=== PATIENT | female | born 1950 | race Caucasian/White ===

== ENCOUNTER 2019-07-25 07:56 | Inpatient (IN) | payer OTHER ==
[~2019-07-25] VITALS: Ht 154.9 cm; Wt 63.5 kg
[~2019-07-25 07:56] MED LIST: NIFE60TE15 PO; TYL3 PO
[2019-07-25 07:57] VITALS: BP 224/158
--- NOTE | 2019-07-25 07:57 | NUR ---
PT MAK ALS AND PLACED IN BED 8.
[2019-07-25] MEDS ORDERED: NACL 0.9% 500 ML IV SCH (07:59)
[2019-07-25] MEDS ORDERED: IPRATROPIUM 0.02% 0.5 MG/2.5 ML NEBU INH ONE ×2 (08:00→08:04)
[2019-07-25] MEDS ORDERED: methylPREDNISolone SS 125 MG/2 ML VIAL IVP ONE (08:00)
[2019-07-25] MEDS ORDERED: MAG SULF 2000 MG/WATER PREMIX 50 ML IV ONE (08:00)
[2019-07-25] MEDS ORDERED: ALBUTEROL 0.083% 2.5 MG/3 ML NEBU INH ONE ×3 (08:00→08:20)
--- NOTE | 2019-07-25 08:01 | NUR ---
RT at bedside for breathing treatment.
--- NOTE | 2019-07-25 08:03 | NUR ---
pt biba for sob pt was given breathing tx albuterol 5mg and atrovent 0.5mg with no relief, abg was drawn on lr without incident and results given to dr. daniels and then pt was placed on dior v60 bipap with settings 12/6 rr 16 fio2 40% alarms on and audible and ambu bag at side of bipap pt given another breathing tx of 10mg of albuterol pt is very agitated b\s are wheezing bilaterally. pt wearing large face mask.
--- NOTE | 2019-07-25 08:05 | NUR ---
73/F BIBA WITH C/O DIFFICULTY BREATHING X 30 MIN. PT STATES THAT SHE IS IN PAIN BUT UNABLE TO IDENTIFY LOCATION. PT PRESENTS WITH A CLEAR SPEECH BUT STATES THAT SHE IS HAVING DIFFICULTY BREATHING. WHEEZES HEARD BILATERALLY, PT IS ON 15L NON REBREATHER. RESPIRATORY TO SEE PT. PT KEEPS TRYING TO TAKE MASK OFF, STAFF REDIRECTED PT. PT DENIES N/V/D; UNABLE TO ACCESS GAIT AT THIS TIME. BP ELEVATES, ER MD AWARE. PATIENT POSITIONED FOR COMFORT; HOB ELEVATED; BEDRAILS UP X2 FOR PT SAFETY; BED DOWN IN LOWEST POSITION. ER MD MADE AWARE OF PT STATUS. HX: UNABLE TO OBTAIN AT THIS TIME RX: UNABLE TO OBTAIN AT THIS TIME
[2019-07-25 08:24] VITALS: BP 224/158
--- NOTE | 2019-07-25 08:24 | NUR ---
LAB AT BEDSIDE.
[2019-07-25 08:41] LABS: ANION GAP 17.3 (8-16); CREATININE 2.1 mg/dL (0.6-1.3); POTASSIUM 4.3 mmol/L (3.5-5.1)
[2019-07-25 08:45] LABS: PROTHROMBIN TIME 9.4 secs (10.8-13.4)
[2019-07-25] MEDS ORDERED: LORazepam 2 MG/ML VIAL IVP ONE (08:45)
--- NOTE | 2019-07-25 08:45 | NUR ---
Pt yelling at nursing staff and industrial ecology technician. Pt yelling to have her bipap removed. I advised patient that she needs to keep it on to help her breathe and pt yelling "I don't need it! If you don't take it off I'll take it off myself!" Pt was advised to not remove her mask and patient became irrate and ripped the mask of her face and threw it on the ground. Pt is very agitated and uncooperative at this time. Dr. Timmons made aware.
--- NOTE | 2019-07-25 08:47 | NUR ---
pt pulled mask off and would not allow to finish breathing tx notified
[2019-07-25 08:48] LABS: ALBUMIN 3.3 g/dL (3.4-5.0); TOTAL BILIRUBIN 0.2 mg/dL (0.0-1.0)
[2019-07-25] MEDS ORDERED: ENALAPRILAT 2.5 MG/2 ML VIAL IVP ONE (08:55)
[2019-07-25 08:56] LABS: APPEARANCE,URINE CLOUDY (CLEAR); BILIRUBIN,URINE NEGATIVE (NEGATIVE); BLOOD, URINE 1+ (NEGATIVE); COLOR,URINE YELLOW (YELLOW); LEUKOCYTE ESTERASE ,URINE 1+ (NEGATIVE); NITRITE, URINE NEGATIVE (NEGATIVE); UGLUCOSE NEGATIVE (NEGATIVE)
[2019-07-25] MEDS ORDERED: ACETAMINOPHEN 325 MG TAB PO ONE (09:15)
[2019-07-25] MEDS ORDERED: NITROGLYCERIN 2% 1 GM PKT TP ONE (09:15)
[2019-07-25] MEDS ORDERED: ASPIRIN 81 MG TAB.CHEW PO ONE (09:15)
[2019-07-25] MEDS ORDERED: NITROGLYCERIN 0.4 MG TAB SL ONE (09:15)
--- NOTE | 2019-07-25 09:16 | NUR ---
PT IS ON 3L NC.
[2019-07-25 09:24] LABS: HEMOGLOBIN 11.8 g/dL (12.0-16.0); MEAN CORPUSCULAR HEMOGLOBIN 27 pg (27-31); MEAN CORPUSCULAR HGB CONC 31 g/dL (33-37); PLATELET COUNT (AUTO) 201 K/uL (140-450); RED BLOOD CELL COUNT(AUTO) 4.41 MIL/uL (4.20-5.40); RED CELL DISTRIBUTION WIDTH 20.2 % (11.6-13.7); WHITE BLOOD COUNT (AUTO) 16.6 K/uL (4.8-10.8)
[2019-07-25 09:26] LABS: EOSINOPHILS % (MANUAL) 2 % (0-4); LYMPHOCYTES % (MANUAL) 11 % (20-46); MONOCYTES % (MANUAL) 2 % (5-12)
[2019-07-25] MEDS ORDERED: LEVOFLOXACIN 500 MG/D5W PREMIX 100 ML IV ONE (09:30)
[2019-07-25 09:52] LABS: WBC,URINE 16-25 (MOD) /HPF (0-5)
[2019-07-25] MEDS ORDERED: ONDANSETRON 4 MG/2 ML VIAL IVP PRN (09:55)
[2019-07-25] MEDS ORDERED: HYDROcodone/APAP 5/325 MG 1 TAB TAB PO PRN (09:55)
[2019-07-25] MEDS ORDERED: ACETAMINOPHEN 325 MG TAB PO PRN (09:55)
[2019-07-25] MEDS ORDERED: MORPHINE SULFATE 4 MG/ML SYR IVP PRN (09:55)
[2019-07-25] MEDS ORDERED: ALBUTEROL 0.083% 2.5 MG/3 ML NEBU IH PRN (09:55)
--- NOTE | 2019-07-25 09:57 | NUR ---
PT IS ON 2L NC, O2 98%
--- NOTE | 2019-07-25 09:59 | NUR ---
EKG AT BEDSIDE.
--- NOTE | 2019-07-25 10:21 | NUR ---
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 PT REPORTS RX OF NIFIDINE, LYRICA.
[2019-07-25] MEDS ORDERED: LYR25 PO (10:23)
--- NOTE | 2019-07-25 10:50 | NUR ---
RECEIVED PATIENT FROM EXECUTIVE DIRECTOR SHELTERED WORKSHOP. PATIENT IS ON 2L NC. CAME FROM HOME. FULL CODE, ALLERGIES TO PENICILLIN. PATIENT IS AAOX4, CURRENTLY RECEIVING LEVAQUIN. ON TELE, NSR. WILL CONTINUE WITH PLAN OF CARE.
--- NOTE | 2019-07-25 10:50 | NUR ---
Patient will be admitted to care of DR SIGALA. Admited to TELE. Will go to room 123B. Belongings list completed. Report to BELL SIBLEY.
[2019-07-25] MEDS ORDERED: ENALAPRILAT 2.5 MG/2 ML VIAL IVP PRN (12:10)
[2019-07-25] MEDS ORDERED: predniSONE 20 MG TAB PO SCH (12:19)
[2019-07-25] MEDS: LORazepam 2 MG/ML VIAL IVP PRN ×3 (12:23→20:21)
--- NOTE | 2019-07-25 12:30 | NUR ---
ADMINISTERED ATIVAN IVP FOR ANXIETY
[2019-07-25] MEDS ORDERED: IPRATROPIUM 0.02% 0.5 MG/2.5 ML NEBU IH SCH (13:00)
[2019-07-25] MEDS ORDERED: ALBUTEROL 0.083% 2.5 MG/3 ML NEBU IH SCH (13:00)
--- NOTE | 2019-07-25 14:39 | NUR ---
ADMINISTERED ATIVAN FOR ANXIETY. PER DR, IV INFUSION IS AT TKO RATE.
[2019-07-25] MEDS ORDERED: hydrALAZINE 20 MG/ML VIAL IVP PRN (14:45)
--- NOTE | 2019-07-25 15:03 | NUR ---
DISCHARGE PLANNING 68 YRS OLD FEMALE ADMITTED FROM HOME WITH A DX OF PNEUMONIA. PT HAS A HX OF HTN AND SMOKER. ADMINISTERED IV LEVAQUIN, O2 2L/NC , BREATHING TREATMENT AND PREDNISONE . DC PLANING NEPHRO CONSULT , ECHO ORDERED AND MOST LIKELY TO GO BACK HOME UPON DISCHARGE AND FOLLOW UP AN OUT PT PULMONARY EVALUATION FOR ASTHMA . FAXED THE ORDER TO [facility] CM TO FOLLOW UP .
--- NOTE | 2019-07-25 15:45 | NUR ---
PATIENT IS SLEEPING IN BED. VISIBLE CHEST RISE AND FALL. HOB IS ELEVATED. NO COMPLAINTS AT THIS TIME.
[2019-07-25 16:00] VITALS: BP 146/78
--- NOTE | 2019-07-25 17:00 | NUR ---
PATIENTS TEMPERATURE AT 99.5. REAPPLIED NEW ICE BAGS TO VARIOUS PARTS OF BODY. FAMILY IS AT BEDSIDE AND BOLUS NS IS STILL INFUSING.
[2019-07-25] MEDS ORDERED: FUROSEMIDE 20 MG/2 ML VIAL IVP SCH (17:36)
[2019-07-25] MEDS ORDERED: PREGABALIN 25 MG CAP PO SCH ×2 (17:36→17:45)
[2019-07-25] MEDS ORDERED: PREGABALIN 50 MG CAP PO SCH (17:46)
--- NOTE | 2019-07-25 18:55 | NUR ---
RECEIVED PATIENT ON 3L NASAL CANNULA, PULSE OX SAT 96%. SCHEDULED BREATHING TREATMENT ADMINISTERED. TOLERATED TX WELL WITHOUT ADVERSE SIDE EFFECT. NO ACUTE RESPIRATORY DISTRESS NOTED. WILL CONTINUE TO MONITOR.
[2019-07-25] MEDS ORDERED: ALBUTEROL SULFATE/IPRATROPIU 3 ML SOL IH SCH (19:00)
--- NOTE | 2019-07-25 19:10 | NUR ---
REPORT RECEIVED FROM AM NURSE AT BEDSIDE. PT IN STABLE CONDITION. AAOX4. INTRODUCED SELF TO PT. BOARD UPDATED. NO COMPLAINTS OF PAIN. NO SOB ON 2L O2 VIA NC. AFEBRILE. IV SITE L BICIP RUNNING NS@TKO PATENT AND INTACT. SKIN WARM, DRY, AND INTACT WITH NO OPEN WOUNDS. BED LOCKED IN LOW POSITION. CALL DOHERTY WITHIN REACH. SAFETY PRECAUTION IN PLACE. ALL NEEDS MET AT THIS TIME.
[2019-07-25 20:00] VITALS: BP 135/76
--- NOTE | 2019-07-25 20:21 | NUR ---
ADALAT GIVEN PO. ATIVAN GIVEN FOR AGITATION. PT TOLERATED WELL.
--- NOTE | 2019-07-25 20:46 | NUR ---
MORPHINE GIVEN FOR 7/10 FOOT PAIN. PT TOLERATED WELL.
[2019-07-25] MEDS ORDERED: NIFEdipine 60 MG TABER PO SCH (21:00)
--- NOTE | 2019-07-25 22:40 | NUR ---
PATIENT SIGNED AMA PAPERWORK. [facility] [employer] CALLED.
--- NOTE | 2019-07-25 23:25 | NUR ---
PATIENT LEFT AMA.
[2019-07-26] MEDS ORDERED: ENOXAPARIN 30 MG/0.3 ML SYR SUBQ SCH (09:00)
[2019-07-26] MEDS ORDERED: ASPIRIN 81 MG TAB.CHEW PO SCH (09:00)
[2019-07-26] MEDS ORDERED: PREGABALIN 25 MG CAP PO SCH (09:00)
[2019-07-26] MEDS ORDERED: predniSONE 20 MG TAB PO SCH (09:00)
[2019-07-26] MEDS ORDERED: ENOXAPARIN 40 MG/0.4 ML SYR SUBQ SCH (09:00)
[2019-07-27] MEDS ORDERED: LEVOFLOXACIN 500 MG/D5W PREMIX 100 ML IV SCH (09:00)
== END 2019-07-25 23:00 | disposition left against medical advice (07) | DRG 871 ==
LOC: MED 07:56 → MTU 09:59
PROVIDERS: ADMIT Family Medicine; ATTEND Family Medicine
DX: A41.9 Sepsis, unspecified organism (principal); J96.90 Respiratory failure, unspecified, unspecified whether with hypoxia or hypercapnia; J18.9 Pneumonia, unspecified organism; J96.01 Acute respiratory failure with hypoxia; I16.1 Hypertensive emergency; N39.0 Urinary tract infection, site not specified; E87.2 Acidosis; N17.9 Acute kidney failure, unspecified; E87.0 Hyperosmolality and hypernatremia; I13.0 Hypertensive heart and chronic kidney disease with heart failure and stage 1 through stage 4 chronic kidney disease, or unspecified chronic kidney disease; Z88.0 Allergy status to penicillin; R65.20 Severe sepsis without septic shock; G62.9 Polyneuropathy, unspecified; F17.210 Nicotine dependence, cigarettes, uncomplicated; Z60.2 Problems related to living alone; N18.9 Chronic kidney disease, unspecified; E78.5 Hyperlipidemia, unspecified; I50.9 Heart failure, unspecified
CPT/HCPCS: 36415; 36600; 71045; 80053; 81001; 82803; 83605; 83880; 84484; 85025; 85610; 85730; 87040; 87081; 87086; 87186; 93005; 94640; 96361; 96374; 96375; 99291; J1940; J1956; J2060; J2270; J2930; J3475; J3490; J7030; J7512; J7613; J7620; J7644; Q0092

== ENCOUNTER 2019-07-31 13:48 | Emergency (ER) | payer OTHER ==
[~2019-07-31] VITALS: Ht 162.6 cm; Wt 60.8 kg
[~2019-07-31 13:48] MED LIST changes: +LYR25 PO; -TYL3 PO
--- NOTE | 2019-07-31 13:55 | NUR ---
PT BIBA C/O BIALAT FOOT PAIN X 5 DAYS. PT SATTES SHE HAS NEUROPATHY AND HAS A BURNING TINGLING SENSATION ON BILAT LEGS. PT SATTES SHE RAN OUT OF [place] 5 DAYS AGO. VSS. BS 99. PMH: HTN, AND NEUROPATHY. ALLEGIES: PENCILLIN.
[2019-07-31 14:22] VITALS: BP 189/117
[2019-07-31] MEDS ORDERED: KETOROLAC 30 MG/ML VIAL IM ONE (14:30)
[2019-07-31] MEDS ORDERED: HYDROcodone/APAP 5/325 MG 1 TAB TAB PO ONE (14:30)
[2019-07-31 15:26] VITALS: BP 166/112
--- NOTE | 2019-07-31 15:27 | NUR ---
Patient discharged with v/s stable. Written and verbal after care instructions given and explained. Patient alert, oriented and verbalized understanding of instructions. Wheel Chair Assisted with steady gait. All questions addressed prior to discharge. ID band removed. Patient advised to follow up with PMD. Rx of NORCO AND LYRICA given. Patient educated on indication of medication including possible reaction and side effects. Opportunity to ask questions provided and answered.
== END 2019-07-31 15:19 | disposition home or self-care (01) ==
LOC: MED 13:48
DX: G57.93 Unspecified mononeuropathy of bilateral lower limbs (principal); I10 Essential (primary) hypertension; Z76.0 Encounter for issue of repeat prescription; Z88.0 Allergy status to penicillin; Z90.49 Acquired absence of other specified parts of digestive tract; Z98.890 Other specified postprocedural states; Z79.899 Other long term (current) drug therapy
CPT/HCPCS: 82948; 96372; 99283; J1885

== ENCOUNTER 2019-08-31 13:42 | Emergency (ER) | payer OTHER ==
[~2019-08-31] VITALS: Ht 165.1 cm; Wt 60.3 kg
[2019-08-31 13:49] VITALS: BP 107/62
--- NOTE | 2019-08-31 14:10 | NUR ---
BIBA WITH REPORTS OF SOB WORSE TODAY. STATES SHE WAS DX WITH PNA AND HAS NOT BEEN TAKING HER ABX. PATIENT STATES COUGH & CHEST PAIN OF 6/10 AT THIS TIME. PATIENT POSITIONED FOR COMFORT; HOB ELEVATED; BEDRAILS UP X2; BED DOWN. ER MD MADE AWARE OF PT STATUS.
[2019-08-31] MEDS ORDERED: ALBUTEROL SULFATE/IPRATROPIU 3 ML SOL IH ONE (14:35)
[2019-08-31] MEDS ORDERED: DILTIAZEM 25 MG/5 ML VIAL IVP ONE (14:35)
--- NOTE | 2019-08-31 14:44 | NUR ---
[facility] THERAPY AND RESPIRATORY DRUG GIVEN ORDERED ENCOURAGED PATIENT FOR INTERMITTENT DEEP BREATHING AND COUGH
[2019-08-31] MEDS: NACL 0.9% 500 ML IV SCH ×2 (14:50→15:05)
[2019-08-31] MEDS ORDERED: PREGABALIN 50 MG CAP PO ONE (15:15)
--- NOTE | 2019-08-31 15:18 | NUR ---
CALLED PHARMACY FOR RAMSES.
[2019-08-31 15:24] LABS: ANION GAP 14.5 (8-16); CARBON DIOXIDE 28.9 mmol/L (21-32); CREATININE 2.2 mg/dL (0.6-1.3); POTASSIUM 3.4 mmol/L (3.5-5.1)
[2019-08-31 15:30] LABS: APPEARANCE,URINE CLEAR (CLEAR); BILIRUBIN,URINE NEGATIVE (NEGATIVE); BLOOD, URINE NEGATIVE (NEGATIVE); COLOR,URINE YELLOW (YELLOW); LEUKOCYTE ESTERASE ,URINE NEGATIVE (NEGATIVE); NITRITE, URINE NEGATIVE (NEGATIVE); UGLUCOSE NEGATIVE (NEGATIVE)
[2019-08-31 15:31] LABS: ALBUMIN 2.8 g/dL (3.4-5.0); TOTAL BILIRUBIN 0.2 mg/dL (0.0-1.0)
[2019-08-31 15:51] LABS: PROTHROMBIN TIME 10.1 secs (10.8-13.4)
[2019-08-31] MEDS ORDERED: AZITHROMYCIN 1,000 MG in DEXTROSE 5% 500 ML IV ONE (16:35)
[2019-08-31 16:37] LABS: BASOPHILS % (AUTO) 0.5 % (0.0-2.0); EOSINOPHILS # (AUTO) 0.3 K/uL (0-0.4); EOSINOPHILS % (AUTO) 4.5 % (0.0-4.0); HEMATOCRIT 35.9 % (36-48); HEMOGLOBIN 11.4 g/dL (12.0-16.0); LYMPHOCYTES # (AUTO) 0.7 K/uL (2.5-16.5); LYMPHOCYTES % (AUTO) 10.5 % (20.5-51.1); MEAN CORPUSCULAR HEMOGLOBIN 27 pg (27-31); MEAN CORPUSCULAR HGB CONC 32 g/dL (33-37); MONOCYTES # (AUTO) 0.5 K/uL (0.8-1.0); MONOCYTES % (AUTO) 7.5 % (1.7-9.3); NEUTROPHILS # (AUTO) 5.4 K/uL (1.8-7.7); PLATELET COUNT (AUTO) 82 K/uL (140-450); RED BLOOD CELL COUNT(AUTO) 4.22 MIL/uL (4.20-5.40); RED CELL DISTRIBUTION WIDTH 16.5 % (11.6-13.7)
[2019-08-31] MEDS ORDERED: AZITHROMYCIN 500 MG INJ VIAL IV ONE (16:59)
[2019-08-31 17:46] VITALS: BP 120/63
--- NOTE | 2019-08-31 17:46 | NUR ---
Patient discharged with v/s stable. Written and verbal after care instructions given and explained. Patient alert, oriented and verbalized understanding of instructions. Wheel Chair Assisted with to car. All questions addressed prior to discharge. ID band removed. Patient advised to follow up with PMD. Rx of LYRICA given. Patient educated on indication of medication including possible reaction and side effects. Opportunity to ask questions provided and answered.
== END 2019-08-31 17:46 | disposition home or self-care (01) ==
LOC: MED 13:42
DX: J18.9 Pneumonia, unspecified organism (principal); G62.9 Polyneuropathy, unspecified; J44.9 Chronic obstructive pulmonary disease, unspecified; I10 Essential (primary) hypertension; F17.200 Nicotine dependence, unspecified, uncomplicated; Z88.0 Allergy status to penicillin; Z79.899 Other long term (current) drug therapy
CPT/HCPCS: 36415; 36600; 71045; 80053; 81003; 82803; 83605; 83880; 84484; 85025; 85610; 85730; 87040; 87086; 93005; 94640; 96365; 96375; 99284; J0456; J3490; J7030; J7060; J7620; Q0092

== ENCOUNTER 2019-09-03 10:08 | Inpatient (IN) | payer OTHER ==
[~2019-09-03] VITALS: Ht 165.1 cm; Wt 52.2 kg
--- NOTE | 2019-09-03 10:08 | NUR ---
Patient BIBA BLS, transferred to bed 2. RN evaluating patient at bedside.
[2019-09-03 10:10] VITALS: BP 199/130
[2019-09-03] MEDS ORDERED: ALBUTEROL SULFATE/IPRATROPIU 3 ML SOL IH ONE (11:05)
[2019-09-03] MEDS ORDERED: FAMOTIDINE 20 MG/2 ML VIAL IVP ONE (11:05)
[2019-09-03] MEDS ORDERED: CLINDAMYCIN 900 MG in DEXTROSE 5% 100 ML IV ONE (11:05)
[2019-09-03] MEDS ORDERED: methylPREDNISolone SS 125 MG/2 ML VIAL IVP ONE (11:05)
[2019-09-03] MEDS ORDERED: GENTAMICIN 80 MG in DEXTROSE 5% 100 ML IV ONE (11:05)
[2019-09-03] MEDS ORDERED: diphenhydrAMINE 50 MG/ML VIAL IVP ONE (11:05)
[2019-09-03] MEDS ORDERED: THIAMINE 200 MG/2 ML VIAL IM ONE (11:05)
[2019-09-03] MEDS ORDERED: HYDROcodone/APAP 5/325 MG 1 TAB TAB PO ONE (11:35)
[2019-09-03] MEDS: NACL 0.9% 1,000 ML IV SCH ×2 (11:51→13:14)
[2019-09-03 12:23] LABS: PROTHROMBIN TIME 9.7 secs (10.8-13.4)
[2019-09-03 12:24] LABS: BASOPHILS % (AUTO) 0.8 % (0.0-2.0); EOSINOPHILS # (AUTO) 0.2 K/uL (0-0.4); EOSINOPHILS % (AUTO) 3.7 % (0.0-4.0); HEMATOCRIT 38.9 % (36-48); HEMOGLOBIN 12.2 g/dL (12.0-16.0); LYMPHOCYTES # (AUTO) 0.7 K/uL (2.5-16.5); MEAN CORPUSCULAR HEMOGLOBIN 27 pg (27-31); MEAN CORPUSCULAR HGB CONC 32 g/dL (33-37); MEAN CORPUSCULAR VOLUME 84.7 fL (80-94); MONOCYTES # (AUTO) 0.4 K/uL (0.8-1.0); MONOCYTES % (AUTO) 6.7 % (1.7-9.3); NEUTROPHILS # (AUTO) 4.4 K/uL (1.8-7.7); PLATELET COUNT (AUTO) 78 K/uL (140-450); RED BLOOD CELL COUNT(AUTO) 4.59 MIL/uL (4.20-5.40); RED CELL DISTRIBUTION WIDTH 16.5 % (11.6-13.7); WHITE BLOOD COUNT (AUTO) 5.8 K/uL (4.8-10.8)
[2019-09-03 12:37] LABS: ANION GAP 14.1 (8-16); CARBON DIOXIDE 28.6 mmol/L (21-32); NEUTROPHILS % (AUTO) 76.8 % (42.2-75.2); POTASSIUM 3.7 mmol/L (3.5-5.1)
[2019-09-03 12:39] LABS: ALBUMIN 3.2 g/dL (3.4-5.0); TOTAL BILIRUBIN 0.4 mg/dL (0.0-1.0)
--- NOTE | 2019-09-03 13:16 | NUR ---
TO CONTINUE PLAN OF CARE. ASSESMENT PER FLOWSHEETR. PENDING ADMIT.
--- NOTE | 2019-09-03 13:29 | NUR ---
PT RESTING IN BED
--- NOTE | 2019-09-03 13:57 | NUR ---
PHARMACY CALLED FOR MED DELIVERY. MED NOT AVAIL IN THE [facility]
[2019-09-03] MEDS ORDERED: ALBUTEROL SULFATE/IPRATROPIU 3 ML SOL IH PRN (14:10)
[2019-09-03] MEDS ORDERED: cloNIDine 0.1 MG TAB PO ONE (14:10)
--- NOTE | 2019-09-03 14:13 | NUR ---
Dr. Nance is evaluating the patient at bedside.
[2019-09-03 14:25] LABS: APPEARANCE,URINE CLEAR (CLEAR); BILIRUBIN,URINE NEGATIVE (NEGATIVE); BLOOD, URINE TRACE-I (NEGATIVE); COLOR,URINE YELLOW (YELLOW); LEUKOCYTE ESTERASE ,URINE NEGATIVE (NEGATIVE); NITRITE, URINE NEGATIVE (NEGATIVE); UGLUCOSE NEGATIVE (NEGATIVE)
[2019-09-03 14:37] LABS: RBC,URINE 0 /HPF (0-5); WBC,URINE 0-5 /HPF (0-5)
[2019-09-03 14:38] LABS: HYALINE CASTS, URINE 0-10 /LPF (None Seen)
[2019-09-03] MEDS ORDERED: BUDESONIDE 0.5 MG/2 ML NEBU INH SCH (15:10)
[2019-09-03 15:30] VITALS: BP 156/83
--- NOTE | 2019-09-03 15:30 | NUR ---
RECEIVED PT FROM ER NURSE, VIA LINNEA, PT IS AWAKE AND ALERT, AMBULATED TO THE BED WITH ASSIST, IV LINE ON THE LEFT FA G. 290 WITH CLINDAMYCIN INFUSING, AOX4 ON 2 L MO2 VIA SC, PT DENIES PAIN ADN NO SOB NOTED, NO SIGN OF DISTRESS NOTED WELL, WILL MONITOR PT.
[2019-09-03] MEDS: LEVOFLOXACIN 250 MG/D5 PREMIX 50 ML IV SCH (16:07)
[2019-09-03] MEDS: FUROSEMIDE 40 MG/4 ML VIAL IVP SCH ×2 (16:08→21:02)
--- NOTE | 2019-09-03 17:30 | NUR ---
PAGED DR. ORTIZ FOR THE PT'S ANXIETY MEDS ORDER, AWAITING CALL BACK.
--- NOTE | 2019-09-03 17:43 | NUR ---
PT WAS GIVEN SOLUMEDROL VIA IV PUSH NOW, WILL MONITOR PT.
[2019-09-03] MEDS: methylPREDNISolone SS 125 MG/2 ML VIAL IVP SCH ×2 (17:44→23:10)
--- NOTE | 2019-09-03 18:30 | NUR ---
PT IS CALM NOW AND WAS TAUGHT TO DO RELAXATION TECHNIQUE TO LESSEN ANXIETY WHILE WAITING FOR THE MD TO CALL BACK FOR AN ANXIETY MEDICATION ORDER.
--- NOTE | 2019-09-03 18:54 | NUR ---
PAGED DR. ORTIZ AGAIN AND DR. FONTAINE IS THE ONE GUEST RELATIONS OFFICER, TO GET AN ORDER FOR AN ANXIETY MEDICATION, AWAITING MD CALL BACK
--- NOTE | 2019-09-03 19:40 | NUR ---
ENDORSED PT TO TARGET DEVELOPER NURSE FOR CONTINUITY OF CARE.
--- NOTE | 2019-09-03 19:45 | NUR ---
RECEIVED BEDSIDE REPORT FROM AM SHIFT RN FOR PT'S CONTINUITY OF CARE. PT IS LYING DOWN ASLEEP WITH NO SIGNS OF DISTRESS. PT IS ON SPREADER OPERATOR AUTOMATIC, ON 2L NC, HAS LEFT FA 20G SALINE LOCK. SAFETY MEASURES IN PLACE, AND CALL LIGHT IS WITHIN REACH. WILL MONITOR PT THROUGHOUT SHIFT.
[2019-09-03 20:00] VITALS: BP 155/82
--- NOTE | 2019-09-03 20:15 | NUR ---
RECEIVED CALL FROM DR. FONTAINE, NEW ORDERS: XANAX 0.5 MG Q12H PRN, US KIDNEY IN A.M., AND NEPHRO CONSULT WITH HIM IN A.M. WILL CARRY OUT ORDERS.
[2019-09-03] MEDS: ALBUTEROL SULFATE/IPRATROPIU 3 ML SOL IH SCH (20:25)
--- NOTE | 2019-09-03 20:25 | NUR ---
RECEIVED PATIENT ON ROOM AIR. PATIENT AGITATED AND REFUSED BREATHING TREATMENT AT THIS TIME. NO ACUTE RESPIRATORY DISTRESS NOTED. WILL CONTINUE TO MONITOR.
[2019-09-03] MEDS ORDERED: ALPRAZolam 0.5 MG TAB PO PRN (20:40)
[2019-09-03] MEDS ORDERED: ALPRAZolam 0.25 MG TAB ONE (20:56)
[2019-09-03] MEDS: NIFEdipine 60 MG TABER PO SCH (21:01)
[2019-09-03] MEDS: FAMOTIDINE 20 MG/2 ML VIAL IVP SCH (21:02)
--- NOTE | 2019-09-03 21:02 | NUR ---
ADMINISTERED SCHEDULED MEDICATION ORDERED. PT REQUESTED AND PROVIDED SOME APPLE JUICE. PT TOLERATED THEM WELL. PT C/O ANXIETY, WILL PAGE WARDROBE SPECIALTY WORKER MD FOR ORDERS FOR ANTI ANXIETY MEDICATION. PT INFORMED, SLIGHTLY AGITATED, PT TEACHING GIVEN REGARDING RELAXATION TECHNIQUES. PT VERBALIZED UNDERSTANDING. Addendum: 09/04/19 at 0656 by Tran Manjarrez RN CORRECTED INFO: PT GIVEN ANTI ANXIETY MEDICATION AT 1. MD CALL BACK AT 2014
--- NOTE | 2019-09-03 21:10 | NUR ---
PT C/O PAIN, PAGED DR. FONTAINE AGAIN AND CALLED WITH NEW ORDER: ACETAMINOPHEN 650 MG PRN Q6H, WILL CARRY OUT ORDER.
[2019-09-03] MEDS ORDERED: ACETAMINOPHEN 325 MG TAB PO PRN (21:25)
--- NOTE | 2019-09-03 22:00 | NUR ---
CAME INSIDE PT'S ROOM TO ADMINISTER PRN PO PAIN MEDICATION. PT ASLEEP WITH NO SIGNS OF DISTRESS. WILL CONTINUE TO MONITOR PT.
[2019-09-03] MEDS ORDERED: ALPRAZolam 0.25 MG TAB PO PRN (22:50)
--- NOTE | 2019-09-03 23:23 | NUR ---
ADMINISTERED SCHEDULED IVP MEDICATION ORDERED. PT C/O PAIN ON LEFT LEG, ADMINISTERED PRN PO PAIN MEDICATION ORDERED. PT TOLERATED THEM WELL. WILL CONTINUE TO MONITOR PT.
[2019-09-04] MEDS: ALBUTEROL SULFATE/IPRATROPIU 3 ML SOL IH SCH ×3 (01:17→13:39)
--- NOTE | 2019-09-04 01:23 | NUR ---
SCHEDULED BREATHING TREATMENT ADMINISTERED. 1 MIN INTO TREATMENT PATIENT TOOK OFF MASK AND SAID SHE IS "BREATHING FINE". PATIENT REFUSING TO COMPLETE BREATHING TREATMENT. TREATMENT TERMINATED AT THIS TIME. NO ACUTE RESPIRATORY DISTRESS NOTED. WILL CONTINUE TO MONITOR.
--- NOTE | 2019-09-04 02:40 | NUR ---
MADE ROUNDS. PT LYING DOWN ASLEEP WITH NO SIGNS OF DISTRESS. WILL CONTINUE TO MONITOR PT.
[2019-09-04 04:00] VITALS: BP 140/95
--- NOTE | 2019-09-04 04:00 | NUR ---
VS CHECKED AND CHARTED. PT LYING DOWN C/O COLD TEMP, MADE PT COMFORTABLE, DENIES ANY PAIN AT THIS TIME. WILL CONTINUE TO MONITOR PT.
[2019-09-04] MEDS: methylPREDNISolone SS 125 MG/2 ML VIAL IVP SCH ×3 (05:45→18:41)
--- NOTE | 2019-09-04 05:45 | NUR ---
PT REFUSED SCHEDULED IVP MEDICATION. STATED, "PLEASE LEAVE ME ALONE RIGHT NOW, I DON'T WANT ANY MEDICATIONS". PT TEACHING GIVEN REGARDING IMPORTANCE OF MEDICATION. PT STILL REFUSED. WILL CONTINUE TO MONITOR PT.
--- NOTE | 2019-09-04 06:45 | NUR ---
PT LYING DOWN ASLEEP WITH NO SIGNS OF DISTRESS. PT CONTINUES TO BE OFF OXYGEN, SATURATION IS AT 94%. WILL ENDORSE TO AM SHIFT RN FOR PT'S CONTINUITY OF CARE.
--- NOTE | 2019-09-04 07:15 | NUR ---
WAS GIVEN BEDSIDE REPORT FROM INVESTIGATOR WELFARE NURSE. PATIENT WAS RESTING IN BED. PATIENT IS AAOX4. BREATHING IS EVEN AND UNLABORED ON NASAL CANNULA 2L O2. NO SIGNS OF DISTRESS NOTED. IV ON LEFT FOREARM 20G SALINE LOCKED, CLEAN AND INTACT. SKIN IS WARM TO TOUCH,INTACT, AND APPROPRIATE COLOR FOR ETHNICITY. PATIENT IS CONTINENT AND ABLE TO AMBULATE WITH ASSIST. SAFETY MEASURES ASSESSED, BED IS IN LOW POSITION, CALL LIGHT IS WITHIN REACH. PT EDUCATED TO USE CALL LIGHT FOR ASSISTANCE AND VERBALIZED UNDERSTANDING.
[2019-09-04 07:23] LABS: BASOPHILS % (AUTO) 0.1 % (0.0-2.0); HEMOGLOBIN 10.9 g/dL (12.0-16.0); LYMPHOCYTES # (AUTO) 0.3 K/uL (2.5-16.5); MEAN CORPUSCULAR HEMOGLOBIN 27 pg (27-31); MEAN CORPUSCULAR HGB CONC 32 g/dL (33-37); MEAN CORPUSCULAR VOLUME 83.7 fL (80-94); MONOCYTES # (AUTO) 0.1 K/uL (0.8-1.0); MONOCYTES % (AUTO) 1.3 % (1.7-9.3); NEUTROPHILS # (AUTO) 6.3 K/uL (1.8-7.7); NEUTROPHILS % (AUTO) 93.6 % (42.2-75.2); PLATELET COUNT (AUTO) 82 K/uL (140-450); RED BLOOD CELL COUNT(AUTO) 4.07 MIL/uL (4.20-5.40); RED CELL DISTRIBUTION WIDTH 15.9 % (11.6-13.7); WHITE BLOOD COUNT (AUTO) 6.7 K/uL (4.8-10.8)
--- NOTE | 2019-09-04 07:34 | NUR ---
CALLED RADIOLOGY DEPT TO FOLLOW UP WITH JOHN FAY AND SPOKE WITH SANTO. INFORMED THAT PT HAS BEEN ON NPO SINCE MIDNIGHT AND ABX US IS NOT YET TAKEN. PER SANTO, US HARRIS IS IN ICU AND WILL BE IN MST FOR PT NEXT.
[2019-09-04 07:37] LABS: ANION GAP 15.5 (8-16); CARBON DIOXIDE 25.1 mmol/L (21-32); CREATININE 2.4 mg/dL (0.6-1.3); POTASSIUM 3.6 mmol/L (3.5-5.1)
[2019-09-04 07:48] LABS: MAGNESIUM 2.2 mg/dL (1.8-2.4); PHOSPHORUS 4.5 mg/dL (2.5-4.9)
--- NOTE | 2019-09-04 07:57 | NUR ---
PT ASKS WHEN SHE IS ABLE TO EAT AND "I REALLY WANT A CUP OF COFFEE, I HAVE BEEN EATING NOTHING SINCE LAST NIGHT." EXPLAINED TO PT THAT SHE HAS TO BE NPO FOR THE ABX US AND ATMOSPHERIC SCIENTIST IS ON HER WAY. CALLED RUSTY FRANKLIN AND SPOKE TO WILL, PER WILL THE TECH IS ON HER WAY AT THIS TIME.
[2019-09-04 08:00] VITALS: BP 132/74
--- NOTE | 2019-09-04 08:05 | NUR ---
US FABRIC SEPARATOR OPERATOR IS BY BEDSIDE. NO SIGNS OF DISTRESS NOTED. TELE MONITOR ATTACHED. SAFETY MEASURES IN PLACE.
--- NOTE | 2019-09-04 08:32 | NUR ---
PATIENT HAS BEEN SCREENED AND CATEGORIZED MODERATE NUTRITION RISK. PATIENT WILL BE SEEN WITHIN 3-5 DAYS OF ADMISSION. 09/06/19 09/08/[address]
[2019-09-04] MEDS ORDERED: PREGABALIN 25 MG CAP PO SCH (09:00)
[2019-09-04] MEDS: NIFEdipine 60 MG TABER PO SCH (09:37)
[2019-09-04] MEDS: FAMOTIDINE 20 MG/2 ML VIAL IVP SCH (09:41)
[2019-09-04] MEDS: FUROSEMIDE 40 MG/4 ML VIAL IVP SCH (09:49)
--- NOTE | 2019-09-04 09:49 | NUR ---
BP MEDICATION ADMINISTERED ORDERED. PT BP WAS CHECKED PRIOR TO ADMINISTRATION AND IT WAS 134/76. MEDICATIONS ADMINISTERED ORDERED PER MD. MEDICATION EDUCATION WAS PROVIDED AND PT VERBALIZED UNDERSTANDING. PT IS AWAKE RESTING IN BED. PT DENIES PAIN AT THIS TIME, NO SIGNS OF DISTRESS NOTED. PT BREATHING IS EVEN AND UNLABORED ON 2L O2 NC. TELE MONITOR IS ATTACHED. SAFETY MEASURES ASSESSED AND BED IS IN LOW POSITION AND CALL LIGHT WITHIN REACH. REINFORCED THE USE OF CALL LIGHT FOR ASSISTANCE AND PT AGREED.
--- NOTE | 2019-09-04 11:16 | NUR ---
PT AWAKE AND WATCHING TV ON BED AT THIS TIME. RESPIRATION EVEN AND UNLABORED. NO SIGNS OF DISTRESS NOTED. TELE MONITOR ATTACHED. SAFETY MEASURES IN PLACE. BED IN LOW POSITION AND CALL LIGHT WITHIN REACH.
--- NOTE | 2019-09-04 11:38 | NUR ---
Print Controller Note: Basic Screen: Yes High Risk DC Screen [place]: JAGRUTI HENRY Home Tel: N/A - ON PATIENT'S CELL PHONE Relationship: SISTER Cell: ADDRESS: [address] [place] [id number] Pre-Admission Living Arrangements: Lives with Other Prior ADL Needs Assistance Current Home Health Name/Tel: N/A Current DME/02 Name/Tel: [facility] Current Hospice Name/Tel: N/A Current Dialysis Name/Tel: N/A Healthcare Decision Maker: Patient Advance Directive No - REFUSED Information Taught: Community Resources Person Taught: Patient Teaching Tools: Community Resources Verbal Factors Affecting Learning: None Participation Level: Active Evaluation: Verbalizes Understanding Needs Additional Education: No Discipline: Case Mgt/Social Svcs Tentative Discharge Plan/Destination: No Needs Identified Will require assistance post discharge: No Referred to Residential Solar Consultant: No Tentative Discharge Plan Summary: Patient is a 68-year-old female admitted for COPD exacerbation and pneumonia. Patient has PMHX of COPD and hypertension. Patient was admitted from home. SW met with patient at bedside to verify demographics. Patient stated she would like to add sister Jagruti Henry to emergency contact, but she has her phone number on her cell phone. Patient stated she would provide nurse her phone number when she is able to. Patient reports that she needs assistance with bathing and shopping for groceries, which she gets from her roommate. Patient reports no substance abuse history and no mental health history. Patient stated that she is looking into assisted living facilities to move into after her discharge. SW provided assisted living resources to patient. No further needs identified. Signature: FRANCISCA Koenig Date: Sep 04, 2019 Time: 11:36
[2019-09-04 12:00] VITALS: BP 110/65
--- NOTE | 2019-09-04 12:27 | NUR ---
DR FONTAINE IS ASSESSING AND TALKING TO PT AT BEDSIDE. NO SIGNS OF DISTRESS NOTED. TELE MONITOR ATTACHED. SAFETY MEASURES IN PLACE.
--- NOTE | 2019-09-04 12:41 | NUR ---
PT MEDICATION ADMINISTERED ORDERED PER MD. MEDICATION EDUCATION WAS GIVEN AND PT VERBALIZED UNDERSTANDING. PT IS RESTING IN BED. BREATHING IS EVEN AND UNLABORED, ON 2L O2 NC. PT DENIES PAIN AT THIS TIME, THERE ARE NO SIGNS OF DISTRESS. SAFETY MEASURES CHECKED AND BED IS IN LOW POSITION AND CALL LIGHT WITHIN REACH. PT EDUCATED TO USE THE CALL LIGHT FOR ASSISTANCE AND PT AGREED. TELE MONITOR IS CONNECTED
--- NOTE | 2019-09-04 13:36 | NUR ---
PT AWAKE AND RESTING ON BED AT THIS TIME. RESPIRATION EVEN AND UNLABORED ON 2LPM VIA NC. DENIED PAIN, SOB, NAUSEA AND VOMITING. EXPLAINED TO PT THAT SPUTUM SAMPLE NEEDED, PT SAID "OK, I DON'T HAVE ANY NOW." NO SIGNS OF DISTRESS NOTED. TELE MONITOR ATTACHED. BED IN LOW POSITION AND CALL LIGHT WITHIN REACH. FALL RISK PROTOCOL IN PLACE AND BED ALARM ACTIVATED. INSTRUCTED PT TO USE THE CALL LIGHT FOR ANY ASSISTANCE AND PT WAS AWARE.
--- NOTE | 2019-09-04 14:33 | NUR ---
KIMBERLY DAO IS DOING ECHOCARDIOGRAM BY BEDSIDE. NO SIGNS OF DISTRESS NOTED. TELE MONITOR ATTACHED. SAFETY MEASURES IN PLACE. BED IN LOW POSITION AND CALL LIGHT WITHIN REACH.
--- NOTE | 2019-09-04 15:18 | NUR ---
DR ORTIZ IS ASSESSING AND TALKING TO PT AT BEDSIDE. NO SIGNS OF DISTRESS NOTED. TELE MONITOR ATTACHED.SAFETY MEASURES IN PLACE.
[2019-09-04] MEDS ORDERED: DEXT50SO52 IV (15:23)
[2019-09-04] MEDS ORDERED: FAMO-90 PO (15:23)
[2019-09-04] MEDS ORDERED: FURO20TA8 PO (15:23)
[2019-09-04] MEDS ORDERED: ALBU3SOL83 IH (15:23)
[2019-09-04] MEDS ORDERED: ALPR0.2518 PO (15:23)
[2019-09-04] MEDS ORDERED: PRED10TA5 PO (15:23)
--- NOTE | 2019-09-04 15:35 | NUR ---
PCP Appointment: SW attempted to make appointment for patient's hospitalization follow up with Dr. Nicolas Kilne. YAMIL spoke with Eleonora from Dr. Nicolas Kline [phone]. Eleonora stated that she is unable to make an appointment for patient because patient has not appeared to her last 4 appointments. SW will follow up as needed.
[2019-09-04 16:00] VITALS: BP 113/59
--- NOTE | 2019-09-04 16:15 | NUR ---
PT IS ANXIOUS AND GOT OUT OF BED. ATTENDED TO BED ALARM, PT WAS YELLING "GIVE ME A WHEELCHAIR AND A BLANKET. I WANNA GET OUT OF HERE. I DON'T WANT TO TALK TO THAT DR." EXPLAINED TO PT, PER REQUESTED, DR ORTIZ HAS PUT IN AN REQUESTED FOR PT EVALUATION AND BREATHING TREATMENT TO SEE IF PT IS QUALIFY FOR SNF. PT IS YELLING WITH PROFANITY. TRIED TO EXPLAIN TO PT AND PT SAID "OK, I WILL SEE.". ABLE TO CONVINCED PT TO GO BACK ON BED AND ACTIVATED BED ALARM. SAFETY MEASURES IN PLACE. BED IN LOW POSITION AND CALL LIGHT WITHIN REACH. INSTRUCTED PT TO USE THE CALL LIGHT FOR ANY ASSISTANCE AND PT WAS AWARE.
--- NOTE | 2019-09-04 16:38 | NUR ---
DC PLANNING CALLED [facility] SPOKE WITH JAGRUTI SHELDON AT [phone] EXT [phone] . PT CAN GO HOME AND WILL ARRANGE HOME HEALTH FOR PT TOMORROW AND WILL DELIVERY THE WHEELCHAIR TOMORROW. PT CAN ONLY HAVE ONE DME SHE ALREADY HAVE [facility] ISSUED IN APRIL 18, 2019
[2019-09-04] MEDS: LEVOFLOXACIN 250 MG/D5 PREMIX 50 ML IV SCH (16:39)
--- NOTE | 2019-09-04 16:39 | NUR ---
PT COMPLAINED THAT SHE FEEL ANXIOUS AND RESTLESS, MEDICATED WITH PRN XANAX PER MD ORDER, MED ED PROVIDED TO PT AND PT TOLERATED WELL. ADMINISTERED SCHEDULED LEVOFLOXACIN PER MD ORDER, MED ED PROVIDED AND PT SAID OK. PT IS RESTING ON BED AT THIS TIME. VITAL SIGNS TAKEN. NO SIGNS OF DISTRESS NOTED. TELE MONITOR ATTACHED. SAFETY MEASURES IN PLACE.
--- NOTE | 2019-09-04 17:26 | NUR ---
PT WAS AWARE THAT SHE IS DC HOME TODAY. PER PATIENT, "MY FRIEND WILL BE ABLE TO PICK ME UP AFTER DINNER." EXPLAINED TO PT THAT DC PAPER WORKS WILL BE PREPARED. PT IS RESTING ON BED AT THIS TIME. NO SIGNS OF DISTRESS NOTED. TELE MONITOR ATTACHED. SAFETY MEASURES IN PLACE.
--- NOTE | 2019-09-04 18:34 | NUR ---
ATTEMPTED TO GO OVER DISCHARGE INSTRUCTION WITH PT WITH PRINTED OUT DISCHARGE INSTRUCTION. PT WAS MAD AND SAID "I DON'T WANT TO SIGN ANYTHING ANYMORE." ASKED PT NICELY WHEN IS HER FRIEND IS GOING TO ARRIVE AND CONCERT PROMOTER WILL CHANGE HER, PT WAS YELLING, "WHY DO YOU KEEP ASKING ME ABOUT THAT? SO RUDE! I SAID I WILL CALL AND I DON'T KNOW." APOLOGIZED TO PT AND EXPLAINED THAT THE REASON TO ASK IS FOR PREPARATION OF HER DISCHARGE. WILL ENDORSE DC TO APPLICATION SPECIALIST NURSE. PT IS AWAKE ON BED AT THIS TIME. TELE MONITOR ATTACHED. SAFETY MEASURES IN PLACE.
--- NOTE | 2019-09-04 18:41 | NUR ---
PT WAS GIVEN MEDICATION PER MD ORDER. MED EDUCATION GIVEN TO PT AND SHE VERBALIZED UNDERSTANDING. BREATHING IS EVEN AND UNLABORED. NO COMPLAINTS OF PAIN, NO SIGNS OF DISTRESS AT THIS TIME. TELE MONITOR IS CONNECTED. SAFETY MEASURES ASSESSED, BED IS IN LOW POSITION AND CALL LIGHT WITHIN REACH.
--- NOTE | 2019-09-04 19:30 | NUR ---
ENDORSED PT AT BEDSIDE TO REPAIR SERVICE CLERK NURSE FOR DC, PT IS AWAKE AND AWAITING FOR HER ARRIVE FOR DC. NO SIGNS OF DISTRESS NOTED. PT REFUSED TO PUT ON TELE MONITOR. PT IS IN STABLE CONDITION.
--- NOTE | 2019-09-04 19:30 | NUR ---
PLAN OF CARE ENDORSED AT BEDSIDE FORM ANNITA SIBLEY DAYSHIFT FOR CONTINUITY OF CARE, PT IN STABLE CONDITION.
--- NOTE | 2019-09-04 20:10 | NUR ---
PT HAD CALLED HER HYDROELECTRIC PLANT TECHNICIAN, GATHERED HER BELONGINGS AND ASKED THE SALVAGE MACHINE OPERATOR TO ESCORT HER TO [facility] VIA W/C. PT DECLINED VITALS SIGNS AND WOULD NOT SIGN ALL OF THE DISCHARGE PAPERWORK. PT LEFT AOX4 WITH ALL BELONGINGS IN HAND.
[2019-09-05] MEDS ORDERED: FUROSEMIDE 20 MG TAB PO SCH (09:00)
== END 2019-09-04 20:00 | disposition home or self-care (01) | DRG 291 ==
LOC: MED 10:08 → MTU 14:53
PROVIDERS: ADMIT Internal Medicine Pulmonary Disease; ATTEND Internal Medicine Pulmonary Disease
DX: I13.0 Hypertensive heart and chronic kidney disease with heart failure and stage 1 through stage 4 chronic kidney disease, or unspecified chronic kidney disease (principal); I50.33 Acute on chronic diastolic (congestive) heart failure; J96.01 Acute respiratory failure with hypoxia; J18.0 Bronchopneumonia, unspecified organism; J44.0 Chronic obstructive pulmonary disease with (acute) lower respiratory infection; J44.1 Chronic obstructive pulmonary disease with (acute) exacerbation; D69.6 Thrombocytopenia, unspecified; F17.210 Nicotine dependence, cigarettes, uncomplicated; K74.60 Unspecified cirrhosis of liver; G62.9 Polyneuropathy, unspecified; M19.90 Unspecified osteoarthritis, unspecified site; Z88.0 Allergy status to penicillin; N18.3 Chronic kidney disease, stage 3 (moderate); G89.29 Other chronic pain
CPT/HCPCS: 36415; 36600; 71045; 76700; 76770; 80048; 80053; 81001; 82550; 82553; 82803; 82948; 83605; 83735; 83874; 83880; 84100; 84484; 85025; 85610; 85730; 87040; 87081; 87086; 93005; 94640; 96361; 96365; 96368; 96372; 96375; 97530; 99285; J1200; J1580; J1644; J1940; J1956; J2930; J3411; J3490; J7030; J7060; J7620; Q0092

== ENCOUNTER 2019-09-13 05:24 | Inpatient (IN) | payer OTHER ==
[~2019-09-13] VITALS: Ht 165.1 cm; Wt 72.1 kg
[2019-09-13 05:24] VITALS: BP 222/139
[~2019-09-13 05:24] MED LIST changes: +ALBU3SOL83 IH; +ALPR0.2518 PO; +DEXT50SO52 IV; +FAMO-90 PO; +FURO20TA8 PO; +PRED10TA5 PO
--- NOTE | 2019-09-13 05:25 | NUR ---
PATIENT ASSESSMENT COMPLETED AT THIS TIME. PATIENT SITTING UP IN BED HOOKED UP TO MONITOR AND BIPAP MACHINE. PATIENT GIVEN BLANKET. SIDE RAILS UP ON BOTH SIDES. BED IN LOW LOCKED POSITION. WILL MONITOR CLOSELY. LABS DRAWN AND SENT TO LAB.
[2019-09-13] MEDS ORDERED: FUROSEMIDE 40 MG/4 ML VIAL IVP ONE (05:35)
[2019-09-13 06:24] LABS: ANION GAP 21.9 (8-16); CARBON DIOXIDE 19.3 mmol/L (21-32); CHLORIDE 110 mmol/L (98-107); CREATININE 2.5 mg/dL (0.6-1.3); GLUCOSE 220 mg/dL (74-106); POTASSIUM 4.2 mmol/L (3.5-5.1); SODIUM SERUM 147 mmol/L (136-145)
[2019-09-13 06:29] LABS: UREA NITROGEN, BLOOD 61 mg/dL (7-18)
[2019-09-13 06:30] LABS: ALBUMIN 3.3 g/dL (3.4-5.0); ASPARTATE AMINOTRANSFERASE 25 U/L (15-37); TOTAL BILIRUBIN 0.2 mg/dL (0.0-1.0)
[2019-09-13] MEDS ORDERED: hydrALAZINE 20 MG/ML VIAL IVP ONE (06:30)
[2019-09-13] MEDS ORDERED: MORPHINE SULFATE 2 MG/ML SYR IVP ONE (06:30)
[2019-09-13 06:35] LABS: BASOPHILS # (AUTO) 0.1 K/uL (0.00-0.22); BASOPHILS % (AUTO) 1.4 % (0.0-2.0); EOSINOPHILS # (AUTO) 0.3 K/uL (0-0.4); EOSINOPHILS % (AUTO) 3.8 % (0.0-4.0); HEMATOCRIT 37.2 % (36-48); HEMOGLOBIN 11.5 g/dL (12.0-16.0); LYMPHOCYTES % (AUTO) 34.6 % (20.5-51.1); MEAN CORPUSCULAR HEMOGLOBIN 27 pg (27-31); MEAN CORPUSCULAR HGB CONC 31 g/dL (33-37); MEAN CORPUSCULAR VOLUME 86.1 fL (80-94); MONOCYTES # (AUTO) 0.6 K/uL (0.8-1.0); MONOCYTES % (AUTO) 7.3 % (1.7-9.3); NEUTROPHILS # (AUTO) 4.6 K/uL (1.8-7.7); NEUTROPHILS % (AUTO) 52.9 % (42.2-75.2); PLATELET COUNT (AUTO) 174 K/uL (140-450); RED BLOOD CELL COUNT(AUTO) 4.32 MIL/uL (4.20-5.40); WHITE BLOOD COUNT (AUTO) 8.7 K/uL (4.8-10.8)
[2019-09-13] MEDS ORDERED: NACL 0.9% 1,000 ML IV ONE ×2 (06:45→06:50)
[2019-09-13] MEDS ORDERED: LEVOFLOXACIN 750 MG/D5W PREMIX 150 ML IV ONE (06:45)
--- NOTE | 2019-09-13 07:00 | NUR ---
ATTEMPTED TO GET URINE SAMPLE WITH STRAIGHT CATH, VERY LITTLE URINE OBTAINED WHEN PATIENT STATED SHE WANTED US TO STOP.
--- NOTE | 2019-09-13 07:04 | NUR ---
critical received from lab troponin 0.089, reported to dr khanna
--- NOTE | 2019-09-13 07:05 | NUR ---
STRAIGHT CATH ATTEMPTED BY MARYJO CARRION W/O URINE OUTPUT. NOTIFIED
--- NOTE | 2019-09-13 07:15 | NUR ---
REPORT GIVEN TO AMANDA.
--- NOTE | 2019-09-13 07:25 | NUR ---
REPORT RECIEVED FROM MARYJO CARRION, PT REMOVED FROM CPAP BY SURGICAL NURSE TOOK PT OFF THE BIPAP, PT C/O SOB SURGICAL NURSE CALLED BACK
[2019-09-13] MEDS ORDERED: NIFEdipine 30 MG TABER PO ONE (07:30)
--- NOTE | 2019-09-13 07:35 | NUR ---
PT REFUSED TO BE PLACED ON BIPAP Addendum: 09/13/19 at 0735 by MEDARO PT PLACED BACK ON O2 @ 2LPM SPO2 99%, RR 24 MD NOTIFIED
[2019-09-13] MEDS ORDERED: PREGABALIN 50 MG CAP PO SCH (07:45)
[2019-09-13] MEDS ORDERED: fentaNYL 0.05 MG/ML VIAL IVP ONE (08:20)
[2019-09-13] MEDS ORDERED: HYDROcodone/APAP 5/325 MG 1 TAB TAB PO PRN ×2 (08:55→14:30)
[2019-09-13] MEDS ORDERED: ACETAMINOPHEN 325 MG TAB PO PRN (09:30)
[2019-09-13] MEDS ORDERED: ALBUTEROL 0.083% 2.5 MG/3 ML NEBU INH PRN (09:30)
--- NOTE | 2019-09-13 09:40 | NUR ---
RECEIVED PATIENT FROM ER VIA GURNEY, REPORT GIVEN BY RN, AMANDA. PATIENT BREATHING WITHOUT DISTRESS NOTED, ON 2LPM NC, BIPAP BROUGHT TO THE BEDSIDE. PATIENTS VITALS- 155/94 B/P 105HR, 100% SAT 2LPM NC, 20 RR, 98.5 TEMP, WILL CONTINUE TO MONITOR B/P
--- NOTE | 2019-09-13 09:45 | NUR ---
Patient will be admitted to care of Dr Murillo. Admited to tele room 107b. Belongings list completed. Report to MARYJO Wang.
[2019-09-13] MEDS ORDERED: ONDANSETRON 4 MG/2 ML VIAL IVP PRN (10:30)
[2019-09-13] MEDS ORDERED: LORazepam 2 MG/ML VIAL IVP PRN (10:30)
[2019-09-13] MEDS: LEVOFLOXACIN 250 MG/D5 PREMIX 50 ML IV SCH (11:40)
[2019-09-13] MEDS ORDERED: methylPREDNISolone SS 40 MG in WATER STERILE 1 ML IV SCH (12:00)
--- NOTE | 2019-09-13 12:01 | NUR ---
VITAL SIGNS REASSESSED, BLOOD PRESSURE REDUCED TO 149/82. PATIENT SLEEPING IN BED, NO RES DISTRESS NOTED. WILL CONTINUE TO MONITOR.
[2019-09-13] MEDS: ENOXAPARIN 40 MG/0.4 ML SYR SUBQ SCH (12:02)
[2019-09-13] MEDS: methylPREDNISolone SS 40 MG/ML VIAL IVP SCH ×2 (12:03→18:32)
[2019-09-13] MEDS: ALBUTEROL 0.083% 2.5 MG/3 ML NEBU INH SCH ×2 (13:30→18:49)
[2019-09-13 16:00] VITALS: BP 120/65
--- NOTE | 2019-09-13 16:21 | NUR ---
PATIENT C/O B/L FEET PAIN, 6/10 ADULT SCALE, VITAL SIGNS STABLE WILL MEDICATED PER PROTOCOL
--- NOTE | 2019-09-13 17:45 | NUR ---
PATIENT NEEDING TO BE CHANGE EVERY 20 MINS, REDNESS NOTED NEAR PERINEAL AREA. WILL CALL THE ADMITTING JOVON SCOTT TO ADVISEMENT .
--- NOTE | 2019-09-13 18:00 | NUR ---
OBTAINED AN TELEPHONE ORDER TO INSERT A FORTE CATH FROM ABELINO BARNEY ([facility]) D/T SEVERE TOTAL INCONTINENCE WHICH IS CREATING REDNESS NEAR THE PERINEAL AREA. FORTE CATH WAS INSERTED USING STERILE TECHNIQUE, PATIENT HAD LARGE AMOUNT OF URINE RETURN WITHOUT DISTRESS. WILL CONTINUE TO MONITOR. Addendum: 09/13/19 at 1843 by Kathleen Ramsey RN 16 FR WAS USED.
--- NOTE | 2019-09-13 19:06 | NUR ---
ENDORSED PLAN OF CARE TO STATION MASTER NURSE, PATIENT IS IN STABLE CONDITION.
--- NOTE | 2019-09-13 19:07 | NUR ---
RECEIVED REPORT FROM AM SHIFT NURSE. PATIENT ALERT AND ORIENTED X4. NO APPARENT DISTRESS NOTED. INTRODUCED SELF AND UPDATED BOARD. IV ON LEFT HAND 24G SALINE LOCKED. REVIEWED PLAN OF CARE. VERBALIZED UNDERSTANDING. WILL CONTINUE TO MONITOR.
[2019-09-13 20:00] VITALS: BP 122/74
[2019-09-13] MEDS: FAMOTIDINE 20 MG TAB PO SCH (20:42)
[2019-09-13] MEDS: NIFEdipine 60 MG TABER PO SCH (20:42)
--- NOTE | 2019-09-13 21:05 | NUR ---
PATIENT ASLEEP IN BED. VISIBLE CHEST RISE AND FALL NOTED. NO APPARENT DISTRESS NOTED. WILL CONTINUE TO MONITOR.
--- NOTE | 2019-09-13 22:20 | NUR ---
PT REFUSED BiPAP AT NIGHT. RN WAS NOTIFIED. NO RESPIRATORY DISTRESS NOTED AT THIS TIME. SPO2 OF 96% 0N 2L NC. WILL CONTINUE TO MONITOR PT.
--- NOTE | 2019-09-13 23:00 | NUR ---
ROUNDS DONE. PATIENT ASLEEP IN BED. NO APPARENT DISTRESS NOTED. WILL CONTINUE TO MONITOR.
[2019-09-14] VITALS: BP 138/82
[2019-09-14] MEDS: ALBUTEROL 0.083% 2.5 MG/3 ML NEBU INH SCH ×3 (00:30→13:54)
[2019-09-14] MEDS: methylPREDNISolone SS 40 MG/ML VIAL IVP SCH ×3 (00:41→11:47)
--- NOTE | 2019-09-14 00:55 | NUR ---
CHECKS DONE. PATIENT ASLEEP IN BED. NO APPARENT DISTRESS NOTED. VISIBLE CHEST RISE AND FALL NOTED. WILL CONTINUE TO MONITOR.
[2019-09-14 02:27] LABS: APPEARANCE,URINE CLEAR (CLEAR); BILIRUBIN,URINE NEGATIVE (NEGATIVE); BLOOD, URINE NEGATIVE (NEGATIVE); COLOR,URINE YELLOW (YELLOW); LEUKOCYTE ESTERASE ,URINE NEGATIVE (NEGATIVE); NITRITE, URINE NEGATIVE (NEGATIVE); UGLUCOSE NEGATIVE (NEGATIVE)
--- NOTE | 2019-09-14 02:50 | NUR ---
PATIENT ASLEEP IN BED. BED ON LOW POSITION. BED ALARM ON. NO APPARENT DISTRESS NOTED. WILL CONTINUE TO MONITOR.
[2019-09-14 03:43] LABS: RBC,URINE NONE SEEN /HPF (0-5); WBC,URINE 0-5 /HPF (0-5)
[2019-09-14 04:00] VITALS: BP 105/64
--- NOTE | 2019-09-14 04:45 | NUR ---
ROUNDS DONE. PATIENT ASLEEP IN BED. NO APPARENT DISTRESS NOTED. VISIBLE CHEST RISE AND FALL NOTED. BED ON LOW POSITION. BED ALARM ON. WILL CONTINUE TO MONITOR.
--- NOTE | 2019-09-14 06:33 | NUR ---
CHECKS DONE. PATIENT ASLEEP IN BED. NO APPARENT DISTRESS NOTED. VISIBLE CHEST RISE AND FALL NOTED. BED ON LOW POSITION. BED ALARM ON. CALL LIGHT WITHIN REACH. WILL CONTINUE TO MONITOR. Addendum: 09/14/19 at 0641 by Leonor Gabriel RN WILL ENDORSE TO NEXT SHIFT FOR CONTINUITY OF CARE.
--- NOTE | 2019-09-14 07:10 | NUR ---
RECEIVED BEDSIDE REPORT FROM LABORER ROAD NURSE, PATIENT RESTING IN BED, DRINKING COFFEE, WILL CONTINUE TO MONITOR.
[2019-09-14 07:39] LABS: BASOPHILS % (AUTO) 0.1 % (0.0-2.0); HEMATOCRIT 31.3 % (36-48); LYMPHOCYTES # (AUTO) 0.1 K/uL (2.5-16.5); MEAN CORPUSCULAR HEMOGLOBIN 27 pg (27-31); MEAN CORPUSCULAR HGB CONC 32 g/dL (33-37); MEAN CORPUSCULAR VOLUME 84.2 fL (80-94); MONOCYTES # (AUTO) 0.1 K/uL (0.8-1.0); MONOCYTES % (AUTO) 0.8 % (1.7-9.3); NEUTROPHILS # (AUTO) 6.7 K/uL (1.8-7.7); NEUTROPHILS % (AUTO) 97.1 % (42.2-75.2); PLATELET COUNT (AUTO) 139 K/uL (140-450); RED BLOOD CELL COUNT(AUTO) 3.71 MIL/uL (4.20-5.40); RED CELL DISTRIBUTION WIDTH 16.7 % (11.6-13.7); WHITE BLOOD COUNT (AUTO) 6.9 K/uL (4.8-10.8)
--- NOTE | 2019-09-14 07:55 | NUR ---
ERCIVED PT ON 2LPM NC NO RESP DISTRESSS AT THIS TIME PT AWARE OF BIPAP MACHINE UNWILLING TO USE SAYS SHE IS BREATHING FINE AT THIS TIME PT ON 2LPM NC IN NO RESP DISTRESS AT THIS TIME WILL CONTINUE TO MONITOR
[2019-09-14 08:00] VITALS: BP 127/70
[2019-09-14 08:17] LABS: ANION GAP 20.2 (8-16); ASPARTATE AMINOTRANSFERASE 12 U/L (15-37); CARBON DIOXIDE 18.7 mmol/L (21-32); CHLORIDE 109 mmol/L (98-107); CREATININE 2.8 mg/dL (0.6-1.3); GLUCOSE 180 mg/dL (74-106); POTASSIUM 3.9 mmol/L (3.5-5.1); SODIUM SERUM 144 mmol/L (136-145); TOTAL BILIRUBIN 0.2 mg/dL (0.0-1.0)
[2019-09-14] MEDS: NIFEdipine 60 MG TABER PO SCH (08:22)
[2019-09-14] MEDS: FAMOTIDINE 20 MG TAB PO SCH (08:22)
[2019-09-14] MEDS: LEVOFLOXACIN 250 MG/D5 PREMIX 50 ML IV SCH (08:22)
--- NOTE | 2019-09-14 08:29 | NUR ---
PATIENT HAS BEEN SCREENED AND CATEGORIZED MODERATE NUTRITION RISK. PATIENT WILL BE SEEN WITHIN 3-5 DAYS OF ADMISSION. 09/15/19 09/17/[address]
[2019-09-14] MEDS: ENOXAPARIN 40 MG/0.4 ML SYR SUBQ SCH (08:30)
[2019-09-14 08:49] LABS: UREA NITROGEN, BLOOD 65 mg/dL (7-18)
--- NOTE | 2019-09-14 08:49 | NUR ---
CRITICAL LABS RECEIVED FROM LAB, DR JOVON TONY WAS ADVISED, DOING ROUNDS AND WILL BE SEEING PATIENT SOON.
[2019-09-14] MEDS ORDERED: FUROSEMIDE 20 MG TAB PO SCH (09:00)
[2019-09-14] MEDS ORDERED: PREGABALIN 25 MG CAP PO SCH (09:00)
--- NOTE | 2019-09-14 10:15 | NUR ---
AT THE BEDSIDE WITH DR SIGALA, PATIENT WILL BE DISCHARGED TODAY, PATIENT ADVISED TO STOP SMOKING, PATIENT VERBALIZED UNDERSTANDING. WILL FOLLOW UP WITH DR SIGALA FOR DISCHARGE ORDERS.
[2019-09-14] MEDS ORDERED: PRED10TA5 PO (10:50)
[2019-09-14] MEDS ORDERED: LEVO750T2 PO (10:50)
[2019-09-14 12:00] VITALS: BP 130/66
--- NOTE | 2019-09-14 12:00 | NUR ---
SCHEDULED MEDICATION GIVEN TO PATIENT WITHOUT RESP DISTRESS, PATIENT IN STABLE CONDITION, VITALS STABLE. WILL CONTINUE TO MONITOR.
--- NOTE | 2019-09-14 14:07 | NUR ---
DISCHARGED INSTRUCTIONS GIVEN TO PATIENT, PATIENT VERBALIZED UNDERSTANDING, SHE STATES SHE WILL STOP SMOKING. FORTE CATH WAS REMOVED WITHOUT DISTRESS. NO SWELLING OR PAIN STATED BY PATIENT. PATIENT WAS GIVEN A SWEATER AND A PAIR OF PANTS FROM SECURITY, WILL CONTINUE THE DISCHARGE PROCESS.
--- NOTE | 2019-09-14 14:10 | NUR ---
Boat Loader Helper Note: Basic Screen: Yes Name: THIERRY Carrasquillo Relationship: FRIEND Pre-Admission Living Arrangements: Lives with Other Prior ADL Independent Current Home Health Name/Tel: N/A Current DME/02 Name/Tel: [facility] Current Hospice Name/Tel: N/A Current Dialysis Name/Tel: N/A Healthcare Decision Maker: Patient Advance Directive No - REFUSED Physician Orders for Life Sustaining Treatment Form No Patient/Family Have Educational Needs No Information Taught: Advance Directive Person Taught: Patient Teaching Tools: Verbal Factors Affecting Learning: None Participation Level: Refused Evaluation: Verbalizes Understanding Needs Additional Education: No Discipline: Case Mgt/Social Svcs Tentative Discharge Plan/Destination: No Needs Identified Will require assistance post discharge: No Referred to Managed Services Consultant: No Tentative Discharge Plan Summary: Patient is a 69-year-old female admitted for COPD exacerbation. Patient has PMHX of CHF and asthma. Patient was admitted from home. SW met with patient at bedside to verify demographics. Patient stated that she lives with 3 roommates, but expressed interest in assisted livings. SW provided assisted living resources to patient. Patient reported no history of mental health and no history of substance abuse. Patient requested to add friend Thierry Anne [phone] to face sheet. Patient stated she does not know sister's phone number anymore. Patient provided sister Nahomy Buck's address: [address] [place] [id number]. Patient's tentative discharge plan is to return home and to look into assisted living. No further needs identified. Signature: FRANCISCA Koenig Date: Sep 14, 2019 Time: 14:08
--- NOTE | 2019-09-14 14:41 | NUR ---
Late entry. Confirmed with RN that 0.9 NS IV completed at 0945. Levoquin IVPB completed at 0830
--- NOTE | 2019-09-14 15:00 | NUR ---
PATIENT DRESSED AND READY FOR DISCHARGE, ALL QUESTIONS WERE ANSWERED AT THIS TIME, ID BAND WAS REMOVED FROM PATIENT, IV WAS REMOVED WITH LUMEN INTACT, NO SWELLING OR REDNESS NOTED. PATIENT IS IN STABLE CONDITION AND WAS ASSISTED INTO A WHEELCHAIR. PATIENT WAS THEN ESCORTED TO THE LOBBY WITH BELONGINGS IN HAND WHERE FRIEND, SERGIO WAS THERE WAITING FOR PATIENT. PATIENT WAS DISCHARGED AT THIS TIME. WHEELCHAIR RETURNED BACK TO [facility], MEDICATIONS WERE REMOVED FROM PATIENT'S ROOM AND ROOM CLEANED. Addendum: 09/14/19 at 1745 by Kathleen Ramsey RN PATIENTS RX REFILLS WERE GIVEN TO PATIENT AT THE TIME OF DISCHARGE.
== END 2019-09-14 15:00 | disposition home or self-care (01) | DRG 202 ==
LOC: MED 05:24 → MTU 09:02
PROVIDERS: ADMIT Internal Medicine Pulmonary Disease; ATTEND Internal Medicine Pulmonary Disease
PROC: 5A09357 Assistance with Respiratory Ventilation, Less than 24 Consecutive Hours, Continuous Positive Airway Pressure (ICD-10-PCS; principal; 2019-09-13)
DX: J45.901 Unspecified asthma with (acute) exacerbation (principal); J18.9 Pneumonia, unspecified organism; I13.0 Hypertensive heart and chronic kidney disease with heart failure and stage 1 through stage 4 chronic kidney disease, or unspecified chronic kidney disease; I10 Essential (primary) hypertension; F17.210 Nicotine dependence, cigarettes, uncomplicated; I50.9 Heart failure, unspecified; N18.9 Chronic kidney disease, unspecified; E83.51 Hypocalcemia; Z88.0 Allergy status to penicillin; Z79.899 Other long term (current) drug therapy
CPT/HCPCS: 36415; 36600; 71045; 80053; 81001; 82803; 83605; 83880; 84484; 85025; 87040; 87086; 87804; 93005; 94640; 96361; 96365; 96375; 99285; J0360; J1940; J1956; J2270; J2920; J3010; J7030; J7613; Q0092

== ENCOUNTER 2019-09-19 08:16 | Inpatient (IN) | payer OTHER ==
[~2019-09-19] VITALS: Ht 162.6 cm; Wt 68.0 kg
[~2019-09-19 08:16] MED LIST changes: -DEXT50SO52 IV; +LEVO750T2 PO
--- NOTE | 2019-09-19 08:16 | NUR ---
PATIENT BIBA TO BED 7 AT THIS TIME.
[2019-09-19 08:23] VITALS: BP 229/140
--- NOTE | 2019-09-19 08:30 | NUR ---
69/F TO ED VIA EMS FOR RESPIRATORY DISTRESS. PT RECIEVED 2 ALBUTEROL TREATMENTS PRE-HOSPITAL WITH SOME RELIEF. LUNG SOUNDS DIMINSHED BILATERALLY. PT IS IN MILD DISTRESS; TACHYPNIC, LABORED BREATHING. EMS BREATHING TREATMENT CONTINUED IN ED. DR HOGAN AT BEDSIDE FOR MSE.
--- NOTE | 2019-09-19 08:35 | NUR ---
PRE HOSPITAL BREATHING TX COMPELTED. PT REPORTS SOME RELIEF. PLACED ON 2L NC. 97% AT THIS TIME.
[2019-09-19] MEDS ORDERED: FUROSEMIDE 40 MG/4 ML VIAL IVP ONE (09:40)
[2019-09-19] MEDS ORDERED: ENALAPRILAT 2.5 MG/2 ML VIAL IVP ONE (09:40)
--- NOTE | 2019-09-19 09:50 | NUR ---
MEDICATED ORDERED. WILL CONTINUE TO ASSESS.
[2019-09-19 09:56] LABS: BASOPHILS % (AUTO) 0.5 % (0.0-2.0); EOSINOPHILS # (AUTO) 0.2 K/uL (0-0.4); EOSINOPHILS % (AUTO) 2.4 % (0.0-4.0); HEMATOCRIT 32.3 % (36-48); HEMOGLOBIN 10.2 g/dL (12.0-16.0); LYMPHOCYTES # (AUTO) 0.7 K/uL (2.5-16.5); LYMPHOCYTES % (AUTO) 8.2 % (20.5-51.1); MEAN CORPUSCULAR HEMOGLOBIN 27 pg (27-31); MEAN CORPUSCULAR HGB CONC 32 g/dL (33-37); MEAN CORPUSCULAR VOLUME 85.5 fL (80-94); MONOCYTES # (AUTO) 0.7 K/uL (0.8-1.0); MONOCYTES % (AUTO) 7.8 % (1.7-9.3); NEUTROPHILS # (AUTO) 6.9 K/uL (1.8-7.7); NEUTROPHILS % (AUTO) 81.1 % (42.2-75.2); PLATELET COUNT (AUTO) 163 K/uL (140-450); RED BLOOD CELL COUNT(AUTO) 3.77 MIL/uL (4.20-5.40); RED CELL DISTRIBUTION WIDTH 16.8 % (11.6-13.7); WHITE BLOOD COUNT (AUTO) 8.5 K/uL (4.8-10.8)
--- NOTE | 2019-09-19 10:09 | NUR ---
DR HOGAN REDUCED O2 TO 1L, PT TOELRATING WELL. WILL CONTINUE TO ASSESS.
--- NOTE | 2019-09-19 10:15 | NUR ---
PT FOUND TO BE WEARING ADULT BRIEF. URINE AND STOOL NOTED IN BRIEF. IAN-CARE PERFORMED. PT CLEANED AND SITUATED IN BED. NO NEW COMPLAINTS.
--- NOTE | 2019-09-19 11:47 | NUR ---
WHEELCHAIR ASSISTED TO RESTROOM.
--- NOTE | 2019-09-19 12:50 | NUR ---
RESTING IN BED, AROUSABLE TO NAME. INFORMED OF PLAN OF CARE. NO NEW QUESTIONS OR CONCERNS.
--- NOTE | 2019-09-19 13:40 | NUR ---
PATIENT WAS RECEIVED ON THE UNIT, ORIENTED TO THE UNIT IN STABLE CONDITION, ADMISSION ASSESSMENT IN PROCESS. IV IN TACT ON LEFT FOREARM. SKIN IS INTACT.
--- NOTE | 2019-09-19 13:52 | NUR ---
Patient will be admitted to care of [facility]. Admited to MED SURG/TELE. Will go to room 108B. Belongings list completed. Report to HERMES SIBLEY.
[2019-09-19] MEDS ORDERED: MAGNESIUM OXIDE 400 MG TAB PO PRN (14:25)
[2019-09-19] MEDS ORDERED: cloNIDine 0.1 MG TAB PO PRN (14:25)
[2019-09-19] MEDS ORDERED: MAG SULF 2000 MG/WATER PREMIX 50 ML IV PRN (14:25)
[2019-09-19] MEDS ORDERED: LORazepam 2 MG/ML VIAL IVP PRN (14:25)
[2019-09-19] MEDS ORDERED: DOCUSATE SODIUM 250 MG GELCAP PO PRN (14:25)
[2019-09-19] MEDS ORDERED: ALUMINUM HYD/MAG/SIMETHICONE 30 ML UDC PO PRN (14:25)
[2019-09-19] MEDS ORDERED: ACETAMINOPHEN 650 MG SUPP RC PRN (14:25)
[2019-09-19] MEDS ORDERED: POTASSIUM CHLORIDE 10 MEQ TABER PO PRN (14:25)
[2019-09-19] MEDS ORDERED: ALBUTEROL 0.083% 2.5 MG/3 ML NEBU INH PRN (14:25)
[2019-09-19] MEDS ORDERED: ONDANSETRON 4 MG/2 ML VIAL IVP PRN (14:25)
[2019-09-19] MEDS ORDERED: SODIUM PHOSPHATE 118 ML ENEM RC PRN (14:25)
[2019-09-19] MEDS ORDERED: ACETAMINOPHEN 325 MG TAB PO PRN (14:25)
[2019-09-19] MEDS ORDERED: IPRATROPIUM 0.02% 0.5 MG/2.5 ML NEBU INH PRN (14:25)
[2019-09-19] MEDS ORDERED: MORPHINE SULFATE 2 MG/ML SYR IVP PRN (14:25)
[2019-09-19] MEDS ORDERED: ZOLPIDEM 5 MG TAB PO PRN (14:25)
[2019-09-19] MEDS ORDERED: ALPRAZolam 0.25 MG TAB PO PRN (14:25)
[2019-09-19] MEDS ORDERED: guaiFENesin DM 200/20 MG-10 ML 10 ML UDC PO PRN (14:25)
[2019-09-19] MEDS ORDERED: BISACODYL 10 MG SUPP RC PRN (14:25)
[2019-09-19] MEDS ORDERED: diphenhydrAMINE 50 MG/ML VIAL IVP PRN (14:25)
--- NOTE | 2019-09-19 15:50 | NUR ---
PATIENT IS RESTING IN BED, NO SIGNS OF DISTRESS NOTED AT THIS TIME, PATIENT DOES NOT REPORT PAIN AT THIS TIME, BED IN LOW POSITION, CALL LIGHT ON AND WITHIN REACH. WILL CONTINUE TO MONITOR.
[2019-09-19 16:00] VITALS: BP 162/94
[2019-09-19] MEDS: FUROSEMIDE 40 MG/4 ML VIAL IVP SCH (17:14)
[2019-09-19] MEDS: HYDROcodone/APAP 5/325 MG 1 TAB TAB PO PRN ×2 (17:16→21:10)
--- NOTE | 2019-09-19 17:50 | NUR ---
PATIENT IS SLEEPING IN BED, OBSERVED CHEST RISE AND FALL. CALL LIGHT ON AND WITHIN REACH WILL CONTINUE TO MONITOR.
--- NOTE | 2019-09-19 19:25 | NUR ---
REPORT GIVEN TO PERINATAL TECH NURSE FOR CONTINUITY OF CARE.
--- NOTE | 2019-09-19 19:26 | NUR ---
REPORT RECEIVED FROM AM NURSE AT BEDSIDE. PT IN STABLE CONDITION. AAOX4. INTRODUCED SELF TO PT. BOARD UPDATED. NO COMPLAINTS OF PAIN. NO SOB. AFEBRILE. PT IS AMBULATORY WITH ASSIST. IV SITE L FA 20G SL PATENT AND INTACT. SKIN WARM, DRY, AND INTACT WITH NO OPEN WOUNDS BUT BRUISING ON THE ARMS. BED LOCKED IN LOW POSITION. CALL DOHERTY WITHIN REACH. SAFETY PRECAUTION IN PLACE. ALL NEEDS MET AT THIS TIME.
[2019-09-19 20:00] VITALS: BP 164/85
--- NOTE | 2019-09-19 21:04 | NUR ---
RECEIVED PATIENT ON ROOM AIR, PULSE OX SAT 94%. PT DENIES SOB/REFUSES TX. NO ACUTE RESPIRATORY DISTRESS NOTED AT THIS TIME. PRN HHN NOT GIVEN. WILL CONTINUE TO MONITOR.
[2019-09-19] MEDS: NIFEdipine 60 MG TABER PO SCH (21:10)
--- NOTE | 2019-09-19 21:10 | NUR ---
NIFEDIPINE GIVEN PO. NORCO GIVEN FOR 6/10 LEG PAIN. PT TOLERATED WELL.
--- NOTE | 2019-09-19 22:20 | NUR ---
PT SLEEPING COMFORTABLY BUT AROUSABLE. NO S/S OF DISTRESS NOTED. WILL CONTINUE TO MONITOR.
--- NOTE | 2019-09-19 22:29 | NUR ---
REPORT GIVEN TO HAMMAD FOR CONTINUITY OF CARE. PT IN STABLE CONDITION.
--- NOTE | 2019-09-19 22:30 | NUR ---
Took over from Mitchel for continuity of care.
[2019-09-20] VITALS: BP 140/88
--- NOTE | 2019-09-20 00:02 | NUR ---
AWAKE UP TO BR, C/O PAIN IN THE FEET, MEDICATED ORDERED.
[2019-09-20 04:00] VITALS: BP 138/78
--- NOTE | 2019-09-20 04:00 | NUR ---
V/S TAKEN,C/P IN THE BILAT FEET, MEDICATED.
[2019-09-20] MEDS: HYDROcodone/APAP 5/325 MG 1 TAB TAB PO PRN ×4 (04:11→20:36)
--- NOTE | 2019-09-20 06:39 | NUR ---
RESTING QUIETLY, NO SIGN OF DISTRESS.
--- NOTE | 2019-09-20 07:30 | NUR ---
RECEIVED HAND OFF REPORT FROM PM RN PT AWAKE IN BED PT APPEARS STABLE AND IN NO APPARENT DISTRESS. ALL SAFETY MEASURES ARE IN PLACE WILL CONTINUE TO MONITOR. PT ON TELE MONITOR. BED ALARM ON
[2019-09-20 08:04] VITALS: BP 116/73
--- NOTE | 2019-09-20 08:10 | NUR ---
PATIENT HAS BEEN SCREENED AND CATEGORIZED MODERATE NUTRITION RISK. PATIENT WILL BE SEEN WITHIN 3-5 DAYS OF ADMISSION. 09/22/19 09/24/[address]
[2019-09-20] MEDS: NIFEdipine 60 MG TABER PO SCH ×2 (08:52→20:36)
[2019-09-20] MEDS: FUROSEMIDE 40 MG/4 ML VIAL IVP SCH ×2 (08:53→17:00)
[2019-09-20] MEDS ORDERED: predniSONE 10 MG TAB PO SCH (09:00)
[2019-09-20] MEDS ORDERED: PREGABALIN 25 MG CAP PO SCH (09:00)
[2019-09-20 09:08] LABS: ANION GAP 14.2 (8-16); CARBON DIOXIDE 23.9 mmol/L (21-32); CHLORIDE 108 mmol/L (98-107); GLUCOSE 96 mg/dL (74-106); POTASSIUM 4.1 mmol/L (3.5-5.1); SODIUM SERUM 142 mmol/L (136-145)
[2019-09-20 09:10] LABS: CREATININE 2.2 mg/dL (0.6-1.3); UREA NITROGEN, BLOOD 72 mg/dL (7-18)
--- NOTE | 2019-09-20 09:15 | NUR ---
FREQUENT ROUNDING ON PT PT AWAKE IN BED PT ON TELE MONITORING PT APPEARS STABLE AND IN NO APPARENT DISTRESS ALL SAFETY MEASURES ARE IN PLACE WILL CONTINUE TO MONITOR
--- NOTE | 2019-09-20 09:25 | NUR ---
PAGED DR. MORALES CRITICAL LAB VALUES REPORTED FROM LAB
--- NOTE | 2019-09-20 11:34 | NUR ---
FREQUENT ROUNDING ON PT PT APPEARS STABLE AND IN NO APPARENT DISTRESS. ALL SAFETY MEASURES ARE IN PLACE WILL CONTINUE TO MONITOR
--- NOTE | 2019-09-20 11:49 | NUR ---
RECEIVED A CALL FROM DR. MORALES, STATING THAT THE PATIENT NEEDS HELP IN SETTING UP FOR ASSISTED LIVING. CONTACTED J[facility]UT[facility], SHE STATED THAT THIS IS A SOCIAL ISSUES AND FAMILY IS THE ONE WHO IS RESPONSIBLE TO SET IT UP AND NOT THE EQUIPMENT SERVICE LEAD, MEDICAL TEAM AND OR INSURANCE RESPONSIBILITY. Addendum: 09/20/19 at 1159 by Lizett Arrington CM MET WITH THE PATIENT AT THE BEDSIDE TO DISCUSS DC PLAN. SHE SAID SHE RECEIVES SSI $650 ON THE FIRST AND $350 EVERY 3RD OF THE MONTH. SHE ALSO STATED SHE IS WILLING TO PAY OUT OF POCKET.
[2019-09-20 12:30] VITALS: BP 112/58
--- NOTE | 2019-09-20 13:46 | NUR ---
FREQUENT ROUNDING ON PT PT APPEARS STABLE AND IN NO APPARENT DISTRESS. ALL SAFETY MEASURES ARE IN PLACE
[2019-09-20 16:22] VITALS: BP 139/83
--- NOTE | 2019-09-20 17:41 | NUR ---
PT REFUSED 1700 LASIX PROVIDED EDUCATION OF MEDICATION AND COMPLICATIONS OF NON COMPLAINTS. PT STATED SHE CANT SHES SO TIRED OF PEEING ALL DAY.
--- NOTE | 2019-09-20 19:26 | NUR ---
ENORSED PT TO PM RN PT AWAKE ALERT X4 PT APPEARS STABLE AND IN NO APPARENT DISTRESS.
--- NOTE | 2019-09-20 19:27 | NUR ---
REPORT RECEIVED FROM AM NURSE AT BEDSIDE. PT IN STABLE CONDITION. AAOX4. INTRODUCED SELF TO PT. BOARD UPDATED. NO COMPLAINTS OF PAIN. NO SOB. AFEBRILE. PT IS AMBULATORY. IV SITE L FA 20G SL PATENT AND INTACT. SKIN WARM, DRY, AND INTACT WITH NO OPEN WOUNDS. BED LOCKED IN LOW POSITION. CALL DOHERTY WITHIN REACH. SAFETY PRECAUTION IN PLACE. ALL NEEDS MET AT THIS TIME.
[2019-09-20 20:00] VITALS: BP 160/88
--- NOTE | 2019-09-20 20:36 | NUR ---
NIFEDIPINE GIVEN PO. NORCO GIVEN FOR 8/10 LEG PAIN. PT TOLERATED WELL.
--- NOTE | 2019-09-20 21:50 | NUR ---
PT IN BED WATCHING TV. NO S/S OF DISTRESS NOTED. WILL CONTINUE TO MONITOR.
[2019-09-21] VITALS: BP 154/90
--- NOTE | 2019-09-21 00:15 | NUR ---
AMBIEN GIVEN FOR INSOMNIA. PT TOLERATED WELL.
--- NOTE | 2019-09-21 01:30 | NUR ---
PT COMPLAINS THAT SHE WANTS TO HAVE A SMOKE OUTSIDE. UNABLE TO LET HER GO DUE TO POLICY. NOW PATIENT WANTS TO LEAVE AMA. NOTIFIED AND AGREED TO LET PATIENT GO. KELTON PAPERWORK SIGNED. AWAITING ON YELLOW CAB.
--- NOTE | 2019-09-21 01:45 | NUR ---
[facility] CALLED FOR THE PATIENT PER HER REQUEST. [facility] EXPLAINED THAT IT WAS GOING TO BE A WHILE DUE TO A SHORTAGE OF DRIVERS AND MAY TAKE UP TO 2 HOURS FOR A MEMORANDUM STATEMENT CLERK TO ARRIVE. PT AWARE.
--- NOTE | 2019-09-21 02:00 | NUR ---
PATIENT ASKED FOR PAIN MEDICATION BUT ALREADY HAD SIGNED AMA PAPERWORK. UNABLE TO GIVE PATIENT MEDICATION PER CHARGE NURSE ORDERS. MADE PATIENT AWARE AND SHE SAID ITS OK BECAUSE SHE HAS SOME AT HOME AND WILL TAKE SOME WHEN SHE GETS THERE.
--- NOTE | 2019-09-21 02:25 | NUR ---
PATIENT BECOMING AGITATED AND IMPATIENT BECAUSE THE [facility] HAS NOT ARRIVED. PATIENT SAID SHE NEEDS TO BE OUTSIDE OR THEY WILL LEAVE HER. WE EXPLAINED TO THE PATIENT THAT THE [facility] WILL CALL US WHEN THEY ARRIVE TO THE FRONT LOBBY. PATIENT IGNORED OUR RESPONSE AND BECAME MORE AGITATED SAYING THAT SHE KNOWS BETTER AND NEEDS TO GO OUTSIDE. CAROL RODRÍGUEZ SAID SHE WILL WHEELCHAIR HER OUTSIDE TO WAIT FOR THE T[facility].
--- NOTE | 2019-09-21 03:15 | NUR ---
[facility] STILL HAS YET TO ARRIVE. MARCOS STILL WITH PATIENT. I CALLED [facility] AND THEY EXPLAINED THAT THERE WERE ONLY 3 DRIVERS AVAILABLE AND THEY WERE STILL WAITING TO GET A PASTEURIZING MACHINE OPERATOR TO THE HOSPITAL. IT WOULD STILL BE A WHILE UNTIL THEY REACHED THE HOSPITAL. I TOLD CHAS MERINO TO CALL OUR UNIT PHONE NUMBER UPON ARRIVAL TO THE HOSPITAL SO WE CAN BRING THE PATIENT OUTSIDE. EXPLAINED TO MARCOS AND SHE EXPLAINED TO THE PATIENT.
--- NOTE | 2019-09-21 03:30 | NUR ---
PATIENT WHEELCHAIRED BACK FROM THE FRONT LOBBY TO HER ROOM. PATIENT NOW HAS COMPLAINTS OF PAIN AND WANTS HER NORCO. EXPLAINED TO HER AGAIN THAT WE CANNOT GIVE HER MEDICATIONS AFTER SHE HAS SIGNED THE AMA PAPERWORK. PATIENT SAID THAT SHE DID NOT KNOW WHAT SHE WAS SIGNING EVEN THOUGH I EXPLAINED TO HER THAT SIGNING AMA PAPERWORK WAS THAT SHE WAS LEAVING AGAINST MEDICAL/DOCTORS ADVICE. THE DOCTORS WANT YOU TO STAY UNTIL THEY DISCHARGE YOU BUT YOU ARE LEAVING BEFORE YOU ARE DISCHARGED. PATIENT AGREED THE FIRST TIME BUT NOW SAYS THAT SHE DID NOT HAVE HER READING GLASSES AND THAT I DID NOT EXPLAIN IT TO HER. I EXPLAINED TO HER THAT I TOLD HER WHAT SHE WAS SIGNING BUT NOW IS AGITATED.
--- NOTE | 2019-09-21 04:40 | NUR ---
CALLED [facility] BACK SO THE PATIENT CAN SPEAK TO THE SERVICE HERSELF SO SHE CAN HEAR THAT THEY'RE STILL WAITING FOR DRIVERS AND WILL CALL US SOON THEY ARRIVE. PATIENT WAS EXTREMELY AGITATED BECAUSE SHE WANTED PAIN MEDICATION AND WE COULD NOT GIVE IT TO HER DUE TO HER SIGNING AMA FORMS. I TOLD THE PATIENT TO BE PATIENT UNTIL THE TAXI ARRIVES BUT SHE DEMANDED TO BE TAKEN TO THE LOBBY. I EXPLAINED TO HER THAT THERE WAS NO ONE WHO WILL WATCH HER FOR LONG IF SHE WAS TO GO TO THE LOBBY. SHE BECAME MORE AGITATED AND DEMANDED TO BE TAKEN OUTSIDE. I CALLED SECURITY SO THEY COULD WATCH HER UNTIL THE TAXI ARRIVED. TOOK HER OUTSIDE. CUT OFF HER WRIST BANDS. IV WAS REMOVED. CANNULA INTACT. PT NOW WAITING OUTSIDE WITH SECURITY UNTIL TAXI ARRIVES.
--- NOTE | 2019-09-21 04:45 | NUR ---
PATIENT OFF THE FLOOR.
== END 2019-09-21 04:45 | disposition left against medical advice (07) | DRG 291 ==
LOC: MED 08:16 → MTU 13:12
PROVIDERS: ADMIT Internal Medicine Pulmonary Disease; ATTEND Internal Medicine Pulmonary Disease
DX: I13.0 Hypertensive heart and chronic kidney disease with heart failure and stage 1 through stage 4 chronic kidney disease, or unspecified chronic kidney disease (principal); J96.00 Acute respiratory failure, unspecified whether with hypoxia or hypercapnia; I50.43 Acute on chronic combined systolic (congestive) and diastolic (congestive) heart failure; N18.4 Chronic kidney disease, stage 4 (severe); J44.9 Chronic obstructive pulmonary disease, unspecified; F17.210 Nicotine dependence, cigarettes, uncomplicated; G62.9 Polyneuropathy, unspecified; Z53.29 Procedure and treatment not carried out because of patient's decision for other reasons; Z88.0 Allergy status to penicillin; Z79.899 Other long term (current) drug therapy
CPT/HCPCS: 36415; 71045; 80048; 83735; 83880; 84484; 85025; 87804; 93005; 96374; 99285; J1940; J2270; J7512; Q0092

== ENCOUNTER 2019-09-26 08:59 | Inpatient (IN) | payer OTHER ==
[~2019-09-26] VITALS: Ht 157.5 cm; Wt 59.0 kg
--- NOTE | 2019-09-26 | NUR ---
SLEEPING COMFORTABLY IN BED. Addendum: 09/27/19 at 0237 by Gale Kim LVN CORRECTION: WRONG ENTRY, THIS CHARTING IS NOT FOR THIS PATIENT.
--- NOTE | 2019-09-26 08:59 | NUR ---
PT BIBA ALS TO ER BED 10
--- NOTE | 2019-09-26 09:00 | NUR ---
PT BIBA PLACED ON VISION BIPAP SETTINGS 10\5 RR 14 FIO2 40% ALARMS ON AND AUDIBLE AND AMBU BAG AT HOB BIPAP IS PLUGGED INTO RED OUTLET, B\S ARE DIMINISHED BILATERALLY, PT IS WEARING MED FACE MASK.
[2019-09-26 09:02] VITALS: BP 218/163
[2019-09-26 09:07] VITALS: BP 218/163
--- NOTE | 2019-09-26 09:10 | NUR ---
RECIEVED PT VIA EMS ON BIPAP. PT IN MILD DISTRESS. REPORTING SUDDEN ONSET SHORTNESS OF BREATH 30 MINS PRIOR TO ARRIVAL. LUNG SOUNDS DIMISHED TO ALL GARSIA BILATERALLY. PT PLACED ON DUONEB AND PLACED ON BIPAP PRIOR TO ARRIVAL. LABORED BREATHING NOTED. BIPAP CONTINUED IN ED. DR AWAD AT BEDSIDE FOR MSE.
--- NOTE | 2019-09-26 09:15 | NUR ---
ASSISTED PT TO BEDPAN. URINE SAMPLE COLLECTED.
[2019-09-26] MEDS ORDERED: ENALAPRILAT 2.5 MG/2 ML VIAL IVP ONE (09:30)
[2019-09-26] MEDS ORDERED: methylPREDNISolone SS 125 MG/2 ML VIAL IVP ONE (09:30)
[2019-09-26] MEDS ORDERED: ALBUTEROL 0.083% 2.5 MG/3 ML NEBU INH ONE (09:30)
[2019-09-26] MEDS ORDERED: MORPHINE SULFATE 2 MG/ML SYR IVP ONE (09:30)
[2019-09-26] MEDS ORDERED: ASPIRIN 81 MG TAB.CHEW PO ONE (09:30)
[2019-09-26] MEDS ORDERED: ONDANSETRON 4 MG/2 ML VIAL IVP ONE (09:30)
--- NOTE | 2019-09-26 09:56 | NUR ---
ABG DRAWN ON LR WITHOUT INCIDENT AND RESULTS GIVEN TO DR. AWAD
--- NOTE | 2019-09-26 10:15 | NUR ---
REPORTS PAIN AT 0/10 POST MORPHINE ADMIN.
[2019-09-26 10:26] LABS: BASOPHILS % (AUTO) 0.6 % (0.0-2.0); EOSINOPHILS # (AUTO) 0.2 K/uL (0-0.4); EOSINOPHILS % (AUTO) 2.3 % (0.0-4.0); HEMOGLOBIN 10.4 g/dL (12.0-16.0); LYMPHOCYTES # (AUTO) 0.6 K/uL (2.5-16.5); LYMPHOCYTES % (AUTO) 9.2 % (20.5-51.1); MEAN CORPUSCULAR HEMOGLOBIN 27 pg (27-31); MEAN CORPUSCULAR HGB CONC 32 g/dL (33-37); MEAN CORPUSCULAR VOLUME 84.8 fL (80-94); MONOCYTES # (AUTO) 0.4 K/uL (0.8-1.0); MONOCYTES % (AUTO) 5.8 % (1.7-9.3); NEUTROPHILS # (AUTO) 5.8 K/uL (1.8-7.7); NEUTROPHILS % (AUTO) 82.1 % (42.2-75.2); PLATELET COUNT (AUTO) 139 K/uL (140-450); RED CELL DISTRIBUTION WIDTH 16.5 % (11.6-13.7); WHITE BLOOD COUNT (AUTO) 7.1 K/uL (4.8-10.8)
[2019-09-26 10:37] LABS: APPEARANCE,URINE CLOUDY (CLEAR); BILIRUBIN,URINE NEGATIVE (NEGATIVE); BLOOD, URINE TRACE-I (NEGATIVE); COLOR,URINE YELLOW (YELLOW); LEUKOCYTE ESTERASE ,URINE 1+ (NEGATIVE); NITRITE, URINE POSITIVE (NEGATIVE); UGLUCOSE NEGATIVE (NEGATIVE)
[2019-09-26] MEDS ORDERED: FUROSEMIDE 40 MG/4 ML VIAL IVP SCH (10:45)
--- NOTE | 2019-09-26 10:56 | NUR ---
PT SLEEPING. AROUSABLE TO NAME. INFORMED OF PLAN OF CARE.
[2019-09-26 11:09] LABS: ANION GAP 15.8 (8-16); ASPARTATE AMINOTRANSFERASE 21 U/L (15-37); CARBON DIOXIDE 22.8 mmol/L (21-32); CHLORIDE 110 mmol/L (98-107); CREATININE 1.9 mg/dL (0.6-1.3); GLUCOSE 90 mg/dL (74-106); POTASSIUM 4.6 mmol/L (3.5-5.1); SODIUM SERUM 144 mmol/L (136-145); TOTAL BILIRUBIN 0.2 mg/dL (0.0-1.0); UREA NITROGEN, BLOOD 51 mg/dL (7-18)
[2019-09-26 11:19] VITALS: BP 174/87
--- NOTE | 2019-09-26 11:19 | NUR ---
BP 174/87 POST VASOTEC ADMIN.
[2019-09-26 11:23] LABS: RBC,URINE 0-5 /HPF (0-5); WBC,URINE TOO MANY TO COUNT /HPF (0-5)
[2019-09-26 11:26] LABS: PROTHROMBIN TIME 9.3 secs (10.8-13.4)
[2019-09-26] MEDS ORDERED: LEVOFLOXACIN 500 MG/D5W PREMIX 100 ML IV ONE (11:30)
--- NOTE | 2019-09-26 12:44 | NUR ---
UPDATED PT ON PLAN TO ADMIT. REMAINS ON BIPAP. RESPIRATIONS ARE UNLABORED AT THIS TIME.
--- NOTE | 2019-09-26 12:58 | NUR ---
DR ROSENTHAL AT BEDSIDE. ORDERS RECEIVED TO TAKE PT OFF BIPAP AND PLACE ON HI-FLOW O2. RESPIRATORY CALLED.
[2019-09-26] MEDS ORDERED: ALBUTEROL 0.083% 2.5 MG/3 ML NEBU INH PRN (13:00)
[2019-09-26] MEDS ORDERED: AZITHROMYCIN 500 MG in DEXTROSE 5% 250 ML IV SCH (13:00)
[2019-09-26] MEDS ORDERED: ONDANSETRON 4 MG/2 ML VIAL IVP PRN (13:00)
--- NOTE | 2019-09-26 13:01 | NUR ---
PLACED ONTO HI-FLOW O2 BY RESPIRATORY.
[2019-09-26 13:25] VITALS: BP 144/76
--- NOTE | 2019-09-26 13:25 | NUR ---
RECEIVED REPORT FROM EMERGENCY ROOM NURSE FOR CONTINUITY OF CARE. PT IN STABLE CONDITION. RESPIRATIONS EVEN AND UNLABORED. IV INTACT AND PATENT. SAFETY MEASURES IN PLACE. BED IN LOW POSITION. BED ALARM ON. CALL LIGHT AT BEDSIDE. WILL CONTINUE TO MONITOR.
--- NOTE | 2019-09-26 13:26 | NUR ---
Patient will be admitted to care of DR ROSENTHAL. Admited to TELE. Will go to room 111-B. Belongings list completed. Report to MARYJO PADILLA.
--- NOTE | 2019-09-26 13:52 | NUR ---
CALLED PHARMACY FOR AZITHROMYCIN, 1300 DOSE. PT TRANSFERRED FROM EMERGENCY ROOM TO [facility] AT 1325.
--- NOTE | 2019-09-26 15:30 | NUR ---
PT REFUSED PICC LINE WITH PICC LINE NURSE AT BEDSIDE. TANNER RINCON AWARE.
--- NOTE | 2019-09-26 15:59 | NUR ---
TERI RODRIGUEZ DR. CONTINUE HOME MEDICATION LYRICA 25MG PO BID.
[2019-09-26 16:00] VITALS: BP 139/78
[2019-09-26] MEDS ORDERED: PREGABALIN 25 MG CAP PO SCH (16:20)
[2019-09-26] MEDS: FUROSEMIDE 40 MG/4 ML VIAL IVP SCH ×2 (16:33→16:36)
--- NOTE | 2019-09-26 16:50 | NUR ---
TERI RODRIGUEZ DR. XANAX 0.25MG PO Q12H PRN.
[2019-09-26] MEDS: ALPRAZolam 0.25 MG TAB PO PRN (17:55)
--- NOTE | 2019-09-26 19:15 | NUR ---
GAVE REPORT TO DRY CANS BACK TENDER NURSE AMARI FOR CONTINUITY OF CARE. PT IN STABLE CONDITION.
--- NOTE | 2019-09-26 19:25 | NUR ---
RECD. RESTING IN BED, AWAKE, A/OX4. RESPIRATION EVEN AND UNLABORED. IV SALINE LOCK AT THE RIGHT WRIST G22, PATENT AND INTACT. BED ON THE LOWEST POSITION, SIDE RAILS UP, CALL LIGHT IN REACH. COMPLAINING OF PAIN, 02/20 WILL CALL ON BILATERAL FEET STATED SHE HAS NEUROPATHY, WILL INFORM MD. PLAN OF CARE FOR THE SHIFT DISCUSSED. VERBALIZED UNDERSTANDING.
[2019-09-26 20:00] VITALS: BP 151/88
--- NOTE | 2019-09-26 20:15 | NUR ---
SPOKE WITH DR. ROSENTHAL REGARDING PATIENT REQUEST FOR PAIN MEDICATION, ORDERED TRAMADOL 50 MG. PO.
[2019-09-26] MEDS: predniSONE 20 MG TAB PO SCH (20:57)
[2019-09-26] MEDS: PREGABALIN 25 MG CAP PO SCH (20:58)
--- NOTE | 2019-09-26 20:58 | NUR ---
MEDICATED WITH TRAMADOL ORDERED BY .
--- NOTE | 2019-09-26 21:00 | NUR ---
DUE PO MEDICATIONS GIVEN.
--- NOTE | 2019-09-26 21:25 | NUR ---
Patient's Plan of Care was discussed and reviewed with BLANKET MAKER: AMARI MCCLELLAND
--- NOTE | 2019-09-26 23:00 | NUR ---
COMPLAINED THAT TRAMADOL IS NOT WORKING WILL INFORM .
[2019-09-27] VITALS: BP 145/78
--- NOTE | 2019-09-27 | NUR ---
SLEEPING COMFORTABLY IN BED.
--- NOTE | 2019-09-27 00:30 | NUR ---
ENDORSED TO CHARGE NURSE DARA FOR CONTINUITY OF CARE.
--- NOTE | 2019-09-27 01:00 | NUR ---
RECEIVED REPORT OF PT IN STABLE CONDITION.SLEEPING W/O S/S OF ANY DISTRESS.WILL CONT.MONITORING.
[2019-09-27] MEDS: ALPRAZolam 0.25 MG TAB PO PRN (03:27)
--- NOTE | 2019-09-27 03:29 | NUR ---
ASKED FOR MED FOR ANXIETY.CALLED AND TOOK ORDER TO GIVE HER XANAX EARLIER.WHEN I WENT TO GIVE IT.SHE WAS SLEEPING.SO DIDN'T GIVE THAT TIME.SHE CALLED FEW MINUTES AND ASKED FOR THAT,.GAVE HER XANAX.
[2019-09-27 04:00] VITALS: BP 145/80
[2019-09-27 07:07] LABS: HEMATOCRIT 29.4 % (36-48); HEMOGLOBIN 9.4 g/dL (12.0-16.0); MEAN CORPUSCULAR HEMOGLOBIN 27 pg (27-31); MEAN CORPUSCULAR HGB CONC 32 g/dL (33-37); MEAN CORPUSCULAR VOLUME 84.4 fL (80-94); PLATELET COUNT (AUTO) 139 K/uL (140-450); RED BLOOD CELL COUNT(AUTO) 3.48 MIL/uL (4.20-5.40); RED CELL DISTRIBUTION WIDTH 16.1 % (11.6-13.7); WHITE BLOOD COUNT (AUTO) 10.4 K/uL (4.8-10.8)
[2019-09-27 07:21] LABS: ALBUMIN 2.6 g/dL (3.4-5.0); ANION GAP 14.9 (8-16); ASPARTATE AMINOTRANSFERASE 10 U/L (15-37); CARBON DIOXIDE 23.1 mmol/L (21-32); CHLORIDE 107 mmol/L (98-107); CREATININE 2.2 mg/dL (0.6-1.3); GLUCOSE 181 mg/dL (74-106); SODIUM SERUM 140 mmol/L (136-145); TOTAL BILIRUBIN 0.2 mg/dL (0.0-1.0)
--- NOTE | 2019-09-27 07:45 | NUR ---
SLEPT WELL AFTER XANAX GIVEN.HR IS SR/SA.NO DISTRESS NTED NOW.REORT GIVEN TO FABI SIBLEY.
--- NOTE | 2019-09-27 07:46 | NUR ---
BEDSIDE REPORT RECEIVED FROM CHIP MACHINE OPERATOR NURSE, PT RESTING QUIETLY, AOX3, RESP EVEN UNLABORED ON 3L NC, BS CLEAR BILAT, DENIES PAIN, OR SOB, R WRIST S/L, SITE WNL, ON CONTINUOUS TELE MONITOR, SKIN WARM DRY COLOR WNL, ALL SAFETY MEASURES IN PLACE, POC REVIEWED, WILL CONTINUE TO MONITOR.
[2019-09-27 08:00] VITALS: BP 137/82
--- NOTE | 2019-09-27 08:32 | NUR ---
PATIENT HAS BEEN SCREENED AND CATEGORIZED MODERATE NUTRITION RISK. PATIENT WILL BE SEEN WITHIN 3-5 DAYS OF ADMISSION. 09/29/19 10/01/[address]
[2019-09-27 08:44] LABS: UREA NITROGEN, BLOOD 64 mg/dL (7-18)
[2019-09-27] MEDS: FUROSEMIDE 40 MG/4 ML VIAL IVP SCH (08:51)
[2019-09-27] MEDS: ASPIRIN 81 MG TAB.CHEW PO SCH (08:52)
[2019-09-27] MEDS: predniSONE 20 MG TAB PO SCH ×2 (08:52→20:59)
[2019-09-27] MEDS: LEVOFLOXACIN 250 MG/D5 PREMIX 50 ML IV SCH (08:52)
[2019-09-27] MEDS: PREGABALIN 25 MG CAP PO SCH ×2 (08:52→20:59)
[2019-09-27 08:53] LABS: LYMPHOCYTES % (MANUAL) 4 % (20-46); MONOCYTES % (MANUAL) 2 % (5-12)
[2019-09-27] MEDS: ENOXAPARIN 30 MG/0.3 ML SYR SUBQ SCH (08:56)
--- NOTE | 2019-09-27 11:48 | NUR ---
PITO NOTES: RECEIVED A CALL FROM JAGRUTI OF [facility], PROVIDED HER WITH UPDATES. Addendum: 09/28/19 at 1415 by Susan Martin CM DC PLANNING PT TILLEY A DC ORDER TO GO TO [facility] FOR IV ABX AND PHYSICAL THERAPY. FAXED [facility], [facility] ACCEPTED PT CAN GO TO ROOM 24A . CALLED JAGRUTI DELEON WAITING FOR THE AUTH Addendum: 09/28/19 at 1640 by Susan Martin CM dc planning RECEIVED AUTH FROM JAGRUTI DELEON [id number] PT IS GOING TO [facility] ROOM #24A # TO GIVE REPORT [phone] ARRANGED TRANSPORT WITH [facility] [phone] CARE [facility]ATE TIME BETWEEN 6-7 PM NOTIFIED BLU CORNELL
[2019-09-27 12:00] VITALS: BP 144/98
[2019-09-27] MEDS: traMADol 50 MG TAB PO PRN ×2 (12:03→21:00)
--- NOTE | 2019-09-27 13:04 | NUR ---
Health Information Specialist Note: Basic Screen: Yes High Risk DC Screen [place]: SERGIO Carrasquillo Relationship: FRIEND Pre-Admission Living Arrangements: Lives with Other Prior ADL Independent Current Home Health Name/Tel: N/A Current DME/02 Name/Tel: [facility] Current Hospice Name/Tel: N/A Current Dialysis Name/Tel: N/A Healthcare Decision Maker: Patient Advance Directive No Physician Orders for Life Sustaining Treatment Form No Patient/Family Have Educational Needs No Information Taught: Advance Directive Community Resources Person Taught: Patient Teaching Tools: Verbal Factors Affecting Learning: None Participation Level: Refused Evaluation: Verbalizes Understanding Needs Additional Education: No Discipline: Case Mgt/Social Svcs Tentative Discharge Plan/Destination: No Needs Identified Will require assistance post discharge: No Referred to Sales And Marketing Specialist: No Tentative Discharge Plan Summary: Patient is a 69-year-old female admitted for COPD and CHF exacerbation. Patient has PMHX of chronic congestive heart failure, COPD, hypertension, GERD, anxiety, and depression. Patient was admitted from home. SW met with patient to verify demographics. Patient is well known to . SW asked patient if patient has followed up with assisted livings. Patient reported that she has not because she lost previous resources. Patient requested additional resources. SW provided resources to patient. Patient reported no history of substance abuse and no mental health history. Patient's plan after discharge is to arrange for assisted living. No further needs identified. Signature: FRANCISCA Koenig Date: Sep 27, 2019 Time: 12:53
--- NOTE | 2019-09-27 14:05 | NUR ---
PT SITTING UP IN CHAIR, APPEARS IN NO ACUTE DISTRESS, BED LINEN CHANGED BY LAUNDRY TECHNICIAN, PT DENIES PAIN NOW, RESP EVEN UNLABORED WILL CONTINUE TO MONTIOR.,
[2019-09-27 16:00] VITALS: BP 157/87
--- NOTE | 2019-09-27 16:05 | NUR ---
PT ASSISTED TO BATHROOM, DENIES ANY OTHER NEEDS, CALL DOHERTY WITHIN REACH, SIDE RAILS UP, NO C/O PAIN, RESP EVEN UNLABORED, WILL COTNIUE TO MONITOR.
--- NOTE | 2019-09-27 19:20 | NUR ---
REPORT GIVEN TO CLIENT CONSULTANT NURSE, PT IN STABLE CONDITION AT THIS TIME.
--- NOTE | 2019-09-27 19:21 | NUR ---
RECD. RESTING IN BED, AWAKE, A/OX4. RESPIRATION EVEN AND UNLABORED. IV SALINE LOCK AT THE RIGHT WRIST G24. PATENT AND INTACT. ABLE TO AMBULATE TO BY HERSELF, GAIT STEADY. OFFERED IF SHE WANTS NICOTINE PATCH, STATED SHE HAD A LOT AT HOME, BUT IT MAKES HER FEEL BAD. PLAN OF CARE FOR THE SHIFT DISCUSSED. VERBALIZED UNDERSTANDING. DENIES PAIN 0/10.
--- NOTE | 2019-09-27 19:25 | NUR ---
Patient's Plan of Care was discussed and reviewed with OPERATIONS ASST: MELLY
[2019-09-27 20:00] VITALS: BP 151/80
--- NOTE | 2019-09-27 21:00 | NUR ---
DUE PO MEDICATIONS GIVEN.
[2019-09-28] VITALS: BP 146/82
--- NOTE | 2019-09-28 | NUR ---
SLEEPING COMFORTABLY IN BED.
--- NOTE | 2019-09-28 02:00 | NUR ---
RECEIVED PT FROM AMARI, SLEEPING AT THIS TIME.
--- NOTE | 2019-09-28 03:00 | NUR ---
STILL SLEEPING COMFORTABLY IN BED, RESPIRATION EVEN AND UNLABORED. ENDORSED TO CHARGE NURSE HAMMAD FOR CONTINUITY OF CARE.
[2019-09-28 04:00] VITALS: BP 160/90
--- NOTE | 2019-09-28 04:00 | NUR ---
AWAKEN FOR V/S, NO COMPLAINTS.
--- NOTE | 2019-09-28 06:42 | NUR ---
RESTING QUIETLY, NO SIGN OF DISTRESS.
--- NOTE | 2019-09-28 07:30 | NUR ---
REPORT RECEIVED FROM [employer] NURSE, PT SLEEPING, AROUSES EASILY, SPEAKS CLEARLY, OX3, RESP EVEN UNLABORED, ON RA, SKIN WARM DRY COLOR WNL, RW24G IV S/L, SITE WNL, PLAN OF CARE REVIEWED, PT DENIES ANY PAIN OR NEEDS, ALL SAFETY MEASURES IN PLACE, WILL CONTINUE TO MONITOR.
[2019-09-28 08:00] VITALS: BP 225/123
[2019-09-28] MEDS: PREGABALIN 25 MG CAP PO SCH (08:18)
[2019-09-28] MEDS: LEVOFLOXACIN 250 MG/D5 PREMIX 50 ML IV SCH (08:19)
[2019-09-28] MEDS: ASPIRIN 81 MG TAB.CHEW PO SCH (08:19)
[2019-09-28] MEDS: predniSONE 20 MG TAB PO SCH (08:19)
[2019-09-28] MEDS: ENOXAPARIN 30 MG/0.3 ML SYR SUBQ SCH (08:20)
[2019-09-28] MEDS ORDERED: NIFEdipine 60 MG TABER PO ONE (08:46)
[2019-09-28 09:00] VITALS: BP 179/95
[2019-09-28] MEDS: NIFEdipine 60 MG TABER PO SCH ×2 (09:20→17:44)
--- NOTE | 2019-09-28 09:45 | NUR ---
PHYSICAL THERAPIST AT [facility]
[2019-09-28 10:34] LABS: WHITE BLOOD COUNT (AUTO) 11.7 K/uL (4.8-10.8)
[2019-09-28 10:35] LABS: HEMOGLOBIN 8.9 g/dL (12.0-16.0); MEAN CORPUSCULAR HEMOGLOBIN 27 pg (27-31); MEAN CORPUSCULAR HGB CONC 32 g/dL (33-37); MEAN CORPUSCULAR VOLUME 84.4 fL (80-94); MONOCYTES % (AUTO) 1.7 % (1.7-9.3); NEUTROPHILS # (AUTO) 11.2 K/uL (1.8-7.7); NEUTROPHILS % (AUTO) 95.3 % (42.2-75.2); PLATELET COUNT (AUTO) 129 K/uL (140-450); RED BLOOD CELL COUNT(AUTO) 3.32 MIL/uL (4.20-5.40); RED CELL DISTRIBUTION WIDTH 16.2 % (11.6-13.7)
[2019-09-28 10:36] LABS: LYMPHOCYTES # (AUTO) 0.3 K/uL (2.5-16.5)
[2019-09-28 10:37] LABS: MONOCYTES # (AUTO) 1.7 K/uL (0.8-1.0)
[2019-09-28 10:56] LABS: ANION GAP 15.6 (8-16); CARBON DIOXIDE 21.7 mmol/L (21-32); CHLORIDE 103 mmol/L (98-107); CREATININE 2.5 mg/dL (0.6-1.3); GLUCOSE 226 mg/dL (74-106); POTASSIUM 4.3 mmol/L (3.5-5.1); SODIUM SERUM 136 mmol/L (136-145)
[2019-09-28 10:57] LABS: UREA NITROGEN, BLOOD 79 mg/dL (7-18)
[2019-09-28 12:00] VITALS: BP 149/93
--- NOTE | 2019-09-28 12:05 | NUR ---
PT RESTING QUIETLY IN NO ACUTE DISTRESS, ASSISTED UP TO BATHROOM, RETURNED BACK TO BED, PT VOICES NO NEEDS AT THIS TIME.
[2019-09-28 16:00] VITALS: BP 162/86
[2019-09-28] MEDS: traMADol 50 MG TAB PO PRN (17:44)
--- NOTE | 2019-09-28 18:10 | NUR ---
REPORT CALLED TO RHEA MUNOZ, AWAITING [facility].
[2019-09-28] MEDS ORDERED: LEVO750T2 IV (18:13)
--- NOTE | 2019-09-28 18:54 | NUR ---
[facility] HERE, REPORT GIVEN TO ADOLPH, ALL BELONGINGS TAKEN WITH PATIENT, TRANSFER TO [facility] NOW
== END 2019-09-28 19:00 | DRG 189 ==
LOC: MED 08:59 → MTU 13:36
PROVIDERS: ADMIT Internal Medicine Pulmonary Disease; ATTEND Internal Medicine Pulmonary Disease
PROC: 5A09357 Assistance with Respiratory Ventilation, Less than 24 Consecutive Hours, Continuous Positive Airway Pressure (ICD-10-PCS; principal; 2019-09-26)
DX: J96.01 Acute respiratory failure with hypoxia (principal); I50.43 Acute on chronic combined systolic (congestive) and diastolic (congestive) heart failure; I13.0 Hypertensive heart and chronic kidney disease with heart failure and stage 1 through stage 4 chronic kidney disease, or unspecified chronic kidney disease; N17.9 Acute kidney failure, unspecified; J44.1 Chronic obstructive pulmonary disease with (acute) exacerbation; N39.0 Urinary tract infection, site not specified; F11.20 Opioid dependence, uncomplicated; F17.200 Nicotine dependence, unspecified, uncomplicated; F32.9 Major depressive disorder, single episode, unspecified; F41.9 Anxiety disorder, unspecified; G62.9 Polyneuropathy, unspecified; G89.4 Chronic pain syndrome; K21.9 Gastro-esophageal reflux disease without esophagitis; M51.36 Other intervertebral disc degeneration, lumbar region; T50.2X5A Adverse effect of carbonic-anhydrase inhibitors, benzothiadiazides and other diuretics, initial encounter; F17.210 Nicotine dependence, cigarettes, uncomplicated; D64.9 Anemia, unspecified; N18.9 Chronic kidney disease, unspecified; Y92.89 Other specified places as the place of occurrence of the external cause; Z91.14 Patient's other noncompliance with medication regimen; Z88.0 Allergy status to penicillin; Z85.3 Personal history of malignant neoplasm of breast
CPT/HCPCS: 36415; 36600; 71045; 80048; 80053; 81001; 82803; 83605; 83880; 84484; 85025; 85610; 85730; 87040; 87081; 87086; 87186; 93005; 94640; 96365; 96375; 97116; 97161-GP; 99291; C1751; J0456; J1650; J1940; J1956; J2270; J2405; J2930; J3490; J7030; J7060; J7512; J7613; Q0092

== ENCOUNTER 2019-10-04 14:19 | Emergency (ER) | payer OTHER ==
[~2019-10-04] VITALS: Ht 165.1 cm; Wt 70.8 kg
[~2019-10-04 14:19] MED LIST changes: -FURO20TA8 PO; +LEVO750T2 IV; -LEVO750T2 PO
[2019-10-04 14:28] VITALS: BP 173/101
--- NOTE | 2019-10-04 14:35 | NUR ---
PT PLACED IN BED 11
--- NOTE | 2019-10-04 14:50 | NUR ---
BIBA FROM HOME C/O SOB X 45 MIN PRIOR TO ARRIVAL. PT RECIEVED BREATHING TX X1 IN FIELD. LUNGS CLEAR BILTERALLY AFTER TREATMENT. RR 20, LABORED. BP CURRENTLY 173/101. PT ADDS 10/10 GENERALIZED BODY PAIN DUE TO NEUROPATHY. PT ALERT AND AWAKE. WEAK GAIT FROM AMBULATING FROM STRETCHER TO GURNEY. PMH- HTN, NEUORPATHY
--- NOTE | 2019-10-04 15:45 | NUR ---
RR EVEN AND UNLABORED AT THIS TIME. BP ELEVATED. 166/104
--- NOTE | 2019-10-04 17:09 | NUR ---
UPDATED DR GOU ON PT STATES. PT RESTING IN BED AT THIS TIME. DR GOU STATES SHE WILL ORDER BREATHING TX AND CHEST XRAY
[2019-10-04] MEDS ORDERED: ALBUTEROL 0.083% 2.5 MG/3 ML NEBU INH ONE ×2 (17:25→19:30)
--- NOTE | 2019-10-04 17:26 | NUR ---
PT REQUESTING RAMSES, STATES SHE TAKES 35 MG X [address] GUO NOTIFIED Addendum: 10/04/19 at 1732 by [email or web address] 06/22 PAIN
--- NOTE | 2019-10-04 17:32 | NUR ---
RT AT BEDSIDE
--- NOTE | 2019-10-04 17:43 | NUR ---
DR GUO AT BEDSIDE
--- NOTE | 2019-10-04 18:00 | NUR ---
XRAY AT BEDSIDE
--- NOTE | 2019-10-04 18:24 | NUR ---
PT C/O 06/[address] GUO AWARE. PT RE-POSITIONED FOR COMFORT
--- NOTE | 2019-10-04 18:27 | NUR ---
VS STABLE, PT ALERT AND AWAKE
[2019-10-04] MEDS ORDERED: predniSONE 20 MG TAB PO ONE (18:50)
--- NOTE | 2019-10-04 19:00 | NUR ---
CALLED PHARMACY FOR RAMSES
--- NOTE | 2019-10-04 19:01 | NUR ---
PER DR GUO VERBAL ORDER, GIVE LYRICA NOW
--- NOTE | 2019-10-04 19:03 | NUR ---
CALLED DIETARY FOR MEAL
--- NOTE | 2019-10-04 19:14 | NUR ---
REPORT GIVEN TO HUNG RN, PT PENDING DISCHARGE AFTER MEDICATIONS AND MEAL
--- NOTE | 2019-10-04 19:14 | NUR ---
REPORT RECEIVED FROM MARYJO MUNIZ.
--- NOTE | 2019-10-04 20:33 | NUR ---
Patient discharged with v/s stable. Written and verbal after care instructions given and explained. Patient alert, oriented and verbalized understanding of instructions. Ambulatory with steady gait. All questions addressed prior to discharge. ID band removed. Patient advised to follow up with PMD. Rx of ALBUTEROL, LYRICA, AND PREDNISONE WAS given. Patient educated on indication of medication including possible reaction and side effects. Opportunity to ask questions provided and answered.
[2019-10-04 20:53] VITALS: BP 131/107
[2019-10-04] MEDS ORDERED: PREGABALIN 25 MG CAP PO SCH (21:00)
== END 2019-10-04 20:33 | disposition home or self-care (01) ==
LOC: MED 14:19
DX: J06.9 Acute upper respiratory infection, unspecified (principal); M79.10 Myalgia, unspecified site; J44.9 Chronic obstructive pulmonary disease, unspecified; I11.0 Hypertensive heart disease with heart failure; Z79.899 Other long term (current) drug therapy; Z88.0 Allergy status to penicillin
CPT/HCPCS: 71045; 94640; 99284; J7512; J7613; Q0092

== ENCOUNTER 2019-10-10 10:58 | Inpatient (IN) | payer OTHER ==
[~2019-10-10] VITALS: Ht 162.6 cm; Wt 63.5 kg
--- NOTE | 2019-10-10 10:58 | NUR ---
Patient BIBA ALS accompanied by Brandt DIAZ, transferred to bed 10. RN evaluating patient at bedside.
--- NOTE | 2019-10-10 10:59 | NUR ---
Respiratory therapist at bedside.
--- NOTE | 2019-10-10 11:00 | NUR ---
pt biba on cpap 5 then placed on bipap settings 12\6 rr14 fio2 50% alarms on and audible and ambu bag at side of bipap and bipap is plugged into red outlet, b\s are diminished bilaterally, pt wearing face mask large
[2019-10-10 11:03] VITALS: BP 257/158
--- NOTE | 2019-10-10 11:05 | NUR ---
BIBA FROM HOME C/O SOB X 1 HOUR PRIOR TO ARRIVAL.PT PLACED ON BIPAP IN ROUTE. PATIENT STATES [place] FOOT PAIN OF 5/10 AT THIS TIME. PATIENT POSITIONED FOR COMFORT; HOB ELEVATED; BEDRAILS UP X2; BED DOWN. ER MD MADE AWARE OF PT STATUS.
--- NOTE | 2019-10-10 11:11 | NUR ---
Dr. Jones is evaluating the patient at bedside.
[2019-10-10] MEDS ORDERED: NACL 0.9% 500 ML IV SCH (11:16)
--- NOTE | 2019-10-10 11:19 | NUR ---
Dr. Jones is evaluating the patient at bedside.
[2019-10-10] MEDS ORDERED: methylPREDNISolone SS 125 MG/2 ML VIAL IVP ONE (11:20)
[2019-10-10] MEDS ORDERED: MAG SULF 2000 MG/WATER PREMIX 50 ML IV ONE (11:20)
[2019-10-10] MEDS ORDERED: hydrALAZINE 20 MG/ML VIAL IVP ONE (11:30)
[2019-10-10] MEDS ORDERED: KETOROLAC 30 MG/ML VIAL IVP ONE (11:30)
--- NOTE | 2019-10-10 11:51 | NUR ---
XRAY AT BEDSIDE
[2019-10-10 11:57] LABS: BASOPHILS % (AUTO) 0.3 % (0.0-2.0); EOSINOPHILS # (AUTO) 0.2 K/uL (0-0.4); EOSINOPHILS % (AUTO) 1.3 % (0.0-4.0); HEMOGLOBIN 12.1 g/dL (12.0-16.0); LYMPHOCYTES # (AUTO) 1.8 K/uL (2.5-16.5); LYMPHOCYTES % (AUTO) 12.1 % (20.5-51.1); MEAN CORPUSCULAR HEMOGLOBIN 26 pg (27-31); MEAN CORPUSCULAR HGB CONC 31 g/dL (33-37); MEAN CORPUSCULAR VOLUME 84.1 fL (80-94); MONOCYTES # (AUTO) 0.7 K/uL (0.8-1.0); MONOCYTES % (AUTO) 4.5 % (1.7-9.3); NEUTROPHILS # (AUTO) 12.5 K/uL (1.8-7.7); NEUTROPHILS % (AUTO) 81.8 % (42.2-75.2); PLATELET COUNT (AUTO) 197 K/uL (140-450); RED BLOOD CELL COUNT(AUTO) 4.63 MIL/uL (4.20-5.40); RED CELL DISTRIBUTION WIDTH 16.3 % (11.6-13.7); WHITE BLOOD COUNT (AUTO) 15.2 K/uL (4.8-10.8)
[2019-10-10 12:02] LABS: PROTHROMBIN TIME 9.8 secs (10.8-13.4)
[2019-10-10 12:05] LABS: ANION GAP 15.1 (8-16); CARBON DIOXIDE 22.7 mmol/L (21-32); CHLORIDE 110 mmol/L (98-107); CREATININE 1.9 mg/dL (0.6-1.3); GLUCOSE 172 mg/dL (74-106); POTASSIUM 3.8 mmol/L (3.5-5.1); SODIUM SERUM 144 mmol/L (136-145); UREA NITROGEN, BLOOD 37 mg/dL (7-18)
[2019-10-10 12:22] LABS: ALBUMIN 3.3 g/dL (3.4-5.0); ASPARTATE AMINOTRANSFERASE 14 U/L (15-37); TOTAL BILIRUBIN 0.3 mg/dL (0.0-1.0)
[2019-10-10] MEDS ORDERED: LEVOFLOXACIN 500 MG/D5W PREMIX 100 ML IV ONE (12:25)
[2019-10-10] MEDS ORDERED: AZITHROMYCIN 1,000 MG in DEXTROSE 5% 500 ML IV ONE (12:25)
[2019-10-10] MEDS ORDERED: AZTREONAM 1,000 MG VIAL ONE (12:34)
[2019-10-10 12:56] VITALS: BP 170/102
[2019-10-10] MEDS ORDERED: ASPIRIN 81 MG TAB.CHEW PO ONE (13:40)
[2019-10-10] MEDS ORDERED: FUROSEMIDE 40 MG TAB PO ONE (13:40)
[2019-10-10] MEDS ORDERED: NITROGLYCERIN 2% 1 GM PKT TP ONE ×2 (13:40→14:47)
[2019-10-10 13:43] LABS: APPEARANCE,URINE SL CLOUDY (CLEAR); BILIRUBIN,URINE NEGATIVE (NEGATIVE); BLOOD, URINE NEGATIVE (NEGATIVE); COLOR,URINE YELLOW (YELLOW); LEUKOCYTE ESTERASE ,URINE NEGATIVE (NEGATIVE); NITRITE, URINE NEGATIVE (NEGATIVE); UGLUCOSE NEGATIVE (NEGATIVE)
[2019-10-10 14:29] LABS: RBC,URINE NONE SEEN /HPF (0-5)
[2019-10-10] MEDS ORDERED: ASPIRIN 81 MG TAB.CHEW ONE (14:45)
[2019-10-10] MEDS ORDERED: FUROSEMIDE 20 MG TAB ONE (14:46)
--- NOTE | 2019-10-10 15:00 | NUR ---
RECEIVED PATIENT FROM ER VIA GURMARIAMA. RECEIVED REPORT FROM AMANDA AUGUSTINE NURSE. PER REPORT THEY WERE UNABLE TO INSERT IV, PICC LINE ORDERED FOR PATIENT. RT AT BEDSIDE AND APPLIED PATIENT ON BIPAP MACHINE. PATIENT IS ALERT AND ORIENTED X4. PATIENT SKIN INTACT. INTRODUCED SELF TO PATIENT AND ORIENTED TO ROOM. BED IN LOW POSITION. BED ALARM ON. CALL LIGHT WITHIN REACH. PLANS OF CARE DISCUSSED.
--- NOTE | 2019-10-10 15:05 | NUR ---
Patient will be admitted to care of DR VILLAGRAN. Admited to TELE. Will go to room 112A. Belongings list completed. Report to MARIA INES SIBLEY.
[2019-10-10 15:15] VITALS: BP 166/102
[2019-10-10] MEDS ORDERED: ALBUTEROL SULFATE/IPRATROPIU 3 ML SOL IH PRN (15:35)
--- NOTE | 2019-10-10 15:35 | NUR ---
DR. VILLAGRAN AT BEDSIDE. ORDERS RECEIVED.
[2019-10-10] MEDS: ALPRAZolam 0.25 MG TAB PO PRN (16:47)
--- NOTE | 2019-10-10 17:00 | NUR ---
PICC LINE NURSE AT BEDSIDE.
[2019-10-10] MEDS ORDERED: ACETAMINOPHEN 325 MG TAB PO PRN (17:10)
[2019-10-10] MEDS ORDERED: LEVOFLOXACIN 500 MG/D5W PREMIX 100 ML IV SCH (17:10)
[2019-10-10] MEDS ORDERED: ONDANSETRON 4 MG/2 ML VIAL IVP PRN (17:10)
[2019-10-10] MEDS ORDERED: ALBUTEROL 0.083% 2.5 MG/3 ML NEBU INH PRN (17:10)
[2019-10-10] MEDS ORDERED: HYDROcodone/APAP 5/325 MG 1 TAB TAB PO PRN (17:10)
[2019-10-10] MEDS ORDERED: MORPHINE SULFATE 4 MG/ML SYR IVP PRN (17:10)
--- NOTE | 2019-10-10 17:45 | NUR ---
PICC LINE TO RIGHT UPPER ARM IN PLACE. PLACEMENT CONFIRMED WITH XRAY. DR. VILLAGRAN NOTIFIED.
--- NOTE | 2019-10-10 19:00 | NUR ---
PATIENT RECEIVED NORCO @ 1806. PATIENT STILL REPORTS OF SEVERE PAIN TO BILATERAL LOWER EXTREMITIES. WILL MEDICATE.
--- NOTE | 2019-10-10 19:25 | NUR ---
PATIENT IN STABLE CONDITION. REPORT GIVEN TO NIGHT NURSE.
--- NOTE | 2019-10-10 19:30 | NUR ---
RECEIVED BEDSIDE REPORT FROM DAY SHIFT NURSE. PATIENT IS AWAKE, ALERT, AND COOPERATIVE. RESPIRATION EVEN UNLABORED ON 2L OXIMIZER O2. NO DISTRESS NOTED. SKIN IS WARM AND DRY. PICC LINE RIGHT UPPER ARM NOTED. FORTE CATHETER DRAINING YELLOW URINE NOTED. PLAN OF CARE WAS DISCUSSED. ALL SAFETY MEASURES IN PLACE. BED IS AT LOW POSITION. CALL LIGHT WITHIN REACH AND VERBALIZES ITS USE. WILL CONTINUE TO MONITOR.
[2019-10-10] MEDS: IPRATROPIUM 0.02% 0.5 MG/2.5 ML NEBU INH SCH (19:39)
[2019-10-10] MEDS: ALBUTEROL 0.083% 2.5 MG/3 ML NEBU INH SCH (19:39)
--- NOTE | 2019-10-10 19:48 | NUR ---
RECEIVED PT ON 5L NC WITH SP02 OF 100% AND A COARSE DIMINISHED BREATH SOUNDS ON THE UPPER LOBES. DECREASED O2 FROM 5L TO 4L WITH SP02 97%. NO RESPIRATORY DISTRESS NOTED AT THIS TIME. HHN TX GIVEN ORDERED WITH NO ADVERSE REACTION. WILL CONTINUE TO MONITOR PT.
[2019-10-10 20:00] VITALS: BP 144/55
--- NOTE | 2019-10-10 20:15 | NUR ---
INITIAL ASSESSMENT DONE. VITALS WERE TAKEN. PATIENT ASKED FOR SANDWICH. SANDWICH PROVIDED. WILL CONTINUE TO MONITOR.
[2019-10-10] MEDS: NIFEdipine 60 MG TABER PO SCH (21:26)
[2019-10-10] MEDS: methylPREDNISolone SS 40 MG/ML VIAL IVP SCH (21:26)
[2019-10-10] MEDS: PREGABALIN 25 MG CAP PO SCH (21:26)
[2019-10-10] MEDS: FAMOTIDINE 20 MG TAB PO SCH (21:27)
--- NOTE | 2019-10-10 21:30 | NUR ---
ALL SCHEDULED MEDS WERE GIVEN PER ORDER. NO ASE NOTED. WILL CONTINUE TO MONITOR.
--- NOTE | 2019-10-10 22:45 | NUR ---
PATIENT STATE SHES HUNGRY AGAIN. PROVIDED ANOTHER SANDWICH. WILL CONTINUE TO MONITOR
[2019-10-11] VITALS: BP 137/82
--- NOTE | 2019-10-11 00:10 | NUR ---
VITALS WERE TAKEN. PATIENT IN STABLE CONDITION. NO DISTRESS NOTED. WILL CONTINUE TO MONITOR.
[2019-10-11] MEDS: IPRATROPIUM 0.02% 0.5 MG/2.5 ML NEBU INH SCH ×4 (01:00→20:59)
[2019-10-11] MEDS: ALBUTEROL 0.083% 2.5 MG/3 ML NEBU INH SCH ×4 (01:00→20:59)
--- NOTE | 2019-10-11 01:06 | NUR ---
PT IN NO RESPIRATORY DISTRESS AT THIS MOMENT. PT STILL ON 4L OXIMIZER WITH SP02 OF 98%. BiPAP AT BEDSIDE PRN FOR WOB. HHN TX GIVEN AT THIS TIME WITH NO ADVERSE REACTION. WILL CONTINUE TO MONITOR PT.
--- NOTE | 2019-10-11 01:42 | NUR ---
CHECKED PATIENT. PATIENT SLEEPING RESPIRATION EVEN UNLABORED ON 4L OXIMIZER. NO DISTRESS NOTED. WILL CONTINUE TO MONITOR.
[2019-10-11 04:00] VITALS: BP 112/65
--- NOTE | 2019-10-11 04:00 | NUR ---
VITALS WERE TAKEN. PATIENT IS FEELING ANXIOUS. PRN ATIVAN GIVEN PER ORDER. WILL CONTINUE TO MONITOR.
[2019-10-11] MEDS: methylPREDNISolone SS 40 MG/ML VIAL IVP SCH ×3 (04:03→20:05)
[2019-10-11] MEDS: LORazepam 2 MG/ML VIAL IVP PRN ×2 (04:03→20:15)
--- NOTE | 2019-10-11 07:12 | NUR ---
ENDORSED PATIENT TO DAY SHIFT NURSE. PATIENT IN STABLE CONDITION
[2019-10-11 07:19] LABS: BASOPHILS % (AUTO) 0.2 % (0.0-2.0); HEMATOCRIT 30.1 % (36-48); HEMOGLOBIN 9.5 g/dL (12.0-16.0); LYMPHOCYTES # (AUTO) 0.1 K/uL (2.5-16.5); LYMPHOCYTES % (AUTO) 1.2 % (20.5-51.1); MEAN CORPUSCULAR HEMOGLOBIN 27 pg (27-31); MEAN CORPUSCULAR HGB CONC 32 g/dL (33-37); MEAN CORPUSCULAR VOLUME 83.6 fL (80-94); MONOCYTES # (AUTO) 0.1 K/uL (0.8-1.0); MONOCYTES % (AUTO) 1.4 % (1.7-9.3); NEUTROPHILS # (AUTO) 10.5 K/uL (1.8-7.7); NEUTROPHILS % (AUTO) 97.2 % (42.2-75.2); PLATELET COUNT (AUTO) 152 K/uL (140-450); RED BLOOD CELL COUNT(AUTO) 3.59 MIL/uL (4.20-5.40); RED CELL DISTRIBUTION WIDTH 15.9 % (11.6-13.7); WHITE BLOOD COUNT (AUTO) 10.8 K/uL (4.8-10.8)
--- NOTE | 2019-10-11 07:30 | NUR ---
SHIFT REPORT RECEIVED FROM NEWS EDITOR NURSE. PT IS IN BED RESTING AT HIS TIME. NO DISTRESS NOTED. CALL LIGHT IN REACH.
[2019-10-11 07:39] LABS: ANION GAP 14.4 (8-16); CHLORIDE 104 mmol/L (98-107); CREATININE 2.6 mg/dL (0.6-1.3); GLUCOSE 248 mg/dL (74-106); POTASSIUM 4.4 mmol/L (3.5-5.1); SODIUM SERUM 137 mmol/L (136-145); UREA NITROGEN, BLOOD 49 mg/dL (7-18)
[2019-10-11 08:00] VITALS: BP 116/66
--- NOTE | 2019-10-11 08:04 | NUR ---
PATIENT HAS BEEN SCREENED AND CATEGORIZED MODERATE NUTRITION RISK. PATIENT WILL BE SEEN WITHIN 3-5 DAYS OF ADMISSION. 10/13/19 10/15/[address]
[2019-10-11] MEDS: FUROSEMIDE 40 MG/4 ML VIAL IVP SCH ×2 (08:53→17:47)
[2019-10-11] MEDS: NIFEdipine 60 MG TABER PO SCH ×2 (08:53→21:00)
[2019-10-11] MEDS: PREGABALIN 25 MG CAP PO SCH ×2 (08:53→20:05)
[2019-10-11] MEDS ORDERED: LEVOFLOXACIN 250 MG/D5 PREMIX 50 ML IV SCH (09:00)
[2019-10-11] MEDS ORDERED: ENOXAPARIN 40 MG/0.4 ML SYR SUBQ SCH (09:00)
--- NOTE | 2019-10-11 09:30 | NUR ---
PT IS IN BED IN STABLE CONDITION. NO DISTRESS NOTED. NO COMPLAINS OF PAIN. CALL LIGHT IN REACH.
--- NOTE | 2019-10-11 11:22 | NUR ---
PER MAGGIE ECHO WAS NOT DONE. LAST ECHO DONE ON THE August. PER FORESTRY AID TECHNICIAN. NO REPEAT ECHO DONE WITHIN SIX MONTHS. REQUESTED FORESTRY AID TECHNICIAN TO NOTIFY DR VILLAGRAN.
[2019-10-11 12:00] VITALS: BP 96/58
--- NOTE | 2019-10-11 12:30 | NUR ---
PT IS SAYING SHE IS HAVING TROUBLE SWALLOWING FOOD. PT REFUSED TO EAT LUNCH. PT ASKED FOR FLUIDS AND MILK. PT IS OTHERWISE RESTING IN BED. NO DISTRESS NOTED. CALL LIGHT IN REACH.
--- NOTE | 2019-10-11 13:45 | NUR ---
Called HOME PHONE#[phone] and left voice message to call us back on #[phone].
--- NOTE | 2019-10-11 13:46 | NUR ---
Called [facility] #[phone] and left voice message to call us back on #[phone].
--- NOTE | 2019-10-11 14:35 | NUR ---
PT SAYS SHE IS HUNGRY AND WANTS TO EAT SANDWICH. CALLED [facility] AND ASKED FOR A SANDWICH. NO COMPLAINS OF SWALLOWING NOW. CALL LIGHT IN REACH.
--- NOTE | 2019-10-11 14:55 | NUR ---
DISCHARGE PLANNING [facility] Patient: Suzan Madera : 1950 Age/Sex: 69/F Unit#: [id number] Room/Bed: 112/A User: Anabelle Carmichael CM Date: 10/11/19 14:07 Type: CM: Discharge Planning Basic Screen: No High Risk DC Screen Yes Re-Admission: Non-Compliance Name: Thierry CoburnJani Foreign Relationship: Friend Pre-Admission Living Arrangements: Lives with Other Prior ADL Independent Healthcare Decision Maker: Patient Advance Directive No Physician Orders for Life Sustaining Treatment Form No Information Taught: Community Resources Person Taught: Patient Teaching Tools: Verbal Factors Affecting Learning: Age Participation Level: Active Evaluation: Verbalizes Understanding Needs Additional Education: No Discipline: Case Mgt/Social Svcs Tentative Discharge Plan/Destination: Home Health SNF/ECF Tentative Discharge Plan Summary: 69 y/o female pt who presented to the Ed with complains of SOB. Pt with hx of COPD, hypertension, and neuropathy. Pt was recently DC on 09/28/19 from [facility] due to acute upper respiratory issues. At the time of the visit, the patient was sitting up on the bed, a&o x3, mood and affect congruent with situation. Pt reports she's single, lives in [place] with roomates. Pt stated she's independent with ambulation and ADLs. Pt has a walker and wheelchair at home. Pt reports having limited support; pt has two sisters but no relationship with them; pt doesn't have children. Pt stated she's unhappy with her current living situation and would like to find a new place; pt is currently paying $450/month. Pt is aware she might not find something at that gill. Pt's total income is $970/month. Alannah informed pt I will contact her insurance to inquire about any assistance post discharge. Pt agreeable. Called [facility] PITO Corea ext [phone], who's aware of the admission and is very familiar with this pt. Per Nahomy, pt is very noncompliant, has extensive hx of leaving AMA and has had 11 re-admissions to the hospital in the last 6 weeks. Erica Blood enrrolled the patient in their "Charter" program which includes home visits and supportive services however the pt hasn't been at home long enough to have a visit. Per Lilliam, they will have a SW follow-up with the pt. Nahomy stated she will not authorize SNF for the pt. Sw will continue following up as needed. Signature: DONA Vyas/PITO Date: Oct 11, 2019 Time: 14:54
--- NOTE | 2019-10-11 15:00 | NUR ---
PT IN STABLE CONDITION. CALL LIGHT IN REACH
[2019-10-11 16:00] VITALS: BP 108/68
--- NOTE | 2019-10-11 19:39 | NUR ---
SHIFT REPORT GIVEN TO RENTAL SALES REPRESENTATIVE NURSE. PT IN STABLE CONDITION. CALL LIGHT IN REACH
[2019-10-11 20:00] VITALS: BP 104/66
[2019-10-11] MEDS: FAMOTIDINE 20 MG TAB PO SCH (20:05)
--- NOTE | 2019-10-11 20:16 | NUR ---
PT ANXIOUS, ADMINISTERED ATIVAN ORDERED
--- NOTE | 2019-10-11 21:00 | NUR ---
ADALAT HOLD DUE TO BP 112/60; HR 78; WILL INFORM
--- NOTE | 2019-10-11 21:03 | NUR ---
RECEIVED PT ON 4L NC WITH SP02 OF 99%. TITRATED 02 TO 2L NC WITH SPO2 OF 97% AND A CLEAR DIMINISHED BREATH SOUNDS ON THE UPPER LOBES. NO RESPIRATORY DISTRESS NOTED AT THIS TIME. HHN TX GIVEN ORDERED WITH NO ADVERSE REACTION. BiPAP ON AT BEDSIDE PRN FOR WOB. WILL CONTINUE TO MONITOR PT.
[2019-10-12] VITALS: BP 106/65
[2019-10-12] MEDS: ALPRAZolam 0.25 MG TAB PO PRN (00:10)
--- NOTE | 2019-10-12 00:10 | NUR ---
PT ANXIOUS, TOSSING AND TURNING, SAID SHE HAS A LOT OF THOUGHTS RIGHT NOW AND TRIES TO GET SOME SLEEP. WILL ADMINISTER ALPRAZOLAM ORDERED
[2019-10-12] MEDS: ALBUTEROL 0.083% 2.5 MG/3 ML NEBU INH SCH ×2 (01:28→08:19)
[2019-10-12] MEDS: IPRATROPIUM 0.02% 0.5 MG/2.5 ML NEBU INH SCH ×2 (01:28→08:19)
--- NOTE | 2019-10-12 01:32 | NUR ---
PT SEEN AT THIS TIME WITH NO RESPIRATORY DISTRESS. HHN TX GIVEN ORDERED WITH NO ADVERSE REACTION. WILL CONTINUE TO MONITOR PT.
[2019-10-12 06:00] VITALS: BP 100/62
[2019-10-12] MEDS: methylPREDNISolone SS 40 MG/ML VIAL IVP SCH (06:15)
--- NOTE | 2019-10-12 07:25 | NUR ---
RECEIVED REPORT FROM NIGHT NURSE. PT IN STABLE CONDITION, AAOX4, NO DISTRESS NOTED, DENIES PAIN. RESPIRATIONS EVEN AND UNLABORED ON O2 2L VIA NC. R UA PICC LINE IN PLACE, PATENT AND ASYMPTOMATIC SALINE LOCKED. FORTE IN PLACE. SKIN INTACT. PT EXPRESSES THE DESIRE TO LEAVE DUE TO A GUT FEELING THAT SHE MUST. PT EDUCATED ON THE POSSIBILTY OF LEAVING AMA AND THE DIFFERENCES WITH REGULAR DISCHARGE. SAFETY MEASURES IN PLACE. CALL LIGHT WITHIN REACH, BED IN LOW POSITION. WILL CONTINUE TO MONITOR.
--- NOTE | 2019-10-12 09:20 | NUR ---
PT LEFT AMA AT THIS TIME. AMA RELEASE SIGNED BY PT. IV SITE REMOVED WITH MINIMAL BLOOD LOSS AND LUMEN INTACT. ID BANDS REMOVED, BELONGINGS VERIFIED AND RETURNED TO PT. PT ESCORTED OFF UNIT IN WHEELCHAIR ACCOMPANIED BY FRIEND WHO DROVE HER VIA PRIVATE VEHICLE. Addendum: 10/12/19 at 1132 by Yovani Luna RN DR VILLAGRAN NOTIFIED OF PT DESIRE TO LEAVE AMA
== END 2019-10-12 09:20 | disposition left against medical advice (07) | DRG 291 ==
LOC: MED 10:58 → MTU 14:21
PROVIDERS: ADMIT Internal Medicine Pulmonary Disease; ATTEND Internal Medicine Pulmonary Disease
PROC: 02HV33Z Insertion of Infusion Device into Superior Vena Cava, Percutaneous Approach (ICD-10-PCS; principal; 2019-10-10)
PROC: B548ZZA Ultrasonography of Superior Vena Cava, Guidance (ICD-10-PCS; 2019-10-10)
PROC: 5A09357 Assistance with Respiratory Ventilation, Less than 24 Consecutive Hours, Continuous Positive Airway Pressure (ICD-10-PCS; 2019-10-10)
DX: I11.0 Hypertensive heart disease with heart failure (principal); J18.9 Pneumonia, unspecified organism; J96.01 Acute respiratory failure with hypoxia; J44.0 Chronic obstructive pulmonary disease with (acute) lower respiratory infection; J44.1 Chronic obstructive pulmonary disease with (acute) exacerbation; I50.41 Acute combined systolic (congestive) and diastolic (congestive) heart failure; F17.200 Nicotine dependence, unspecified, uncomplicated; G62.9 Polyneuropathy, unspecified; Z53.29 Procedure and treatment not carried out because of patient's decision for other reasons; Z79.899 Other long term (current) drug therapy; Z88.0 Allergy status to penicillin
CPT/HCPCS: 36415; 71045; 80048; 80053; 81001; 83605; 83735; 83880; 84484; 85025; 85610; 85730; 87040; 87081; 87086; 87186; 87804; 93005; 94640; 94660; 96365; 96366; 96367; 96375; 99285; J0360; J1650; J1885; J1940; J1956; J2060; J2270; J2920; J2930; J3475; J3490; J7030; J7060; J7613; J7644; Q0092

== ENCOUNTER 2019-10-18 09:58 | Inpatient (IN) | payer OTHER ==
[~2019-10-18] VITALS: Ht 162.6 cm; Wt 69.4 kg
[2019-10-18 10:00] VITALS: BP 214/127
--- NOTE | 2019-10-18 10:07 | NUR ---
RT IS AT BEDSIDE.
--- NOTE | 2019-10-18 10:09 | NUR ---
BIBA C/O RESPIRATORY DISTRESS SINCE 0900 TODAY W/ DIZZINESS. INITAL O2 SAT FOR EMS WAS 89%, PT PLACED ON CPAP PRE-HOSPITAL WITH IMPROVED SATURATION. LABORED BREATHING NOTED UPON ASSESSMENT. DENIES CP. PATIENT STATES PAIN OF 5/10 AT THIS TIME; VSS; PATIENT POSITIONED FOR COMFORT; HOB ELEVATED; BEDRAILS UP X2; BED DOWN. ER MD MADE AWARE OF PT STATUS.
--- NOTE | 2019-10-18 10:10 | NUR ---
DR. AWAD AT BEDSIDE EVALUATING PATIENT.
--- NOTE | 2019-10-18 10:12 | NUR ---
PER DR. SUJIT AWAD OK TO LEAVE OFF BIPAP TO MASK AT THIS TIME
--- NOTE | 2019-10-18 10:14 | NUR ---
SATURATION DESCENDING TO 90% C/O SOB PLACED ON SUPPLEMENTAL OXYGEN AT 2 LPM VIA NC
[2019-10-18] MEDS ORDERED: ALBUTEROL 0.083% 2.5 MG/3 ML NEBU INH ONE (10:20)
[2019-10-18] MEDS ORDERED: IPRATROPIUM 0.02% 0.5 MG/2.5 ML NEBU INH ONE (10:20)
[2019-10-18] MEDS ORDERED: methylPREDNISolone SS 125 MG/2 ML VIAL IVP ONE (10:20)
--- NOTE | 2019-10-18 10:23 | NUR ---
pt refusing iv at this time unless picc line is entered. dr daniels notified.
[2019-10-18] MEDS ORDERED: predniSONE 20 MG TAB PO ONE (10:25)
--- NOTE | 2019-10-18 10:25 | NUR ---
RT AT BEDSIDE FOR ABG
--- NOTE | 2019-10-18 10:27 | NUR ---
XRAY IS AT BEDSIDE.
--- NOTE | 2019-10-18 10:30 | NUR ---
ABG COMPLETED PRESSURE APPLIED TO PUNCTURE SITE NO ADVERSE REACTIONS NOTED
--- NOTE | 2019-10-18 10:31 | NUR ---
prednisone po administered.
--- NOTE | 2019-10-18 10:33 | NUR ---
rt at bedside for breathing tx
--- NOTE | 2019-10-18 10:43 | NUR ---
ERMD AWARE OF ABG RESULTS
[2019-10-18 11:25] LABS: APPEARANCE,URINE CLEAR (CLEAR); BILIRUBIN,URINE NEGATIVE (NEGATIVE); BLOOD, URINE TRACE-L (NEGATIVE); COLOR,URINE YELLOW (YELLOW); LEUKOCYTE ESTERASE ,URINE 1+ (NEGATIVE); NITRITE, URINE NEGATIVE (NEGATIVE); UGLUCOSE NEGATIVE (NEGATIVE)
[2019-10-18 11:27] LABS: BASOPHILS # (AUTO) 0.1 K/uL (0.00-0.22); BASOPHILS % (AUTO) 1.4 % (0.0-2.0); EOSINOPHILS # (AUTO) 0.1 K/uL (0-0.4); EOSINOPHILS % (AUTO) 1.3 % (0.0-4.0); HEMATOCRIT 30.5 % (36-48); HEMOGLOBIN 9.7 g/dL (12.0-16.0); LYMPHOCYTES # (AUTO) 0.5 K/uL (2.5-16.5); LYMPHOCYTES % (AUTO) 5.3 % (20.5-51.1); MEAN CORPUSCULAR HEMOGLOBIN 27 pg (27-31); MEAN CORPUSCULAR HGB CONC 32 g/dL (33-37); MEAN CORPUSCULAR VOLUME 83.3 fL (80-94); MONOCYTES # (AUTO) 0.4 K/uL (0.8-1.0); MONOCYTES % (AUTO) 4.2 % (1.7-9.3); NEUTROPHILS # (AUTO) 8.4 K/uL (1.8-7.7); NEUTROPHILS % (AUTO) 87.8 % (42.2-75.2); PLATELET COUNT (AUTO) 136 K/uL (140-450); RED BLOOD CELL COUNT(AUTO) 3.66 MIL/uL (4.20-5.40); RED CELL DISTRIBUTION WIDTH 16.3 % (11.6-13.7); WHITE BLOOD COUNT (AUTO) 9.5 K/uL (4.8-10.8)
--- NOTE | 2019-10-18 11:32 | NUR ---
PT IS EATING SANWICH IN THE BED. VSS. PT IS ON MONITOR.
[2019-10-18 11:37] LABS: ALBUMIN 2.8 g/dL (3.4-5.0); ANION GAP 15.2 (8-16); ASPARTATE AMINOTRANSFERASE 15 U/L (15-37); CARBON DIOXIDE 21.6 mmol/L (21-32); CHLORIDE 111 mmol/L (98-107); CREATININE 2.2 mg/dL (0.6-1.3); GLUCOSE 111 mg/dL (74-106); POTASSIUM 3.8 mmol/L (3.5-5.1); SODIUM SERUM 144 mmol/L (136-145); TOTAL BILIRUBIN 0.2 mg/dL (0.0-1.0); UREA NITROGEN, BLOOD 43 mg/dL (7-18)
[2019-10-18 11:58] LABS: RBC,URINE 0-5 /HPF (0-5); WBC,URINE 16-25 (MOD) /HPF (0-5)
[2019-10-18] MEDS ORDERED: NIFEdipine 30 MG TABER PO ONE (12:05)
[2019-10-18] MEDS ORDERED: ASPIRIN 81 MG TAB.CHEW PO ONE (12:05)
[2019-10-18] MEDS ORDERED: NITROGLYCERIN 2% 1 GM PKT TP ONE (12:05)
[2019-10-18] MEDS ORDERED: FUROSEMIDE 40 MG/4 ML VIAL IVP SCH (12:05)
[2019-10-18] MEDS ORDERED: LEVOFLOXACIN 500 MG TAB PO ONE (12:05)
--- NOTE | 2019-10-18 12:25 | NUR ---
PT IS HAVING LUNCH IN THE BED. VSS. PT IS ON MONITOR.
--- NOTE | 2019-10-18 13:30 | NUR ---
PT URINATED INTO BED [place]. URINE CLEAR AND YELLOW. OUTPUT APPROXIMATELY 380ML.
[2019-10-18] MEDS ORDERED: IPRATROPIUM 0.02% 0.5 MG/2.5 ML NEBU INH PRN (13:45)
[2019-10-18] MEDS ORDERED: ALBUTEROL 0.083% 2.5 MG/3 ML NEBU INH PRN (13:45)
[2019-10-18] MEDS ORDERED: ONDANSETRON 4 MG/2 ML VIAL IVP PRN (13:45)
[2019-10-18] MEDS ORDERED: ACETAMINOPHEN 325 MG TAB PO PRN (13:45)
--- NOTE | 2019-10-18 14:14 | NUR ---
PT ASSISTED ONTO BEDPAN WITH STUDENTS ASSISTANCE.
--- NOTE | 2019-10-18 14:35 | NUR ---
RECEIVED REPORT FROM AMANDA MCKEON RN. PT IS AAOX4, AMBULATORY BUT UNABLE TO WALK LONG DISTANCE DUE TO SOB. PT SKIN INTACT. PT ON 3L O2 VIA NC. PT IV ON THE LEFT HAND 22G. IV CANNULA NOTED TO BE PARTIALLY OUT BUT PT IV FLUSHING WELL. WILL CONTINUE TO ASSESS. PT FULL CODE. PT COMPLAINS OF 4/10 HEADACHE PAIN. WILL MEDICATE. DISCUSSED POC WITH PT AND PT VERBALIZED UNDERSTANDING. ALL SAFETY MEASURES IN PLACE. BEDSIDE COMMODE NEAR PT BEDSIDE. BED IN LOW POSITION, CALL LIGHT WITHIN REACH. WILL ROUND FREQUENTLY ON PT.
--- NOTE | 2019-10-18 14:40 | NUR ---
Patient will be admitted to care of DR SOLORIO. Admited to TELE. Will go to room 111-B Belongings list completed. Report to MARYJO SALMON.
[2019-10-18] MEDS: HYDROcodone/APAP 5/325 MG 1 TAB TAB PO PRN ×2 (14:55→21:31)
[2019-10-18 15:10] LABS: CREATINE KINASE MB 3.9 ng/mL (0-3.6)
[2019-10-18] MEDS ORDERED: AZITHROMYCIN 500 MG in DEXTROSE 5% 250 ML IV SCH (16:00)
--- NOTE | 2019-10-18 16:21 | NUR ---
PT RESTING IN BED. ALL NEEDS MET. WILL CONTINUE TO ROUND ON PT.
[2019-10-18] MEDS ORDERED: PREGABALIN 25 MG CAP PO SCH (17:40)
--- NOTE | 2019-10-18 18:46 | NUR ---
PT IV HURTING. UPON ASSESSMENT IV IS STARTING TO SWELL. PER ER CHARGE, PT IS REALLY HARD STICK AND USUALLY HAS PICC LINE INSERTED WHILE INPATIENT. ALL OTHER NEEDS MET. WILL CONTINUE TO ROUND ON PT.
--- NOTE | 2019-10-18 19:30 | NUR ---
PAGED FOR HIM TO SIGN PT CONSENT IN ORDER FOR PICC LINE TO BE INSERTED. I EXPLAINED TO THAT PT HAS NO IV ACCESS AND PT HAS IV ABX THAT NEEDS INFUSION WELL OTHER SCHEDULED IV MEDS. I OFFERED TO FAX CONSENT TO WHEREVER HE IS AND HE CAN SIGN FORM AND THEN SEND BACK TO US BUT SAID HE'S HOME AND DOES NOT HAVE FAX MACHINE SO HE WILL TAKE CARE OF IT IN THE MORNING. PT HAS NO IV ACCESS AT THIS TIME. NIGHT CHARGE WILL TRY TO INSERT IV IN PT. ALL OTHER NEEDS MET.
--- NOTE | 2019-10-18 19:30 | NUR ---
RECEIVED BEDSIDE REPORT FROM DAY SHIFT NURSE. PT DENIED PAIN AT THIS TIME, BREATHING EVEN AND UNLABORED WITH 2LPM NC. SKIN INTACT, WARM AND DRY TO TOUCH. NO IV SITE NOTED. WAITING FOR PICC LINE. POC REVIEWED AND DISCUSSED WITH PT, PT VERBALIZED UNDERSTANDING. BED IN LOW POSITION, CALL LIGHT WITHIN REACH.
--- NOTE | 2019-10-18 19:39 | NUR ---
ENDORSED PT TO TALENT PARTNER FOR CONTINUITY OF CARE. PT INS TABLE CONDITION AT THIS TIME.
[2019-10-18 20:00] VITALS: BP 142/85
[2019-10-18] MEDS ORDERED: methylPREDNISolone SS 125 MG/2 ML VIAL IVP SCH (21:00)
[2019-10-18] MEDS ORDERED: methylPREDNISolone SS 125 MG in WATER STERILE 2 ML IV SCH (21:00)
--- NOTE | 2019-10-18 21:31 | NUR ---
GIVEN HEPARIN MD ORDERED. PT C/O 02/20 BOTH FEET PAIN. GIVEN NORCO MD ORDERED. PT TOLERATED WELL.
--- NOTE | 2019-10-18 22:00 | NUR ---
PT C/O ANXIETY, CALLED DR. ORTIZ, DR. ORTIZ ORDERED 1MG PRN Q6H ATIVAN PO. ALSO, CHANGED SOLU-MEDROL IVP TO IM 60MG Q6H. D/T PT DOES NOT HAVE IV ASSESS. PT WILL HAVE PICC LINE TOMORROW MORNING.
[2019-10-18] MEDS ORDERED: methylPREDNISolone SS 125 MG/2 ML VIAL IM SCH ×2 (22:10→23:00)
[2019-10-18] MEDS: LORazepam 1 MG TAB PO PRN (22:29)
--- NOTE | 2019-10-18 22:31 | NUR ---
GIVEN ATIVAN AND SOLU-MEDROL MD ORDERED. PT TOLERATED WELL. WILL CONTINUE TO MONITOR.
[2019-10-19] VITALS: BP 151/80
--- NOTE | 2019-10-19 00:12 | NUR ---
PT SLEEPING IN BED COMFORTABLY. NO ACUTE DISTRESS NOTED.
--- NOTE | 2019-10-19 02:05 | NUR ---
PT SLEEPING IN BED COMFORTABLY. NO ACUTE DISTRESS NOTED.
[2019-10-19 04:00] VITALS: BP 143/75
--- NOTE | 2019-10-19 05:25 | NUR ---
GIVEN SOLU-MEDROL MD ORDERED. PT TOLERATED WELL. WILL CONTINUE TO MONITOR.
--- NOTE | 2019-10-19 05:55 | NUR ---
CALLED AND LEFT MESSAGE FOR PICC LINE NURSE.MD NEEDS TO SIGN CONSENT.
[2019-10-19] MEDS ORDERED: methylPREDNISolone SS 125 MG/2 ML VIAL IM SCH ×2 (06:00→20:10)
[2019-10-19] MEDS: LORazepam 1 MG TAB PO PRN (06:42)
--- NOTE | 2019-10-19 06:42 | NUR ---
PT AGITATING, GIVE ATIVAN MD ORDERED. PT TOLERATED WELL.
[2019-10-19 07:15] LABS: BASOPHILS % (AUTO) 0.1 % (0.0-2.0); HEMATOCRIT 29.4 % (36-48); HEMOGLOBIN 9.4 g/dL (12.0-16.0); LYMPHOCYTES # (AUTO) 0.2 K/uL (2.5-16.5); LYMPHOCYTES % (AUTO) 2.8 % (20.5-51.1); MEAN CORPUSCULAR HEMOGLOBIN 27 pg (27-31); MEAN CORPUSCULAR HGB CONC 32 g/dL (33-37); MEAN CORPUSCULAR VOLUME 83.2 fL (80-94); MONOCYTES # (AUTO) 0.1 K/uL (0.8-1.0); MONOCYTES % (AUTO) 0.7 % (1.7-9.3); NEUTROPHILS # (AUTO) 8.6 K/uL (1.8-7.7); NEUTROPHILS % (AUTO) 96.4 % (42.2-75.2); PLATELET COUNT (AUTO) 141 K/uL (140-450); RED BLOOD CELL COUNT(AUTO) 3.54 MIL/uL (4.20-5.40); RED CELL DISTRIBUTION WIDTH 15.7 % (11.6-13.7); WHITE BLOOD COUNT (AUTO) 8.9 K/uL (4.8-10.8)
[2019-10-19 07:25] LABS: ALBUMIN 2.9 g/dL (3.4-5.0); ASPARTATE AMINOTRANSFERASE 10 U/L (15-37); CARBON DIOXIDE 22.2 mmol/L (21-32); CHLORIDE 109 mmol/L (98-107); CREATININE 2.6 mg/dL (0.6-1.3); GLUCOSE 218 mg/dL (74-106); MAGNESIUM 2.1 mg/dL (1.8-2.4); POTASSIUM 4.2 mmol/L (3.5-5.1); SODIUM SERUM 143 mmol/L (136-145); TOTAL BILIRUBIN 0.1 mg/dL (0.0-1.0); UREA NITROGEN, BLOOD 57 mg/dL (7-18)
--- NOTE | 2019-10-19 08:05 | NUR ---
SPOKE WITH PICC LINE NURSE @ [phone] TO NOTIFY THEM THAT WE HAVE PT THAT NEEDS PICC LINE INSERTION. CONSENT SIGNED BY PT AND MD. PER PICC LINE NURSE, CASE WAS GIVEN TO OTHER PICC LINE NURSE IN THE AREA AND HE WILL CALL WITH ETA. AWAITING CALLBACK.
[2019-10-19] MEDS ORDERED: ASPIRIN 81 MG TAB.CHEW PO SCH (09:00)
[2019-10-19] MEDS ORDERED: METOPROLOL 25 MG TAB PO SCH (09:00)
[2019-10-19] MEDS ORDERED: FUROSEMIDE 40 MG/4 ML VIAL IVP SCH (09:00)
[2019-10-19] MEDS ORDERED: PREGABALIN 25 MG CAP PO SCH (09:00)
[2019-10-19] MEDS ORDERED: SPIRONOLACTONE 25 MG TAB PO SCH (09:00)
--- NOTE | 2019-10-19 10:25 | NUR ---
PATIENT HAS BEEN SCREENED AND CATEGORIZED MODERATE NUTRITION RISK. PATIENT WILL BE SEEN WITHIN 3-5 DAYS OF ADMISSION. 03/20/19 03/22/[address]
--- NOTE | 2019-10-19 10:39 | NUR ---
PICC LINE INSERTED BY BIJAN PICC LINE MARYJO. X RAY TAKEN AND PROPER PLACEMENT CONFIRMED. PICC LINE CAN NOW BE USED.
--- NOTE | 2019-10-19 11:03 | NUR ---
PT UPSET BECAUSE SHE WANTS TO GO OUTSIDE IN A WHEELCHAIR. I EXPLAINED TO PT THAT WE DO NOT ALLOW PTS TO GO OUTSIDE FOR THEIR SAFETY BECAUSE WE DO NOT HAVE A SAFE PT AREA. PT REMOVED NC AND SAYS SHE WAS GOING TO GET UP AND WALK HERSELF OUTSIDE. I ASKED MEREDITH TO SPEAK TO PT. PT IN STABLE CONDITION BUT AGITATED DUE TO CIRCUMSTANCE.
--- NOTE | 2019-10-19 11:26 | NUR ---
DC PLANNIN YRS OLD FEMALE PATIENT WAS ADMITTED FROM HOME WITH A DX OF COPD EXACERBATION. PT HAS A HX OF COPD , AND QUESTIONABLE CHF. PT IS NON-COMPLIANT SIGNED AMA SEVERAL TIMES . RECEIVED A CALL FROM JAGRUTI SHELDON FROM [facility] THAT PT NEEDS TO BE TRANSFERRED TO [facility]. FAXED ALL THE PAPER WORK AND PER JAGRUTI LOOKING FOR A BED AT [facility] AND WILL CALL BACK. Addendum: 10/19/19 at 1255 by Susan Martin CM DC PLANNING PT SIGNED AMA AND LEFT , NOTIFIED JAGRUTI SHELDON AT [facility] [employer].
--- NOTE | 2019-10-19 11:40 | NUR ---
PT WENT AMA. PER PT SHE STATED THAT MD HAD DC'D HER BUT I EXPLAINED TO PT THAT SHE NEEDED TO WAIT FOR FORMAL DC IN ORDER FOR HER TO GET DISCHARGE PAPERWORK. PT UPSET AND STATED SHE RATHER GO NOW. PT SIGNED AMA FORM. PT TOOK ALL PERSONAL BELONGINGS WITH HER. PICC LINE REMOVED WITH CANNULA INTACT. NO SIGNS OF BLEEDING. PT SOB ON EXERTION. PT LEFT IN STABLE CONDITION WITH FRIEND. NOTIFIED OF PT GOING AMA.
--- NOTE | 2019-10-19 14:37 | NUR ---
MIKAYLA BERRY STATED THAT PT DECIDED TO GO AMA. PER MIKAYLA, PT'S FRIEND WAS WAITING OUTSIDE TO GIVE PT CIGARETTE. PT SMOKED 1/2 A CIGARETTE. WILL PRINT AMA FORM FOR PT TO SIGN AND WILL NOTIFY .
== END 2019-10-19 11:40 | disposition left against medical advice (07) | DRG 682 ==
LOC: MED 09:58 → MTU 13:53
PROVIDERS: ADMIT Hospitalist; ATTEND Hospitalist
PROC: 02HV33Z Insertion of Infusion Device into Superior Vena Cava, Percutaneous Approach (ICD-10-PCS; principal; 2019-10-19)
PROC: B548ZZA Ultrasonography of Superior Vena Cava, Guidance (ICD-10-PCS; 2019-10-19)
DX: N17.9 Acute kidney failure, unspecified (principal); J96.20 Acute and chronic respiratory failure, unspecified whether with hypoxia or hypercapnia; J44.1 Chronic obstructive pulmonary disease with (acute) exacerbation; N39.0 Urinary tract infection, site not specified; I11.0 Hypertensive heart disease with heart failure; F17.210 Nicotine dependence, cigarettes, uncomplicated; J06.9 Acute upper respiratory infection, unspecified; I50.9 Heart failure, unspecified; D64.9 Anemia, unspecified; F41.9 Anxiety disorder, unspecified; G62.9 Polyneuropathy, unspecified; Z90.49 Acquired absence of other specified parts of digestive tract; Z79.899 Other long term (current) drug therapy; Z88.0 Allergy status to penicillin
CPT/HCPCS: 36415; 36600; 71045; 80053; 81001; 82550; 82553; 82803; 83605; 83735; 83880; 84484; 85025; 87040; 87081; 87086; 87186; 93005; 94640; 96374; 99285; C1751; J0456; J0696; J1644; J1940; J2930; J7030; J7060; J7512; J7613; J7644; Q0092

== ENCOUNTER 2019-10-21 08:40 | Inpatient (IN) | payer OTHER ==
[~2019-10-21] VITALS: Ht 162.6 cm; Wt 68.9 kg
[~2019-10-21 08:40] MED LIST changes: -FAMO-90 PO
--- NOTE | 2019-10-21 08:40 | NUR ---
PATIENT BIBA TO BED 10 AT THIS TIME.
--- NOTE | 2019-10-21 08:40 | NUR ---
DR. CORDOVA AT BEDSIDE EVALUATING PATIENT, RT AT BEDSIDE.
[2019-10-21 08:42] VITALS: BP 224/126
[2019-10-21] MEDS ORDERED: methylPREDNISolone SS 125 MG/2 ML VIAL IVP ONE (08:45)
[2019-10-21] MEDS ORDERED: MAG SULF 2000 MG/WATER PREMIX 50 ML IV ONE (08:45)
[2019-10-21] MEDS ORDERED: NACL 0.9% 500 ML IV SCH (08:45)
--- NOTE | 2019-10-21 08:53 | NUR ---
DR. YAP EVALUATING PT AT BEDSIDE. AWARE OF BP 224/126. PT PLACED ON BIPAP BY RT.
[2019-10-21 08:55] VITALS: BP 224/126
--- NOTE | 2019-10-21 08:55 | NUR ---
RT AT BEDSIDE FOR ABG DRAW
--- NOTE | 2019-10-21 08:55 | NUR ---
EMT AT BEDSIDE FOR EKG
--- NOTE | 2019-10-21 08:55 | NUR ---
BIPAP SETTINGS IPAP 12 EPAP 6 FiO2 30%
--- NOTE | 2019-10-21 09:00 | NUR ---
69/F BIB EMS FOR SOB X 20 MIN SEWER CONNECTOR. PER EMS, PT SATURATING 84% ON RA, PLACED ON CPAP EN ROUTE. EMS ALSO STATE PT SEEN IN [facility] ER YESTERDAY AND WAS PLACED ON CPAP. PT IS SMOKER, SMOKED THIS AM AND TRIGGERED SOB. PT ARRIVES ALERT, GCS 15. HX- PNA, HTN, COPD, SMOKER
--- NOTE | 2019-10-21 09:02 | NUR ---
GANG MOWER OPERATOR AND XRAY AT BEDSIDE
--- NOTE | 2019-10-21 09:04 | NUR ---
REVIEWED ABG SAMPLE REPORT WITH DR. AIDEN YAP NO NEW ORDERS
--- NOTE | 2019-10-21 09:14 | NUR ---
SCRAP STRIPPER HAND UNABLE TO DRAW BLOOD AT THIS TIME. 2 RN'S ATTEMPTED IV PLACEMENT WITH NO SUCCESS. DR. YAP AND RESIDENT CARE ASSOCIATE NOTIFIED. DR YAP TO PLACE ORDER FOR PICC PLACEMENT. PER DR YAP, INFUSE IV MAG SULFATE OVER 20 MIN WHEN PICC LINE PLACED.
--- NOTE | 2019-10-21 09:21 | NUR ---
CALLED HOUSE [facility] FOR PICK-LINE
--- NOTE | 2019-10-21 09:22 | NUR ---
RN TO BE CALLED
--- NOTE | 2019-10-21 09:26 | NUR ---
EXPLAINED STRAIGHT CATH PROCEDURE FOR URINE COLLECTION, PT REFUSED, STATING "YOU GUYS SCREWED ME UP WITH THAT LAST TIME". PT STATES SHE WILL INFORM STAFF WHEN SHE NEEDS TO URINATE AND HAVE URINE COLLECTED WITH USE OF BEDPAN.
--- NOTE | 2019-10-21 09:28 | NUR ---
PER PICC LINE MARYJO SORIANO, ETA OF 20 MIN
--- NOTE | 2019-10-21 09:49 | NUR ---
TIME OUT WITH CHRISTIE PICC LINE RN AT BEDSIDE.
--- NOTE | 2019-10-21 10:33 | NUR ---
RAD AWARE OF ORDER FOR CXR FOR PICC LINE PLACEMENT
--- NOTE | 2019-10-21 10:40 | NUR ---
XRAY AT BEDSIDE
--- NOTE | 2019-10-21 10:55 | NUR ---
PER PICC LINE MARYJO SORIANO, LT UA PICC DOUBLE LUMEN OKAY TO USE NOW.
[2019-10-21 11:06] LABS: ANION GAP 12.5 (8-16); CARBON DIOXIDE 23.3 mmol/L (21-32); CHLORIDE 111 mmol/L (98-107); CREATININE 2.4 mg/dL (0.6-1.3); GLUCOSE 86 mg/dL (74-106); POTASSIUM 3.8 mmol/L (3.5-5.1); SODIUM SERUM 143 mmol/L (136-145); UREA NITROGEN, BLOOD 54 mg/dL (7-18)
[2019-10-21 11:09] LABS: PROTHROMBIN TIME 9.9 secs (10.8-13.4)
[2019-10-21 11:15] LABS: ALBUMIN 2.7 g/dL (3.4-5.0); ASPARTATE AMINOTRANSFERASE 33 U/L (15-37); TOTAL BILIRUBIN 0.2 mg/dL (0.0-1.0)
[2019-10-21 11:22] LABS: BASOPHILS % (AUTO) 0.3 % (0.0-2.0); EOSINOPHILS # (AUTO) 0.1 K/uL (0-0.4); HEMATOCRIT 27.6 % (36-48); HEMOGLOBIN 8.6 g/dL (12.0-16.0); LYMPHOCYTES # (AUTO) 0.7 K/uL (2.5-16.5); LYMPHOCYTES % (AUTO) 9.3 % (20.5-51.1); MEAN CORPUSCULAR HEMOGLOBIN 26 pg (27-31); MEAN CORPUSCULAR HGB CONC 31 g/dL (33-37); MEAN CORPUSCULAR VOLUME 84.4 fL (80-94); MONOCYTES # (AUTO) 0.4 K/uL (0.8-1.0); MONOCYTES % (AUTO) 5.4 % (1.7-9.3); NEUTROPHILS # (AUTO) 6.1 K/uL (1.8-7.7); PLATELET COUNT (AUTO) 125 K/uL (140-450); RED BLOOD CELL COUNT(AUTO) 3.27 MIL/uL (4.20-5.40); RED CELL DISTRIBUTION WIDTH 16.2 % (11.6-13.7); WHITE BLOOD COUNT (AUTO) 7.3 K/uL (4.8-10.8)
[2019-10-21 11:34] LABS: APPEARANCE,URINE CLEAR (CLEAR); BILIRUBIN,URINE NEGATIVE (NEGATIVE); BLOOD, URINE NEGATIVE (NEGATIVE); COLOR,URINE YELLOW (YELLOW); LEUKOCYTE ESTERASE ,URINE TRACE (NEGATIVE); NITRITE, URINE NEGATIVE (NEGATIVE); UGLUCOSE NEGATIVE (NEGATIVE)
--- NOTE | 2019-10-21 11:39 | NUR ---
PT RESTING IN BED, ON BIPAP, RT AT BEDSIDE.
[2019-10-21 11:40] VITALS: BP 178/90
[2019-10-21 11:40] LABS: RBC,URINE 0 /HPF (0-5); WBC,URINE 0-5 /HPF (0-5)
[2019-10-21 11:41] LABS: HYALINE CASTS, URINE 0-10 /LPF (None Seen)
[2019-10-21] MEDS ORDERED: LEVOFLOXACIN 500 MG/D5W PREMIX 100 ML IV ONE (11:45)
[2019-10-21] MEDS ORDERED: NITROGLYCERIN 2% 1 GM PKT TP ONE (11:45)
[2019-10-21] MEDS ORDERED: FUROSEMIDE 40 MG/4 ML VIAL IVP ONE (11:45)
[2019-10-21] MEDS ORDERED: ASPIRIN 81 MG TAB.CHEW PO ONE (11:45)
[2019-10-21 13:43] VITALS: BP 169/91
--- NOTE | 2019-10-21 13:48 | NUR ---
TRANSFERRED PATIENT TO [facility] 112-A REMOVED FROM BIPAP TO MASK PLACED ON SUPPLEMENTAL OXYGEN VIA E-TANK AT 3 LPM VIA NC TOLERATED TRANSFER WELL WITHOUT INCIDENT
--- NOTE | 2019-10-21 13:59 | NUR ---
STABLE NO EVIDENCE OF PULMONARY DISTRESS NOTED GOOD CHEST RISE WILL KEEP OFF BIPAP TO MASK REMAINS ON SUPPLEMENTAL OXYGEN AT 3 LPM VIA NC HEALTH POLICY ANALYST TO MONITOR BIPAP TO MASK AT BEDSIDE Addendum: 10/21/19 at 1533 by Mateo James RT SATURATION 98% HR 67 RR 20 GOOD CHEST RISE
--- NOTE | 2019-10-21 14:00 | NUR ---
PT ADMITTED TO [facility] FROM ER AT THIS TIME COMING FROM HOME. PT ARRIVED ON UNIT VIA GURNEY. NO SOB OR RESPIRATORY DISTRESS NOTED, PT RECEIVING O2 VIA NC AT 2LPM. SKIN INTACT. DENIES PAIN. LEFT UA PICC LINE IN PLACE, SALINE LOCKED, PATENT AND ASYMPTOMATIC. PT CLAIMS HAVING GENERALIZED WEAKNESS, BUT ABLE TO AMBULATE WITH ASSIST. PNA AND FLU VACCINES UP TO DATE. SAFETY MEASURES IN PLACE. CALL LIGHT WITHIN REACH, SAFETY MEASURES IN PLACE. WILL CONTINUE TO MONITOR.
--- NOTE | 2019-10-21 14:00 | NUR ---
Patient will be admitted to care of DR JOY. Admited to TELE. Will go to room 112A. Belongings list completed. Report to CORBY SIBLEY.
[2019-10-21] MEDS ORDERED: POTASSIUM CHLORIDE 10 MEQ TABER PO PRN (15:00)
[2019-10-21] MEDS ORDERED: ACETAMINOPHEN 650 MG SUPP RC PRN (15:00)
[2019-10-21] MEDS ORDERED: BISACODYL 10 MG SUPP RC PRN (15:00)
[2019-10-21] MEDS ORDERED: IPRATROPIUM 0.02% 0.5 MG/2.5 ML NEBU INH PRN (15:00)
[2019-10-21] MEDS ORDERED: MAGNESIUM OXIDE 400 MG TAB PO PRN (15:00)
[2019-10-21] MEDS ORDERED: DOCUSATE SODIUM 250 MG GELCAP PO PRN (15:00)
[2019-10-21] MEDS ORDERED: SODIUM PHOSPHATE 118 ML ENEM RC PRN (15:00)
[2019-10-21] MEDS ORDERED: ACETAMINOPHEN 325 MG TAB PO PRN (15:00)
[2019-10-21] MEDS ORDERED: diphenhydrAMINE 50 MG/ML VIAL IVP PRN (15:00)
[2019-10-21] MEDS ORDERED: MORPHINE SULFATE 2 MG/ML SYR IVP PRN (15:00)
[2019-10-21] MEDS ORDERED: ONDANSETRON 4 MG/2 ML VIAL IVP PRN (15:00)
[2019-10-21] MEDS ORDERED: ZOLPIDEM 5 MG TAB PO PRN (15:00)
[2019-10-21] MEDS ORDERED: MAG SULF 2000 MG/WATER PREMIX 50 ML IV PRN (15:00)
[2019-10-21] MEDS ORDERED: HYDROcodone/APAP 5/325 MG 1 TAB TAB PO PRN (15:00)
[2019-10-21] MEDS ORDERED: ALUMINUM HYD/MAG/SIMETHICONE 30 ML UDC PO PRN (15:00)
[2019-10-21] MEDS ORDERED: LORazepam 2 MG/ML VIAL IVP PRN (15:00)
[2019-10-21] MEDS ORDERED: ALPRAZolam 0.5 MG TAB PO PRN (15:00)
[2019-10-21] MEDS ORDERED: guaiFENesin DM 200/20 MG-10 ML 10 ML UDC PO PRN (15:00)
[2019-10-21] MEDS ORDERED: ALBUTEROL 0.083% 2.5 MG/3 ML NEBU INH PRN (15:00)
--- NOTE | 2019-10-21 15:52 | NUR ---
PT IN BED WATCHING TV, NO DISTRESS NOTED. DENIES PAIN AND SOB. SAFETY MEASURES IN PLACE. CALL LIGHT WITHIN REACH, WILL CONTINUE TO MONITOR.
[2019-10-21 16:00] VITALS: BP 159/89
--- NOTE | 2019-10-21 17:00 | NUR ---
PT REPORTS PAIN, AND REQUESTS [facility]CO. WILL MEDICATE.
[2019-10-21] MEDS: HYDROcodone/APAP 5/325 MG 1 TAB TAB PO PRN ×2 (17:08→23:23)
--- NOTE | 2019-10-21 18:20 | NUR ---
PT STATES THAT PAIN HAS BEEN REDUCED [facility]. SAFETY MEASURES IN PLACE. WILL CONTINUE TO MONITOR.
--- NOTE | 2019-10-21 19:05 | NUR ---
REPORT GIVEN TO NIGHT NURSE FOR CONTINUITY OF CARE.
--- NOTE | 2019-10-21 19:06 | NUR ---
RECEIVED BEDSIDE REPORT FROM DAY SHIFT NURSE CORBY RN, PT STABLE, NO DISTRESS NOTED, R UPPER ARM PICC, PATENT INTACT, SL, PT ON 2LPM O2 VIA NC, NO SOB NOTED, INITIAL ASSESSMENT DONE, ALL SAFETY PRECAUTION MET, CALL LIGHT WITHIN REACH, WILL CONTINUE TO MONITOR.
[2019-10-21 20:00] VITALS: BP 152/80
[2019-10-21] MEDS: FUROSEMIDE 20 MG/2 ML VIAL IVP SCH (20:03)
--- NOTE | 2019-10-21 20:03 | NUR ---
PT COMPLAINING OF ITCHY, STARTED SCRATCHING HER BODY, MEDICATION PER DR DALY ALVAREZ FOR ITCHY-NESS GIVEN, PT TOLERATED WELL, NO DISTRESS NOTED, PT DUE MEDICATION GIVEN, PT TOLERATED WELL, NO DISTRESS NOTED, CALL LIGHT WITHIN REACH, WILL CONTINUE TO MONITOR.
[2019-10-21] MEDS: PREGABALIN 25 MG CAP PO SCH (20:04)
--- NOTE | 2019-10-21 21:26 | NUR ---
CHECKED ON PT, PT SLEEPING, NO DISTRESS NOTED, CALL LIGHT WITHIN REACH, WILL CONTINUE TO MONITOR.
[2019-10-21] MEDS: cloNIDine 0.1 MG TAB PO PRN (23:23)
--- NOTE | 2019-10-21 23:23 | NUR ---
PT BP 182/96, ASYMPTOMATIC, NO HEADACHE, PRN MEDICATION PER DR ORDER ADMINISTERED, PT TOLERATED WELL, NO DISTRESS NOTED, PT ALSO C/O PAIN TO THE LEG, PAIN MEDICATION GIVEN, PT TOLERATED WELL, CALL LIGHT WITHIN REACH, WILL CONTINUE TO MONITOR.
[2019-10-22] VITALS: BP 182/96
--- NOTE | 2019-10-22 03:55 | NUR ---
PT RESTING, NO DISTRESS NOTED, CALL LIGHT WITHIN REACH, V/S TAKEN, WILL CONTINUE TO MONITOR.
[2019-10-22 04:00] VITALS: BP 160/99
[2019-10-22 06:28] LABS: ANION GAP 13.9 (8-16); CARBON DIOXIDE 24.1 mmol/L (21-32); CHLORIDE 108 mmol/L (98-107); CREATININE 2.8 mg/dL (0.6-1.3); GLUCOSE 232 mg/dL (74-106); SODIUM SERUM 142 mmol/L (136-145)
[2019-10-22 06:45] LABS: UREA NITROGEN, BLOOD 65 mg/dL (7-18)
--- NOTE | 2019-10-22 07:20 | NUR ---
ENDORSED TO DAY SHIFT NURSE MILTON RN, PT STABLE, NO DISTRESS NOTED, CALL LIGHT WITHIN REACH.
--- NOTE | 2019-10-22 07:29 | NUR ---
RECEIVED REPORT FROM MACHINE FANCY STITCHER NURSE. PATIENT LYING DOWN IN BED SLEEPING, AROUSABLE BY VOICE. NO DISTRESS NOTED. DENIES ANY PAIN. AAOX4, CALM, COOPERATIVE, SKIN COLOR APPROPRIATE TO ETHNICITY, WARM TO TOUCH. SKIN INTACT. LUARM PICC LINE, INTACT, PATENT, ON SALINE LOCK. RESPIRATIONS EVEN, UNLABORED, ON O2 2L/MIN VIA NC. REVIEWED PLAN OF CARE WITH PATIENT. PATIENT VERBALIZED UNDERSTANDING. SAFETY MEASURES IN PLACE, CALL LIGHT WITHIN REACH. WILL CONTINUE TO MONITOR.
[2019-10-22 08:00] VITALS: BP 154/104
[2019-10-22] MEDS: PREGABALIN 25 MG CAP PO SCH ×2 (08:25→20:52)
[2019-10-22] MEDS: FUROSEMIDE 20 MG/2 ML VIAL IVP SCH (08:27)
[2019-10-22] MEDS: NIFEdipine 60 MG TABER PO SCH (08:27)
--- NOTE | 2019-10-22 08:27 | NUR ---
PATIENT HAS BEEN SCREENED AND CATEGORIZED MODERATE NUTRITION RISK. PATIENT WILL BE SEEN WITHIN 3-5 DAYS OF ADMISSION. 10/24/19 - 10/26/19 DOMINGO LUQUE MBA,RD
--- NOTE | 2019-10-22 08:40 | NUR ---
PATIENT SITTING DOWN IN BED. SCHEDULED MEDICATIONS DUE GIVEN. WILL CONTINUE TO MONITOR.
--- NOTE | 2019-10-22 11:40 | NUR ---
PATIENT LYING DOWN IN BED SLEEPING, AROUSABLE BY VOICE. NO DISTRESS NOTED. WILL CONTINUE TO MONITOR.
[2019-10-22 12:00] VITALS: BP 167/89
[2019-10-22] MEDS: cloNIDine 0.1 MG TAB PO PRN (14:12)
--- NOTE | 2019-10-22 14:17 | NUR ---
PATIENT COMPLAINS OF ANXIETY, XANAX GIVEN AT THIS TIME. CLONIDINE PRN GIVEN ALSO FOR SBP>160. WILL CONTINUE TO MONITOR.
[2019-10-22 16:00] VITALS: BP 116/68
--- NOTE | 2019-10-22 16:30 | NUR ---
PATIENT LYING DOWN IN BED SLEEPING, AROUSABLE BY VOICE. CONDITION UNCHANGED.
--- NOTE | 2019-10-22 19:25 | NUR ---
GAVE REPORT TO RING SPINNER NURSE FOR CONTINUITY OF CARE. PATIENT IN STABLE CONDITION.
--- NOTE | 2019-10-22 19:26 | NUR ---
RECEIVED BEDSIDE REPORT FROM DAY SHIFT NURSE MILTON RN, PT STABLE, NO DISTRESS NOTED, PICC LINE TO L UPPER ARM, DOUBLE LUMEN, PATENT, INTACT, SL, PT ON 2LPM O2 VIA NC, NO SOB NOTED, NO C/O PAIN AT THIS MOMENT, INITIAL ASSESSMENT DONE, ALL SAFETY PRECAUTION MET, CALL LIGHT WITHIN REACH, WILL CONTINUE TO MONITOR.
[2019-10-22 20:00] VITALS: BP 124/51
--- NOTE | 2019-10-22 20:52 | NUR ---
DUE MEDICATION ADMINISTERED, PT TOLERATED WELL, NO DISTRESS NOTED, CALL LIGHT WITHIN REACH, WILL CONTINUE TO MONITOR.
--- NOTE | 2019-10-22 20:57 | NUR ---
CALLED DR. MUELLER REGARDING PT BEING RESTLESS, XANAX ORDERED IS Q12H, AND WAS GIVEN 6HRS AGO, PER DR. MUELLER TO CHANGE MEDICATION XANAX TO Q8H, WILL PUT IN ORDER, AND CONTINUE WITH ORDERS.
--- NOTE | 2019-10-22 20:59 | NUR ---
PT SEEN AT THIS TIME. PT IN NO RESPIRATORY DISTRESS AT THIS TIME; CLEAR BREATH SOUNDS ON UPPER LOBES; HR 64, RR 18, SP02 99% ON 2L NC. NO INDICATION FOR PRN HHN TX AT THIS TIME. WILL CONTINUE TO MONITOR PT.
[2019-10-22] MEDS: ALPRAZolam 0.5 MG TAB PO PRN (21:42)
--- NOTE | 2019-10-22 21:42 | NUR ---
XANAX GIVEN FOR ANXIETY, PT RESTLESS, TOLERATED MEDICATION WELL, NO DISTRESS NOTED, CALL LIGHT WITHIN REACH, WILL CONTINUE TO MONITOR.
--- NOTE | 2019-10-22 23:02 | NUR ---
CHECKED ON PT, PT SLEEPING, NO DISTRESS NOTED, CALL LIGHT WITHIN REACH, WILL CONTINUE TO MONITOR.
[2019-10-22] MEDS: HYDROcodone/APAP 5/325 MG 1 TAB TAB PO PRN (23:43)
[2019-10-23] VITALS: BP 140/68
--- NOTE | 2019-10-23 03:02 | NUR ---
FOUND PT SITTING IN THE COMMODE WITH SMOKE SMELL IN THE ROOM, FOUND BURNT BAKER ON CHUCKS ON THE FLOOR, PT DENIED SMOKING, CALLED SECURITY AND HOME HEALTH CAREGIVER, PT WOULD NOT LET SECURITY SEARCH BELONGING, WHEN PT EMPTIED HER BAG, SECURITY SAW A CIGARETTE AND TOOK IT FROM PT. PT ANGRY, NOT COOPERATIVE, NO DISTRESS NOTED, CALL LIGHT WITHIN REACH, WILL CONTINUE TO MONITOR.
--- NOTE | 2019-10-23 03:27 | NUR ---
PT REFUSED VITAL SIGN CHECKS, STATED TO ETCHER APPRENTICE TO GET OUT.
--- NOTE | 2019-10-23 05:56 | NUR ---
PT SLEEPING, NO DISTRESS NOTED, CALL LIGHT WITHIN REACH, WILL CONTINUE TO MONITOR
--- NOTE | 2019-10-23 07:11 | NUR ---
ENDORSED PT TO DAY SHIFT NURSE MILTON, PT STABLE, NO DISTRESS NOTED, CALL LIGHT WITHIN REACH,
--- NOTE | 2019-10-23 07:12 | NUR ---
RECEIVED REPORT FROM FLEET DIRECTOR NURSE. PATIENT LYING DOWN IN BED SLEEPING, AROUSABLE BY VOICE. NO DISTRESS NOTED. DENIES ANY PAIN. AAOX4, CALM, COOPERATIVE, SKIN COLOR APPROPRIATE TO ETHNICITY, WARM TO TOUCH. SKIN INTACT. LUARM PICC LINE, INTACT, PATENT, ON SALINE LOCK. RESPIRATIONS EVEN, UNLABORED, ON O2 2L/MIN VIA NC. REVIEWED PLAN OF CARE WITH PATIENT. PATIENT VERBALIZED UNDERSTANDING. SAFETY MEASURES IN PLACE, CALL LIGHT WITHIN REACH. WILL CONTINUE TO MONITOR.
[2019-10-23 08:00] VITALS: BP 147/73
[2019-10-23 08:05] LABS: ANION GAP 13.5 (8-16); CARBON DIOXIDE 25.2 mmol/L (21-32); CHLORIDE 110 mmol/L (98-107); CREATININE 2.7 mg/dL (0.6-1.3); GLUCOSE 96 mg/dL (74-106); POTASSIUM 3.7 mmol/L (3.5-5.1); SODIUM SERUM 145 mmol/L (136-145)
[2019-10-23 08:11] LABS: UREA NITROGEN, BLOOD 72 mg/dL (7-18)
[2019-10-23] MEDS: NIFEdipine 60 MG TABER PO SCH (08:53)
[2019-10-23] MEDS: PREGABALIN 25 MG CAP PO SCH ×2 (08:53→20:35)
[2019-10-23] MEDS: FUROSEMIDE 20 MG/2 ML VIAL IVP SCH (08:54)
--- NOTE | 2019-10-23 09:00 | NUR ---
PATIENT SITTING IN BED. NO DISTRESS NOTED. DENIES ANY PAIN. SCHEDULED MEDICATIONS DUE GIVEN. WILL CONTINUE TO MONITOR.
--- NOTE | 2019-10-23 11:30 | NUR ---
PATIENT LYING DOWN IN BED WITH LUNCH TRAY. NO DISTRESS NOTED. DENIES ANY PAIN. SCHEDULED MEDICATIONS DUE GIVEN. WILL CONTINUE TO MONITOR.
[2019-10-23 12:00] VITALS: BP 163/75
--- NOTE | 2019-10-23 12:30 | NUR ---
DR. DONIS AT BEDSIDE REVIEWING PLAN OF CARE WITH PATIENT. WILL CONTINUE TO MONITOR.
--- NOTE | 2019-10-23 14:00 | NUR ---
PATIENT LYING DOWN IN BED SLEEPING, AROUSABLE BY VOICE. NO DISTRESS NOTED. DENIES ANY PAIN. WILL CONTINUE TO MONITOR.
[2019-10-23] MEDS: cloNIDine 0.1 MG TAB PO PRN ×2 (14:04→23:41)
--- NOTE | 2019-10-23 15:44 | NUR ---
DC PLANNING 69 YRS OLD FEMALE PATIENT WAS ADMITTED FROM HOME WITH A DX OF ACUTE RESP FAILURE , PT HAS A HX OF COPD ,CHF AND CHRONIC RESP FAILURE ON HOME OXYGEN AND CKD. PT HAS RESPONDED TO TREATMENT AND DOES NOT REQUIRE BIPAP ANYMORE. ADMINISTERED LASIX CONTINUE WITH O2 THERAPY AND BRONCHODILATOR. PT EVALUATION DONE RECOMMENDED TO GO TO SNF FOR PT .CALLED [facility] SPOKE WITH JAGRUTI FAXED THE REQUEST AND PT CINDY Almaguer CM TO FOLLOW UP Addendum: 10/24/19 at 1341 by Susan Martin CM DC PLANNING PT HAS A DC ORDER TO [facility] AUTH # [id number] FROM [facility] ACCEPTED PATIENT CAN GO TO ROOM 16B # TO GIVE REPORT [phone] [facility] WITH [facility] [phone] NEW ORDER CLERK TIME 3 PM NOTIFIED JOSE DE JESUS SIBLEY. Addendum: 10/24/19 at 1419 by Susan Martin CM PT IS GOING ROOM 3A NEW ORDER CLERK TIME WILL BE BETWEEN 3:33 TO 4PM
[2019-10-23 16:00] VITALS: BP 146/73
--- NOTE | 2019-10-23 16:00 | NUR ---
PATIENT LYING DOWN IN BED SLEEPING. CONDITION UNCHANGED. WILL CONTINUE TO MONITOR.
--- NOTE | 2019-10-23 18:30 | NUR ---
PATIENT WITH DINNER TRAY. CONDITION UNCHANGED. WILL CONTINUE TO MONITOR.
[2019-10-23] MEDS: HYDROcodone/APAP 5/325 MG 1 TAB TAB PO PRN ×2 (18:33→23:51)
--- NOTE | 2019-10-23 19:27 | NUR ---
GAVE REPORT TO BLEACHING MACHINE OPERATOR NURSE FOR CONTINUITY OF CARE. PATIENT IN STABLE CONDITION.
--- NOTE | 2019-10-23 19:30 | NUR ---
RECEIVED PT FROM MILTON SIBLEY PT AAOX4 AT ROOM AIR BREATHING WELL PICC LINE ON LEFT UA PATENT, PT VERBALIZED NEEDED COOPERATIVE ON TELEMETRY SR
[2019-10-23 20:00] VITALS: BP 146/70
[2019-10-23] MEDS ORDERED: ALPRAZolam 0.25 MG TAB ONE (20:47)
--- NOTE | 2019-10-23 20:48 | NUR ---
PT SEEN AT THIS TIME. PT IN NO APPARENT RESPIRATORY DISTRESS NOTED AT THIS TIME; CLEAR BREATH SOUNDS ON UPPER LOBES AND CRACKLES ON THE LOWER BASES; HR 76, RR 18, SP02 94% ON ROOM AIR. NO INDICATION FOR HHN PRN TX AT THIS TIME. BiPAP AT BEDSIDE PRN FOR INCREASE WOB. WILL CONTINUE TO MONITOR PT.
[2019-10-23] MEDS: ALPRAZolam 0.5 MG TAB PO PRN (20:51)
--- NOTE | 2019-10-23 21:00 | NUR ---
PT IS TRANSFER TO ROOM 120A, pt on stable condition
[2019-10-23 23:40] VITALS: BP 164/82
--- NOTE | 2019-10-24 | NUR ---
PT GETTING SLEEP AFTER PAIN MEDIC GIVEN AND WILL BE MONITORING HIGH BP PT ON TELEMETRY SR
--- NOTE | 2019-10-24 02:09 | NUR ---
PT SLEEPING WELL NOT DISTRESS NOTED WE WILL CONTINUE MONITORING , DENIES ANY PAIN OR DISCOMFORT
[2019-10-24 04:00] VITALS: BP 159/88
[2019-10-24 08:00] VITALS: BP 171/86
[2019-10-24] MEDS: NIFEdipine 60 MG TABER PO SCH (08:30)
[2019-10-24] MEDS: FUROSEMIDE 20 MG/2 ML VIAL IVP SCH (09:00)
[2019-10-24] MEDS: PREGABALIN 25 MG CAP PO SCH (09:00)
[2019-10-24 10:54] LABS: ALBUMIN 2.7 g/dL (3.4-5.0); ANION GAP 14.2 (8-16); ASPARTATE AMINOTRANSFERASE 9 U/L (15-37); BASOPHILS % (AUTO) 0.3 % (0.0-2.0); CARBON DIOXIDE 24.7 mmol/L (21-32); CHLORIDE 111 mmol/L (98-107); CREATININE 2.3 mg/dL (0.6-1.3); EOSINOPHILS # (AUTO) 0.1 K/uL (0-0.4); EOSINOPHILS % (AUTO) 2.1 % (0.0-4.0); GLUCOSE 97 mg/dL (74-106); HEMATOCRIT 27.8 % (36-48); HEMOGLOBIN 8.8 g/dL (12.0-16.0); LYMPHOCYTES % (AUTO) 15.1 % (20.5-51.1); MEAN CORPUSCULAR HEMOGLOBIN 26 pg (27-31); MEAN CORPUSCULAR HGB CONC 32 g/dL (33-37); MEAN CORPUSCULAR VOLUME 83.1 fL (80-94); MONOCYTES # (AUTO) 0.4 K/uL (0.8-1.0); MONOCYTES % (AUTO) 6.3 % (1.7-9.3); NEUTROPHILS % (AUTO) 76.2 % (42.2-75.2); PLATELET COUNT (AUTO) 119 K/uL (140-450); POTASSIUM 3.9 mmol/L (3.5-5.1); RED BLOOD CELL COUNT(AUTO) 3.34 MIL/uL (4.20-5.40); SODIUM SERUM 146 mmol/L (136-145); TOTAL BILIRUBIN 0.2 mg/dL (0.0-1.0); WHITE BLOOD COUNT (AUTO) 6.6 K/uL (4.8-10.8)
--- NOTE | 2019-10-24 10:55 | NUR ---
MEDITECH WAS DOWN SINCE BEGINNING OF SHIFT, IT IS UP AND RUNNING AT THIS TIME. OPENING NOTES, 0800 VS, AND PERSONNEL MONITOR ARE DOCUMENTED ON PAPER IN PT'S CHART.
[2019-10-24 12:00] VITALS: BP 159/85
[2019-10-24 12:14] LABS: UREA NITROGEN, BLOOD 69 mg/dL (7-18)
--- NOTE | 2019-10-24 12:51 | NUR ---
PT IS SLEEPING AND WANTS TO EAT HER LUNCH LATER. NO S/S OF DISTRESS.
--- NOTE | 2019-10-24 13:56 | NUR ---
GAVE PHONE REPORT TO OLIVERIO BROWNING, AT [facility] FOR PT'S TRANSFER.
[2019-10-24] MEDS: HYDROcodone/APAP 5/325 MG 1 TAB TAB PO PRN (14:10)
--- NOTE | 2019-10-24 15:07 | NUR ---
PT GOTTEN READY TO TRANSFER TO SNF. PICC LINE REMOVED. TELE BOX REMOVED. PT SIGNED JENNI DC DOCUMENTS. VACCINES ARE UP TP DATE.
--- NOTE | 2019-10-24 15:45 | NUR ---
PT HAS DC'D TO [facility]IA [facility]. PT LEFT IN STABLE CONDITION WITH ALL HER BELONGINGS.
== END 2019-10-24 15:44 | DRG 291 ==
LOC: MED 08:40 → MTU 13:08
PROVIDERS: ADMIT Internal Medicine Pulmonary Disease; ATTEND Internal Medicine Pulmonary Disease
PROC: 02HV33Z Insertion of Infusion Device into Superior Vena Cava, Percutaneous Approach (ICD-10-PCS; principal; 2019-10-21)
PROC: B548ZZA Ultrasonography of Superior Vena Cava, Guidance (ICD-10-PCS; 2019-10-21)
PROC: 5A09357 Assistance with Respiratory Ventilation, Less than 24 Consecutive Hours, Continuous Positive Airway Pressure (ICD-10-PCS; 2019-10-21)
DX: I13.0 Hypertensive heart and chronic kidney disease with heart failure and stage 1 through stage 4 chronic kidney disease, or unspecified chronic kidney disease (principal); I50.33 Acute on chronic diastolic (congestive) heart failure; J96.20 Acute and chronic respiratory failure, unspecified whether with hypoxia or hypercapnia; J44.1 Chronic obstructive pulmonary disease with (acute) exacerbation; J44.0 Chronic obstructive pulmonary disease with (acute) lower respiratory infection; N18.3 Chronic kidney disease, stage 3 (moderate); F17.210 Nicotine dependence, cigarettes, uncomplicated; F41.9 Anxiety disorder, unspecified; D69.6 Thrombocytopenia, unspecified; Z88.0 Allergy status to penicillin; Z99.81 Dependence on supplemental oxygen
CPT/HCPCS: 36415; 36600; 71045; 80048; 80053; 81001; 82803; 83605; 83880; 84484; 85025; 85610; 85730; 87040; 87081; 87086; 93005; 94640; 96361; 96365; 96375; 97116; 97161-GP; 99291; C1751; J1200; J1940; J1956; J2930; J3475; J7030; J7613; J7644; Q0092

== ENCOUNTER 2019-12-05 02:37 | Inpatient (IN) | payer OTHER ==
[~2019-12-05] VITALS: Ht 165.1 cm; Wt 63.5 kg
[~2019-12-05 02:37] MED LIST changes: -LEVO750T2 IV
--- NOTE | 2019-12-05 02:37 | NUR ---
Dr. Mcbride examining patient.
--- NOTE | 2019-12-05 02:37 | NUR ---
PT MAK ALS. TAKEN TO BED 10
[2019-12-05 02:47] VITALS: BP 224/158
[2019-12-05] MEDS ORDERED: MAG SULF 2000 MG/WATER PREMIX 50 ML IV ONE (02:50)
[2019-12-05] MEDS ORDERED: ALBUTEROL 0.083% 2.5 MG/3 ML NEBU INH ONE (02:50)
[2019-12-05] MEDS ORDERED: methylPREDNISolone SS 125 MG in WATER STERILE 2 ML IVP ONE (02:50)
[2019-12-05] MEDS ORDERED: IPRATROPIUM 0.02% 0.5 MG/2.5 ML NEBU INH ONE (02:50)
--- NOTE | 2019-12-05 03:00 | NUR ---
PT BIBArcelia C/O SOB ALL DAY; ACUTE ONSET 30 MINUTES AGO. HX COPD AND PNEUMONIA. DENIES HOME O2 AT HOME. DENIES SMOKING; SMELLS OF CIGARETTE SMOKE. HYPERTENSIVE 140/100 EN ROUTE; SINUS TACHYCARDIA. STATES SHE STOPPED TAKING HER BLOOD PRESSURE MEDICATION YESTERDAY DUE TO RUNNING OUT. PLACED ON NON REBREATHER MASK; 97% ON 10L O2. ANXIOUS AND IRRITABLE. PLACED ON MONITOR. ATTEMPTING TO PLACE IV. PT YELLING AT STAFF TO TAKE NEEDLE OUT. WILL CONTINUE TO MONITOR.
--- NOTE | 2019-12-05 03:08 | NUR ---
Respiratory Therapist at bedside for respiratory intervention.
[2019-12-05 03:16] LABS: BASOPHILS # (AUTO) 0.2 K/uL (0.00-0.22); BASOPHILS % (AUTO) 1.4 % (0.0-2.0); EOSINOPHILS # (AUTO) 0.3 K/uL (0-0.4); EOSINOPHILS % (AUTO) 2.4 % (0.0-4.0); HEMATOCRIT 38.2 % (36-48); HEMOGLOBIN 11.8 g/dL (12.0-16.0); LYMPHOCYTES # (AUTO) 4.2 K/uL (2.5-16.5); LYMPHOCYTES % (AUTO) 30.5 % (20.5-51.1); MEAN CORPUSCULAR HEMOGLOBIN 25 pg (27-31); MEAN CORPUSCULAR HGB CONC 31 g/dL (33-37); MEAN CORPUSCULAR VOLUME 82.2 fL (80-94); MONOCYTES # (AUTO) 0.7 K/uL (0.8-1.0); MONOCYTES % (AUTO) 5.3 % (1.7-9.3); NEUTROPHILS # (AUTO) 8.3 K/uL (1.8-7.7); NEUTROPHILS % (AUTO) 60.4 % (42.2-75.2); PLATELET COUNT (AUTO) 263 K/uL (140-450); RED BLOOD CELL COUNT(AUTO) 4.65 MIL/uL (4.20-5.40); RED CELL DISTRIBUTION WIDTH 17.2 % (11.6-13.7); WHITE BLOOD COUNT (AUTO) 13.7 K/uL (4.8-10.8)
--- NOTE | 2019-12-05 03:20 | NUR ---
PT REPORTS DECREASED SOB. WILL CONTINUE TO MONITOR
[2019-12-05] MEDS ORDERED: hydrALAZINE 20 MG/ML VIAL IVP ONE (03:25)
[2019-12-05] MEDS ORDERED: ENALAPRILAT 2.5 MG/2 ML VIAL IVP ONE (03:25)
[2019-12-05 03:29] LABS: ALBUMIN 3.3 g/dL (3.4-5.0); ANION GAP 15.4 (8-16); ASPARTATE AMINOTRANSFERASE 21 U/L (15-37); CHLORIDE 108 mmol/L (98-107); CREATININE 2.2 mg/dL (0.6-1.3); GLUCOSE 162 mg/dL (74-106); POTASSIUM 4.4 mmol/L (3.5-5.1); SODIUM SERUM 143 mmol/L (136-145); TOTAL BILIRUBIN 0.2 mg/dL (0.0-1.0); UREA NITROGEN, BLOOD 45 mg/dL (7-18)
--- NOTE | 2019-12-05 03:30 | NUR ---
PT REFEUSED IV. DR NGUYEN MADE AWARE.
--- NOTE | 2019-12-05 03:34 | NUR ---
XRAY AT BEDSIDE.
[2019-12-05] MEDS ORDERED: methylPREDNISolone SS 125 MG in WATER STERILE 2 ML IM ONE (04:05)
[2019-12-05] MEDS ORDERED: hydrALAZINE 20 MG/ML VIAL IM ONE (04:05)
[2019-12-05] MEDS ORDERED: methylPREDNISolone SS 125 MG/2 ML VIAL ONE (04:14)
[2019-12-05] MEDS ORDERED: WATER STERILE 10 ML MC ONE (04:14)
[2019-12-05] MEDS ORDERED: VANCOMYCIN 1,000 MG in DEXTROSE 5% 250 ML IV ONE (04:40)
[2019-12-05] MEDS ORDERED: MEROPENEM 1,000 MG in NACL 0.9% 100 ML IV ONE (04:40)
--- NOTE | 2019-12-05 05:30 | NUR ---
IV MERREM 1 GRAM STARTED
--- NOTE | 2019-12-05 05:32 | NUR ---
IV STARTED L ARM PT COMPLIANT; WILL CONTINUE TO MONITOR
[2019-12-05] MEDS ORDERED: MEROPENEM 1,000 MG VIAL IV ONE (05:41)
[2019-12-05] MEDS ORDERED: VANCOMYCIN 1,000 MG VIAL ONE (05:42)
--- NOTE | 2019-12-05 06:30 | NUR ---
IV INFILTRATED. LAB ATTEMPTING TO DRAW BLOOD CX UNSUCCESSFUL. RN ATTEMPTING TO REPLACE IV; UNSUCCESSFUL; NOTIFIED DR NGUYEN
--- NOTE | 2019-12-05 06:45 | NUR ---
DR NGUYEN ORDERED PICC LINE; OBTAINING CONSENT FROM PT FOR PICC LINE.
--- NOTE | 2019-12-05 07:28 | NUR ---
PICC LINE RN IN ROOM
[2019-12-05] MEDS ORDERED: ALBUTEROL 0.083% 2.5 MG/3 ML NEBU INH PRN (07:45)
[2019-12-05] MEDS ORDERED: ONDANSETRON 4 MG/2 ML VIAL IVP PRN (07:45)
[2019-12-05] MEDS ORDERED: LORazepam 2 MG/ML VIAL IVP PRN (07:45)
--- NOTE | 2019-12-05 08:00 | NUR ---
XRAY AT BEDSIDE
[2019-12-05] MEDS ORDERED: NIFEdipine 60 MG TABER PO SCH (08:30)
--- NOTE | 2019-12-05 09:03 | NUR ---
REPORT GIVEN VIA PHONE ; PER CHARGE NURSE TO ADMITTING NURSE.
--- NOTE | 2019-12-05 09:05 | NUR ---
Patient will be admitted to care of JOVON. Admited to MS. Will go to room 111B. Belongings list completed. Report to PRINCESS SIBLEY. PT TAKEN BY ELECTROPHYSIOLOGY TECH RICHARD
--- NOTE | 2019-12-05 09:10 | NUR ---
RECEIVED PT VIA GURNEY. PATIENT IS AAOX4. RESPIRATIONS EVEN AND UNLABORED WITH VISIBLE CHEST RISE AND FALL. BILATERAL CRACKLES AUSCULTATED IN LOWER LUNGS. PATIENT IS DIAGNOSED WITH COPD EXACERBATION. SOB ALL DAY AND IT STARTED SINCE 3 IN THE MORNING. ON 6L, REBREATHING MASK. I9OGEEIUMYIF IS 100%. ABDOMEN FLAT AND NONTENDER. SKIN IS WARM , DRY, AND INTACT WITH PICC LINE IN RIGHT UPPER ARM. NO SIGNS OF DISTRESS NOTED OR COMPLAINTS OF PAIN. PATIENT IS AMBULATORY. UNIVERSAL FALL PRECAUTION. BED IN LOW POSITION. CALL LIGHT IS WITHIN REACH. WILL CONTINUE TO MONITOR
--- NOTE | 2019-12-05 09:12 | NUR ---
MRSA NARES SWAB COLLECTED. VITAL SIGNS TAKEN
--- NOTE | 2019-12-05 09:36 | NUR ---
WILL PAGE DR. SIGALA FOR ORDER FOR PICC LINE USE.
--- NOTE | 2019-12-05 09:59 | NUR ---
CALLED [facility] FOR A SANDWICH AND COFFEE
[2019-12-05] MEDS ORDERED: AZITHROMYCIN 500 MG in DEXTROSE 5% 250 ML IV SCH (10:00)
--- NOTE | 2019-12-05 10:04 | NUR ---
DR. SIGALA MADE A TELEPHONE ORDER TO USE PICC LINE. WILL CARRY ON ORDER.
--- NOTE | 2019-12-05 10:23 | NUR ---
HANG ZITHROMAX VIA IVPB. EXPLAINED MEDICATION. PATIENT VERBALIZED UNDERSTANDING. CURRENTLY EATING SANDWICH AT THIS TIME. NO SOB.
--- NOTE | 2019-12-05 11:01 | NUR ---
VANCO IV WAS DELIVERED TO ME BY THE ER CHARGE NURSE. WILL INFUSE IT ONCE THE ZITHROMAX IS COMPLETE.
[2019-12-05 11:16] VITALS: BP 153/98
--- NOTE | 2019-12-05 11:30 | NUR ---
HANG VANCO VIA IVPB AT A RATE OF 165 ML/HR.
[2019-12-05] MEDS: methylPREDNISolone SS 40 MG/ML VIAL IVP SCH ×2 (11:33→17:29)
--- NOTE | 2019-12-05 11:34 | NUR ---
GIVEN ADALAT PO AND SOLU-MEDROL VIA IVP. EXPLAINED MEDICATIONS. PATIENT VERBALIZED UNDERSTANDING. BED IN LOW POSITION. CALL LIGHT IS WITHIN REACH. WILL CONTINUE TO MONITOR.
[2019-12-05] MEDS ORDERED: methylPREDNISolone SS 40 MG in WATER STERILE 1 ML IM SCH (12:00)
[2019-12-05] MEDS: HYDROcodone/APAP 5/325 MG 1 TAB TAB PO PRN ×2 (12:01→18:58)
--- NOTE | 2019-12-05 12:01 | NUR ---
GIVEN NORCO FOR LEG PAIN 02/20. EXPLAINED MEDICATION. PATIENT VERBALIZED UNDERSTANDING. BED IN LOW POSITION. CALL LIGHT IS WITHIN REACH. WILL REASSESS PAIN
--- NOTE | 2019-12-05 12:23 | NUR ---
PATIENT IS EATING LUNCH AT THIS TIME. NO SIGNS OF DISTRESS NOTED. ON 6L REBREATHER. NO SOB. WILL CONTINUE TO MONITOR
[2019-12-05] MEDS ORDERED: PREGABALIN 25 MG CAP PO SCH ×2 (12:30→21:00)
[2019-12-05] MEDS: IPRATROPIUM 0.02% 0.5 MG/2.5 ML NEBU INH SCH ×2 (13:00→20:16)
[2019-12-05] MEDS: ALBUTEROL 0.083% 2.5 MG/3 ML NEBU INH SCH ×2 (13:00→20:16)
--- NOTE | 2019-12-05 13:21 | NUR ---
PATIENT HAS BEEN SCREENED AND CATEGORIZED MODERATE NUTRITION RISK. PATIENT WILL BE SEEN WITHIN 3-5 DAYS OF ADMISSION. 12/07/19 12/09/[address]
--- NOTE | 2019-12-05 13:28 | NUR ---
PT STATED THAT SHE DID NOT NEED BREATHING TX NOW THAT SHE WAS FINE HR 82 O2 SAT ON 3LNC 96% NO SIGNS OF DISTRESS OR SOB RN PRICESS NOTIFIED
--- NOTE | 2019-12-05 13:33 | NUR ---
PATIENT IS ON 3L O2 VIA NC PER RESPIRATORY THERAPIST
--- NOTE | 2019-12-05 13:52 | NUR ---
DC PLANNIN YRS OLD FEMALE PATIENT WAS ADMITTED FROM HOME WITH A DX OF COPD EXACERBATION . PT HAS A HX OF COPD, CHRONIC CHF, TOBACCO DEPENDENCE ANXIETY CKD STAGE 3 ,HTN AND CHRONIC RESP FAILURE ON HOME OXYGEN. CXRAY SHOWED BIBASAL SUB SEGMENTAL ATELECTASIS STARTED ON IVF, ZITHROMAX AND SOLU-MEDROL IV RT PROTOCOL O2 TO MAINTAIN O2 SAT 92%. DC PLAN TO GO HOME WHEN STABLE . CM TO FOLLOW
--- NOTE | 2019-12-05 14:02 | NUR ---
GIVEN ISHMAEL CRACKERS REQUESTED. NO SIGNS OF DISTRESS NOTED. BED IN LOW POSITION. CALL LIGHT IS WITHIN REACH. WILL CONTINUE TO MONITOR
--- NOTE | 2019-12-05 14:54 | NUR ---
PATIENT REFUSED TO BE CHANGE INTO HOSPITAL [facility].
--- NOTE | 2019-12-05 15:37 | NUR ---
GIVEN CHICKEN SANDWICH AND CRANBERRY JUICE REQUESTED BY PATIENT
--- NOTE | 2019-12-05 16:43 | NUR ---
GIVEN ATIVAN FOR ANXIETY VIA IVP. EXPLAINED MEDICATION. PATIENT VERBALIZED UNDERSTANDING. WILL CONTINUE TO MONITOR
--- NOTE | 2019-12-05 17:32 | NUR ---
GIVEN SOLU-MEDROL VIA IVP. EXPLAINED MEDICATION. PATIENT VERBALIZED UNDERSTANDING. WILL CONTINUE TO MONITOR.
[2019-12-05 18:00] VITALS: BP 142/84
--- NOTE | 2019-12-05 19:02 | NUR ---
PT IS AWAKE AND ALERT IN BED WITH COMPLAINTS OF PAIN. NORCO WAS ADMINISTERED FOR PAIN RELIEF PER ORDER AND TOLERATED WELL. SAFETY MEASURES IN PLACE AND WILL CONTINUE TO MONITOR.
--- NOTE | 2019-12-05 19:10 | NUR ---
ENDORSED TO COMMUNITY MUSIC THERAPIST NURSE FOR CONTINUITY OF CARE. PT IS IN STABLE CONDITION WITH NO SIGNS OF DISTRESS NOTED.
--- NOTE | 2019-12-05 19:11 | NUR ---
RECD. RESTING IN BED, AWAKE, A/OX4. RESPIRATION EVEN AND UNLABORED, WITH DYSPNEA ON EXERTION, ON AT 3 LITERS VIA N/C. LUNGS DIMINISHED SOUNDS ON BILATERAL AUSCULTATION. ON BREATHING TREATMENTS AND IV ANTIBIOTICS. ABLE TO AMBULATE INDEPENDENTLY TO . C/O PAIN IN HER LEGS, 09/22, WILL MEDICATE ORDERED. PLAN OF CARE FOR THE SHIFT DISCUSSED. VERBALIZED UNDERSTANDING.
--- NOTE | 2019-12-05 19:30 | NUR ---
SITTING ON BED, VERBALIZED THAT SHE IS DISSATISFIED IN THIS HOSPITAL BECAUSE HER ATTENDING PHYSICIAN DID NOT COME TO SEE HER TODAY SINCE HER ADMISSION. ALSO MD DID NOT ORDER HOME 02 AND INHALER FOR HER WHEN SHE WAS DISCHARGED DURING HER LAST ADMISSION. INFORMED MD. ORDER BREATHING TREATMENTS, ANTIBIOTICS AND SOLU MEDROL FOR HER. WANTS HER LYRICA TO BE GIVEN AT 2000 INSTEAD OF 2100. ASSURED THAT IT WILL BE GIVEN EARLY.
[2019-12-05 20:00] VITALS: BP 139/85
--- NOTE | 2019-12-05 20:05 | NUR ---
FOUND PATIENT UPSET, WANTS TO GO AMA, STILL VERBALIZING ILL FEELINGS THE WAY SHE IS BEING TREATED IN THE HOSPITAL. WANTS LYRICA TO BE [address] AT HOME. EXPLAINED WE MEDICATE WHAT THE DOCTOR ORDERED. WANTS TO TAKE OFF HER PICC LINE. CHARGE NURSE DARA ADVISED PATIENT NOT TO TOUCH HER PICC LINE. RT CAME AND GAVE BREATHING TREATMENT. ALLOWS RT TO GIVE BREATHING TREATMENT.
--- NOTE | 2019-12-05 20:15 | NUR ---
PAGED DR. MORALES TO INFORM PATIENT WILL GO AMA.
--- NOTE | 2019-12-05 20:25 | NUR ---
RECEIVED REPORT FROM AM SHIFT. PATIENT APPEARS TO BE IN NO APPARENT RESPIRATORY DISTRESS AT THIS TIME: RR 18, HR 87, AND SPO2 97% ON ROOM AIR. UPPER LOBES: CLEAR BILATERAL BREATH SOUNDS LOWER BASES: CLEAR BILATERAL BREATH SOUNDS HHN TX WAS GIVEN ORDERED AND PT TOLERATED TX WELL WITH NO ADVERSE REACTION. PT WAS ALSO INFORMED TO CALL RN OR CREW CHIEF WHEN EXPERIENCING SOB FOR PRN TX. WILL CONTINUE TO MONITOR PT.
--- NOTE | 2019-12-05 20:30 | NUR ---
SITTING ON BED, AFTER BREATHING TREATMENT, STILL WANTS TO GO AMA. STATED DR. SIGALA TALKED WITH ME THIS AM THAT HE WILL COME AND SEE ME BUT NEVER CAME. CHARGE NURSE EXPLAINED THAT SHE NEEDS ANTIBIOTIC AND BREATHING TREATMENT TO GET WELL. STILL WONT LISTEN, PATIENT REFUSED TO SIGN AMA PAPER.
--- NOTE | 2019-12-05 20:40 | NUR ---
CHARGE NURSE DARA TOOK OUT PICC LINE AT THE RIGHT UPPER ARM. PATIENT STARTED TO WALK OUT OF THE ROOM BUT ADVISED TO SIT AND WAIT FOR W/C AND GROVE SUPERINTENDENT.
--- NOTE | 2019-12-05 20:45 | NUR ---
RAMP ATTENDANT ELLE CAME AND EXPLAINED TO PATIENT THE NECESSITY FOR HER TO SIGN THE AMA PAPER. PATIENT STILL REFUSED TO SIGN.
--- NOTE | 2019-12-05 20:50 | NUR ---
ADVISED TO STAY IN THE ROOM WHILE WAITING FOR HER RIDE BUT PATIENT TRIED TO OPERATE THE W/C TO LET HER OUT OF THE ROOM, SAYING "SHIT". SCREEN WRITER PUSHED W/C OUT OF THE ROOM TO GO TO LOBBY WHERE PATIENT WILL WAIT FOR HER RIDE, STATED SHE WILL CALL SOMEBODY TO TAKE HER HOME TO ENERGY.
--- NOTE | 2019-12-05 20:55 | NUR ---
INFORMED DR. MORALES REGARDING PATIENT WENT ON AMA AND THE REASON BEHIND IT, STATED HE WILL INFORM DR. SIGALA ABOUT IT.
--- NOTE | 2019-12-05 21:23 | NUR ---
NACHO QUACH REPORTED PATIENT RODE A TAXI TO TAKE HER HOME.
[2019-12-06] MEDS ORDERED: ASPIRIN 81 MG TAB.CHEW PO SCH (09:00)
== END 2019-12-05 21:20 | disposition left against medical advice (07) | DRG 202 ==
LOC: MED 02:37 → MTU 07:46
PROVIDERS: ADMIT Internal Medicine Pulmonary Disease; ATTEND Internal Medicine Pulmonary Disease
PROC: 02HV33Z Insertion of Infusion Device into Superior Vena Cava, Percutaneous Approach (ICD-10-PCS; principal; 2019-12-05)
PROC: B548ZZA Ultrasonography of Superior Vena Cava, Guidance (ICD-10-PCS; 2019-12-05)
DX: J20.9 Acute bronchitis, unspecified (principal); J44.1 Chronic obstructive pulmonary disease with (acute) exacerbation; I50.32 Chronic diastolic (congestive) heart failure; I13.0 Hypertensive heart and chronic kidney disease with heart failure and stage 1 through stage 4 chronic kidney disease, or unspecified chronic kidney disease; J96.11 Chronic respiratory failure with hypoxia; J44.0 Chronic obstructive pulmonary disease with (acute) lower respiratory infection; Z53.29 Procedure and treatment not carried out because of patient's decision for other reasons; F17.210 Nicotine dependence, cigarettes, uncomplicated; F41.9 Anxiety disorder, unspecified; N18.3 Chronic kidney disease, stage 3 (moderate); G89.29 Other chronic pain; G62.9 Polyneuropathy, unspecified; Z88.0 Allergy status to penicillin; Z90.49 Acquired absence of other specified parts of digestive tract; Z71.6 Tobacco abuse counseling
CPT/HCPCS: 36415; 51702; 71045; 80053; 83605; 84484; 85025; 87040; 87081; 94640; 96374; 96375; 99285; J0360; J0456; J2060; J2185; J2920; J2930; J3370; J7030; J7060; J7613; J7644; Q0092

== ENCOUNTER 2019-12-07 04:31 | Inpatient (IN) | payer OTHER ==
[~2019-12-07] VITALS: Ht 165.1 cm; Wt 65.8 kg
--- NOTE | 2019-12-07 04:31 | NUR ---
PT MAK ALS. TAKEN TO BED 1
[2019-12-07 04:33] VITALS: BP 262/161
[2019-12-07] MEDS ORDERED: ALBUTEROL 0.083% 2.5 MG/3 ML NEBU INH ONE ×2 (04:33→04:35)
[2019-12-07] MEDS ORDERED: IPRATROPIUM 0.02% 0.5 MG/2.5 ML NEBU INH ONE ×2 (04:34→04:35)
[2019-12-07] MEDS ORDERED: ENALAPRILAT 2.5 MG/2 ML VIAL IVP ONE ×2 (04:35→05:15)
[2019-12-07] MEDS ORDERED: NITROGLYCERIN 0.4 MG TAB SL ONE (04:35)
[2019-12-07] MEDS ORDERED: methylPREDNISolone SS 125 MG/2 ML VIAL IVP ONE (04:35)
--- NOTE | 2019-12-07 04:37 | NUR ---
X-Ray at bedside.
[2019-12-07] MEDS ORDERED: FUROSEMIDE 40 MG/4 ML VIAL IVP ONE ×2 (04:44→04:45)
--- NOTE | 2019-12-07 04:44 | NUR ---
RT AT BEDSIDE.
--- NOTE | 2019-12-07 04:45 | NUR ---
BIBA WITH SEVERE SOB. PATIENT ON BIPAP. LABORED BREATHING WITH RETRACTIONS, AND ACCESSORY MUSCLE USE. CRACKLES HEARD BILATERALLY. ABD SOFT AND NON-TENDER. RT AT BEDSIDE, DR. ROSE AT BEDSIDE. PATIENT YELLING AND NON-COMPLIANT. LEFT EJ [address] ROSE. HX:COPD
--- NOTE | 2019-12-07 04:46 | NUR ---
PATIENT REPORTS LEAVING HOSPITAL YESTERDAY AMA Addendum: 12/07/19 at 0641 by SANCHEZ PATIENT REPORTS LEAVING AMA FROM HOSPITAL YESTERDAY AFTER BEING ADMITTED FOR PNA AND COPD
--- NOTE | 2019-12-07 04:52 | NUR ---
Dr. Tran examining patient.
--- NOTE | 2019-12-07 04:52 | NUR ---
Danette prakash in [facility] - 12/07/[address] at [address] Guido examining patient.
--- NOTE | 2019-12-07 05:00 | NUR ---
PATIENT COLD, REQUESTING BLANKET, PROVIDED WITH WARM BLANKET.
[2019-12-07 05:51] LABS: BASOPHILS % (AUTO) 0.3 % (0.0-2.0); EOSINOPHILS # (AUTO) 0.3 K/uL (0-0.4); EOSINOPHILS % (AUTO) 1.5 % (0.0-4.0); HEMATOCRIT 33.4 % (36-48); HEMOGLOBIN 10.1 g/dL (12.0-16.0); LYMPHOCYTES % (AUTO) 22.6 % (20.5-51.1); MEAN CORPUSCULAR HEMOGLOBIN 25 pg (27-31); MEAN CORPUSCULAR HGB CONC 30 g/dL (33-37); MEAN CORPUSCULAR VOLUME 82.6 fL (80-94); MONOCYTES % (AUTO) 5.3 % (1.7-9.3); NEUTROPHILS # (AUTO) 12.5 K/uL (1.8-7.7); NEUTROPHILS % (AUTO) 70.3 % (42.2-75.2); PLATELET COUNT (AUTO) 242 K/uL (140-450); RED BLOOD CELL COUNT(AUTO) 4.04 MIL/uL (4.20-5.40); RED CELL DISTRIBUTION WIDTH 17.4 % (11.6-13.7); WHITE BLOOD COUNT (AUTO) 17.8 K/uL (4.8-10.8)
--- NOTE | 2019-12-07 06:00 | NUR ---
FORTE CATH PLACED PER DR. ROSE REQUEST. PATIENT TOLERATED WELL. LARGE SOFT BM CLEANED UP.
[2019-12-07 06:14] LABS: PROTHROMBIN TIME 9.7 secs (10.8-13.4)
[2019-12-07 06:16] LABS: ALBUMIN 3.2 g/dL (3.4-5.0); ANION GAP 13.8 (8-16); ASPARTATE AMINOTRANSFERASE 24 U/L (15-37); CARBON DIOXIDE 26.8 mmol/L (21-32); CHLORIDE 109 mmol/L (98-107); CREATININE 2.5 mg/dL (0.6-1.3); GLUCOSE 190 mg/dL (74-106); POTASSIUM 4.6 mmol/L (3.5-5.1); SODIUM SERUM 145 mmol/L (136-145); TOTAL BILIRUBIN 0.2 mg/dL (0.0-1.0)
[2019-12-07 06:21] LABS: UREA NITROGEN, BLOOD 68 mg/dL (7-18)
--- NOTE | 2019-12-07 08:05 | NUR ---
1000 ML DRAINED FROM FORTE CATHETER
[2019-12-07 08:10] VITALS: BP 144/74
--- NOTE | 2019-12-07 08:10 | NUR ---
RECEIVED REPORT FROM EMERGENCY ROOM NURSE FOR CONTINUITY OF CARE. PT IN STABLE CONDITION. RESPIRATIONS EVEN AND UNLABORED, OXIMIZER 10L VIA NASAL CANNULA. IV INTACT AND PATENT. SAFETY MEASURES IN PLACE. BED IN LOW POSITION. BED ALARM ON. CALL LIGHT AT BEDSIDE. WILL CONTINUE TO MONITOR.
--- NOTE | 2019-12-07 08:12 | NUR ---
Patient will be admitted to care of DR SIGALA. Admited to TELE. Will go to room 112B. Belongings list completed. Report to MARYJO PADILLA.
[2019-12-07] MEDS ORDERED: ONDANSETRON 4 MG/2 ML VIAL IVP PRN (08:40)
[2019-12-07] MEDS ORDERED: LORazepam 2 MG/ML VIAL IVP PRN (08:40)
[2019-12-07] MEDS ORDERED: MORPHINE SULFATE 4 MG/ML SYR IVP PRN (08:40)
[2019-12-07] MEDS ORDERED: ACETAMINOPHEN 325 MG TAB PO PRN (08:40)
[2019-12-07] MEDS ORDERED: ALBUTEROL 0.083% 2.5 MG/3 ML NEBU INH PRN (08:40)
[2019-12-07] MEDS ORDERED: ENOXAPARIN 40 MG/0.4 ML SYR SUBQ SCH (09:00)
[2019-12-07] MEDS: AZITHROMYCIN 500 MG in DEXTROSE 5% 250 ML IV SCH (09:27)
[2019-12-07] MEDS: PREGABALIN 25 MG CAP PO SCH ×2 (09:27→20:08)
[2019-12-07] MEDS: ENOXAPARIN 30 MG/0.3 ML SYR SUBQ SCH (09:33)
--- NOTE | 2019-12-07 10:13 | NUR ---
GAVE ORDERED DUE MEDICATIONS AT THIS TIME. PATIENT TOLERATED WELL. BED IN LOW POSITION. CALL LIGHT AT BEDSIDE. BED ALARM ON. WILL CONTINUE TO MONITOR. Addendum: 12/07/19 at 1013 by Alicia Pham RN GAVE MEDICATIONS AT 0930
--- NOTE | 2019-12-07 10:49 | NUR ---
DC PLANNIN YRS OLD FEMALE PATIENT WAS ADMITTED FROM HOME WITH A DX OF CHF EXACERBATION. PT HAS A HX OF COPD AND CHF, NON-COMPLIANT , HEAVY SMOKER AND SIGNED AMA ON 12/05/19 . ------ - `-+++++++++++++++++++++++++++ + + + + + + + + + + + + Addendum: 12/07/19 at 1129 by Susan Martin CM DC PLANNING: RECEIVED A CALL FROM JAGRUTI SHELDON AT [facility] UPDATED PT'S CLINICAL, ,REFUSED BIPAP AND CURRENTLY ON OXYMIZER AT 15L . PER JAGRUTI, WILL DISCUSSED WITH THE REEL WINDER FOR DC PLAN. ADMINISTERED AZITHROMAX IV ABX CONTINUE HOME MEDS . PITO TO FOLLOW. Addendum: 12/07/19 at 1431 by Susan Martin CM DC PLANNING: RECEIVED A CALL FROM JAGRUTI SHELDON AT [facility] , UPDATED PATIENT'S CONDITION AND STATUS. PT'S WBC 17.8 BUN AND CREAT 68/2.5 BNP 1889. STARTED ON IV ABX AZITHROMYCIN ,BREATHING TREATMENT AND SMOKING SESSION COUNSELING DONE AGAIN. SUPPLY CHAIN BUYER CONSULT WITH DR LOLY TEIXEIRA. DC PLAN PER PT RESPOND TO TREATMENT. PITO TO FOLLOW Addendum: 12/08/19 at 1047 by Lizett Arrington CM CONTACTED PITO CHAND AT [phone] [id number] TO PROVIDE UPDATE ON PATIENT'S CONDITION. Addendum: 12/08/19 at 1523 by Lizett Arrington CM RECEIVED AN ORDER FOR HOME O2. CONTACTED PITO CHAND OF [facility] TO INFORM HER OF THE ORDER. SHE STATED THAT THE PATIENT DID NOT QUALIFY BEFORE HOWEVER SAID TO FAX ORDER TO [phone]. ORDER FAXED. SHE ALSO STATED THAT O2 AT HOME IS NOT SAFE FOR THE PATIENT SINCE THE PATIENT IS A SMOKER. Addendum: 12/08/19 at 1630 by Lizett Arrington CM PITO CHAND [facility] PROVIDED ME OF THE AFTER HOURS PHONE NUMBER [phone]. Addendum: 12/10/19 at 1123 by Lizett Arrington CM SPOKE TO PRIMARY RN REGARDING DC PLAN PLAN FOR HOME O2. SHE STATED, PATIENT IS DOING GOOD ON ROOM AIR AT 94%. DISCUSSED HOME O2 ORDER WITH DR. MORALES, HE STATED PATIENT WILL NOT QUALIFY. MET WITH THE PATIENT AT THE BEDSIDE TOGETHER WITH DR MORALES TO DISCUSS HOME O2. PATIENT EXPLAINED TO DR. MORALES THAT "IT IS HARD FOR ME WAKING UP IN THE MORNING NOT ABLE TO BREATH". DR. MORALES EXPLAINED TO THE PATIENT THAT HER O2 SAT IS OK THAT SHE NEED TO DO IS TO STOP SMOKING. THE PATIENT CLAIMED THAT HAD NOT BEEN SMOKING FOR A WEEK NOW AND SHE IS HAVING DIZZINESS RIGHT NOW. DR MORALES STATED THAT HE WILL PRESCRIBE HER WITH MECLIZINE AND WILL RE EVALUATE THE PATIENT TOMORROW. Addendum: 12/11/19 at 1052 by Lizett Arrington CM RECEIVED A CALL FROM PITO CHAND OF [facility], UPDATED HER OF THE PATIENT'S CONDITION. SHE STATED TO CALL HER FOR ANY UPDATES. Addendum: 12/11/19 at 1417 by Susan Martin CM DC PLANNING: PATIENT HAS A DC ORDER WITH HOME O2, O2 SAT WITH ROOM AIR 96 % , RECEIVED A CALL FROM JAGRUTI SHELDON AT [facility] STATED PT IS NOT QUALIFIED FOR HOME O2. PER JAGRUTI WILL CALL ONCE SHE HAS A AUTH# FOR NEPHROLOGY FOLLOW UP. PITO TO FOLLOW
[2019-12-07 12:00] VITALS: BP 138/76
[2019-12-07] MEDS: BUMETANIDE 1 MG/4 ML VIAL IV SCH ×2 (12:44→18:45)
--- NOTE | 2019-12-07 12:59 | NUR ---
PT EATING LUNCH AT THIS TIME IN STABLE CONDITION. BED IN LOW POSITION. BED ALARM ON. CALL LIGHT AT BEDSIDE. WILL CONTINUE TO MONITOR.
--- NOTE | 2019-12-07 13:30 | NUR ---
PATIENT HAS BEEN SCREENED AND CATEGORIZED MODERATE NUTRITION RISK. PATIENT WILL BE SEEN WITHIN 3-5 DAYS OF ADMISSION. 12/09/19 12/11/[address]
[2019-12-07] MEDS: HYDROcodone/APAP 5/325 MG 1 TAB TAB PO PRN ×3 (13:48→22:48)
--- NOTE | 2019-12-07 13:48 | NUR ---
GAVE PRN PAIN MEDICATION PER PT REQUEST AT THIS TIME. PT TOLERATED WELL. BED IN LOW POSITION. BED ALARM ON. CALL LIGHT AT BEDSIDE. WILL CONTINUE TO MONITOR.
--- NOTE | 2019-12-07 15:10 | NUR ---
RETRIEVED SANDWICH FROM [facility] PER PT REQUEST AT THIS TIME. PT IN STABLE CONDITION.
[2019-12-07 16:00] VITALS: BP 142/72
--- NOTE | 2019-12-07 17:30 | NUR ---
PT EATING DINNER IN STABLE CONDITION. BED IN LOW POSITION. BED ALARM ON. CALL LIGHT AT BEDSIDE. WILL CONTINUE TO MONITOR.
[2019-12-07] MEDS: IPRATROPIUM 0.02% 0.5 MG/2.5 ML NEBU INH SCH (19:00)
[2019-12-07] MEDS: ALBUTEROL 0.083% 2.5 MG/3 ML NEBU INH SCH (19:00)
--- NOTE | 2019-12-07 19:02 | NUR ---
RECEIVED BEDSIDE REPORT FROM AM SHIFT NURSE VALERIE. PATIENT IS LYING IN BED, AWAKE AND ALERT. NO SOB OR DISTRESS NOTED. RT LOWERED OXYMIZER TO 2LPM. IV ACCESS LEFT SIDE EJ 18 GAUGE, PATENT, INTACT AND INFUSING WELL. INITIAL ASSESSMENT DONE. SKIN IS INTACT. FORTE CATHETER IN PLACE, PATENT AND DRAINING WELL. BED IN LOW, BED LOCKED. SAFETY MEASURES IN PLACE. CALL LIGHT PLACED WITHIN PATIENT REACH. WILL CONTINUE TO MONITOR PATIENT.
--- NOTE | 2019-12-07 19:07 | NUR ---
GAVE REPORT TO CHEESE TESTER NURSE PETER FOR CONTINUITY OF CARE. PT IN STABLE CONDITION.
[2019-12-07 20:30] VITALS: BP 130/64
--- NOTE | 2019-12-07 21:40 | NUR ---
ROUNDS DONE. PATIENT AWAKE AND WATCHING TV. NO SOB OR DISTRESS NOTED. CALL LIGHT WITHIN PATIENT REACH. WILL CONTINUE TO MONITOR PATIENT.
--- NOTE | 2019-12-07 22:48 | NUR ---
PRN NORCO GIVEN AT THIS TIME PER PATIENT REQUEST FOR MODERATE PAIN. WILL CONTINUE TO MONITOR PATIENT.
[2019-12-08 00:30] VITALS: BP_SYST 112; BP_SYST 141; BP_DIAS 79; BP_DIAS 81
--- NOTE | 2019-12-08 00:30 | NUR ---
VITALS TAKEN AT THIS TIME. VISIBLE CHEST RISE AND FALL NOTED. CALL LIGHT PLACED WITHIN PATIENT REACH. WILL CONTINUE TO MONITOR PATIENT.
[2019-12-08] MEDS: BUMETANIDE 1 MG/4 ML VIAL IV SCH ×4 (00:54→18:25)
[2019-12-08] MEDS: ALBUTEROL 0.083% 2.5 MG/3 ML NEBU INH SCH ×4 (01:00→19:37)
[2019-12-08] MEDS: IPRATROPIUM 0.02% 0.5 MG/2.5 ML NEBU INH SCH ×4 (01:00→19:37)
--- NOTE | 2019-12-08 03:16 | NUR ---
ROUNDS DONE. VISIBLE CHEST RISE AND FALL NOTED. CALL LIGHT WITHIN PATIENT REACH. WILL CONTINUE TO MONITOR PATIENT.
--- NOTE | 2019-12-08 04:13 | NUR ---
VITALS TAKEN AT THIS TIME. PATIENT RESTING WITH EYES CLOSED. NO DISTRESS NOTED. WILL CONTINUE TO MONITOR PATIENT.
[2019-12-08 04:14] VITALS: BP 134/51
--- NOTE | 2019-12-08 06:50 | NUR ---
PATIENT IN STABLE CONDITION. VISIBLE CHEST RISE AND FALL NOTED. CALL LIGHT WITHIN PATIENT REACH. WILL ENDORSE TO AM SHIFT NURSE FOR CONTINUITY OF CARE.
[2019-12-08 07:01] LABS: BASOPHILS % (AUTO) 0.1 % (0.0-2.0); HEMATOCRIT 24.7 % (36-48); HEMOGLOBIN 7.9 g/dL (12.0-16.0); LYMPHOCYTES # (AUTO) 0.7 K/uL (2.5-16.5); LYMPHOCYTES % (AUTO) 9.5 % (20.5-51.1); MEAN CORPUSCULAR HEMOGLOBIN 26 pg (27-31); MEAN CORPUSCULAR HGB CONC 32 g/dL (33-37); MEAN CORPUSCULAR VOLUME 80.3 fL (80-94); MONOCYTES # (AUTO) 0.5 K/uL (0.8-1.0); MONOCYTES % (AUTO) 6.1 % (1.7-9.3); NEUTROPHILS # (AUTO) 6.3 K/uL (1.8-7.7); NEUTROPHILS % (AUTO) 84.3 % (42.2-75.2); PLATELET COUNT (AUTO) 133 K/uL (140-450); RED BLOOD CELL COUNT(AUTO) 3.08 MIL/uL (4.20-5.40); RED CELL DISTRIBUTION WIDTH 16.9 % (11.6-13.7); WHITE BLOOD COUNT (AUTO) 7.5 K/uL (4.8-10.8)
--- NOTE | 2019-12-08 07:08 | NUR ---
RECEIVED REPORT FROM NIGHT NURSE, PT IS AA0X4, PT IS STABLE, PT ON 2L OXIMIZER, PT HAS FORTE CATH, PT HAS LEFT 18G EXTERNAL JUGULAR SALINE LOCK, INTRODUCE SELF, UPDATED WHITEBOARD, CALL LIGHT WITHIN REACH. WILL CONTINUE TO MONITOR.
[2019-12-08 07:13] LABS: ALBUMIN 2.7 g/dL (3.4-5.0); ANION GAP 12.9 (8-16); ASPARTATE AMINOTRANSFERASE 11 U/L (15-37); CARBON DIOXIDE 27.4 mmol/L (21-32); CHLORIDE 107 mmol/L (98-107); CREATININE 2.8 mg/dL (0.6-1.3); GLUCOSE 129 mg/dL (74-106); POTASSIUM 4.3 mmol/L (3.5-5.1); SODIUM SERUM 143 mmol/L (136-145); TOTAL BILIRUBIN 0.1 mg/dL (0.0-1.0)
[2019-12-08 08:00] VITALS: BP 152/88
[2019-12-08] MEDS: ASPIRIN 81 MG TAB.CHEW PO SCH (08:41)
[2019-12-08] MEDS: NIFEdipine 60 MG TABER PO SCH (08:42)
[2019-12-08] MEDS: PREGABALIN 25 MG CAP PO SCH ×2 (08:42→20:22)
[2019-12-08] MEDS: AZITHROMYCIN 500 MG in DEXTROSE 5% 250 ML IV SCH (08:44)
[2019-12-08] MEDS: ENOXAPARIN 30 MG/0.3 ML SYR SUBQ SCH (08:44)
--- NOTE | 2019-12-08 09:03 | NUR ---
ADMINISTERED ORDERED MEDICATION, PT EDUCATION GIVEN, PT VERBALIZED UNDERSTANDING, PT IS UPSET SHE IS NOT GETTING THE LYRICA DOSAGE SHE GETS AT HOME, PT WANTS MD TO CHANGE THE MEDICATION, PT INFORMED THAT HER CONCERNS WILL BE CONVEY TO MD ONCE HE COMES TO CHECK ON HER, PT IS STABLE, ADMINISTERED MORPHINE FOR PAIN OF 8/10 OF HER LEG.
[2019-12-08 09:12] LABS: UREA NITROGEN, BLOOD 86 mg/dL (7-18)
--- NOTE | 2019-12-08 11:00 | NUR ---
PT SIGNED ADMISSION PAPERWORK, NOTIFIED ADMISSION THAT PT SIGNED, PT IS STABLE, CALL LIGHT WITHIN REACH.
[2019-12-08 12:00] VITALS: BP 126/73
--- NOTE | 2019-12-08 12:08 | NUR ---
Candy Separator Enrobing Note: Basic Screen: Yes High Risk DC Screen No Re-Admission: Non-Compliance Name: SERGIO Carrasquillo Relationship: FRIEND Pre-Admission Living Arrangements: Lives with Other Other: ROOMMATES Prior ADL Independent Current Home Health Name/Tel: N/A Current DME/02 Name/Tel: [facility] Current Hospice Name/Tel: N/A Current Dialysis Name/Tel: N/A Healthcare Decision Maker: Patient Advance Directive No Physician Orders for Life Sustaining Treatment Form No Information Taught: Community Resources Person Taught: Patient Teaching Tools: Verbal Factors Affecting Learning: None Participation Level: Refused Evaluation: Verbalizes Understanding Discipline: Case Mgt/Social Svcs Tentative Discharge Plan/Destination: DME No Needs Identified Will require assistance post discharge: No Referred to High Density Talc Coater Operator: No Tentative Discharge Plan Summary: Patient is a 69-year-old female admitted for CHF exacerbation. Patient has PMHX of CHF, HTN, Asthma, and COPD. Patient was admitted from home where she lives with roommates. SW met with patient at bedside to verify demographics. Patient reported that no history of mental health or substance abuse. SW assessed for risk factors, and patient stated she had quit smoking recently and has had difficulty breathing. Patient stated that she intends to speak to physician regarding qualifying for home O2 and an electric wheelchair. Patient also stated that she is independent at baseline but because of her difficulty breathing, she is beginning application for IHSS. Patient refused all resources stating she has resources from previous hospitalizations. Tentative discharge plan is for patient to return home. No further needs identified. Signature: FRANCISCA Koenig Date: Dec 08, 2019 Time: 12:05 Addendum: 12/11/19 at 1558 by Susan Martin CM DC PLANNING: PT HAS A DC ORDER TO GO HOME CALLED [facility] SPOKE WITH ULISES , TRANSPORT WILL BE WITH LOGISTIC CARE TRIM MACHINE OPERATOR TIME 5 PM. NOTIFIED ANNE-MARIE SIBLEY .
--- NOTE | 2019-12-08 13:30 | NUR ---
PT ASLEEP IN BED, NO SIGNS OF RESPIRATORY DISTRESS NOTED, PT IS STABLE CALL LIGHT WITHIN REACH.
--- NOTE | 2019-12-08 15:00 | NUR ---
PT RESTING IN BED WATCHING TV, NO SIGNS OF DISTRESS NOTED, CALL LIGHT WITHIN REACH.
[2019-12-08 16:00] VITALS: BP 104/63
--- NOTE | 2019-12-08 18:30 | NUR ---
ADMINISTERED ORDERED MEDICATION, PT EDUCATION GIVEN, PT STABLE, CALL LIGHT WITHIN REACH.
--- NOTE | 2019-12-08 19:07 | NUR ---
RECIEVED PT AAOX4 , NID O2 SAT WNL -W/ O2 AT 2LPM/NC , C/O PAIN - WILL MEDICATE. WITH FC DRAINING CLEAR U.O . POC DISCUSSED AND VERBALIZE UNDERSTANDING . SAFETY MEASURES IN PLACE - CALL LIGHT WITHIN REACH. WILL CONT. TO MONITOR.
--- NOTE | 2019-12-08 19:07 | NUR ---
GAVE REPORT TO NIGHT NURSE FOR CONTINUITY OF CARE, PT IS STABLE.
[2019-12-08 20:00] VITALS: BP 127/70
[2019-12-08] MEDS: HYDROcodone/APAP 5/325 MG 1 TAB TAB PO PRN (20:26)
--- NOTE | 2019-12-08 22:00 | NUR ---
MADE ROUNDS , RESTING ON BED COMFORTABLY , WILL CONT. TO MONITOR. Addendum: 12/08/19 at 2243 by Neena Oates RN URINE SPECIMEN SENT TO LAB.
[2019-12-08 22:07] LABS: APPEARANCE,URINE CLEAR (CLEAR); BILIRUBIN,URINE NEGATIVE (NEGATIVE); BLOOD, URINE NEGATIVE (NEGATIVE); COLOR,URINE YELLOW (YELLOW); LEUKOCYTE ESTERASE ,URINE NEGATIVE (NEGATIVE); NITRITE, URINE NEGATIVE (NEGATIVE); UGLUCOSE NEGATIVE (NEGATIVE)
[2019-12-09] VITALS: BP 111/67
--- NOTE | 2019-12-09 | NUR ---
MADE ROUNDS , O2 SAT WNL , NO COMPLAIN MADE AT THIS TIME , WILL CONT. TO MONITOR , ON WEIGHTS AND MEASURES SEALER.
[2019-12-09] MEDS: ALBUTEROL 0.083% 2.5 MG/3 ML NEBU INH SCH ×4 (01:00→19:00)
[2019-12-09] MEDS: IPRATROPIUM 0.02% 0.5 MG/2.5 ML NEBU INH SCH ×4 (01:00→19:00)
--- NOTE | 2019-12-09 01:05 | NUR ---
PT SAID DURING 1899 TX THAT SHE DID NOT WANT THE BREATHING TX AT 0100. SHE SAID SHE WANTS TO SLEEP. SHE SAID SHE WILL LET THE NURSE KNOW IF SHE FEELS SHORT OF BREATH. WILL CONT TO MONITOR
--- NOTE | 2019-12-09 02:00 | NUR ---
MADE ROUNDS , SLEEPING - CHEST RISE AND FALL EQUALLY - WILL CONT. TO MONITOR , CALL LIGHT WITHIN REACH.
[2019-12-09 04:00] VITALS: BP 130/76
--- NOTE | 2019-12-09 04:00 | NUR ---
MADE ROUNDS , NO S/S OF ACUTE DISTRESS NOTED AT THIS TIME . WILL CONT. TO MONITOR.
--- NOTE | 2019-12-09 06:00 | NUR ---
MADE ROUNDS , NO COMPLAIN MADE AT THIS TIME , CALL LIGHT WITHIN REACH.
[2019-12-09 07:22] LABS: BASOPHILS % (AUTO) 0.4 % (0.0-2.0); EOSINOPHILS # (AUTO) 0.1 K/uL (0-0.4); EOSINOPHILS % (AUTO) 1.7 % (0.0-4.0); HEMOGLOBIN 8.3 g/dL (12.0-16.0); LYMPHOCYTES # (AUTO) 1.1 K/uL (2.5-16.5); LYMPHOCYTES % (AUTO) 21.1 % (20.5-51.1); MEAN CORPUSCULAR HEMOGLOBIN 26 pg (27-31); MEAN CORPUSCULAR HGB CONC 33 g/dL (33-37); MONOCYTES # (AUTO) 0.4 K/uL (0.8-1.0); MONOCYTES % (AUTO) 7.4 % (1.7-9.3); NEUTROPHILS # (AUTO) 3.8 K/uL (1.8-7.7); NEUTROPHILS % (AUTO) 69.4 % (42.2-75.2); PLATELET COUNT (AUTO) 127 K/uL (140-450); RED BLOOD CELL COUNT(AUTO) 3.13 MIL/uL (4.20-5.40); RED CELL DISTRIBUTION WIDTH 16.7 % (11.6-13.7); WHITE BLOOD COUNT (AUTO) 5.4 K/uL (4.8-10.8)
--- NOTE | 2019-12-09 07:34 | NUR ---
RECEIVED REPORT FROM NIGHT NURSE FOR CONTINUITY OF CARE. PT IS AA0X4, PT IS STABLE. PT HAS LEFT 18G EXTERNAL JUGULAR SALINE LOCK, INTRODUCE SELF. DISCUSSED POC AND PT VERBALIZED UNDERSTANDING. UPDATED WHITEBOARD. CALL LIGHT WITHIN REACH. WILL MONITOR PT CLOSELY THROUGHOUT THE SHIFT.
[2019-12-09 07:37] LABS: ALBUMIN 2.6 g/dL (3.4-5.0); ANION GAP 11.2 (8-16); ASPARTATE AMINOTRANSFERASE 10 U/L (15-37); CHLORIDE 106 mmol/L (98-107); CREATININE 2.3 mg/dL (0.6-1.3); GLUCOSE 99 mg/dL (74-106); POTASSIUM 4.2 mmol/L (3.5-5.1); SODIUM SERUM 141 mmol/L (136-145); TOTAL BILIRUBIN 0.1 mg/dL (0.0-1.0)
[2019-12-09 07:39] LABS: MAGNESIUM 2.4 mg/dL (1.8-2.4)
[2019-12-09 07:41] LABS: UREA NITROGEN, BLOOD 81 mg/dL (7-18)
[2019-12-09 08:00] VITALS: BP 125/72
--- NOTE | 2019-12-09 08:50 | NUR ---
PT BECAME UPSET BECAUSE I WAS EXPLAINING MEDS AND PT ASKED FOR NORCO. I ASKED PT IF SHE HAD PAIN AND SHE REPLIED THAT SHE HAS NOT HAD NORCO FOR 12HRS. I TOLD PT THAT NORCO IS NOT SCHEDULED AND ITS ONLY NEEDED. I ASKED PT IS SHE NEEDED THE NORCO BUT SHE GOT UPSET WITH ME AND TOLD ME SHE WANTED A DIFFERENT NURSE. CHARGE NURSE MADE AWARE.
--- NOTE | 2019-12-09 08:56 | NUR ---
RECEIVED PT FROM AM RNLUIS ANTONIO, PT IS AWAKE AND ALERT, ORIENTED, ON O2 2L NC,FORTE CATHETER IN PLACE, SAFETY PRECAUTION INITIATED, NO SIGN OF DISTRESS NOTED AND PT C/O PAIN RATE OF 6/10, WILL MEDICATE AND MONITOR PT.
--- NOTE | 2019-12-09 09:02 | NUR ---
ENDORSED PT TO TILE CONDUIT LAYER FOR CONTINUITY OF CARE. PT IN STABLE CONDITION.
[2019-12-09] MEDS: AZITHROMYCIN 500 MG in DEXTROSE 5% 250 ML IV SCH (09:22)
[2019-12-09] MEDS: HYDROcodone/APAP 5/325 MG 1 TAB TAB PO PRN ×3 (09:22→20:35)
[2019-12-09] MEDS: NIFEdipine 60 MG TABER PO SCH (09:23)
[2019-12-09] MEDS: ASPIRIN 81 MG TAB.CHEW PO SCH (09:23)
[2019-12-09] MEDS: BUMETANIDE 1 MG/4 ML VIAL IV SCH ×2 (09:24→20:19)
[2019-12-09] MEDS: PREGABALIN 25 MG CAP PO SCH ×2 (09:24→20:20)
[2019-12-09] MEDS: ENOXAPARIN 30 MG/0.3 ML SYR SUBQ SCH (09:27)
--- NOTE | 2019-12-09 11:00 | NUR ---
PT IS HAVING ULTRASOUND OF THE KIDNEYS NOW.
--- NOTE | 2019-12-09 11:10 | NUR ---
PT WAS WEANED OFF OF O2 NOW, WILL CHECK SATURATION ON ROOM AIR AFTER AN HOUR.
[2019-12-09 11:11] LABS: CREATININE,URINE RANDOM 25 mg/dL (30-125); URINE SODIUM, RANDOM 77 mmol/l (40-220)
[2019-12-09 12:00] VITALS: BP 116/71
--- NOTE | 2019-12-09 12:30 | NUR ---
PT'S O2 SATRUATION NOW IS 96% ON ROOM AIR, NO SOB AND PT DENIES ANY PAIN. WILL MONITOR PT.
--- NOTE | 2019-12-09 13:28 | NUR ---
PT HAS REFUSED BREATHING TX STATES SHE DOES NOT NEED THEM AND SHE WANTS TO SLEEP PT HAS NO SIGNS OF DISTRESS OR SOB
[2019-12-09 16:00] VITALS: BP 135/72
--- NOTE | 2019-12-09 16:33 | NUR ---
PT C/O PAIN RATE OF 6/10 ON HER BACK AND PAIN MEDICATION WAS GIVEN, TOLERATED AND WILL RE-ASSESS AND MONITOR PT.
--- NOTE | 2019-12-09 19:30 | NUR ---
ENDORSED PT TO WEIGHER AND CRUSHER NURSEJANINE FOR CONTINUITY OF CARE.
--- NOTE | 2019-12-09 19:30 | NUR ---
RECEIVED BEDSIDE REPORT FROM AM SHIFT RN FOR PT'S CONTINUITY OF CARE. PATIENT IS AAOX4, PATIENT IS LYING DOWN WATCHING TV, ON ROOM AIR, DENIES ANY PAIN AT THIS TIME. EXPLAINED TO PT THE PIANO TUNER ROUTINE, PT VERBALIZED UNDERSTANDING. SAFETY MEASURES IN PLACE, AND CALL LIGHT IS WITHIN REACH. WILL MONITOR PT THROUGHOUT SHIFT.
--- NOTE | 2019-12-09 20:00 | NUR ---
ENDORSE PT TO IN HOME BABY SITTER RN RADHA, FOR PT'S CONTINUITY OF CARE. PT IS IN STABLE CONDITION, DENIES ANY PAIN AT THIS TIME.
--- NOTE | 2019-12-09 20:10 | NUR ---
RECEIVED FROM AM RN IN BED SITTING UP AWAKE AND ALERT. ABLE TO VERBALIZE NEEDS WELL. CALL LIGHT WITH IN REACH. TELEMETRY MONITORING. ENCOURAGED TO CALL FOR NAY HELP SHE MAY NEED. ON ROOM AIR AT THIS TIME.
[2019-12-09 20:25] VITALS: BP 137/75
--- NOTE | 2019-12-09 23:00 | NUR ---
PT. STATED SHE IS READY TO GO SLEEP. REQUESTED FOR 02 TO BE PLACED RT STATED SHE NEEDS IT WHEN SLEEPING. ABLE TO VERBALIZE NEEDS WELL. CALL LIGHT WITH IN REACH.
--- NOTE | 2019-12-09 23:35 | NUR ---
SLEEPING AT THIS TIME.
[2019-12-10] VITALS: BP 139/71
[2019-12-10] MEDS: IPRATROPIUM 0.02% 0.5 MG/2.5 ML NEBU INH SCH ×4 (01:00→19:34)
[2019-12-10] MEDS: ALBUTEROL 0.083% 2.5 MG/3 ML NEBU INH SCH ×4 (01:00→19:34)
--- NOTE | 2019-12-10 02:28 | NUR ---
SLEEPING WELL. NO COMPLAINTS.
[2019-12-10 04:00] VITALS: BP_SYST 128; BP_SYST 154; BP_DIAS 70; BP_DIAS 81
--- NOTE | 2019-12-10 05:11 | NUR ---
PT.'S 02 SAT ON ROOM AIR RE-CHECKED AT THIS TIME IS 97 %. SLEEPING WELL. CALL LIGHT WITH IN REACH. NO SOB. NO RESTLESSNESS NOTED THIS SHIFT.
--- NOTE | 2019-12-10 07:20 | NUR ---
RECEIVED BEDSIDE SHIFT REPORT FROM SALES REPRESENTATIVE SUPERVISOR NURSE FOR CONTINUATION OF CARE.
[2019-12-10 08:00] VITALS: BP 143/78
[2019-12-10] MEDS: ENOXAPARIN 30 MG/0.3 ML SYR SUBQ SCH (08:09)
[2019-12-10] MEDS: NIFEdipine 60 MG TABER PO SCH (08:12)
[2019-12-10] MEDS: BUMETANIDE 1 MG/4 ML VIAL IV SCH ×2 (08:12→20:14)
[2019-12-10] MEDS: PREGABALIN 25 MG CAP PO SCH ×2 (08:12→20:13)
[2019-12-10] MEDS: ASPIRIN 81 MG TAB.CHEW PO SCH (08:12)
[2019-12-10] MEDS: AZITHROMYCIN 500 MG in DEXTROSE 5% 250 ML IV SCH (08:13)
[2019-12-10] MEDS: HYDROcodone/APAP 5/325 MG 1 TAB TAB PO PRN ×3 (09:35→23:36)
--- NOTE | 2019-12-10 10:00 | NUR ---
MEDICATIONS TOLERATED WELL PO, IV AZITHROMYCIN RUNNING, TOLERATING WELL. PAIN MEDICATION ADMINISTERED FOR MODERATE PAIN. BREAKFAST TOLERATED WELL. PATIENT EXPRESSES DESIRE FOR DISCHARGE. MD MADE AWARE. WILL CONTINUE TO MONITOR.
[2019-12-10 12:00] VITALS: BP 138/75
--- NOTE | 2019-12-10 12:00 | NUR ---
MD VERBALIZED PATIENTS REQUEST FOR OXYGEN TANK UPON DISCHARGE, DISCHARGE IS PENDING FOR TOMORROW. PATIENT ACCEPTS THIS.
--- NOTE | 2019-12-10 14:00 | NUR ---
ROUNDS MADE FOR SAFETY, PATIENT IS RESTING IN BED, OBSERVED CHEST RISE AND FALL. CALL LIGHT ON AND WITHIN REACH, EDUCATED TO REPORT FEELINGS OF SHORTNESS OF BREATHE. WILL CONTINUE TO MONITOR.
[2019-12-10 14:48] LABS: BASOPHILS % (AUTO) 0.3 % (0.0-2.0); EOSINOPHILS # (AUTO) 0.2 K/uL (0-0.4); EOSINOPHILS % (AUTO) 2.8 % (0.0-4.0); HEMATOCRIT 29.5 % (36-48); HEMOGLOBIN 9.4 g/dL (12.0-16.0); LYMPHOCYTES # (AUTO) 0.6 K/uL (2.5-16.5); LYMPHOCYTES % (AUTO) 9.7 % (20.5-51.1); MEAN CORPUSCULAR HEMOGLOBIN 26 pg (27-31); MEAN CORPUSCULAR HGB CONC 32 g/dL (33-37); MEAN CORPUSCULAR VOLUME 79.8 fL (80-94); MONOCYTES # (AUTO) 0.4 K/uL (0.8-1.0); MONOCYTES % (AUTO) 6.4 % (1.7-9.3); NEUTROPHILS # (AUTO) 5.2 K/uL (1.8-7.7); NEUTROPHILS % (AUTO) 80.8 % (42.2-75.2); PLATELET COUNT (AUTO) 152 K/uL (140-450); RED BLOOD CELL COUNT(AUTO) 3.69 MIL/uL (4.20-5.40); RED CELL DISTRIBUTION WIDTH 16.4 % (11.6-13.7); WHITE BLOOD COUNT (AUTO) 6.4 K/uL (4.8-10.8)
[2019-12-10 15:05] LABS: ALBUMIN 2.8 g/dL (3.4-5.0); ANION GAP 9.4 (8-16); ASPARTATE AMINOTRANSFERASE 10 U/L (15-37); CARBON DIOXIDE 30.4 mmol/L (21-32); CHLORIDE 106 mmol/L (98-107); GLUCOSE 135 mg/dL (74-106); POTASSIUM 3.8 mmol/L (3.5-5.1); SODIUM SERUM 142 mmol/L (136-145); TOTAL BILIRUBIN 0.2 mg/dL (0.0-1.0)
[2019-12-10 15:12] LABS: UREA NITROGEN, BLOOD 73 mg/dL (7-18)
--- NOTE | 2019-12-10 15:22 | NUR ---
NOTIFIED OF CHEM PANEL PER MD'S ORDERS.
[2019-12-10 17:00] VITALS: BP 169/70
--- NOTE | 2019-12-10 17:57 | NUR ---
PAIN MEDICATION ADMINISTERED FOR MODERATE PAIN.
--- NOTE | 2019-12-10 19:20 | NUR ---
BEDSIDE SHIFT REPORT GIVEN TO LAUNDRY OPERATOR NURSE FOR CONTINUATION OF CARE.
--- NOTE | 2019-12-10 19:21 | NUR ---
RECEIVED BEDSIDE REPORT FROM DAY SHIFT NURSE, ALYSSIA. PT IS AA0X4, PT IS STABLE, BREATHING EVEN AND UNLABORED. IV SITE ON LEFT 18G EXTERNAL JUGULAR SALINE LOCK, PATENT, INTACT, AND ASYMPTOMATIC. INTRODUCE SELF, BOARD UPDATED, BED IN LOW POSITION. CALL LIGHT WITHIN REACH. WILL CONTINUE TO MONITOR.
--- NOTE | 2019-12-10 19:40 | NUR ---
RECEIVED REPORT FROM AM SHIFT. PATIENT WAS RESTING IN BED WITH HOB > 30 DEGREES. PATIENT IN NO APPARENT RESPIRATORY DISTRESS AT THIS TIME: RR 18, HR 70, SPO2 96% ON ROOM AIR, AND CLEAR BILATERALLY BREATH SOUNDS. HHN TX GIVEN ORDERED, AND PATIENT TOLERATED TX WELL WITH NO ADVERSE REACTION. PATIENT WAS INFORMED TO CALL RN OR ACCOUNTS PAYABLE ASSOCIATE FOR PRN TX WHEN EXPERIENCING SOB. WILL CONTINUE TO MONITOR PATIENT.
[2019-12-10 20:00] VITALS: BP 150/72
--- NOTE | 2019-12-10 20:14 | NUR ---
GIVEN BUMEX AND LYRICA MD ORDERED. PT TOLERATED WELL.
--- NOTE | 2019-12-10 22:01 | NUR ---
PT SLEEPING IN BED COMFORTABLY. NO ACUTE DISTRESS NOTED.
--- NOTE | 2019-12-10 23:38 | NUR ---
PT C/O FEET PAIN, 02/20, GIVEN NORCO MD ORDERED. PT TOLERATED WELL.
[2019-12-11] VITALS: BP 158/83
[2019-12-11] MEDS: ALBUTEROL 0.083% 2.5 MG/3 ML NEBU INH SCH ×3 (02:10→13:04)
[2019-12-11] MEDS: IPRATROPIUM 0.02% 0.5 MG/2.5 ML NEBU INH SCH ×3 (02:10→13:04)
--- NOTE | 2019-12-11 03:09 | NUR ---
ENDORSED PT TO GALI SIBLEY FOR CONTINUOUS CARE. PT IN STABLE CONDITION.
--- NOTE | 2019-12-11 03:10 | NUR ---
RECEIVED BEDSIDE REPORT FROM SETH SIBLEY. PT IS SLEEPING COMFORTABLY IN BED WITH EYES CLOSED. CHEST RISE AND FALL NOTED. SKIN INTACT PER RN. PT WITH GEN WEAKNESS ABLE TO USE BEDSIDE COMMODE WITH ASSIST. IV ON L EJ 18G SL. ALL SAFETY MEASURES ARE IN PLACE. CALL LIGHT IS WITHIN REACH.
[2019-12-11 04:00] VITALS: BP 135/65
--- NOTE | 2019-12-11 04:15 | NUR ---
VITAL SIGNS ARE WITHIN NORMAL LIMITS. PT DENIES PAIN AT THIS TIME. ALL NEEDS MET. CALL LIGHT IS WITHIN REACH. WILL CONTINUE TO MONITOR.
--- NOTE | 2019-12-11 06:42 | NUR ---
PT IS STABLE LAYING COMFORTABLY IN BED. NO S/S OF DISTRESS. WILL ENDORSE TO DAY SHIFT.
[2019-12-11 06:55] LABS: BASOPHILS % (AUTO) 0.5 % (0.0-2.0); EOSINOPHILS # (AUTO) 0.2 K/uL (0-0.4); EOSINOPHILS % (AUTO) 3.7 % (0.0-4.0); HEMATOCRIT 27.8 % (36-48); HEMOGLOBIN 9.1 g/dL (12.0-16.0); LYMPHOCYTES # (AUTO) 0.8 K/uL (2.5-16.5); LYMPHOCYTES % (AUTO) 15.7 % (20.5-51.1); MEAN CORPUSCULAR HEMOGLOBIN 26 pg (27-31); MEAN CORPUSCULAR HGB CONC 33 g/dL (33-37); MEAN CORPUSCULAR VOLUME 78.9 fL (80-94); MONOCYTES # (AUTO) 0.5 K/uL (0.8-1.0); MONOCYTES % (AUTO) 9.7 % (1.7-9.3); NEUTROPHILS # (AUTO) 3.8 K/uL (1.8-7.7); NEUTROPHILS % (AUTO) 70.4 % (42.2-75.2); PLATELET COUNT (AUTO) 152 K/uL (140-450); RED BLOOD CELL COUNT(AUTO) 3.53 MIL/uL (4.20-5.40); RED CELL DISTRIBUTION WIDTH 16.3 % (11.6-13.7); WHITE BLOOD COUNT (AUTO) 5.4 K/uL (4.8-10.8)
--- NOTE | 2019-12-11 07:20 | NUR ---
SHIFT REPORT RECEIVED FROM STUFFED CASING TIER NURSE. PT IS LYING IN BED. PT IS AWAKE AND RESPONSIVE. NO DISTRESS NOTED. NO COMPLAINS OF PAIN REPORTED. WILL CONTINUE TO MONITOR. CALL LIGHT IN REACH.
[2019-12-11 07:44] LABS: ALBUMIN 2.8 g/dL (3.4-5.0); ANION GAP 12.4 (8-16); ASPARTATE AMINOTRANSFERASE 12 U/L (15-37); CARBON DIOXIDE 28.6 mmol/L (21-32); CHLORIDE 106 mmol/L (98-107); CREATININE 2.1 mg/dL (0.6-1.3); GLUCOSE 108 mg/dL (74-106); SODIUM SERUM 143 mmol/L (136-145); TOTAL BILIRUBIN 0.2 mg/dL (0.0-1.0)
[2019-12-11 08:00] VITALS: BP 144/70
[2019-12-11 08:18] LABS: UREA NITROGEN, BLOOD 75 mg/dL (7-18)
[2019-12-11] MEDS: NIFEdipine 60 MG TABER PO SCH (08:24)
[2019-12-11] MEDS: ASPIRIN 81 MG TAB.CHEW PO SCH (08:25)
[2019-12-11] MEDS: PREGABALIN 25 MG CAP PO SCH (08:25)
[2019-12-11] MEDS: AZITHROMYCIN 500 MG in DEXTROSE 5% 250 ML IV SCH (08:26)
[2019-12-11] MEDS: ENOXAPARIN 30 MG/0.3 ML SYR SUBQ SCH (08:29)
[2019-12-11] MEDS: HYDROcodone/APAP 5/325 MG 1 TAB TAB PO PRN (08:31)
--- NOTE | 2019-12-11 09:00 | NUR ---
PT IS IN BED RESTING. PT RESPONSIVE TO VERBAL STIMULI. MEDICATION GIVEN. PT TOLERATED WELL. PT COMPLAINED OF BODY PAIN PAIN SCALE 8/10. WILL MEDICATE. WILL CONTINUE TO MONITOR. CALL LIGHT IN REACH.
[2019-12-11] MEDS: BUMETANIDE 1 MG/4 ML VIAL IV SCH (10:20)
[2019-12-11 12:00] VITALS: BP 142/70
--- NOTE | 2019-12-11 12:00 | NUR ---
PT IS RESTING IN BED AT TH IS TIME. NO DISTRESS NOTED. NO COMPLAINS OF PAIN REPORTED. SAFETY MEASURES IN PLACE. WILL CONTINUE TO MONITOR. CALL LIGHT IN REACH.
[2019-12-11] MEDS ORDERED: FURO40TA9 PO ×2 (12:18)
--- NOTE | 2019-12-11 13:21 | NUR ---
12/11/19 RD INITIAL ASSESSMENT COMPLETED PLEASE REFER TO NUTRITION ASSESSMENT UNDER CARE ACTIVITY FOR ESTIMATED NUTRITIONAL NEEDS. 1. CONTINUE CARDIAC AND NA2GM DIET WITH FLD 1.5 L/DAY TOLERATED 2. ENCOURAGE PO INTAKE 3. RD WILL PROVIDE CARDIAC NUTRITION THERAPY EDUCATION 4. RD TO FOLLOW-UP 3-5 DAYS, MODERATE RISK KIYA ALVARADO RD
--- NOTE | 2019-12-11 17:00 | NUR ---
PT WAS DISCHARGED TODAY. DISCHARGE INSTRUCTIONS GIVEN TO PATIENT. SKIN INTACT. ID BAND REMOVED. IV REMOVED. NO ACTIVE BLEEDING NOTED. PT DID NOT HAVE CLOTHES. SECURITY WAS GIVEN CLOTHES. PT WANTED O2 AT HOME. PER FACILITIES MAINTENANCE ENGINEER PT WAS NOT QUALIFIED FOR O2 AT HOME. PT DID NOT HAVE MONEY TO GO HOME. TRANSPORT WAS ARRANGED. PT WAS TAKEN IN WHEEL CHAIR TO TRANSPORT. BELONGINGS WITH PATIENT. PT SAID SHE WANTED FLU AND PNEUMONIA VACCINE. HOWEVER PT DIES NOT RECOLLECT HER LAST DOSE TO VACCINE. CALLED [facility] TO ASK DR SIGALA TO CALL BACK. PT IN THE MEAN TIME LEFT HOME WITH TRANSPORT. PT WAS STABLE AT DISCHARGE.
[2019-12-12] MEDS ORDERED: FUROSEMIDE 40 MG TAB PO SCH (09:00)
--- NOTE | 2019-12-13 11:27 | NUR ---
PCP Appointment: /YAMIL spoke with Charity from Dr. Nicolas Kline's office to schedule hospital follow up [phone]. Per Charity, Dr. Nicolas Kline is not seeing patients until January due to COVID-19. YAMIL scheduled soonest available appointment 01/24/2020 at 0930 @ [address] [facility] [address] [place] [id number].
== END 2019-12-11 17:15 | disposition home or self-care (01) | DRG 871 ==
LOC: MED 04:49 → MTU 07:43
PROVIDERS: ADMIT Internal Medicine Pulmonary Disease; ATTEND Internal Medicine Pulmonary Disease
PROC: 5A09357 Assistance with Respiratory Ventilation, Less than 24 Consecutive Hours, Continuous Positive Airway Pressure (ICD-10-PCS; principal; 2019-12-07)
DX: A41.9 Sepsis, unspecified organism (principal); I50.33 Acute on chronic diastolic (congestive) heart failure; J18.9 Pneumonia, unspecified organism; J44.1 Chronic obstructive pulmonary disease with (acute) exacerbation; I13.0 Hypertensive heart and chronic kidney disease with heart failure and stage 1 through stage 4 chronic kidney disease, or unspecified chronic kidney disease; N18.4 Chronic kidney disease, stage 4 (severe); N17.9 Acute kidney failure, unspecified; J44.0 Chronic obstructive pulmonary disease with (acute) lower respiratory infection; J20.9 Acute bronchitis, unspecified; F17.210 Nicotine dependence, cigarettes, uncomplicated; G89.29 Other chronic pain; G62.9 Polyneuropathy, unspecified; Z88.0 Allergy status to penicillin; Z79.899 Other long term (current) drug therapy; Z71.6 Tobacco abuse counseling
CPT/HCPCS: 36415; 71045; 76770; 80053; 81003; 82570; 83605; 83735; 83880; 84100; 84300; 84484; 85025; 85610; 85730; 87040; 87081; 93005; 94640; 96374; 96375; 96376; 97112; 99285; J0456; J1650; J1940; J2270; J2930; J3490; J7030; J7060; J7613; J7644; Q0092

== ENCOUNTER 2019-12-25 22:30 | Inpatient (IN) | payer OTHER, SELFPAY ==
[~2019-12-25] VITALS: Ht 160 cm; Wt 70.3 kg
[~2019-12-25 22:30] MED LIST changes: +FURO40TA9 PO
[2019-12-25 22:32] VITALS: BP 190/107
[2019-12-25] MEDS ORDERED: INTUBATION KIT MC ONE (22:40)
[2019-12-25] MEDS ORDERED: PROPOFOL 1000 MG/100 ML PREMIX 100 ML IV ONE (22:42)
[2019-12-25] MEDS: PROPOFOL 1000 MG/100 ML PREMIX 100 ML IV ONE (23:21)
[2019-12-25] MEDS ORDERED: ZINC SULF 220 MG CAP PO ONE (23:40)
[2019-12-25] MEDS ORDERED: ASCORBIC ACID 500 MG/5 ML ORASYR NG ONE (23:40)
[2019-12-25] MEDS ORDERED: AZITHROMYCIN 500 MG in DEXTROSE 5% 250 ML IV ONE (23:40)
[2019-12-25] MEDS ORDERED: HYDROXYCHLOROQUINE 200 MG TAB NG ONE (23:40)
[2019-12-25 23:42] LABS: APPEARANCE,URINE CLEAR (CLEAR); BILIRUBIN,URINE NEGATIVE (NEGATIVE); BLOOD, URINE NEGATIVE (NEGATIVE); COLOR,URINE YELLOW (YELLOW); LEUKOCYTE ESTERASE ,URINE NEGATIVE (NEGATIVE); NITRITE, URINE NEGATIVE (NEGATIVE); UGLUCOSE NEGATIVE (NEGATIVE)
[2019-12-25] MEDS ORDERED: fentaNYL 0.05 MG/ML VIAL ONE (23:42)
[2019-12-25 23:44] LABS: BASOPHILS # (AUTO) 0.1 K/uL (0.00-0.22); BASOPHILS % (AUTO) 0.8 % (0.0-2.0); EOSINOPHILS # (AUTO) 0.2 K/uL (0-0.4); EOSINOPHILS % (AUTO) 2.1 % (0.0-4.0); HEMATOCRIT 31.6 % (36-48); HEMOGLOBIN 9.9 g/dL (12.0-16.0); LYMPHOCYTES # (AUTO) 1.9 K/uL (2.5-16.5); LYMPHOCYTES % (AUTO) 22.4 % (20.5-51.1); MEAN CORPUSCULAR HEMOGLOBIN 26 pg (27-31); MEAN CORPUSCULAR HGB CONC 31 g/dL (33-37); MEAN CORPUSCULAR VOLUME 81.3 fL (80-94); MONOCYTES # (AUTO) 0.5 K/uL (0.8-1.0); MONOCYTES % (AUTO) 5.4 % (1.7-9.3); NEUTROPHILS # (AUTO) 5.9 K/uL (1.8-7.7); NEUTROPHILS % (AUTO) 69.3 % (42.2-75.2); PLATELET COUNT (AUTO) 179 K/uL (140-450); RED BLOOD CELL COUNT(AUTO) 3.89 MIL/uL (4.20-5.40); RED CELL DISTRIBUTION WIDTH 17.1 % (11.6-13.7); WHITE BLOOD COUNT (AUTO) 8.5 K/uL (4.8-10.8)
[2019-12-25] MEDS ORDERED: AZITHROMYCIN 500 MG INJ VIAL IV ONE (23:50)
[2019-12-25 23:58] LABS: ALBUMIN 3.2 g/dL (3.4-5.0); ANION GAP 18.5 (8-16); ASPARTATE AMINOTRANSFERASE 23 U/L (15-37); CARBON DIOXIDE 22.9 mmol/L (21-32); CHLORIDE 108 mmol/L (98-107); CREATININE 2.4 mg/dL (0.6-1.3); GLUCOSE 162 mg/dL (74-106); LACTATE DEHYDROGENASE 224 U/L (81-234); POTASSIUM 4.4 mmol/L (3.5-5.1); SODIUM SERUM 145 mmol/L (136-145); TOTAL BILIRUBIN 0.3 mg/dL (0.0-1.0); UREA NITROGEN, BLOOD 50 mg/dL (7-18)
[2019-12-25] MEDS ORDERED: ALBUTEROL SULFATE/IPRATROPIU 3 ML SOL IH ONE (23:59)
[2019-12-26] VITALS (37 sets, daily range): BP systolic 82–203; BP diastolic 40–104
[2019-12-26] MEDS ORDERED: ALBUTEROL SULFATE/IPRATROPIU 3 ML SOL IH ONE
[2019-12-26 00:08] LABS: RSV NEGATIVE (NEGATIVE)
[2019-12-26] MEDS ORDERED: LORazepam 2 MG/ML VIAL IVP ONE (00:10)
[2019-12-26] MEDS ORDERED: LORazepam 2 MG/ML VIAL ONE (00:11)
[2019-12-26] MEDS ORDERED: FUROSEMIDE 40 MG/4 ML VIAL IVP ONE (00:25)
[2019-12-26] MEDS ORDERED: ACETAMINOPHEN 650 MG SUPP RC PRN (01:10)
[2019-12-26] MEDS ORDERED: ONDANSETRON 4 MG/2 ML VIAL IVP PRN (01:10)
[2019-12-26] MEDS ORDERED: HYDROcodone/APAP 5/325 MG 1 TAB TAB PO PRN ×2 (01:10)
[2019-12-26] MEDS ORDERED: POTASSIUM CHLORIDE 10 MEQ TABER PO PRN (01:10)
[2019-12-26] MEDS ORDERED: MAG SULF 2000 MG/WATER PREMIX 50 ML IV PRN (01:10)
[2019-12-26] MEDS ORDERED: LORazepam 2 MG/ML VIAL IVP PRN ×2 (01:10)
[2019-12-26] MEDS ORDERED: MAGNESIUM OXIDE 400 MG TAB PO PRN (01:10)
[2019-12-26] MEDS ORDERED: cloNIDine 0.1 MG TAB PO PRN (01:10)
[2019-12-26] MEDS ORDERED: BISACODYL 10 MG SUPP RC PRN (01:10)
[2019-12-26] MEDS ORDERED: IPRATROPIUM 0.02% 0.5 MG/2.5 ML NEBU INH PRN (01:10)
[2019-12-26] MEDS ORDERED: SODIUM PHOSPHATE 118 ML ENEM RC PRN (01:10)
[2019-12-26] MEDS ORDERED: ALBUTEROL SULFATE/IPRATROPIU 3 ML SOL IH PRN (01:10)
[2019-12-26] MEDS ORDERED: ALUMINUM HYD/MAG/SIMETHICONE 30 ML UDC PO PRN (01:10)
[2019-12-26] MEDS ORDERED: ACETAMINOPHEN 325 MG TAB PO PRN (01:10)
[2019-12-26] MEDS ORDERED: MORPHINE SULFATE 2 MG/ML SYR IVP PRN (01:10)
[2019-12-26] MEDS ORDERED: ALBUTEROL 0.083% 2.5 MG/3 ML NEBU INH PRN (01:10)
[2019-12-26] MEDS ORDERED: DOCUSATE SODIUM 250 MG GELCAP PO PRN (01:10)
[2019-12-26] MEDS ORDERED: ALPRAZolam 0.5 MG TAB PO PRN (01:10)
[2019-12-26] MEDS ORDERED: DEXT 5% / NACL 0.45% 1,000 ML IV SCH (01:10)
[2019-12-26] MEDS ORDERED: ZOLPIDEM 5 MG TAB PO PRN (01:10)
[2019-12-26] MEDS ORDERED: guaiFENesin DM 200/20 MG-10 ML 10 ML UDC PO PRN (01:10)
[2019-12-26] MEDS ORDERED: diphenhydrAMINE 50 MG/ML VIAL IVP PRN (01:10)
[2019-12-26] MEDS: fentaNYL 1 MG in NACL 0.9% 80 ML IV PRN ×3 (02:48)
[2019-12-26] MEDS: PROPOFOL 1000 MG/100 ML PREMIX 100 ML IV ONE (03:15)
[2019-12-26] MEDS ORDERED: PROPOFOL 1000 MG/100 ML PREMIX 100 ML IV PRN (03:30)
[2019-12-26] MEDS ORDERED: FUROSEMIDE 40 MG/4 ML VIAL IVP SCH ×2 (09:00→17:00)
[2019-12-26] MEDS ORDERED: PREGABALIN 25 MG CAP PO SCH (09:00)
[2019-12-26] MEDS ORDERED: FAMOTIDINE 20 MG/2 ML VIAL IVP SCH (09:00)
[2019-12-26] MEDS ORDERED: AZITHROMYCIN 250 MG in DEXTROSE 5% 250 ML IV SCH (09:00)
[2019-12-26] MEDS ORDERED: CRUSHER, PILL MC ONE (09:09)
[2019-12-26 11:50] LABS: BASOPHILS % (AUTO) 0.4 % (0.0-2.0); EOSINOPHILS # (AUTO) 0.1 K/uL (0-0.4); EOSINOPHILS % (AUTO) 2.2 % (0.0-4.0); HEMATOCRIT 25.7 % (36-48); HEMOGLOBIN 8.1 g/dL (12.0-16.0); LYMPHOCYTES # (AUTO) 0.7 K/uL (2.5-16.5); LYMPHOCYTES % (AUTO) 15.6 % (20.5-51.1); MEAN CORPUSCULAR HEMOGLOBIN 25 pg (27-31); MEAN CORPUSCULAR HGB CONC 32 g/dL (33-37); MEAN CORPUSCULAR VOLUME 80.2 fL (80-94); MONOCYTES # (AUTO) 0.4 K/uL (0.8-1.0); MONOCYTES % (AUTO) 9.4 % (1.7-9.3); NEUTROPHILS % (AUTO) 72.4 % (42.2-75.2); PLATELET COUNT (AUTO) 104 K/uL (140-450); RED BLOOD CELL COUNT(AUTO) 3.21 MIL/uL (4.20-5.40); RED CELL DISTRIBUTION WIDTH 16.3 % (11.6-13.7); WHITE BLOOD COUNT (AUTO) 4.2 K/uL (4.8-10.8)
[2019-12-26 11:54] LABS: ANION GAP 14.6 (8-16); CARBON DIOXIDE 24.1 mmol/L (21-32); CHLORIDE 108 mmol/L (98-107); CREATININE 2.2 mg/dL (0.6-1.3); GLUCOSE 102 mg/dL (74-106); POTASSIUM 3.7 mmol/L (3.5-5.1); SODIUM SERUM 143 mmol/L (136-145); UREA NITROGEN, BLOOD 50 mg/dL (7-18)
[2019-12-26] MEDS ORDERED: predniSONE 20 MG TAB PO SCH (12:00)
[2019-12-26] MEDS ORDERED: ALBUTEROL HFA MDI 90 MCG/ACTUATION 8 GM INH PRN (12:00)
== END 2019-12-26 19:00 | disposition left against medical advice (07) | DRG 208 ==
LOC: EEVIPCON 22:30 → MED 22:30 → MIC 12-26 01:07
PROVIDERS: ADMIT Internal Medicine Pulmonary Disease; ATTEND Internal Medicine Pulmonary Disease
PROC: 5A1935Z Respiratory Ventilation, Less than 24 Consecutive Hours (ICD-10-PCS; principal; 2019-12-25)
PROC: 0BH17EZ Insertion of Endotracheal Airway into Trachea, Via Natural or Artificial Opening (ICD-10-PCS; 2019-12-25)
DX: J18.9 Pneumonia, unspecified organism (principal); J96.21 Acute and chronic respiratory failure with hypoxia; J44.1 Chronic obstructive pulmonary disease with (acute) exacerbation; J44.0 Chronic obstructive pulmonary disease with (acute) lower respiratory infection; Z53.29 Procedure and treatment not carried out because of patient's decision for other reasons; F17.210 Nicotine dependence, cigarettes, uncomplicated; E87.8 Other disorders of electrolyte and fluid balance, not elsewhere classified; R73.9 Hyperglycemia, unspecified; I50.9 Heart failure, unspecified; I11.0 Hypertensive heart disease with heart failure; Z20.828 Contact with and (suspected) exposure to other viral communicable diseases; Z66 Do not resuscitate; Z88.0 Allergy status to penicillin; Z79.899 Other long term (current) drug therapy; Z85.9 Personal history of malignant neoplasm, unspecified
CPT/HCPCS: 31500; 36415; 36600; 71045; 80048; 80053; 81003; 82728; 82803; 83605; 83615; 83880; 84484; 85025; 86140; 87040; 87070; 87081; 87086; 87205; 87420; 87804; 89220; 94002; 94640; 96365; 96375; 99291; J0456; J1940; J2060; J2270; J2704; J3010; J3490; J7060; J7512; Q0092

== ENCOUNTER 2020-01-29 08:07 | Inpatient (IN) | payer OTHER, SELFPAY ==
[~2020-01-29] VITALS: Ht 165.1 cm; Wt 66.7 kg
[2020-01-29] VITALS (8 sets, daily range): BP systolic 122–151; BP diastolic 77–89
--- NOTE | 2020-01-29 08:07 | NUR ---
Patient BIBA ALS accompanied by FD on CPAP, transferred to bed 9. Dr. Morris, RT and RN evaluating patient at bedside.
[2020-01-29] MEDS ORDERED: ALBUTEROL SULFATE/IPRATROPIU 3 ML SOL IH ONE (08:10)
--- NOTE | 2020-01-29 08:10 | NUR ---
69 Y/O FEMALE FROM HOME BIBA C/O SYNCOPE, FALL, SOB WITH AN UNKNOWN START TIME. PT PRESENTS TO ER ON CPAP AT THIS TIME. RR EVEN AND DEEP. ACCESSORY MUSCLE USE. RHONCHI HEARD WITH AUSCULTATION. C/O ABD PAIN. ABD APPEARS DISTENDED. SKIN WARM AND DRY TO THE TOUCH. PT PLACED ON BALL TRUING MACHINE OPERATOR, PULSE OX, AND BP CUFF. POSITIONED FOR COMFORT. HOB ELEVATED. REMAINS ON CPAP.
--- NOTE | 2020-01-29 08:11 | NUR ---
DR LIN AT BEDSIDE EXAMINING PT
--- NOTE | 2020-01-29 08:12 | NUR ---
RESPIRATORY AT BEDSIDE
--- NOTE | 2020-01-29 08:34 | NUR ---
LAB AT BEDSIDE
--- NOTE | 2020-01-29 08:40 | NUR ---
INFLUENZA AND COVID-19 SWAB COLLECTED FROM PT
[2020-01-29 08:58] LABS: HEMATOCRIT 29.2 % (36-48); HEMOGLOBIN 8.7 g/dL (12.0-16.0); MEAN CORPUSCULAR HEMOGLOBIN 23 pg (27-31); MEAN CORPUSCULAR HGB CONC 30 g/dL (33-37); MEAN CORPUSCULAR VOLUME 77.3 fL (80-94); PLATELET COUNT (AUTO) 186 K/uL (140-450); RED BLOOD CELL COUNT(AUTO) 3.77 MIL/uL (4.20-5.40); RED CELL DISTRIBUTION WIDTH 17.9 % (11.6-13.7); WHITE BLOOD COUNT (AUTO) 13.7 K/uL (4.8-10.8)
[2020-01-29 09:00] LABS: APPEARANCE,URINE CLEAR (CLEAR); BILIRUBIN,URINE NEGATIVE (NEGATIVE); BLOOD, URINE TRACE-I (NEGATIVE); COLOR,URINE YELLOW (YELLOW); LEUKOCYTE ESTERASE ,URINE NEGATIVE (NEGATIVE); NITRITE, URINE NEGATIVE (NEGATIVE); UGLUCOSE NEGATIVE (NEGATIVE)
--- NOTE | 2020-01-29 09:03 | NUR ---
UNABLE TO GIVE UD DUONEB DUE TO MEDS IN INACTIVE ORDERS DR. SO LIN AWARE
[2020-01-29 09:11] LABS: LYMPHOCYTES % (MANUAL) 2 % (20-46); MONOCYTES % (MANUAL) 4 % (5-12)
[2020-01-29 09:21] LABS: ALBUMIN 2.6 g/dL (3.4-5.0); ANION GAP 19.2 (8-16); ASPARTATE AMINOTRANSFERASE 92 U/L (15-37); CARBON DIOXIDE 21.5 mmol/L (21-32); CHLORIDE 106 mmol/L (98-107); GLUCOSE 178 mg/dL (74-106); POTASSIUM 4.7 mmol/L (3.5-5.1); SODIUM SERUM 142 mmol/L (136-145); TOTAL BILIRUBIN 0.5 mg/dL (0.0-1.0)
[2020-01-29 09:23] LABS: PROTHROMBIN TIME 10.9 secs (10.8-13.4)
[2020-01-29 09:25] LABS: CREATININE 4.6 mg/dL (0.6-1.3)
[2020-01-29] MEDS ORDERED: LEVOFLOXACIN 500 MG/D5W PREMIX 100 ML IV ONE (09:25)
[2020-01-29 09:26] LABS: UREA NITROGEN, BLOOD 62 mg/dL (7-18)
--- NOTE | 2020-01-29 09:27 | NUR ---
citical labs: bun 62 and cr 4.6
[2020-01-29 09:32] LABS: BARBITURATE, URINE NEGATIVE ng/ml (NEG <=200); BENZODIAZEPINE, URINE NEGATIVE ng/mL (NEG <=200); CANNABINOID, URINE NEGATIVE ng/mL (NEG <=50); COCAINE, URINE NEGATIVE ng/mL (NEG <=300); OPIATE, URINE POSITIVE ng/mL (NEG <=2000); PHENCYCLIDINE SCREEN,URINE NEGATIVE ng/mL (NEG <=25)
[2020-01-29 09:47] LABS: HYALINE CASTS, URINE 0-10 /LPF (None Seen); RBC,URINE 0-5 /HPF (0-5); WBC,URINE 0-5 /HPF (0-5)
--- NOTE | 2020-01-29 09:51 | NUR ---
critical lab: 0.078 TROPONIN ERMD MADE AWARE
--- NOTE | 2020-01-29 09:56 | NUR ---
lactic acid 3.1
--- NOTE | 2020-01-29 10:01 | NUR ---
CONSENT FOR PICC LINE SIGNED. PT RESTING IN BED WITH EYES CLOSED. REMAINS ON TERMITE TECHNICIAN, RR EVEN AND DEEP. WILL CONTINUE TO MONITOR
[2020-01-29] MEDS ORDERED: ONDANSETRON 4 MG/2 ML VIAL IVP PRN (10:45)
[2020-01-29] MEDS ORDERED: HYDROcodone/APAP 5/325 MG 1 TAB TAB PO PRN (10:45)
[2020-01-29] MEDS ORDERED: ALBUTEROL 0.083% 2.5 MG/3 ML NEBU INH PRN (10:45)
--- NOTE | 2020-01-29 11:24 | NUR ---
PICC LINE NURSE AT BEDSIDE FOR PICC LINE INSERTION
--- NOTE | 2020-01-29 11:25 | NUR ---
DR HERNANDEZ AT BEDSIDE FOR EVALUATION OF PT
[2020-01-29 11:49] LABS: CREATINE KINASE MB 2.5 ng/mL (0-3.6)
--- NOTE | 2020-01-29 11:55 | NUR ---
XRAY AT BEDSIDE FOR VERIFICATION OF PICC LINE PLACEMENT
--- NOTE | 2020-01-29 12:01 | NUR ---
PICC LINE PLACED AND CONFIRMED PLACEMENT BY CHEST XRAY. OK TO USE
[2020-01-29] MEDS: NACL 0.9% 1,000 ML IV SCH ×2 (12:09→23:15)
[2020-01-29] MEDS ORDERED: IPRATROPIUM 0.02% 0.5 MG/2.5 ML NEBU INH SCH (13:00)
[2020-01-29] MEDS ORDERED: FUROSEMIDE 40 MG/4 ML VIAL IVP SCH (13:00)
[2020-01-29] MEDS ORDERED: ALBUTEROL 0.083% 2.5 MG/3 ML NEBU INH SCH (13:00)
[2020-01-29] MEDS: methylPREDNISolone SS 125 MG/2 ML VIAL IVP SCH ×2 (13:05→20:51)
--- NOTE | 2020-01-29 13:24 | NUR ---
PT RESTING IN BED, VISIBLE RISE AND FALL OF THE CHEST. HOB ELEVATED. CALM AND PLESANT. VSS. WILL CONTINUE TO MONTIOR
[2020-01-29] MEDS ORDERED: AZITHROMYCIN 500 MG INJ VIAL IV ONE (13:55)
[2020-01-29] MEDS: AZITHROMYCIN 500 MG in DEXTROSE 5% 250 ML IV SCH (14:09)
--- NOTE | 2020-01-29 14:10 | NUR ---
STARTED ZITHRO AT 250 MLS/HR PIGGYBACK
[2020-01-29] MEDS ORDERED: cefTRIAXone 1,000 MG VIAL ONE (15:07)
--- NOTE | 2020-01-29 15:19 | NUR ---
ROCEPHIN IVPB RUNNING AT 100MLS/HR
--- NOTE | 2020-01-29 16:17 | NUR ---
PT AGITATED, TRYING TO REMOVE BIPAP. WILL CONTINUE TO MONITOR.
[2020-01-29] MEDS: LORazepam 2 MG/ML VIAL IVP PRN (16:22)
--- NOTE | 2020-01-29 17:29 | NUR ---
CRITICAL VALUE FROM LAB CALLED, TROPONIN 0.233
--- NOTE | 2020-01-29 17:34 | NUR ---
CALLED [facility] TO REPORT CRITICAL VALUE TO ADMITTING DOCTOR. AWAITING CALL BACK
--- NOTE | 2020-01-29 18:03 | NUR ---
RESTING WITH EYES CLOSED, VISIBLE RISE AND FALL OF THE CHEST. AROUSABLE TO NAME. VSS. WILL CONTINUE TO MONITOR
--- NOTE | 2020-01-29 19:00 | NUR ---
RECEIVED PT FROM ER @ THIS TIME. PT UNABLE TO FOLLOW SIMPLE COMMANDS OR RESPOND VERBALLY. RESPONDS TO TACTILE STIMULI. PUPILS 3MM, PERRL. ON BIPAP WITH FIO2 @ 50%. SPO2 >90%. LUNG SOUNDS DIMINISHED THROUGHOUT. SEDRICK DOUBLE LUMEN PICC NOTED INFUSING NS @ 80ML/HR. RT SUBCLAVIAN 24G IN PLACE, PATENT. BOWEL SOUNDS ACTIVE X4. ABD SOFT, NON-TENDER, AND NON-DISTENDED. FORTE IN PLACE DRAINING CLEAR, YELLOW, URINE TO GRAVITY. ABRASION TO LT MEDIAL ANKLE NOTED. PT CAME WITH TOP DENTURES WHICH ARE REMOVED AT THIS TIME AND PLACED WITH PATIENT BELONGINGS. ALL ALARMS ON AND FUNCTIONING PROPERLY. SAFETY PRECAUTIONS REMAIN IN PLACE WITH BED LOW AND LOCKED. WILL CONT TO MONITOR FOR CHANGES.
--- NOTE | 2020-01-29 19:15 | NUR ---
Patient will be admitted to care of dr fleming. Admited to icu. Will go to room 4. Belongings list completed. Report to mary bass.
[2020-01-29] MEDS ORDERED: ALBUTEROL HFA MDI 90 MCG/ACTUATION 8 GM INH PRN (19:25)
--- NOTE | 2020-01-29 22:00 | NUR ---
REPOSITIONED PT WITH PRESSURE AREAS OFFLOADED. CATH CARE PROVIDED. FLACC 0. SAFETY PRECAUTIONS REMAIN IN PLACE. BED LOW AND LOCKED. WILL CONT TO MONITOR FOR CHANGES.
--- NOTE | 2020-01-29 22:28 | NUR ---
LOWERED FIO2 TO 30% FROM 50%. PATIENTS SATS ARE 90%.
[2020-01-30] VITALS (23 sets, daily range): BP systolic 134–192; BP diastolic 81–121
--- NOTE | 2020-01-30 | NUR ---
FLACC 0. CONTINUES ON BIPAP. SPO2 >90. WILL CONT TO MONITOR.
--- NOTE | 2020-01-30 02:00 | NUR ---
REPOSITIONED PT WITH PRESSURE AREAS OFFLOADED. FLACC 0. SAFETY PRECAUTIONS REMAIN IN PLACE. BED LOW AND LOCKED WITH CALL LIGHT IN REACH. WILL CONT TO MONITOR
[2020-01-30] MEDS: NACL 0.9% 1,000 ML IV SCH (03:28)
--- NOTE | 2020-01-30 04:00 | NUR ---
PT RESTING IN BED. NO ACUTE DISTRESS OBSERVED. FLACC 0. WILL CONT TO MONITOR.
--- NOTE | 2020-01-30 05:15 | NUR ---
0500 PATIENT TOOK HER BIPAP MASK OFF. PATIENTS SATS DROPPED TO 82%. MARYJO HOOKER PLACED PATIENT BACK ON BIPAP
[2020-01-30] MEDS: methylPREDNISolone SS 125 MG/2 ML VIAL IVP SCH ×3 (05:16→21:17)
[2020-01-30 06:15] LABS: BASOPHILS % (AUTO) 0.3 % (0.0-2.0); HEMATOCRIT 25.1 % (36-48); HEMOGLOBIN 7.9 g/dL (12.0-16.0); LYMPHOCYTES # (AUTO) 0.2 K/uL (2.5-16.5); LYMPHOCYTES % (AUTO) 1.6 % (20.5-51.1); MEAN CORPUSCULAR HEMOGLOBIN 23 pg (27-31); MEAN CORPUSCULAR HGB CONC 31 g/dL (33-37); MEAN CORPUSCULAR VOLUME 74.7 fL (80-94); MONOCYTES # (AUTO) 0.3 K/uL (0.8-1.0); MONOCYTES % (AUTO) 2.7 % (1.7-9.3); NEUTROPHILS # (AUTO) 9.4 K/uL (1.8-7.7); NEUTROPHILS % (AUTO) 95.4 % (42.2-75.2); PLATELET COUNT (AUTO) 137 K/uL (140-450); RED BLOOD CELL COUNT(AUTO) 3.36 MIL/uL (4.20-5.40); RED CELL DISTRIBUTION WIDTH 17.6 % (11.6-13.7); WHITE BLOOD COUNT (AUTO) 9.8 K/uL (4.8-10.8)
[2020-01-30 06:28] LABS: ALBUMIN 2.2 g/dL (3.4-5.0); ANION GAP 17.3 (8-16); ASPARTATE AMINOTRANSFERASE 317 U/L (15-37); CARBON DIOXIDE 21.7 mmol/L (21-32); CHLORIDE 109 mmol/L (98-107); GLUCOSE 176 mg/dL (74-106); MAGNESIUM 2.3 mg/dL (1.8-2.4); SODIUM SERUM 144 mmol/L (136-145); TOTAL BILIRUBIN 0.3 mg/dL (0.0-1.0)
--- NOTE | 2020-01-30 06:31 | NUR ---
rec'd pt on saira v60 bipap settings 08/18 rr12 fio2 30% alarms on and audible and bvm at hob and bipap is plugged into red outlet, b\s are diminished bilaterally, no mdi tx needed pt is wearing med face mask pt is sleeping with no distress noted at this time
[2020-01-30 06:44] LABS: UREA NITROGEN, BLOOD 73 mg/dL (7-18)
[2020-01-30 06:45] LABS: CREATININE 4.9 mg/dL (0.6-1.3)
--- NOTE | 2020-01-30 07:15 | NUR ---
RECEIVED REPORT FROM NIGHT NURSE. UNABLE TO FOLLOW COMMANDS. RESPONSIVE TO TACTILE STIMULI. ON BIPAP WITH FIO2 OF 30%. FLACC 0, RESPIRATIONS ARE EVEN AND UNLABORED, NO APPARENT DISTRESS. WITH SEDRICK PICC LINE AND RIGHT SUBCLAVIAN 24G RUNNING ON NS 80ML/HR. INFUSING WELL. FORTE CATHETER INTACT AND PATENT. DRAINING CLEAR YELLOW URINE BY GRAVITY. WITH LEFT MEDIAL ANKLE OPEN WOUND. DRESSING IS CLEAN AND INTACT. SAFETY PRECAUTIONS IN PLACE. ISOLATION PRECAUTION OBSERVED. WILL CONTINUE TO MONITOR
--- NOTE | 2020-01-30 08:30 | NUR ---
SEEN AND EXAMINED BY DR. MUELLER
--- NOTE | 2020-01-30 08:45 | NUR ---
PT TOOK OFF BIPAP O2SAT DROPPED TO 79%. REPLACED PROMPTLY, O2SAT 92&
--- NOTE | 2020-01-30 08:52 | NUR ---
PATIENT HAS BEEN SCREENED AND CATEGORIZED MODERATE NUTRITION RISK. PATIENT WILL BE SEEN WITHIN 3-5 DAYS OF ADMISSION. 01/31/20 02/02/[address]
[2020-01-30] MEDS: ASPIRIN 81 MG TAB.CHEW PO SCH (08:57)
--- NOTE | 2020-01-30 09:15 | NUR ---
PT TOOK OFF BIPAP O2SAT DROPPED TO 83%. REPLACED BIPAP PROMPTLY, O2SAT 91&
[2020-01-30] MEDS: LORazepam 2 MG/ML VIAL IVP PRN ×2 (09:30→23:42)
--- NOTE | 2020-01-30 09:45 | NUR ---
PT IS UNABLE TO TAKE PO MEDS AND EAT BREAKFAST DUE TO DECREASED LEVEL OF CONSCIOUSNESS DR SOLORIO NOTIFIED. DR. SOLORIO IN UNIT TO ASSESS PT
--- NOTE | 2020-01-30 10:36 | NUR ---
MAINFRAME SYSTEMS ADMINISTRATOR NOTE: YAMIL ATTEMPTED TO CONTACT PATIENT'S FRIEND SERGIO VALLE [phone] TO COMPLETE ASSESSMENT. YAMIL LEFT VOICEMAIL. YAMIL WILL FOLLOW UP. Addendum: 02/02/20 at 1408 by Cr JIMENEZ YAMIL LEFT VOICE MAIL WITH SERGIO VALLE [phone]. YAMIL WILL FOLLOW UP.
--- NOTE | 2020-01-30 10:54 | NUR ---
REPOSITIONED PT. FLACC 0, NO SOB, CONNECTED TO BIPAP
[2020-01-30 10:55] LABS: CREATINE KINASE MB 1.6 ng/mL (0-3.6)
--- NOTE | 2020-01-30 12:45 | NUR ---
PT TOOK OFF BIPAP O2SAT DROPPED TO 81%. REPLACED PROMPTLY, O2SAT 92&
[2020-01-30] MEDS: AZITHROMYCIN 500 MG in DEXTROSE 5% 250 ML IV SCH (13:44)
--- NOTE | 2020-01-30 14:40 | NUR ---
PT IN BED. BIPAP IN PLACE. O2SAT 92%. FLACC 0, NO SOB, NO APPARENT DISTRESS
--- NOTE | 2020-01-30 15:45 | NUR ---
REPOSITIONED PT. OFF LOADED PRESSURE AREAS. FLACC 0, BIPAP IN PLACE, O2SAT 91%
--- NOTE | 2020-01-30 17:45 | NUR ---
PERICARE, ORAL CARE, AND CATHETER CARE DONE. NO BM. REPOSITIONED. IN STABLE CONDITION
--- NOTE | 2020-01-30 18:20 | NUR ---
SEEN AND EXAMINED BY DR. HERNANDEZ.
--- NOTE | 2020-01-30 18:52 | NUR ---
PT PULLED OUT SEDRICK PICC LINE. LUMEN INTACT. WITH MINIMAL BLEEDING NOTED APPLIED DRESSING ON SITE. LINES MOVED TO R SUBCLAVIAN 24G. INFUSING WELL
--- NOTE | 2020-01-30 18:55 | NUR ---
DR. HERNANDEZ NOTIFIED THAT PT PULLED OUT PICC LINE. GAVE ORDER FOR PICC LINE INSERTION/ LEFT VOICE MAIL TO SERGIO VALLE TO ASK FOR CONSENT FOR PICC LINE
[2020-01-30] MEDS: cloNIDine-TTS2 0.2 MG/24 HR 1 EA PATCH TD SCH (19:08)
--- NOTE | 2020-01-30 19:57 | NUR ---
RECEIVED REPORT FROM AM SHIFT. PATIENT SEEN AND ASSESSED. PATIENT TOOK OFF HER BiPAP MASK. EXPLAINED TO PATIENT IMPORTANCE OF THE BiPAP. AUSCULTATION REVEAL WHEEZING BREATH SOUNDS. PATIENT ON BiPAP SETTINGS IPAP 12, EPAP 6, BACK UP RR 12, FiO2 30% WITH SPO2 OF 91%. MACHINE PLUGGED IN RED OUTLET, HOB > 30 DEGREES, BVM AT BEDSIDE, AND ALARMS SET AND AUDIBLE. WILL CONTINUE TO MONITOR PATIENT.
--- NOTE | 2020-01-30 20:00 | NUR ---
PT ON BIPAP @ 30% FIO2. PT IS LETHARGIC AND CONFUSED. ORAL MUCOSA PINK AND MOIST. RESPIRATION IS EVEN AND UNLABORED. SKIN WARM AND DRY. LEFT LOWER LEG OPEN WOUND OBSERVED. DRESSING DRY, CLEAN AND INTACT. PT IS RESPONSIVE TO TACTILE STIMULI. PERIPHERAL ACCESS TO RIGHT SUBCLAVIAN WITH NORMAL SALINE INFUSING @ 80ML/HR AND RIGHT FOREARM PERIPHERAL LINE SALINE LOCKED. FORTE CATHETER TO GRAVITY, PATENT AND DRAINING CLEAR YELLOW URINE. FLACC 0. NO DISTRESS OBSERVED. CALL LIGHT AND HYDRATION WITHIN REACH. WILL CONTINUE MONITOR PT. Addendum: 01/31/20 at 0705 by Chato Robert RN CLONIDINE PATCH IN PLACE AT LEFT UPPER CHEST FOR HIGH BLOOD PRESSURES.
[2020-01-30] MEDS ORDERED: ALBUTEROL SULFATE/IPRATROPIU 3 ML SOL IH PRN (20:15)
--- NOTE | 2020-01-30 21:00 | NUR ---
HHN PRN TX INDICATED AT THIS TIME FOR WHEEZING. HHN TX GIVEN VIA INLINE BiPAP. PATIENT TOLERATED TX WELL WITH NO ADVERSE REACTION. CLEAR BREATH SOUNDS AFTER HHN TX. SPO2 IMPROVED FORM 90% TO 96%. WILL CONTINUE TO MONITOR PATIENT.
[2020-01-30] MEDS: LABETALOL 100 MG TAB PO SCH (21:19)
--- NOTE | 2020-01-30 21:30 | NUR ---
DR. HERNANDEZ PAGED, NOTIFIED THAT PATIENT NOW HAS 2 PERIPHERAL IV's. CONFIRMED OK TO CANCEL PICC LINE. INQUIRED ABOUT PATIENT BEING ON BIPAP AND NEEDING RESTRAINTS, CONTINUES TO PULL OF BIPAP MASK AND DESATURATES. CONFIRMED OK TO START RESTRAINTS AND PRECEDEX DRIP. RT SPOKE WITH DR. HERNANDEZ AND REPORTS IT IS CONTRAINDICATED TO BE ON RESTRAINTS AND HAVE BIPAP MASK ON, PATIENT NEEDS TO BE AWAKE AND ALERT IN CASE THEY NEED TO TAKE OFF MASK AND THROW UP. CONFIRMED TO DC ORDERS. PATIENT HAS PRN MORPHINE AND ATIVAN ORDERED. WILL MONITOR.
--- NOTE | 2020-01-30 21:40 | NUR ---
ORDERED HHN TX FOR PATIENT DUE TO WHEEZING AND DR. HERNANDEZ WAS INFORMED. DR. HERNANDEZ WAS TOLD THAT PATIENT IS ON BiPAP SO RESTRAIN ORDER WAS CANCELLED.
--- NOTE | 2020-01-30 23:00 | NUR ---
PT RESTING WELL, EYES CLOSED. TURNED AND REPOSITIONED, OFFLOADED PRESSURE AREAS AND FOR COMFORT. BIPAP MASK SECURED. PATIENT MORE CALM, NOT PULLING AT MASK. BED LOCKED AND IN LOWEST POSITION. SIDERAILS UP, CALL LIGHT WITHIN REACH.
--- NOTE | 2020-01-30 23:45 | NUR ---
PT PULLED HER PERIPHERAL IV LINE ON THE RIGHT FOREARM. ATIVAN GIVEN ORDERED. WILL CLOSELY MONITOR PT. Addendum: 01/31/20 at 0609 by Lindsay Edwards RN PT KEEPS PULLING OFF GOWN AND LEADS/LINES GET TANGLED AND PULLED OUT/OFF. REPLACED ALL EKG LEADS AND RESTARTED NEW PERIPHERAL IV TO RIGHT FOREARM 22G. CLEANED PATIENT AND REPLACED LINEN, TOOK OFF ALL BLANKETS, PATIENT COMPLAINING ITS HOT. TEMP 98.8.
[2020-01-31] VITALS (20 sets, daily range): BP systolic 151–199; BP diastolic 87–110
[2020-01-31] MEDS: ALBUTEROL SULFATE/IPRATROPIU 3 ML SOL IH SCH ×4 (01:30→19:19)
--- NOTE | 2020-01-31 01:30 | NUR ---
PT RESTING IN BED WITH EYES CLOSED. NO DISTRESS OBSERVED. WILL CONTINUE TO MONITOR.
--- NOTE | 2020-01-31 04:00 | NUR ---
NO RESPIRATORY DISTRESS OBSERVED. ON BIPAP @ 30% FIO2. WILL CONTINUE TO MONITOR.
[2020-01-31] MEDS: NACL 0.9% 1,000 ML IV SCH ×2 (05:00→12:20)
[2020-01-31] MEDS: methylPREDNISolone SS 125 MG/2 ML VIAL IVP SCH ×3 (05:46→20:10)
--- NOTE | 2020-01-31 05:47 | NUR ---
PATIENT STILL REMAINS ON SAME BiPAP SETTINGS. AIRWAY IS PATENT. PROTECTIVE GELL IS APPLIED AND SKIN IS INTACT. PATIENT IN NO DISTRESS AT THIS TIME. ABG COMPLETED SEE LABS FOR RESULTS. WILL CONTINUE TO MONITOR.
--- NOTE | 2020-01-31 06:00 | NUR ---
PT STILL LETHARGIC AND CONFUSED. UNABLE TO FOLLOW COMMANDS. KEEPS PULLING OFF GOWNS. WITHDRAWS TO TOUCH.
[2020-01-31 06:20] LABS: ALBUMIN 2.3 g/dL (3.4-5.0); ANION GAP 19.1 (8-16); ASPARTATE AMINOTRANSFERASE 138 U/L (15-37); CARBON DIOXIDE 19.5 mmol/L (21-32); CHLORIDE 111 mmol/L (98-107); GLUCOSE 194 mg/dL (74-106); POTASSIUM 3.6 mmol/L (3.5-5.1); SODIUM SERUM 146 mmol/L (136-145); TOTAL BILIRUBIN 0.3 mg/dL (0.0-1.0)
[2020-01-31 06:35] LABS: CREATININE 5.1 mg/dL (0.6-1.3); UREA NITROGEN, BLOOD 89 mg/dL (7-18)
--- NOTE | 2020-01-31 06:35 | NUR ---
REC'D PT ON MAZIN V60 BIPAP SETTINGS 12/6 RR12 FIO2 30% ALARMS ON AND AUDIBLE AND BVM AT HOB AND BIPAP IS PLUGGED INTO RED OUTLET, I\L TX GIVEN WITH DUONEB 3ML WITH NO ADVERSE REACTION POST TX B\S ARE COARSE BILATERALLY, PT WEARING MED FACEMASK, WITH PROTETIC GEL IN PLACE, PT IS SLEEPING
[2020-01-31 06:53] LABS: HEMATOCRIT 25.9 % (36-48); HEMOGLOBIN 8.3 g/dL (12.0-16.0); MEAN CORPUSCULAR HEMOGLOBIN 24 pg (27-31); MEAN CORPUSCULAR HGB CONC 32 g/dL (33-37); MEAN CORPUSCULAR VOLUME 74.3 fL (80-94); PLATELET COUNT (AUTO) 120 K/uL (140-450); RED BLOOD CELL COUNT(AUTO) 3.49 MIL/uL (4.20-5.40); RED CELL DISTRIBUTION WIDTH 17.9 % (11.6-13.7); WHITE BLOOD COUNT (AUTO) 10.5 K/uL (4.8-10.8)
--- NOTE | 2020-01-31 07:30 | NUR ---
RECEIVED PT ON BED WITH BIPAP AT FIO2 30 PERCENT SATURATING 93 PERCENT.FLACC=0.PT IS SLEEPY /DROWSY BUT ANSWERS WHEN CALLED BY NAME.RIGHT SC 24 GAUGE IV WITH NO SIGNS OF INFILTRATION.FORTE TO GRAVITY.NSR ON THE MONITOR.PER REPORT PT REMOVED BIPAP LAST NIGHT.PT IS WITH PERIODS OF CONFUSION.WILL MONITOR.
--- NOTE | 2020-01-31 08:00 | NUR ---
LEFT CHEST CLONIDINE PATCH INTACT
[2020-01-31] MEDS: LABETALOL 100 MG TAB PO SCH ×2 (09:00→21:00)
[2020-01-31] MEDS: ASPIRIN 81 MG TAB.CHEW PO SCH (09:00)
--- NOTE | 2020-01-31 09:00 | NUR ---
PT UNABLE TO SWALOW PILLS BECAUSE SHE IS TOO SLEEPY SO DIDNT GIVE ASPIRIN AND TRANDATE.DR HERNANDEZ AWARE.
[2020-01-31 09:16] LABS: LYMPHOCYTES % (MANUAL) 3 % (20-46); MONOCYTES % (MANUAL) 4 % (5-12)
--- NOTE | 2020-01-31 10:13 | NUR ---
DISCHARGE PLANNING: RECEIVED A CALL FROM P[facility]O CH[facility], UPDATED HER OF THE PATIENT'S CONDITION. SHE ALSO STATED TO UPDATE HER OF THE DC PLAN FOR THE PATIENT. Addendum: 02/02/20 at 1056 by Susan Martin CM DC PLANNING: RECEIVED A CALL FROM IFTIKHAR [facility] FOR JAGRUTI STATED TO SET UP OUTPATIENT DIALYSIS AND TO CHANGE [place] ATTENDANT TO DR IFTIKHAR [facility] , WILL NOTIFY DR SOLORIO TO CONTACT THE WASHATERIA ATTENDANT. CALLED [facility] [phone] SPOKE WITH YANIV STATED, SINCE PATIENT IS IN ICU NO NEED TO SEND ANY CLINICALS SUGGESTED TO SEND WHEN PATIENT IS OUT OF ICU OR STABLE FOR DISCHARGE. CM TO FOLLOW Addendum: 02/06/20 at 1110 by Lizett Arrington CM RECEIVED A CALL FROM [facility], TO GET UPDATE ON PATIENT'S CONDITION. PROVIDED HER ALL THE INFORMATION NEEDED. RECOMMENDED SNF PLACEMENT FOR DC PLANNING. I ALSO ASKED HER IF PATIENT WILL GO TO SNF, IF THEY ARE THE ONES DELEGATED TO PROVIDE AUTH AND SHE ANSWERED YES. SHE STATED IF IN CASE SNF IS NEEDED TO GO AHEAD AND SEND IT TO LOCATED WITHIN [facility] OR [facility]. SHE PROVIDED ME WELL OUTPATIENT DIALYSIS CENTER [facility] IN [place] AND TO CONTACT YANIV AT [phone] AND THE FAX NUMBER [phone]. RUTHANN PENALOZA MADE AWARE. Addendum: 02/06/20 at 1325 by Ruthann Enrique CM SPOKE TO YANIV AT [facility] [phone]. SHE RECEIVED PATIENTS PACKET AND WILL FOLLOW UP WITH ME. SHE IS CONTACTING ERIN [place]. Addendum: 02/06/20 at 1500 by Ruthann Enrique CM SPOKE TO STEVEN AT [facility] PATIENTS PACKET IS BEING REVIEWED. I WILL FOLLOW UP. Addendum: 02/07/20 at 1014 by Lizett Arrington CONTACTED [facility] TO PROVIDE UPDATE OF THE PATIENT'S CONDITION. SHE STATED THAT SHE SPOKE TO YANIV [facility] AND THEY ARE SETTING UP CHAIR TIME WITH ERIN ALURENTPJ. Addendum: 02/07/20 at 1034 by Ruthann Enrique CM CALLED [facility] [phone] AND SPOKE TO PREET, HE PROVIDED CHAIR TIME OF 9:00 AM MON, WED, WED. [address] [place] [address]. Addendum: 02/07/20 at 1143 by Ruthann Enrique CM SPOKE TO PREET AT [facility] TO CLARIFY COVID TEST. HE STATED THAT ONE NEGATIVE COVID TEST IS ENOUGH. Addendum: 02/08/20 at 1033 by Lizett Arrington CM FOR TUNNELLED CATH PLACEMENT TODAY WITH DR. AMBRIZ PENDING CONSENT. Addendum: 02/08/20 at 1054 by Lizett Arrington CM RECEIVED A CALL FROM [facility]. UPDATED HER OF THE PATIENT'S CONDITION. INFORMED HER THAT THE PATIENT IS REFUSING TO SIGN CONSENT FOR TUNNELLED CATH PLACEMENT. Addendum: 02/08/20 at 1421 by Lizett Arrington CM SPOKE TO DR. DONIS REGARDING DC PLAN. HE STATED "DO YOU THINK PATIENT WILL GET BETTER IF WE PLACE HER IN THE HALF-WAY? WE HAVE TO DISCUSS THIS WITH THE PATIENT FIRST IF SHE IS AGREEABLE TO IT, INSURANCE HAVE BEEN ASKING ME TOO." Addendum: 02/09/20 at 0858 by Lizett Arrington CM CONTACTED [facility] AT [phone] [id number], NO ANSWER. LEFT MESSAGE. Addendum: 02/09/20 at 1427 by Lizett Arrington 1045: SPOKE TO JAGRUTI OF [facility] REGARDING UPDATE ON THE PATIENT'S CONDITION. SHE STATED TO SEND REFERRAL TO [facility], [facility]GEL [facility] AND [facility]. STEEL ROLLER MADE AWARE. Addendum: 02/09/20 at 1430 by Ruthann Enrique FAXED PACKET TO [facility], [facility], [facility] CHANG CALLED AND STATED THAT SHE MAY HAVE A BED AVAILABLE THIS WEEKEND. I WILL FOLLOW UP WITH CHANG ONCE WE RECEIVE D/C ORDER Addendum: 02/09/20 at 1520 by Lizett Arrington INFORMED [facility] THAT REFERRAL WAS FAXED TO [facility], [facility], [facility] AND [facility]. SHE PROVIDED ME WITH THEIR AFTER HOURS NUMBER [phone] IF IN CASE PATIENT WILL BE STABLE FOR DC OVER THE WEEKEND. RUTHANN PENALOZA MADE AWARE. Addendum: 02/10/20 at 1242 by Ruthann Enrique CM SPOKE TO [facility] AND THEY WILL NOT BE ABLE TO ACCEPT PATIENT. Addendum: 02/12/20 at 1153 by Susan Martin CM DC PLANNING: PT IS SCHEDULE FOR TUNNELED CATH WITH DR AMBRIZ TODAY CALLED [facility] [place] SPOKE WITH JAGRUTI DISCUSSED THE LTAC EVAL. PER JAGRUTI DOESN'T QUALIFY THE CRITERIA FOR LTAC , PATIENT HAS TO GO TO SNF . CALLED [facility] SPOKE WITH TAMMY THEY RECEIVED THE FAX AND CHECKING IT AND WILL CALL BACK [facility] [phone] PITO TO FOLLOW Addendum: 02/13/20 at 1136 by Susan Martin CM DC PLANNING: RECEIVED A CALL FROM [employer] [phone] SPOKE WITH SILVER STATED CAN ACCEPT PATIENT AND THEY CAN DO THE DIALYSIS AT THE FACILITY. PER JAGRUTI SHELDON AT [facility] STATED SHE WILL REQUEST THE [facility] FOR DIALYSIS CENTER.. CM TO FOLLOW Addendum: 02/13/20 at 1540 by Susan Martin CM DC PLANNING: DR SANCHEZ WAS NOTIFIED BY CHARGE NURSE THAT WBC IS 28.[address] SANCHEZ OK TO DC TO [facility]. SPOKE WITH JAGRUTI SHELDON AT [facility], STATED STILL PROCESSING THE [facility] LETTER ONCE SHE RECEIVE IT WILL CALL BACK TO [facility] AND [facility] . PER JAGRUTI THE TRANSPORT [place] BE [place] [phone] WILL CALL BACK FOR AUTH #. PITO TO FOLLOW Addendum: 02/13/20 at 1611 by Susan Martin CM DC PLANNING RECEIVED A CALL FROM JAGRUTI SHELDON STATED THE [facility] LETTER SUBMITTED TO [facility] PROVIDED THE AUTH # FOR TRANSPORT [id number] . CALLED [facility] SPOKE WITH SILVER MARCUS GO TO ROOM 134 B # TO GIVE REPORT [phone]. CALLED [facility] [phone] IT WILL CALL . PITO TO FOLLOW Addendum: 02/13/20 at 1702 by Ruthann Enrique CM RECEIVED CALL FROM [facility], SHE SAID THAT SHE HAS NOT YET RECEIVED LETTER OF AGREEMENT FROM [facility] FOR BEDSIDE DIALYSIS AND PATIENT CAN NOT BE DISCHARGED UNTIL SHE RECEIVES IT. TRANSPORTATION IS ON WILL CALL Addendum: 02/14/20 at 0915 by Susan Martin CM DC PLANNING: REGIS CHAND CM AT [facility] IN PATIENT DIALYSIS CENTER RECEIVED A DAVIAN AND OK TO SEND PATIENT TODAY. ARRANGED TRANSPORT WITH [facility] OR DEPARTMENT CHIEF LIBRARIAN TIME WILL BE 11 AM. # TO GIVE REPORT [phone] NOTIFIED PINA CHARGE NURSE.
[2020-01-31] MEDS: LORazepam 2 MG/ML VIAL IVP PRN ×3 (10:40→22:01)
[2020-01-31] MEDS: LABETALOL 100 MG/20 ML VIAL IV PRN ×6 (12:19→22:03)
--- NOTE | 2020-01-31 12:20 | NUR ---
DTR QUADREE UPDATED ABOUT PTS CONDITION ESPECIALLY ELEVATED BUN AND CREATININE AND NEEDS ORDER FOR TELEHEALTH DIRECTOR.ALSO MD MADE AWARE PT SO FAR WITH 200 ML URINE OUTPUT.
--- NOTE | 2020-01-31 12:30 | NUR ---
DR HERNANDEZ UPDATED ABOUT PTS CONDITION ESPECIALLY BP.
[2020-01-31] MEDS: AZITHROMYCIN 500 MG in DEXTROSE 5% 250 ML IV SCH (13:37)
--- NOTE | 2020-01-31 16:07 | NUR ---
SPOKE WITH DR. HERNANDEZ CONCERNING TAKING PT OFF BIPAP O2 SAT HAVE BEEN 94% AND ABOVE, CAN TAKE PT OFF BIPAP AND PLACE ON OXIMIZER AT 6L TO KEEP O2 SAT 88-92% TITRATE. BIPAP PRN FOR RESPIRATORY DISTRESS. MARYJO LOVETT NOTIFIED OF CHANGES MADE
--- NOTE | 2020-01-31 19:24 | NUR ---
RECEIVED REPORT FROM AM SHIFT. PATIENT SEEN AND ASSESSED. BiPAP ON STAND BY FOR RESPIRATORY DISTRESS. AUSCULTATION REVEAL COARSE BILATERAL BREATH SOUNDS. FOUND PATIENT ON 6L OXYMIZER WITH SPO2 OF 97%. O2 TITRATED TO 4L OXYMIZER WITH SPO2 OF 93%. PATIENT IS IN NO RESPIRATORY DISTRESS AT THIS TIME. HHN TX GIVEN ORDERED AND PATIENT TOLERATED WELL WITH NO ADVERSE REACTION. HOB > 30 DEGREES, AN AMBU BAG AT BEDSIDE. WILL CONTINUE TO MONITOR PATIENT.
--- NOTE | 2020-01-31 19:30 | NUR ---
RECEIVED PT FROM GEMA RN, PT ON OXYMIZER 6L, PT HAS DAVY JORGE WITH PIGTAIL, RIGHT SHOULDER 22 G AND RIGHT WRIST 24G, PT RESTING IN BED AROUSABLE TO NAME AND SHAKING DOES NOT FOLLOW COMMANDS, ALERT ONLY TO NAME UNAWARE OF LOCATION TIME AND REASON FOR VISIT, PT WILL OCCASIONALLY PULL AT LINES, REMINDED TO STOP PULLING LINES AND ENCOURAGED TO REST. PT HAS FORTE CATHETER IN PLACE DRAINING CLEAR YELLOW URINE, BLOOD PRESSURE ELEVATED OTHER VITALS WITHIN NORMALS LIMIT SAFETY PROTOCOLS IN PLACE WILL CONTINUE TO MONITOR PT
--- NOTE | 2020-01-31 21:15 | NUR ---
HELD TRANDATE PO DUE TO PT CONFUSION AND RISK OF ASPIRATION GAVE IV 20MG/4ML PRN DOSE COVERAGE INSTEAD
--- NOTE | 2020-01-31 23:52 | NUR ---
DR. AMBRIZ REINSERTED [facility] HEMODIALYSIS PORT AND INSERTED RIJ CENTRAL LINE, HE REVIEWED CHEST XRAY AT [facility] AND SAID SITES ARE OK TO USE.
[2020-02-01] VITALS (13 sets, daily range): BP systolic 116–180; BP diastolic 62–106
[2020-02-01] MEDS: ALBUTEROL SULFATE/IPRATROPIU 3 ML SOL IH SCH ×3 (01:09→13:32)
--- NOTE | 2020-02-01 01:14 | NUR ---
HHN TX GIVEN AT THIS TIME ORDERED AND PATIENT TOLERATED TX WELL WITH NO ADVERSE REACTION. WILL CONTINUE TO MONITOR PATIENT.
[2020-02-01] MEDS: LABETALOL 100 MG/20 ML VIAL IV PRN ×3 (02:01→22:06)
[2020-02-01] MEDS: LORazepam 2 MG/ML VIAL IVP PRN ×2 (02:10→20:05)
--- NOTE | 2020-02-01 02:27 | NUR ---
PT DISPLAYS LABORED BREATHING AND O2 SATURATION DECREASING, PT MOVING AROUND IN BED BP STILL REMAINS ELEVATED TRANDATE 20MG/4ML AND ATIVAN 2MG/ML GIVEN PT RELAXED IN BED BREATHING RETURNED TO NORMAL AND O2 SATURATION INCREASED WILL CONTINUE TO MONITOR PT
--- NOTE | 2020-02-01 04:00 | NUR ---
PT RESTING IN BED AROUSABLE TO NAME AND SHAKING RETURNS TO SLEEP WILL CONTINUE TO MONITOR PT
[2020-02-01] MEDS: methylPREDNISolone SS 125 MG/2 ML VIAL IVP SCH ×3 (05:00→20:07)
--- NOTE | 2020-02-01 06:42 | NUR ---
PATIENT BiPAP IS ON STAND BY. PATIENT REMAINS ON 4L OXYMIZER. PATIENT IN NO DISTRESS AT THIS TIME. WILL CONTINUE TO MONITOR.
--- NOTE | 2020-02-01 07:39 | NUR ---
SATURATION 94% ON SUPPLEMENTAL OXYGEN AT 4 LPM VIA OXYMIZER POST HHN THERAPY TITRATED FIO2 TO 3 LPM BUILDING MAINTENANCE WORKER TO NOTIFHanna SIBLEY Addendum: 02/01/20 at 0958 by Mateo James RT JANET/FAVIAN SIBLEY NOTIFIED
--- NOTE | 2020-02-01 08:30 | NUR ---
P.T. NOTES UNABLE TO SEE PATIENT FOR P.T. EVAL DUE TO PATIENT IS VERY LETHARGIC AND SLEEPY WHEN SEEN IN HER BED (GIVEN ATIVAN LAST NIGHT PER NOTES). PLAN: WE'LL FOLLOW UP AGAIN TOMORROW IF PATIENT IS MORE AWAKE AND ABLE TO FOLLOW SIMPLE COMMANDS. CHARGE NURSE STEFFEN WAS MADE AWARE.
[2020-02-01] MEDS: LABETALOL 100 MG TAB PO SCH ×3 (09:00→20:07)
[2020-02-01] MEDS: ASPIRIN 81 MG TAB.CHEW PO SCH ×2 (09:00→12:17)
[2020-02-01] MEDS: NACL 0.9% 1,000 ML IV SCH ×2 (10:50→13:45)
--- NOTE | 2020-02-01 13:33 | NUR ---
SATURATION 97% ON SUPPLEMENTAL OXYGEN AT 3 LPM VIA OXYMIZER POST HHN THERAPY TITRATED FIO2 TO 2 LPM JANET/PROGRAM DIRECTOR/MORNING SHOW HOST NOTIFIED
--- NOTE | 2020-02-01 13:33 | NUR ---
HEMODIALYSIS IN PROGRESS
--- NOTE | 2020-02-01 14:07 | NUR ---
02/01/20 RD INITIAL ASSESSMENT COMPLETED PLEASE REFER TO NUTRITION ASSESSMENT UNDER CARE ACTIVITY FOR ESTIMATED NUTRITIONAL NEEDS. 1. RECOMMEND SWALLOW EVALUATION D/T ALTERED MENTAL STATUS 2. RECOMMEND NEPRO TID 3. IF PO INTAKE <50% CONSIDER TUBE FEEDING WITH NEPRO 1.8 @ 50 ML/HR X24 HR. START AT 10 ML, INCREASE BY 20 ML/HR Q6H -THIS WILL PROVIDE 2160 CALORIES AND 97 GM OF PROTEIN WHICH MEETS 100% OF NUTRIENT NEEDS 4. RECOMMEND FREE WATER FLUSH OF [address] TO FOLLOW-UP 2-3 DAYS, HIGH RISK KIYA ALVARADO RD
[2020-02-01] MEDS: AZITHROMYCIN 500 MG in DEXTROSE 5% 250 ML IV SCH ×2 (16:30→16:48)
[2020-02-01] MEDS ORDERED: DILTIAZEM 25 MG/5 ML VIAL IVP SCH (17:48)
--- NOTE | 2020-02-01 19:15 | NUR ---
RECEIVED PT FROM DAYSHIFT RN, LYING IN BED, RESPONSIVE TO VERBAL STIMULI. A/O X 0. UNABLE TO FOLLOW SIMPLE COMMANDS. PERRL. OXYMIZER @ 2 LPM. SPO2 >92%. RESPIRATIONS SYMMETRICAL. LUNGS DIMINISHED THROUGHOUT. TRIPLE LUMEN TO RT IJ INFUSING NS @ 80ML/HR. LT IJ DOUBLE LUMEN NOTED. 24G PERIPHERAL IV TO RT SHOULDER PATENT. +S1, S2 NOTED. SINUS TACH ON MONITOR. BOWEL SOUNDS ACTIVE X4. ABD SOFT, NON DISTENDED, NON-TENDER. FORTE CATH IN PLACE, DRAINING CLEAR, YELLOW URINE TO GRAVITY. OPEN WOUND TO LT MEDIAL LOWER LEG, COVERED WITH CLEAN, DRY, DRESSING. PEDAL PULSES PALPABLE. SAFETY PRECAUTIONS IN PLACE. BED LOW AND LOCKED. CALL LIGHT WITHIN REACH. WILL CONT TO MONITOR.
--- NOTE | 2020-02-01 21:49 | NUR ---
PHONE CALL TO DR AMBRIZ; MADE AWARE THAT PT STILL ON AFIB HR GOES UP TO 140'S; UNABLE TO INSERT PERIPHERAL IV AT THIS TIME; NURSES ALREADY TRYING SINCE EARLIER; PER DR AMBRIZ;OK NOT TO REMOVE TLC IF NO PERIPHERAL LINE.
[2020-02-01] MEDS: MORPHINE SULFATE 2 MG/ML SYR IVP PRN (23:24)
[2020-02-02] VITALS (30 sets, daily range): BP systolic 105–173; BP diastolic 61–115
--- NOTE | 2020-02-02 00:52 | NUR ---
RT IJ CENTRAL LINE REMOVED, PER MD ORDER. CATHETER INTACT. APPLIED PRESSURE FOR 15 MIN. NO ACTIVE BLEEDING NOTED.
[2020-02-02] MEDS: NACL 0.9% 1,000 ML IV SCH ×2 (02:15→14:52)
[2020-02-02] MEDS: methylPREDNISolone SS 125 MG/2 ML VIAL IVP SCH ×3 (04:09→21:07)
[2020-02-02 06:26] LABS: HEPATITIS A ANTIBODY IGM Negative (Negative); HEPATITIS B SURFACE ANTIBODY Non Reactive (.); HEPATITIS B SURFACE ANTIGEN Negative (Negative)
--- NOTE | 2020-02-02 07:10 | NUR ---
RECEIVED BEDSIDE REPORT FROM NIGHTSHIFT ICU NURSE. PT ASLEEP IN BED. RESPONSIVE TO VERBAL AND TACTILE STIMULI. RESPIRATIONS EVEN AND UNLABORED WITH NO SOB OR RESPIRATORY DISTRESS. SKIN WARM AND DRY TO TOUCH. IV SITE IN LEFT SHOULDER 22G AND RIGHT SHOULDER 24G IS CLEAN, DRY, AND INTACT. LEFT ANIA CATH IS CLEAN, DRY, AND INTACT. FORTE CATH DRAINING CLEAR YELLOW URINE. SKIN WARM AND DRY TO TOUCH. SAFETY MEASURES IN PLACE. WILL CONTINUE TO MONITOR
[2020-02-02] MEDS: ALBUTEROL SULFATE/IPRATROPIU 3 ML SOL IH SCH ×3 (07:20→19:00)
[2020-02-02] MEDS: LABETALOL 100 MG TAB PO SCH ×2 (09:00→23:32)
[2020-02-02] MEDS: ASPIRIN 81 MG TAB.CHEW PO SCH (09:00)
[2020-02-02] MEDS: LABETALOL 100 MG/20 ML VIAL IV PRN ×2 (09:20→12:52)
--- NOTE | 2020-02-02 09:26 | NUR ---
DID NOT GIVE ASPIRIN OR LABETALOL 100MG BECAUSE PT IS TOO SLEEPY TO TAKE PO MEDS. ADMINISTERED IVP LABETALOL 20MG PRESCRIBED PER MD ORDER. PT TOLERATED WELL. SAFETY MEASURES IN PLACE. WILL CONTINUE TO MONITOR
--- NOTE | 2020-02-02 10:00 | NUR ---
P.T. NOTES UNABLE TO SEE PATIENT AGAIN FOR P.T. CINDY DUE TO SHE REMAINS TO BE VERY LETHARGIC AND SLEEPY. PLAN: WE'LL FOLLOW UP AGAIN ON THE NEXT SCHEDULED VISIT. CHARGE NURSE ARA MADE AWARE.
[2020-02-02 10:15] LABS: HEPATITIS B CORE AB TOTAL POSITIVE (NEGATIVE)
--- NOTE | 2020-02-02 10:30 | NUR ---
PATIENT TAKING OFF GOWN AND ATTEMPTING TO PULL AT LEFT ANIA CATH. PT STILL CONFUSED AFTER REORIENTING. PT YELLED, "LEAVE ME ALONE!" AND BECAME COMBATIVE. DR. HERNANDEZ PAGED. AWAITING ORDERS. WILL CONTINUE TO MONITOR
--- NOTE | 2020-02-02 12:56 | NUR ---
PT HEART RATE AT 155, BP 133/91, AND SPO2 97% PER 2L OXYMIZER. ADMINISTERED PRN LABETALOL PRESCRIBED PER MD ORDER. SAFETY MEASURES IN PLACE. WILL CONTINUE TO MONITOR
--- NOTE | 2020-02-02 13:30 | NUR ---
DR. HERNANDEZ CALLED BACK WITH NEW ORDERS. SAFETY MEASURES IN PLACE. WILL CONTINUE TO MONITOR
[2020-02-02 13:51] LABS: ANION GAP 14.9 (8-16); CARBON DIOXIDE 23.8 mmol/L (21-32); CHLORIDE 110 mmol/L (98-107); CREATININE 3.8 mg/dL (0.6-1.3); GLUCOSE 228 mg/dL (74-106); POTASSIUM 3.7 mmol/L (3.5-5.1); SODIUM SERUM 145 mmol/L (136-145)
--- NOTE | 2020-02-02 14:00 | NUR ---
RECEIVED CRITICAL LAB FROM CHEMISTRY. BUN 81, CR 3.8. REPORTED TO DR. RAMEY . ORDERS RECEIVED. CALLED DIALYSIS NURSE WHARTON AND SHE WILL BE HERE IN AN HOUR. WILL CONTINUE TO MONITOR
[2020-02-02 14:02] LABS: UREA NITROGEN, BLOOD 81 mg/dL (7-18)
--- NOTE | 2020-02-02 15:15 | NUR ---
PT SLEEPING IN BED. FLACC 0. RESPONSIVE TO VERBAL AND TACTILE STIMULI. SKIN WARM AND DRY TO TOUCH. NO SIGNS OF RESPIRATORY DISTRESS. SAFETY MEASURES IN PLACE. WILL CONTINUE TO MONITOR
[2020-02-02] MEDS ORDERED: PPN PER PHARMACY MC PRN (15:45)
[2020-02-02] MEDS ORDERED: hydrALAZINE 20 MG/ML VIAL IVP PRN (15:45)
[2020-02-02] MEDS ORDERED: DILTIAZEM 25 MG/5 ML VIAL IVP PRN (15:45)
--- NOTE | 2020-02-02 16:15 | NUR ---
CALLED POINT OF CONTACT, SERGIO FOR CONSENT OF PICC LINE. CALLED 3X AND LEFT VOICE MESSAGE. WILL CONTINUE TO MONITOR
[2020-02-02] MEDS ORDERED: DILTIAZEM 25 MG/5 ML VIAL IVP SCH (16:50)
[2020-02-02] MEDS ORDERED: DEXTROSE 50% 50 ML SYR IVP PRN (16:50)
[2020-02-02] MEDS: DEXTROSE 10% 1,000 ML IV SCH (17:02)
[2020-02-02] MEDS: DILTIAZEM 125 MG in DEXTROSE 5% 100 ML IV SCH (17:28)
--- NOTE | 2020-02-02 17:28 | NUR ---
STARTED CARDIZEM DRIP PRESCRIBED PER MD ORDER WITH SECOND NURSE AGRONOMY PROFESSOR. PT TOLERATED WELL. SAFETY MEASURES IN PLACE. WILL CONTINUE TO MONITOR
[2020-02-02] MEDS: BLOOD GLUCOSE MONITORING 1 DEV DEV FS SCH ×2 (18:05→23:30)
[2020-02-02] MEDS: INSULIN LISPRO SLIDING SCALE 100 UNITS/ML VIAL SUBQ PRN ×2 (18:09→23:31)
--- NOTE | 2020-02-02 18:11 | NUR ---
PT BLOOD SUGAR IS 223. 4 UNITS OF INSULIN ADMINISTERED PRESCRIBED PER MD ORDER. PT TOLERATED WELL. SAFETY MEASURES IN PLACE. WILL CONTINUE TO MONITOR
--- NOTE | 2020-02-02 18:31 | NUR ---
INCREASED TITRATE CARDIZEM FROM 10MG TO 15MG PRESCRIBED PER MD ORDER. SECOND NURSE MANAGER DATABASE PRIOR TO TITRATING. PT TOLERATED WELL. WILL CONTINUE TO MONITOR
--- NOTE | 2020-02-02 18:50 | NUR ---
REPORT GIVEN TO DIALYSIS NURSE. DIALYSIS NURSE AT BEDSIDE. WILL CONTINUE TO MONITOR
--- NOTE | 2020-02-02 19:16 | NUR ---
no hhntx given patients heart rate is 130. no sob noted. patient on 1l oxymizer. sats 93%
--- NOTE | 2020-02-02 19:16 | NUR ---
REPORT GIVEN AT BEDSIDE TO ICU NIGHTSHIFT NURSE. PT IS STABLE
--- NOTE | 2020-02-02 19:30 | NUR ---
RECEIVED PT FROM DAYSTXFT RN, LYING IN BED, RESPONSIVE TO VERBAL STIMULI. A/O X 0. UNABLE TO FOLLOW SIMPLE COMMANDS. PERRL. OXYMIZER @ 2 LPM. SPO2 >92%. RESPIRATIONS SYMMETRICAL. LUNGS DIMINISHED THROUGHOUT. DIALYSIS IN PROGRESS- LT IJ SUSAN CATH. 24G PERIPHERAL IV TO RT SHOULDER PATENT. PERIPHERAL IV TO LT SHOULDER PATENT INFUSING CARDIZEM 15 MG/HR, D10 @ 30 ML/HR. +S1, S2 NOTED. SINUS TACH ON MONITOR. SOFT WRIST RESTRAINTS IN PLACE DUE TO PT ATTEMPTING TO REMOVES LINES. NO INJURY NOTED, CAP REFILL WITHIN 3 SEC. BOWEL SOUNDS ACTIVE X4. ABD SOFT, NON DISTENDED, NON-TENDER. FORTE CATH IN PLACE, DRAINING CLEAR, YELLOW URINE TO GRAVITY. OPEN WOUND TO LT MEDIAL LOWER LEG, COVERED WITH CLEAN, DRY, DRESSING. PEDAL PULSES PALPABLE. SAFETY PRECAUTIONS IN PLACE. BED LOW AND LOCKED. CALL LIGHT WITHIN REACH. WILL CONT TO MONITOR.
[2020-02-02] MEDS: MORPHINE SULFATE 2 MG/ML SYR IVP PRN (19:35)
--- NOTE | 2020-02-02 19:35 | NUR ---
PT THRASHING IN BED AND SCREAMING THROUGHOUT UNIT. FLACC 8. MORPHINE ADMINISTERED ORDERED WITH GOOD EFFECT. SAFETY PRECAUTIONS REMAIN IN PLACE. SIDE RAILS UP X3. NO ASE NOTED AT THIS TIME. WILL FOLLOW UP.
--- NOTE | 2020-02-02 23:54 | NUR ---
RESTING BLOOD SUGAR 206. INSULIN ADMINISTERED ORDERED WITHOUT INCIDENT. SAFETY PRECAUTIONS REMAIN IN PLACE. BED LOW AND LOCKED. CALL LIGHT WITHIN REACH. WILL CONT TO MONITOR FOR CHANGES.
[2020-02-03] VITALS (34 sets, daily range): BP systolic 101–143; BP diastolic 43–105
[2020-02-03] MEDS: LORazepam 2 MG/ML VIAL IVP PRN ×4 (01:17→22:48)
--- NOTE | 2020-02-03 01:21 | NUR ---
PT YELLING "FK Y*U" THROUGHOUT UNIT X 20 MINUTES. REPOSITIONED WITH PRESSURE AREAS OFFLOADED. ATIVAN ADMINISTERED ORDERED WITH GOOD EFFECT. WILL CONTINUE TO MONITOR.
[2020-02-03] MEDS: ALBUTEROL SULFATE/IPRATROPIU 3 ML SOL IH SCH ×4 (01:36→19:56)
[2020-02-03] MEDS ORDERED: DILTIAZEM 125 MG/25 ML VIAL IV ONE (02:30)
[2020-02-03] MEDS: DILTIAZEM 125 MG in DEXTROSE 5% 100 ML IV SCH ×2 (02:55→11:18)
--- NOTE | 2020-02-03 04:00 | NUR ---
ORAL CARE PROVIDED. FLACC 0. SAFETY PRECAUTIONS REMAIN IN PLACE. WILL CONT TO MONITOR FOR CHANGES.
[2020-02-03] MEDS: methylPREDNISolone SS 125 MG/2 ML VIAL IVP SCH ×4 (04:49→23:27)
[2020-02-03] MEDS: BLOOD GLUCOSE MONITORING 1 DEV DEV FS SCH ×4 (05:03→23:47)
[2020-02-03] MEDS: INSULIN LISPRO SLIDING SCALE 100 UNITS/ML VIAL SUBQ PRN ×2 (05:04→23:48)
[2020-02-03 08:48] LABS: ALBUMIN 2.2 g/dL (3.4-5.0); ANION GAP 13.4 (8-16); ASPARTATE AMINOTRANSFERASE 18 U/L (15-37); CARBON DIOXIDE 24.7 mmol/L (21-32); CHLORIDE 105 mmol/L (98-107); CREATININE 2.9 mg/dL (0.6-1.3); GLUCOSE 268 mg/dL (74-106); MAGNESIUM 1.8 mg/dL (1.8-2.4); PHOSPHORUS 4.4 mg/dL (2.5-4.9); POTASSIUM 3.1 mmol/L (3.5-5.1); SODIUM SERUM 140 mmol/L (136-145); TOTAL BILIRUBIN 0.3 mg/dL (0.0-1.0); UREA NITROGEN, BLOOD 54 mg/dL (7-18)
[2020-02-03] MEDS: ASPIRIN 81 MG TAB.CHEW PO SCH (08:50)
[2020-02-03] MEDS: METOPROLOL 25 MG TAB PO SCH ×2 (08:52→20:48)
[2020-02-03] MEDS ORDERED: DOCUSATE SODIUM 100 MG GELCAP PO PRN (10:45)
--- NOTE | 2020-02-03 10:55 | NUR ---
02/03/20 RD FOLLOW UP COMPLETED PLEASE REFER TO NUTRITION ASSESSMENT UNDER CARE ACTIVITY FOR ESTIMATED NUTRITIONAL NEEDS. 1. RECOMMEND SWALLOW EVALUATION D/T ALTERED MENTAL STATUS 2. CONTINUE NA2GM DIET 3. RECOMMEND NEPRO BID FOR INCREASED CALORIE INTAKE 4. CONTINUE PPN PER PHARMACY PROTOCOL FOR INCREASED CALORIE AND PROTEIN INTAKE 5. RD TO FOLLOW-UP 2-3 DAYS, HIGH RISK AZAEL HITCHCOCK, RD
[2020-02-03] MEDS: DILTIAZEM 60 MG TAB PO SCH ×3 (11:25→23:28)
[2020-02-03] MEDS: DEXTROSE 10% 1,000 ML IV SCH (14:52)
--- NOTE | 2020-02-03 19:30 | NUR ---
RECEIVED PT FROM DAYSHIFT RN, LYING IN BED, RESPONSIVE TO VERBAL STIMULI. A/O X 1. UNABLE TO FOLLOW SIMPLE COMMANDS. YELLING THROUGHOUT UNIT. PERRL. OXIMIZER @ 2 LPM. SPO2 >92%. RESPIRATIONS SYMMETRICAL. LUNGS DIMINISHED THROUGHOUT. LT IJ SUSAN CATH. 24G PERIPHERAL IV TO RT SHOULDER PATENT. 22 G PERIPHERAL IV TO LT SHOULDER PATENT INFUSING. D10 @ 30 ML/HR. +S1, S2 NOTED. CONTROLLED AFIB ON MONITOR. SOFT WRIST RESTRAINTS IN PLACE DUE TO PT ATTEMPTING TO REMOVES LINES. NO INJURY NOTED, CAP REFILL WITHIN 3 SEC. BOWEL SOUNDS ACTIVE X4. ABD SOFT, NON DISTENDED, NON-TENDER. FORTE CATH IN PLACE, DRAINING CLEAR, YELLOW URINE TO GRAVITY. OPEN WOUND TO LT MEDIAL LOWER LEG, COVERED WITH CLEAN, DRY, DRESSING. PEDAL PULSES PALPABLE. SAFETY PRECAUTIONS IN PLACE. BED LOW AND LOCKED. CALL LIGHT WITHIN REACH. WILL CONT TO MONITOR FOR CHANGES.
[2020-02-03] MEDS: MORPHINE SULFATE 2 MG/ML SYR IVP PRN (19:36)
--- NOTE | 2020-02-03 19:50 | NUR ---
ROUGHLY 1950 PT WAS GIVEN NEB AND TOLERATED WELL PT SAT IN 90S Addendum: 02/03/20 at 2130 by Dwight Chaidez Jr RT PT RECEIVED ON 3L OXY AFTER NEB PT REPLACED ON 3L OXY
[2020-02-03] MEDS ORDERED: MULTIVITAMIN IV SCH ×3 (20:00)
[2020-02-03] MEDS ORDERED: DEXTROSE IV SCH ×3 (20:00)
[2020-02-03] MEDS ORDERED: AMINO ACIDS 8.5% IV SCH ×3 (20:00)
--- NOTE | 2020-02-03 20:00 | NUR ---
PT NANCY, GRIMACING. FLACC 8 @ THIS TIME. MEDICATED ORDERED WITH PRN MORPHINE. SAFETY PRECAUTIONS REMAIN IN PLACE. BED LOW AND LOCKED. CALL LIGHT WITHIN EASY REACH. WILL CONT TO MONITOR FOR CHANGES.
--- NOTE | 2020-02-03 21:04 | NUR ---
SPOKE TO ON-CALL AT [facility], DR VILLAGRAN, AT THIS TIME TO CLARIFY ORDERS. MD CRANE'D TPN TO BE GIVEN VIA SUSAN CATH. HEPARIN OKAY TO GIVE WITH LOW PLATELET COUNT. WILL CONT TO MONITOR.
--- NOTE | 2020-02-03 22:00 | NUR ---
DR GALINDO WITH NEPHROLOGY AT BEDSIDE. UPDATED ON PATIENT CONDITION.
[2020-02-03] MEDS ORDERED: KCL 20 MEQ/WATER INJ PREMIX 100 ML IV ONE (22:15)
--- NOTE | 2020-02-03 22:49 | NUR ---
PT YELLING THROUGHOUT UNIT. DENIES PAIN UPON QUESTIONING. FLACC 0. REPOSITIONED, DISTRACTED WITH TV. NON-PHARMACOLOGICAL INTERVENTIONS INEFFECTIVE. MEDICATED WITH PRN ATIVAN ORDERED.
[2020-02-04] VITALS (12 sets, daily range): BP systolic 116–157; BP diastolic 70–97
[2020-02-04] MEDS: MORPHINE SULFATE 2 MG/ML SYR IVP PRN ×3 (00:10→19:00)
--- NOTE | 2020-02-04 00:18 | NUR ---
PT C/O BACK PAIN. REPOSITIONED. NONPHARMACOLOGIC INTERVENTIONS INEFFECTIVE. MORPHINE ADMINISTERED ORDERED WITH GOOD EFFECT. SAFETY PRECAUTIONS IN PLACE. BED LOW AND LOCKED WITH CALL LIGHT IN EASY REACH. WILL CONT TO MONITOR FOR CHANGES.
[2020-02-04] MEDS: ALBUTEROL SULFATE/IPRATROPIU 3 ML SOL IH SCH ×4 (01:50→20:01)
--- NOTE | 2020-02-04 01:50 | NUR ---
PT WAS RESTING COMFORTABLY UPON MY ARRIVAL PT AWOKE WHEN I GOT TO BEDSIDE AND SATING HIGH 90s PT REFUSED Tx PT IN NO DISTRESS AT THIS TIME
[2020-02-04] MEDS: DILTIAZEM 60 MG TAB PO SCH ×4 (06:22→23:46)
[2020-02-04] MEDS: methylPREDNISolone SS 125 MG/2 ML VIAL IVP SCH ×4 (06:22→23:46)
[2020-02-04] MEDS: BLOOD GLUCOSE MONITORING 1 DEV DEV FS SCH ×4 (06:25→23:39)
[2020-02-04] MEDS: INSULIN LISPRO SLIDING SCALE 100 UNITS/ML VIAL SUBQ PRN ×3 (06:27→17:46)
--- NOTE | 2020-02-04 07:23 | NUR ---
RECEIVED REPORT FROM NIGHT NURSE. PT UNABLE TO FOLLOW COMMANDS. RESPONSIVE TO TACTILE STIMULI. ON OXIMIZER 2LPM. FLACC 0, RESPIRATIONS ARE EVEN AND UNLABORED, NO APPARENT DISTRESS. WITH LEFT IJ DIALYSIS CATH AND RIGHT SUBCLAVIAN 24G, LEFT SUBCLAVIAN 20G, RUNNING ON NS TKO. INFUSING WELL. FORTE CATHETER INTACT AND PATENT. DRAINING CLEAR YELLOW URINE BY GRAVITY. WITH LEFT LOWE LEG OPEN WOUND. DRESSING IS CLEAN AND INTACT. SAFETY PRECAUTIONS IN PLACE. WILL CONTINUE TO MONITOR
[2020-02-04 07:43] LABS: HEMATOCRIT 23.7 % (36-48); HEMOGLOBIN 7.4 g/dL (12.0-16.0); MEAN CORPUSCULAR HEMOGLOBIN 23 pg (27-31); MEAN CORPUSCULAR HGB CONC 31 g/dL (33-37); MEAN CORPUSCULAR VOLUME 73.7 fL (80-94); PLATELET COUNT (AUTO) 79 K/uL (140-450); RED BLOOD CELL COUNT(AUTO) 3.21 MIL/uL (4.20-5.40); RED CELL DISTRIBUTION WIDTH 17.8 % (11.6-13.7); WHITE BLOOD COUNT (AUTO) 8.5 K/uL (4.8-10.8)
[2020-02-04 07:53] LABS: ANION GAP 12.9 (8-16); CARBON DIOXIDE 25.2 mmol/L (21-32); CHLORIDE 104 mmol/L (98-107); CREATININE 3.6 mg/dL (0.6-1.3); GLUCOSE 340 mg/dL (74-106); POTASSIUM 4.1 mmol/L (3.5-5.1); SODIUM SERUM 138 mmol/L (136-145)
[2020-02-04 07:54] LABS: MAGNESIUM 2.1 mg/dL (1.8-2.4); PHOSPHORUS 5.4 mg/dL (2.5-4.9)
[2020-02-04 08:00] LABS: UREA NITROGEN, BLOOD 77 mg/dL (7-18)
[2020-02-04 08:11] LABS: BASOPHILS % (MANUAL) 0 % (0-2); EOSINOPHILS % (MANUAL) 0 % (0-4); LYMPHOCYTES % (MANUAL) 2 % (20-46); MONOCYTES % (MANUAL) 1 % (5-12)
[2020-02-04] MEDS: ASPIRIN 81 MG TAB.CHEW PO SCH (09:00)
[2020-02-04] MEDS: METOPROLOL 25 MG TAB PO SCH ×2 (09:00→20:14)
--- NOTE | 2020-02-04 09:15 | NUR ---
PT ASLEEP IN BED. FLACC 0, NO SOB, NO APPARENT DISTRESS
[2020-02-04] MEDS: FAMOTIDINE 20 MG/2 ML VIAL IVP SCH (09:20)
--- NOTE | 2020-02-04 10:30 | NUR ---
DUE MORNING MEDS GIVEN TOGETHER WITH BREAKFAST. ATE 60% OF BREAKFAST. TOLERATED WELL
--- NOTE | 2020-02-04 11:45 | NUR ---
SEEN AND EXAMINED BY DR. ORTIZ
--- NOTE | 2020-02-04 12:00 | NUR ---
BLOOD SUGAR 400. COVERAGE GIVEN
--- NOTE | 2020-02-04 12:30 | NUR ---
ATE 50% OF LUNCH. TOLERATED WELL. RESPIRATIONS EVEN AND UNLABORED
--- NOTE | 2020-02-04 13:30 | NUR ---
WITH C/O ACHING BACK PAIN. NURSING INTERVENTIONS INEFFECTIVE. MEDICATED WITH MORPHINE ORDERED
--- NOTE | 2020-02-04 15:20 | NUR ---
ASLEEP IN BED, FLACC 0, RESPIRATION ARE EVEN AND UNLABORED. SAFETY PRECAUTIONS IN PLACE
--- NOTE | 2020-02-04 17:50 | NUR ---
ATE 50% OF DINNER. TOLERATED WELL
--- NOTE | 2020-02-04 19:20 | NUR ---
ENDORSED TO CHAIRMAN & CEO FOR CONTINUITY OF CARE. IN STABLE CONDITION
--- NOTE | 2020-02-04 19:45 | NUR ---
RECEIVED PT FROM DAY SHIFT ON 2L OXYMIZER, ROJELIO JORGE, ALERT AND ORIENTED TO PERSON AND PLACE, LUNG SOUNDS DIMINISHED S1 AND S2 HEART SOUNDS HEARD BOWEL SOUNDS ACTIVE AND PULSES PALPABLE UPPER AND LOWER EXTREMITIES, PT IN BED YELLING SHE HAS TO GO TO THE BANK AND THAT SHE NEEDS HER PURSE, PT ONLY CAME IN WITH DENTURES AND NO OTHER PERSONAL BELONGINGS, SAFETY PROTOCOLS IN PLACE, HR AND BP ELEVATED, AFIB ON MONITOR WILL CONTINUE TO MONITOR PT.
[2020-02-04] MEDS: MULTIVITAMIN IV SCH ×4 (19:52)
[2020-02-04] MEDS: AMINO ACIDS IV SCH ×4 (19:52)
[2020-02-04] MEDS: [UNRECOGNIZED DRUG - OTHER] IV SCH ×4 (19:52)
[2020-02-04] MEDS: DEXTROSE IV SCH ×4 (19:52)
--- NOTE | 2020-02-04 20:01 | NUR ---
PATIENT SEEN AND ASSESSED. FOUND PATIENT RESTING IN BED. PATIENT IN NO RESPIRATORY DISTRESS AT THIS TIME. SPO2 93% ON ROOM AIR. HHN TX GIVEN AT THIS TIME ORDERED AND PATIENT TOLERATED TX WELL WITH NO ADVERSE REACTION. WILL CONTINUE TO MONITOR PATIENT.
--- NOTE | 2020-02-04 20:30 | NUR ---
PT PLT COUNT [address] MORALES TO RELAY LOW PLT AND IF HE WANTED HEPARIN HELD OR GIVEN RECEIVED ORDERS TO HOLD HEPARIN THIS DOSE
[2020-02-04] MEDS ORDERED: INSULIN LISPRO 100 UNITS/ML VIAL SUBQ ONE (23:50)
[2020-02-05] VITALS (9 sets, daily range): BP systolic 123–145; BP diastolic 84–100
--- NOTE | 2020-02-05 00:10 | NUR ---
PT BLOOD SUGAR ELEVATED 468 RECEIVED ORDER FOR FROM DR. MORALES FOR ONE TIME DOSE 15 UNIT HUMALOG, WILL CONTINUE TO MONITOR PT
[2020-02-05] MEDS: ALBUTEROL SULFATE/IPRATROPIU 3 ML SOL IH SCH ×4 (01:20→19:36)
--- NOTE | 2020-02-05 01:24 | NUR ---
HHN TX GIVEN AT THIS TIME ORDERED AND PATIENT TOLERATED TX WELL WITH NO ADVERSE REACTION. WILL CONTINUE TO MONITOR PATIENT.
[2020-02-05] MEDS: LORazepam 2 MG/ML VIAL IVP PRN (03:10)
--- NOTE | 2020-02-05 03:10 | NUR ---
PT DISPLAYING SIGNS OF AGITATION AND CONFUSION CALLING OUT FOR IFTIKHAR AND ASKING TO HAVE HER SHOES REMOVED, AFTER ASSURING HER SHE IS NOT WEARING SHOES, REASSESSING PT AND TRYING TO REORIENT PT, SHE CONTINUES TO YELL FOR IFTIKHAR AND TO LET HER GET UP AND WALK, GAVE ATIVAN 2MG/ML FOR AGITATION WILL MONITOR AND REASSESS PT
--- NOTE | 2020-02-05 04:10 | NUR ---
VITALS TAKEN. NO SOB OR DISTRESS NOTED. PATIENT STILL VERBALLY ABUSIVE. CALL LIGHT WITHIN PATIENT REACH. WILL CONTINUE TO MONITOR PATIENT. Addendum: 02/06/20 at 0428 by Urmila Chaves RN WRONG DATE
[2020-02-05] MEDS: BLOOD GLUCOSE MONITORING 1 DEV DEV FS SCH ×3 (05:46→17:47)
[2020-02-05] MEDS: DILTIAZEM 60 MG TAB PO SCH (05:47)
[2020-02-05] MEDS: methylPREDNISolone SS 125 MG/2 ML VIAL IVP SCH ×3 (05:47→17:50)
[2020-02-05 05:48] LABS: HEMATOCRIT 25.8 % (36-48); MEAN CORPUSCULAR HEMOGLOBIN 23 pg (27-31); MEAN CORPUSCULAR HGB CONC 31 g/dL (33-37); MEAN CORPUSCULAR VOLUME 73.8 fL (80-94); PLATELET COUNT (AUTO) 94 K/uL (140-450); RED BLOOD CELL COUNT(AUTO) 3.49 MIL/uL (4.20-5.40); RED CELL DISTRIBUTION WIDTH 17.8 % (11.6-13.7); WHITE BLOOD COUNT (AUTO) 16.1 K/uL (4.8-10.8)
[2020-02-05] MEDS: INSULIN LISPRO SLIDING SCALE 100 UNITS/ML VIAL SUBQ PRN ×3 (05:48→17:51)
[2020-02-05] MEDS: MORPHINE SULFATE 2 MG/ML SYR IVP PRN (06:00)
--- NOTE | 2020-02-05 06:05 | NUR ---
PT GIVEN MORPHINE 2 MG/ML, FLACC 8, VITALS ELEVATED WILL MONITOR AND REASSESS PT
[2020-02-05 06:15] LABS: ANION GAP 19.1 (8-16); CARBON DIOXIDE 19.2 mmol/L (21-32); CHLORIDE 101 mmol/L (98-107); POTASSIUM 4.3 mmol/L (3.5-5.1); SODIUM SERUM 135 mmol/L (136-145)
[2020-02-05 06:18] LABS: MAGNESIUM 2.3 mg/dL (1.8-2.4); PHOSPHORUS 5.1 mg/dL (2.5-4.9)
[2020-02-05 06:29] LABS: GLUCOSE 426 mg/dL (74-106); UREA NITROGEN, BLOOD 97 mg/dL (7-18)
[2020-02-05 07:12] LABS: LYMPHOCYTES % (MANUAL) 1 % (20-46); MONOCYTES % (MANUAL) 2 % (5-12)
--- NOTE | 2020-02-05 09:31 | NUR ---
RT AT BEDSIDE FOR NEB TREATMENT
[2020-02-05] MEDS: FAMOTIDINE 20 MG/2 ML VIAL IVP SCH (09:36)
[2020-02-05] MEDS: ASPIRIN 81 MG TAB.CHEW PO SCH (09:36)
[2020-02-05] MEDS: METOPROLOL 25 MG TAB PO SCH ×2 (09:37→21:47)
--- NOTE | 2020-02-05 10:05 | NUR ---
DIALYSIS NURSE AT BEDSIDE
--- NOTE | 2020-02-05 10:30 | NUR ---
DR ORTIZ AT BEDSIDE, NOTIFIED HIM OF INCREASED HR 115-125 AFIB, INCREASED DOSE OF CARDIZEM ORDERED.
[2020-02-05] MEDS: METOPROLOL 5 MG/5 ML VIAL IV PRN (11:12)
--- NOTE | 2020-02-05 13:05 | NUR ---
PT SITTING UP EATING LUNCH WITH ASSIST 50%, PLUS APPLESAUCE, PT SWALLOWS WELL WITHOUT PROBLEM.
[2020-02-05] MEDS ORDERED: ALTEPLASE 2 MG VIAL MC ONE (13:10)
--- NOTE | 2020-02-05 13:20 | NUR ---
DUONEB TX NOT GIVEN. HR 143. NO WHEEZING OR SOB.
[2020-02-05] MEDS ORDERED: ALTEPLASE 2 MG VIAL MC SCH (14:00)
--- NOTE | 2020-02-05 14:15 | NUR ---
PT'S FRIENDS SERGIO AND CLARISSE CALLED, PT SLEEPING, TOO DROWSY TO TALK ON PHONE, WILL ASK WHEN SHE IS MORE AWAKE
--- NOTE | 2020-02-05 16:50 | NUR ---
BEDSIDE GLUCOSE 390, 10 UNITS OF INSULIN GIVEN PER SLIDING SCALE, PT GIVEN BED BATH, FORTE CARE DONE, LEFT UPPER ARM IV SITE WNL, COVERED WITH CLING, GOWN CHANGED, LINEN CHANGED
--- NOTE | 2020-02-05 18:55 | NUR ---
REPORT CALLED TO XAVI SIBLEY, PT TAKEN TO 107 B IN BED ON MONITOR WITH RN
--- NOTE | 2020-02-05 19:05 | NUR ---
RECEIVED BEDSIDE REPORT FROM AM SHIFT NURSE. PATIENT IS LYING IN BED, AWAKE AND ALERT ON SEMI-FOWLERS. NO DISTRESS NOTED ON ROOM AIR. IV ACCESS ON LEFT UPPER ARM 22 GAUGE, PATENT AND INTACT. FORTE CATHETER IN PLACE, DRAINING YELLOW URINE. PATIENT NOTED WITH LEFT LOWER EXTREMITY WOUND COVERED WITH DRESSING. PATIENT NOTED WITH LEFT ANIA CATHETER FOR DIALYSIS. BED IN LOW, BED LOCKED. SAFETY MEASURES IN PLACE. CALL LIGHT PLACED WITHIN PATIENT REACH. WILL CONTINUE TO MONITOR PATIENT.
[2020-02-05] MEDS: AMINO ACIDS IV SCH ×4 (20:00)
[2020-02-05] MEDS: [UNRECOGNIZED DRUG - OTHER] IV SCH ×4 (20:00)
[2020-02-05] MEDS: DEXTROSE IV SCH ×4 (20:00)
[2020-02-05] MEDS: MULTIVITAMIN IV SCH ×4 (20:00)
--- NOTE | 2020-02-05 20:18 | NUR ---
TPN HELD. PATIENT IS ON 2GM Na DIET.
--- NOTE | 2020-02-05 21:31 | NUR ---
HELD HEPARIN FOR PLATELET COUNT OF 94. WILL CONTINUE TO MONITOR PATIENT.
[2020-02-05] MEDS ORDERED: DILTIAZEM 60 MG TAB ONE (21:40)
[2020-02-05] MEDS ORDERED: DILTIAZEM 120 MG CAPER PO ONE (22:00)
[2020-02-05] MEDS: DILTIAZEM 90 MG CAPER PO SCH (22:05)
--- NOTE | 2020-02-06 | NUR ---
BLOOD GLUCOSE NOT DONE, PATIENT NOT ON TPN. PATIENT HAS AN ORDERED DIET.
[2020-02-06 00:10] VITALS: BP 131/68
--- NOTE | 2020-02-06 00:15 | NUR ---
VITALS TAKEN. NO SOB OR DISTRESS NOTED. CALL LIGHT WITHIN PATIENT REACH. WILL CONTINUE TO MONITOR PATIENT.
[2020-02-06] MEDS: ALBUTEROL SULFATE/IPRATROPIU 3 ML SOL IH SCH ×4 (00:55→20:09)
[2020-02-06] MEDS: methylPREDNISolone SS 125 MG/2 ML VIAL IVP SCH ×3 (02:15→20:57)
--- NOTE | 2020-02-06 03:29 | NUR ---
PATIENT COMBATIVE AND VERBALLY ABUSIVE TO STAFF.PATIENT WANTED TO BE TURNED BUT WHEN WE TRIED TO TURN THE PATIENT SHE STARTED HITTING AND YELLING. TRIED TO CALM PATIENT DOWN BUT PATIENT SAID TO LEAVE. GAS STATION CLERK AND CHARGE NURSE ALSO AT BEDSIDE.
[2020-02-06] MEDS: ACETAMINOPHEN 325 MG TAB PO PRN (04:09)
[2020-02-06 04:10] VITALS: BP 132/91
--- NOTE | 2020-02-06 04:10 | NUR ---
PRN TYLENOL GIVEN FOR MILD STOMACH ACHE PER PATIENT REQUEST.
--- NOTE | 2020-02-06 04:28 | NUR ---
VITALS TAKEN. NO SOB OR DISTRESS NOTED. PATIENT STILL VERBALLY ABUSIVE. CALL LIGHT WITHIN PATIENT REACH. WILL CONTINUE TO MONITOR PATIENT.
--- NOTE | 2020-02-06 04:49 | NUR ---
PAGED FOR MD. PATIENTS PAIN MEDS REACHED STOPPED DATE.
--- NOTE | 2020-02-06 05:20 | NUR ---
DR. ORTIZ CALLED BACK. SAID OKAY TO RENEW PAIN MEDICATION.
[2020-02-06] MEDS ORDERED: HYDROcodone/APAP 5/325 MG 1 TAB TAB PO PRN (05:35)
[2020-02-06 05:59] LABS: BASOPHILS % (AUTO) 0.2 % (0.0-2.0); HEMATOCRIT 24.4 % (36-48); HEMOGLOBIN 7.6 g/dL (12.0-16.0); LYMPHOCYTES # (AUTO) 0.1 K/uL (2.5-16.5); LYMPHOCYTES % (AUTO) 0.6 % (20.5-51.1); MEAN CORPUSCULAR HEMOGLOBIN 23 pg (27-31); MEAN CORPUSCULAR HGB CONC 31 g/dL (33-37); MONOCYTES # (AUTO) 0.2 K/uL (0.8-1.0); MONOCYTES % (AUTO) 1.2 % (1.7-9.3); NEUTROPHILS # (AUTO) 18.3 K/uL (1.8-7.7); PLATELET COUNT (AUTO) 101 K/uL (140-450); RED BLOOD CELL COUNT(AUTO) 3.34 MIL/uL (4.20-5.40); RED CELL DISTRIBUTION WIDTH 18.2 % (11.6-13.7); WHITE BLOOD COUNT (AUTO) 18.6 K/uL (4.8-10.8)
[2020-02-06] MEDS: INSULIN LISPRO SLIDING SCALE 100 UNITS/ML VIAL SUBQ PRN ×3 (06:10→21:17)
--- NOTE | 2020-02-06 06:10 | NUR ---
PATIENT HAD A BLOOD GLUCOSE OF 392 WITH 10 UNITS OF REGULAR HUMALOG INSULIN GIVEN. WILL CONTINUE TO MONITOR PATIENT.
[2020-02-06] MEDS: BLOOD GLUCOSE MONITORING 1 DEV DEV FS SCH ×6 (06:11→21:00)
[2020-02-06 06:18] LABS: CARBON DIOXIDE 21.5 mmol/L (21-32); CHLORIDE 100 mmol/L (98-107); CREATININE 3.7 mg/dL (0.6-1.3); POTASSIUM 4.5 mmol/L (3.5-5.1); SODIUM SERUM 135 mmol/L (136-145)
[2020-02-06 06:25] LABS: GLUCOSE 428 mg/dL (74-106); UREA NITROGEN, BLOOD 101 mg/dL (7-18)
--- NOTE | 2020-02-06 06:38 | NUR ---
CRITICAL LABS REPORTED TO DR. ORTIZ. PATIENT HAS BUN 101, CREA 3.7 AND GLUCOSE 428. BLOOD GLUCOSE CHECKS RESUMED AND CHANGED TO Q ACNHS INSTEAD OF Q6H.
--- NOTE | 2020-02-06 07:15 | NUR ---
PATIENT IN STABLE CONDITION. ENDORSED TO AM SHIFT NURSE FOR CONTINUITY OF CARE. Addendum: 02/06/20 at 0733 by Urmila Chaves RN PATIENT RESTING WITH EYES CLOSED. NO SOB OR DISTRESS NOTED.
--- NOTE | 2020-02-06 07:34 | NUR ---
REPORT RECEIVED FROM SUPERVISOR WELDING EQUIPMENT REPAIRER NURSE. PATIENT IN STABLE CONDITION LYING IN BED ASLEEP. RISE AND FALL OF CHEST NOTED. RESPIRATIONS EVEN AND UNLABORED. NO DISTRESS NOTED. IV SITE IS PATENT AND INTACT. WILL CONTINUE TO MONITOR.
[2020-02-06 08:00] VITALS: BP 150/96
[2020-02-06] MEDS ORDERED: cloNIDine-TTS1 0.1 MG/24 HR 1 EA PATCH TD SCH (09:00)
[2020-02-06] MEDS: DILTIAZEM 90 MG CAPER PO SCH ×3 (09:00→20:57)
[2020-02-06] MEDS: cloNIDine-TTS2 0.2 MG/24 HR 1 EA PATCH TD SCH ×3 (09:00→22:46)
[2020-02-06] MEDS: ASPIRIN 81 MG TAB.CHEW PO SCH (09:26)
[2020-02-06] MEDS: METOPROLOL 25 MG TAB PO SCH ×2 (09:26→20:57)
[2020-02-06] MEDS: FAMOTIDINE 20 MG/2 ML VIAL IVP SCH (09:27)
--- NOTE | 2020-02-06 09:30 | NUR ---
P.T. NOTES PATIENT SEMI AWAKE SHE RESPONDS WHEN SPOKEN TO BUT EYES WERE CLOSED WHEN SEEN SUPINE IN HER BED. ATTEMPTED TO GET HER OUT OF BED FOR THIS P.T. EVAL AFTER THE PLAN OF CARE WAS FULLY EXPLAINED TO HER. HOWEVER, SHE STARTED TO BE AGITATED AFTER SHE WAS JAIL SEATED AT THE EDGE OF BED AND STARTED TO SCREAM SO SHE WAS SAFELY RETURNED BACK TO HER BED AND MADE COMFORTABLE. UNABLE TO COMPLETE THE EVAL AT THIS TIME AND HER NURSE MIKEY WAS MADE AWARE OF THIS. PLAN: WE'LL TRY AGAIN TOMORROW IF SHE REMAINS IN THIS HOSPITAL.
--- NOTE | 2020-02-06 09:39 | NUR ---
SCHEDULED MEDICATIONS GIVEN. PATIENT TOLERATED WELL. MEDICATION EDUCATION GIVEN, PT VERBALIZED UNDERSTANDING. HELD HEPARIN, CLONIDINE AND CARDIAZEM PER DIALYSIS. WILL CONTINUE TO MONITOR.
--- NOTE | 2020-02-06 11:45 | NUR ---
DIALYSIS NURSE AT BEDSIDE, DIALYSIS STARTED AT 1125. NO SIGNS OF DISTRESS NOTED. SAFETY MEASURES IN PLACE, BED IN LOWEST POSITION, CALL LIGHT WITHIN REACH. WILL CONTINUE TO MONITOR.
[2020-02-06 12:00] VITALS: BP 111/76
--- NOTE | 2020-02-06 13:28 | NUR ---
02/06/20 RD FOLLOW UP COMPLETED PLEASE REFER TO NUTRITION ASSESSMENT UNDER CARE ACTIVITY FOR ESTIMATED NUTRITIONAL NEEDS. 1. CONTINUE MECH SOFT NA2GM DIET WITH NEPRO BID 2. IF PO INTAKE >75% RECOMMEND RENAL DIET 3. ENCOURAGE PO INTAKE AND ASSIST WITH MEALS 4. CONSIDER ENTERAL NUTRITION IF PT CONTINUES WITH POOR APPETITE <50% 5. RD TO FOLLOW-UP 2-3 DAYS, HIGH RISK KIYA ALVARADO, RD
[2020-02-06] MEDS: MORPHINE SULFATE 2 MG/ML SYR IVP PRN (13:38)
--- NOTE | 2020-02-06 13:43 | NUR ---
MORPHINE ADMINISTERED FOR BURNING BILATERAL FOOT PAIN /. PATIENT TOLERATED WELL. WILL CONTINUE TO MONITOR.
[2020-02-06] MEDS ORDERED: HALOPERIDOL 1 MG TAB PO PRN (15:15)
[2020-02-06] MEDS ORDERED: HALOPERIDOL IM 5 MG/ML VIAL IM SCH (15:20)
--- NOTE | 2020-02-06 15:30 | NUR ---
PATIENT IS VERY AGITATED ATTEMPTING TO GET OUT OF BED. PATIENT IS ATTEMPTING TO SWING HER LEGS OVER THE SIDE OF THE BED RAIL AND USING RAILS TO PULL HERSELF UP. WHEN NURSE ATTEMPTS TO HELP HER SHE BEGINS TO KICK AND TRY TO HIT. SHE IS CONFUSED AND STATING SHE WANTS TO GO HOME. PATIENT IS YELLING AND SCREAMING AT NURSE AND OTHER STAFF, SCREAMING PROFANITIES AND TELLING US TO LET HER GO. SHE CONTINUES TO ASK NURSE TO CALL HER , WHO PER HER FRIEND AND CAREGIVER IS . DR DONIS ON UNIT AND WITNESSED BEHAVIORS, HE IS PUTTING IN ORDERS TO ASSIST WITH CALMING THE PATIENT DOWN. FRIEND/CAREGIVER CALLED IN AN ATTEMPT TO HAVE HER TALK TO PATIENT AND RELAX HER. NURSE IS SITTING AT DOOR OF ROOM AND WATCHING PATIENT TO ENSURE SAFETY. SAFETY MEASURES IN PLACE. BED ALARM ON, BED IN LOWEST AND CALL LIGHT WITHIN REACH. WILL CONTINUE TO MONITOR.
--- NOTE | 2020-02-06 15:52 | NUR ---
HALDOL ADMINISTERED PER ORDER FOR COMBATIVE AND AGITATIVE BEHAVIORS. PATIENT TOLERATED WELL. WILL CONTINUE TO MONITOR.
[2020-02-06 16:00] VITALS: BP 136/76
--- NOTE | 2020-02-06 16:30 | NUR ---
PATIENT IS ASLEEP IN BED. RISE AND FALL OF CHEST NOTED. WILL PROVIDE FREQUENT ROUNDS. SAFETY MEASURES IN PLACE. BED IN LOWEST POSITION, BED ALARM ON, CALL LIGHT WITHIN REACH. WILL CONTINUE TO MONITOR.
--- NOTE | 2020-02-06 17:40 | NUR ---
PATIENT STILL ASLEEP IN BED RESTING COMFORTABLY. RISE AND FALL OF CHEST NOTED, RESPIRATIONS EVEN AND UNLABORED. WILL CONTINUE TO MONITOR.
--- NOTE | 2020-02-06 19:05 | NUR ---
CATAPRES REASSESSMENT NOT DONE. PATCH WAS NOT ADMINISTERED DUE TO DIALYSIS DURING AM SHIFT. PATIENT IS RESTING COMFORTABLY. NO SOB OR DISTRESS NOTED. WILL CONTINUE TO MONITOR PATIENT.
--- NOTE | 2020-02-06 19:30 | NUR ---
REPORT GIVEN TO SUPPORT SERVICES REP NURSE FOR CONTINUITY OF CARE. PATIENT IN STABLE CONDITION
--- NOTE | 2020-02-06 19:31 | NUR ---
RECEIVED BEDSIDE REPORT FROM AM SHIFT NURSE. PATIENT IS LYING IN BED,RESTING WITH EYES CLOSED. NO SOB OR DISTRESS, ON ROOM AIR. RESPIRATIONS EVEN AND UNLABORED. IV ACCESS ON LEFT UA 22 GAUGE. PATENT AND INTACT. NOTED WITH CATH ON LEFT IJ FOR DIALYSIS ACCESS. INITIAL ASSESSMENT DONE. NOTED WITH LEFT LOWER EXTREMITY WOUND, COVERED WITH DRESSING. BED IN LOW, BED LOCKED. CALL LIGHT WITHIN PATIENT REACH. WILL CONTINUE TO MONITOR PATIENT. Addendum: 02/07/20 at 0514 by Urmila Chaves RN FORTE CATHETER IN PLACE, PATENT AND INTACT. DRAINING YELLOW COLORED URINE.
[2020-02-06 20:15] VITALS: BP 161/74
--- NOTE | 2020-02-06 20:19 | NUR ---
RECEIVED PATIENT ON ROOM AIR, PULSE OX SAT 90%. SCHEDULED BREATHING TREATMENT ADMINISTERED. TOLERATED TX WELL WITHOUT ADVERSE SIDE EFFECTS. PT MADE AWARE OF ORDERED MEDICATION FREQUENCY AND INSTRUCTED TO CALL NEEDED FOR SOB. NO ACUTE RESPIRATORY DISTRESS NOTED AT THIS TIME. COMFORT NEEDS MET. WILL CONTINUE TO MONITOR.
[2020-02-06] MEDS: QUEtiapine FUMARATE 25 MG TAB PO SCH (20:57)
--- NOTE | 2020-02-06 21:17 | NUR ---
PATIENT HAD A BLOOD GLUCOSE RESULT OF 296 WITH 6 UNITS OF REGULAR HUMALOG INSULIN ADMINISTERED.
--- NOTE | 2020-02-06 22:50 | NUR ---
ROUNDS DONE. PATIENT RESTING WITH EYES CLOSED. NO SOB OR DISTRESS NOTED. WILL CONTINUE TO MONITOR PATIENT.
[2020-02-07 00:15] VITALS: BP 120/68
--- NOTE | 2020-02-07 00:20 | NUR ---
VITALS DONE. PATIENT RESTING WITH EYES CLOSED. NO SOB OR DISTRESS NOTED. WILL CONTINUE TO MONITOR PATIENT.
--- NOTE | 2020-02-07 01:29 | NUR ---
ROUNDS DONE. PATIENT RESTING WITH EYES CLOSED. VISIBLE CHEST RISE AND FALL NOTED. CALL LIGHT WITHIN PATIENT REACH. WILL CONTINUE TO MONITOR PATIENT.
[2020-02-07] MEDS: ALBUTEROL SULFATE/IPRATROPIU 3 ML SOL IH SCH ×4 (02:30→19:10)
--- NOTE | 2020-02-07 02:40 | NUR ---
SCHEDULED BREATHING TREATMENT ADMINISTERED. TOLERATED TX WELL WITHOUT ADVERSE SIDE EFFECTS. NO ACUTE RESPIRATORY DISTRESS NOTED AT THIS TIME. WILL CONTINUE TO MONITOR
[2020-02-07 04:15] VITALS: BP 135/73
--- NOTE | 2020-02-07 04:15 | NUR ---
VITALS TAKEN. MORNING CARE DONE WITH CNAS. FORTE CARE DONE. PATIENT CLEANED AND MADE COMFORTABLE. NO DISTRESS NOTED. WILL CONTINUE TO MONITOR PATIENT.
[2020-02-07] MEDS: INSULIN LISPRO SLIDING SCALE 100 UNITS/ML VIAL SUBQ PRN ×4 (06:17→20:52)
--- NOTE | 2020-02-07 06:19 | NUR ---
PATIENT HAD A BLOOD GLUCOSE RESULT OF 279 WITH 6 UNITS OF REGULAR HUMALOG INSULIN GIVEN.
[2020-02-07] MEDS: BLOOD GLUCOSE MONITORING 1 DEV DEV FS SCH ×4 (06:50→20:53)
--- NOTE | 2020-02-07 07:15 | NUR ---
PATIENT IN STABLE CONDITION. PATIENT AWAKE AND VERBALLY ABUSING STAFF. ENDORSED TO AM SHIFT NURSE FOR CONTINUITY OF CARE.
--- NOTE | 2020-02-07 07:20 | NUR ---
RECEIVED BEDSIDE REPORT FROM NIGHTSHIFT NURSE. PT RESTING IN BED. ABLE TO MAKE NEEDS KNOWN. RESPIRATIONS EVEN AND UNLABORED WITH NO SOB OR RESPIRATORY DISTRESS. SKIN WARM AND DRY TO TOUCH. IV SITE IN L UPPER ARM 22G IS CLEAN, DRY, AND INTACT. SAFETY MEASURES IN PLACE. WILL CONTINUE TO MONITOR
[2020-02-07 07:22] LABS: MAGNESIUM 1.9 mg/dL (1.8-2.4); PHOSPHORUS 4.8 mg/dL (2.5-4.9)
[2020-02-07 07:24] LABS: ANION GAP 15.1 (8-16); CARBON DIOXIDE 25.8 mmol/L (21-32); CHLORIDE 102 mmol/L (98-107); GLUCOSE 293 mg/dL (74-106); POTASSIUM 3.9 mmol/L (3.5-5.1); SODIUM SERUM 139 mmol/L (136-145)
[2020-02-07 07:30] LABS: UREA NITROGEN, BLOOD 82 mg/dL (7-18)
--- NOTE | 2020-02-07 07:30 | NUR ---
RECEIVED CRITICAL LAB FROM CHEMISTRY. BUN 82, GILL. 8.1, AND CR 3.0. PAGED DR. SOLORIO. AWAITING ORDERS. SAFETY MEASURES IN PLACE. WILL CONTINUE TO MONITOR
[2020-02-07 07:54] LABS: BASOPHILS % (AUTO) 0.2 % (0.0-2.0); HEMATOCRIT 24.7 % (36-48); HEMOGLOBIN 7.7 g/dL (12.0-16.0); LYMPHOCYTES # (AUTO) 0.2 K/uL (2.5-16.5); LYMPHOCYTES % (AUTO) 1.5 % (20.5-51.1); MEAN CORPUSCULAR HEMOGLOBIN 23 pg (27-31); MEAN CORPUSCULAR HGB CONC 31 g/dL (33-37); MEAN CORPUSCULAR VOLUME 72.8 fL (80-94); MONOCYTES # (AUTO) 0.4 K/uL (0.8-1.0); MONOCYTES % (AUTO) 2.8 % (1.7-9.3); NEUTROPHILS # (AUTO) 12.8 K/uL (1.8-7.7); NEUTROPHILS % (AUTO) 95.5 % (42.2-75.2); PLATELET COUNT (AUTO) 109 K/uL (140-450); RED BLOOD CELL COUNT(AUTO) 3.39 MIL/uL (4.20-5.40); WHITE BLOOD COUNT (AUTO) 13.4 K/uL (4.8-10.8)
[2020-02-07 08:00] VITALS: BP 130/63
--- NOTE | 2020-02-07 08:00 | NUR ---
PT SCREAMING AND YELLING. PT SCREAMING THAT SHE WANTS TO GO HOME. REORIENTED PT ON WHERE SHE IS AND HER CURRENT STATE OF CONDITION. PT CONTINUES TO SAY, "I DON'T WANNA BE HERE! I WANNA GO HOME NOW AND GET OUT OF THIS SHIT!" WILL CONTINUE TO MONITOR
[2020-02-07] MEDS: DILTIAZEM 90 MG CAPER PO SCH ×2 (09:00→20:38)
--- NOTE | 2020-02-07 09:00 | NUR ---
PT CALLED SERGIO AND SAID THAT SHE WAS GETTING DISCHARGED TODAY. TOLD SERGIO THAT SHE WAS NOT LEAVING AND THAT A NURSE WILL CALL HIM WHEN IT IS TIME FOR HER TO GET DISCHARGED. REORIENTED PT AND SAID THAT SHE WILL NOT BE DISCHARGING TODAY. PT REFUSED TO BELIEVE THAT SHE IS NOT GETTING DISCHARGED TODAY. SAFETY MEASURES IN PLACE. WILL CONTINUE TO MONITOR
[2020-02-07] MEDS: METOPROLOL 25 MG TAB PO SCH ×2 (09:24→20:33)
[2020-02-07] MEDS: ASPIRIN 81 MG TAB.CHEW PO SCH (09:25)
[2020-02-07] MEDS: QUEtiapine FUMARATE 25 MG TAB PO SCH ×2 (09:25→20:32)
[2020-02-07] MEDS: methylPREDNISolone SS 125 MG/2 ML VIAL IVP SCH (09:26)
--- NOTE | 2020-02-07 09:26 | NUR ---
ADMINISTERED SCHED MED. PT TOLERATED WELL. MEDICATION EDUCATION PERFORMED. PT TOLERATED WELL. MEDICATION EDUCATION PERFORMED. PT VERBALIZED UNDERSTANDING. SAFETY MEASURES IN PLACE. WILL CONTINUE TO MONITOR
[2020-02-07] MEDS: cloNIDine-TTS2 0.2 MG/24 HR 1 EA PATCH TD SCH (09:28)
[2020-02-07] MEDS: FAMOTIDINE 20 MG/2 ML VIAL IVP SCH (09:40)
--- NOTE | 2020-02-07 11:24 | NUR ---
OPEN TENTER OPERATOR NOTE: Basic Screen: Yes High Risk DC Screen [place]: SERGIO Carrasquillo Relationship: FRIEND Pre-Admission Living Arrangements: Lives with Other Prior ADL Independent Current Home Health Name/Tel: N/A Current DME/02 Name/Tel: [facility], WALKER, WHEELCHAIR Current Hospice Name/Tel: N/A Current Dialysis Name/Tel: N/A Healthcare Decision Maker: Patient Advance Directive No Physician Orders for Life Sustaining Treatment Form No Patient/Family Have Educational Needs No Information Taught: Advance Directive Community Resources Person Taught: Patient Teaching Tools: Verbal Factors Affecting Learning: None Participation Level: Refused Evaluation: Verbalizes Understanding Needs Additional Education: No Discipline: Case Mgt/Social Svcs Tentative Discharge Plan/Destination: No Needs Identified Will require assistance post discharge: No Referred to Billing Clinician: No Tentative Discharge Plan Summary: PATIENT IS A 69-YEAR-OLD FEMALE ADMITTED FOR RESPIRATORY FAILURE. 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 PATIENT WAS ADMITTED FROM HOME WHERE SHE LIVES WITH ROOMMATES. SW MET WITH PATIENT AT BED SIDE TO COMPLETE ASSESSMENT. PER PATIENT, SHE IS INDEPENDENT WITH ALL ADLS AND REPORTS NO HISTORY OF SUBSTANCE ABUSE OR MENTAL HEALTH. TENTATIVE DISCHARGE PLAN IS FOR PATIENT TO RETURN HOME. NO FURTHER NEEDS IDENTIFIED. Signature: FRANCISCA CIFUENTES Date: February 07, 2020 Time: 11:23
--- NOTE | 2020-02-07 11:30 | NUR ---
PT BLOOD SUGAR IS 381. PRN INSULIN WILL BE ADMINISTERED WITH NEXT MEAL. SAFETY MEASURES IN PLACE. WILL CONTINUE TO MONITOR
[2020-02-07 12:00] VITALS: BP 133/86
[2020-02-07] MEDS: MORPHINE SULFATE 2 MG/ML SYR IVP PRN (12:02)
--- NOTE | 2020-02-07 12:29 | NUR ---
contacted Manuel ([facility]), notified with the HD ordered for tomorrow.
--- NOTE | 2020-02-07 12:30 | NUR ---
ADMINISTERED PRN INSULIN PT TOLERATED WELL. MEDICATION EDUCATION PERFORMED. PT TOLERATED WELL. MEDICATION EDUCATION PERFORMED. PT VERBALIZED UNDERSTANDING. SAFETY MEASURES IN PLACE. WILL CONTINUE TO MONITOR
--- NOTE | 2020-02-07 13:30 | NUR ---
PT IS RESTING IN BED. NO SIGNS OF RESPIRATORY DISTRESS. RESPIRATIONS ARE EVEN AND UNLABORED. CALL LIGHT IS IN REACH AND SAFETY MEASURES ARE IN PLACE. WILL CONTINUE TO MONITOR AND ROUND ON FREQUENTLY.
--- NOTE | 2020-02-07 15:00 | NUR ---
PT IS RESTLESS AND AGITATED. PT HAS BEEN YELLING FOR HELP OUT OF BED AND STATING THAT SHE WANTS TO LEAVE. EDUCATED PT ON NEED FOR FURTHER ASSESSMENT AND MONITORING TO HELP HER GET WELL. EDUCATED PT ON SAFETY MEASURE IN PLACE. RESPIRATIONS ARE EVEN AND UNLABORED WITH NO SIGNS OF RESPIRATORY DISTRESS. PHONE AND CALL LIGHT IS IN REACH. WILL CONTINUE TO ROUND ON FREQUENTLY AND MONITOR.
[2020-02-07 16:00] VITALS: BP 146/77
--- NOTE | 2020-02-07 16:00 | NUR ---
PT CALLED SERGIO AGAIN AND TOLD HIM THAT SHE WAS LEAVING. TOLD SERGIO AGAIN THAT A NURSE WILL CALL HIM ONCE THE PATIENT IS READY FOR DISCHARGE. REORIENTED PT AND TOLD HER THAT SHE WAS STAYING AND PT STATED, "I AM FINE! I DO NOT NEED TO STAY HERE! I WANNA GET OUT!" TRIED REORIENTING PATIENT AGAIN BUT SHE REFUSED TO BELIEVE THAT SHE NEEDS TO STAY. PT KEEPS SAYING, "I WANNA GO HOME!". WILL CONTINUE TO MONITOR
--- NOTE | 2020-02-07 16:30 | NUR ---
PT BLOOD SUGAR IS 316 PRN INSULIN WILL BE ADMINISTERED WITH NEXT MEAL. SAFETY MEASURES IN PLACE. WILL CONTINUE TO MONITOR
[2020-02-07] MEDS: LORazepam 2 MG/ML VIAL IVP PRN ×2 (17:14→23:20)
--- NOTE | 2020-02-07 17:20 | NUR ---
PT GIVEN ATIVAN FOR AGITATION AND ANXIETY. INSULIN GIVEN FOR BLOOD GLUCOSE LEVEL OF 316. PT TOLERATED MEDICATIONS WELL AND WAS EDUCATED ON USE AND SIDE EFFECTS. CALL LIGHT IN REACH AND SAFETY MEASURES IN PLACE. NO SIGNS OF RESPIRATORY DISTRESS OR DISCOMFORT. PT IS AWAKE AND ALERT. WILL CONTINUE TO DO FREQUENT ROUNDS AND MONITOR.
--- NOTE | 2020-02-07 18:02 | NUR ---
HELPED STAFF TECHNOLOGIST REPOSITION PT IN BED. PT IS AWAKE AND ALERT. PHONE PLACED AT BEDSIDE PER PT REQUEST. CALL LIGHT IS IN REACH. PLACED SIGN FOR NPO AFTER MIDNIGHT. EDUCATED PT ON NEED FOR NPO STATUS AND WHEN IT WILL BE IN EFFECT. PT VERBALIZED UNDERSTANDING. WILL CONTINUE TO MONITOR AND ROUND ON FREQUENTLY.
[2020-02-07] MEDS: METOPROLOL 5 MG/5 ML VIAL IV PRN (18:42)
--- NOTE | 2020-02-07 18:42 | NUR ---
SALESPERSON FLOOR COVERINGS CALLED AND SAID THAT PT HEART RATE HAS BEEN BETWEEN 126-140. AFTER ASSESSING PT HER HEART RATE WAS 136. PRN LOPRESSOR ADMINISTERED PRESCRIBED PER MD ORDER. MEDICATION OBTAINED FROM ICU WITH CHARGE NURSE. MEDICATION EDUCATION PERFORMED. PT VERBALIZED UNDERSTANDING. SAFETY MEASURES IN PLACE. WILL CONTINUE
--- NOTE | 2020-02-07 19:07 | NUR ---
ENDORSED AT BEDSIDE TO NIGHTSHIFT NURSE. PT IS STABLE
--- NOTE | 2020-02-07 19:15 | NUR ---
RECEIVED REPORT FROM DAY SHIFT NURSE. PATIENT AWAKE, ALERT/ORIENTED X 4. PATIENT ON ROOM AIR. RESPIRATIONS EVEN AND UNLABORED. WITH LEFT LOWER LEG OPEN WOUND. DRESSING IN PLACE. DRY AND INTACT. WITH FORTE CATHETER DRAINING YELLOW URINE. PATIENT WITH IV SITE PATENT AND INTACT WITH IVF DRAINING. NOTED ANIA CATHETER. SAFETY MEASURES IN PLACE. REVIEWED PLAN OF CARE TO PATIENT. VERBALIZED UNDERSTANDING. CALL LIGHT WITHIN REACH. WILL CONTINUE TO MONITOR PATIENT.
[2020-02-07 20:00] VITALS: BP 150/96
[2020-02-07] MEDS ORDERED: DILTIAZEM 60 MG TAB ONE (20:30)
--- NOTE | 2020-02-07 20:33 | NUR ---
ALL SCHEDULED MEDICATIONS GIVEN. PATIENT TOLERATED WELL. NO ADVERSE REACTION NOTED. WILL CONTINUE TO MONITOR PATIENT.
--- NOTE | 2020-02-07 20:33 | NUR ---
OVERRIDE CARDIZEM 60 MG 3 TABLETS D/T WE CAN'T FIND 90 MG CAPSULES ON THE PYXIS. GAVE MEDICATIONS TO PT. PATIENT TOLERATED WELL. NO ADVERSE REACTIONS NOTED. LATER, WE FOUND THE MEDICATION IN THE YELLOW BIN.
[2020-02-07] MEDS: ATORVASTATIN 20 MG TAB PO SCH (20:42)
[2020-02-07] MEDS ORDERED: CRUSHER, PILL MC ONE (20:45)
[2020-02-07] MEDS ORDERED: DIGOXIN 0.25 MG/ML AMP IV ONE ×2 (22:15→22:35)
[2020-02-07] MEDS ORDERED: DILTIAZEM 25 MG/5 ML VIAL IVP ONE ×2 (22:15→22:36)
--- NOTE | 2020-02-07 22:25 | NUR ---
PATIENT'S HEART RATE IS FLUCTUATING FROM 130-160 BPH. CARDIAC RHYTHM SHOWED UNCONTROLLED ATRIAL FIBRILLATION. CALLED SALES PRODUCER DOCTOR AND SPOKE TO DR. MORALES. ORDERED 1 DOSE DIGOXIN 0.125 MG IVP AND 10 MG CARDIZEM IVP. RECEIVED ORDERS. CALLED PHARMACY MULTIPLE TIMES TO VERIFY ORDERS BUT NO ONE IS ANSWERING CALLS. OVERRIDE MEDICATIONS WITH CHARGE NURSE.
--- NOTE | 2020-02-07 22:49 | NUR ---
ADMINISTERED DIGOXIN 0.125MG IVP AND CARDIZEM 10 MG IVP MEDICATIONS PER MD ORDER. PATIENT TOLERATED WELL. NO ADVERSE REACTIONS NOTED.
--- NOTE | 2020-02-07 23:20 | NUR ---
PATIENT IS AGITATED AND CONFUSED. PATIENT IS SHOUTING ALL OVER. ADMINISTERED ATIVAN PRN MEDICATION PER MD ORDER. WILL CONTINUE TO MONITOR PATIENT.
[2020-02-07] MEDS: HALOPERIDOL IM 5 MG/ML VIAL IM PRN (23:28)
--- NOTE | 2020-02-07 23:28 | NUR ---
PATIENT IS SEVERELY AGITATED. PATIENT IS SHOUTING ALL OVER. PT IS CONFUSED. ADMINISTERED HALDOL PRN MEDICATION PER MD ORDER. WILL CONTINUE TO MONITOR PATIENT.
[2020-02-08] VITALS (13 sets, daily range): BP systolic 114–179; BP diastolic 70–105
[2020-02-08] MEDS: ALBUTEROL SULFATE/IPRATROPIU 3 ML SOL IH SCH ×4 (01:00→19:00)
--- NOTE | 2020-02-08 01:00 | NUR ---
PT IS AGITATED AND REFUSED Tx PT WAS ORALLY Sx SHE IS COUGHING UP SMALL AMOUNTS OF THIN SECRETIONS PT WAS PLACED ON 5L SIMPLE MASK DUE TO MOUTH BREATHING AND DESATING TO 86 PT IS NOW 96% HR 62
--- NOTE | 2020-02-08 02:22 | NUR ---
PT IS NOW BACK ON 3LNC SAT 92% PT HR IS 86
[2020-02-08] MEDS: LORazepam 2 MG/ML VIAL IVP PRN ×2 (03:44→15:43)
--- NOTE | 2020-02-08 03:44 | NUR ---
PATIENT IS AGITATED AGAIN. ADMINISTERED ATIVAN PER MD ORDER. PATIENT TOLERATED WELL. WILL CONTINUE TO MONITOR PATIENT.
[2020-02-08] MEDS: BLOOD GLUCOSE MONITORING 1 DEV DEV FS SCH ×4 (06:15→20:28)
--- NOTE | 2020-02-08 06:15 | NUR ---
CHECKED PATIENT'S BLOOD SUGAR LEVEL AND REVEALED 179 MG/DL RESULT. ADMINISTERED 2 UNITS OF HUMALOG PER SLIDING SCALE. PATIENT TOLERATED WELL. WILL CONTINUE TO MONITOR PATIENT.
[2020-02-08] MEDS: INSULIN LISPRO SLIDING SCALE 100 UNITS/ML VIAL SUBQ PRN ×2 (06:18→20:29)
[2020-02-08 06:27] LABS: HEMOGLOBIN 7.9 g/dL (12.0-16.0); MEAN CORPUSCULAR HEMOGLOBIN 23 pg (27-31); PLATELET COUNT (AUTO) 136 K/uL (140-450); RED BLOOD CELL COUNT(AUTO) 3.47 MIL/uL (4.20-5.40)
[2020-02-08 06:48] LABS: PHOSPHORUS 5.7 mg/dL (2.5-4.9)
[2020-02-08 06:50] LABS: ANION GAP 16.2 (8-16); CARBON DIOXIDE 24.9 mmol/L (21-32); CHLORIDE 102 mmol/L (98-107); CREATININE 3.9 mg/dL (0.6-1.3); GLUCOSE 191 mg/dL (74-106); POTASSIUM 4.1 mmol/L (3.5-5.1); SODIUM SERUM 139 mmol/L (136-145)
--- NOTE | 2020-02-08 06:59 | NUR ---
PT IN STABLE CONDITION. WILL ENDORSE PT TO DAY SHIFT NURSE FOR CONTINUOUS CARE.
[2020-02-08 07:07] LABS: HEMATOCRIT 25.4 % (36-48); MEAN CORPUSCULAR HGB CONC 31 g/dL (33-37); MEAN CORPUSCULAR VOLUME 73.2 fL (80-94); RED CELL DISTRIBUTION WIDTH 18.2 % (11.6-13.7); WHITE BLOOD COUNT (AUTO) 23.2 K/uL (4.8-10.8)
--- NOTE | 2020-02-08 07:15 | NUR ---
RECEIVED REPORT FROM SLITTER SCORER CUT OFF OPERATOR NURSE. PATIENT LYING DOWN IN BED, NO DISTRESS NOTED. AAOX1, CONFUSED, CALM AT THIS TIME. RESPIRATIONS EVEN, UNLABORED, ON O2 3L/MIN VIA NC WITH O2 SAT AT 90-91%, PT HAS HISTORY OF COPD. IV SITE INACT, PATENT, AND INFUSING IVF PER MD ORDERS. HAS LEFT UPPER IJ ANIA CATHETER IN PLACE, DRESSING DRY AND INTACT. FORTE CATHETER IN PLACE, DRAINING CLOUDY, [id number] URINE WITH SEDIMENTS NOTED. REVIEWED PLAN OF CARE WITH PATIENT. UNABLE TO COMPREHEND. SAFETY MEASURES IN PLACE, CALL LIGHT WITHIN REACH. WILL CONTINUE TO MONITOR.
[2020-02-08 07:53] LABS: UREA NITROGEN, BLOOD 106 mg/dL (7-18)
[2020-02-08] MEDS: QUEtiapine FUMARATE 25 MG TAB PO SCH ×2 (09:00→20:18)
[2020-02-08] MEDS: ASPIRIN 81 MG TAB.CHEW PO SCH (09:00)
[2020-02-08] MEDS: DILTIAZEM 90 MG CAPER PO SCH ×3 (09:00→20:18)
[2020-02-08] MEDS: METOPROLOL 25 MG TAB PO SCH ×3 (09:00→22:09)
[2020-02-08] MEDS: SODIUM FERRIC GLUCONATE 125 MG in NACL 0.9% 100 ML IV SCH (09:00)
[2020-02-08] MEDS: FAMOTIDINE 20 MG/2 ML VIAL IVP SCH (09:10)
[2020-02-08] MEDS: methylPREDNISolone SS 125 MG/2 ML VIAL IVP SCH (09:10)
--- NOTE | 2020-02-08 09:18 | NUR ---
SCHEDULED MEDS GIVEN. HD NURSE AT BEDSIDE. WILL CONTINUE TO MONITOR.
[2020-02-08 09:28] LABS: LYMPHOCYTES % (MANUAL) 1 % (20-46); MONOCYTES % (MANUAL) 2 % (5-12)
--- NOTE | 2020-02-08 11:00 | NUR ---
DR. PENNY AT BEDSIDE REVIEWING PLAN OF CARE WITH PATIENT. PATIENT CONFUSED. WILL CONTINUE TO MONITOR.
--- NOTE | 2020-02-08 12:05 | NUR ---
PATIENT LYING DOWN IN BED WITH HD IN PROGRESS. CONDITION UNCHANGED. WILL CONTINUE TO MONITOR.
[2020-02-08] MEDS: EPOETIN ALFA 10,000 UNITS/ML VIAL IV SCH (12:21)
--- NOTE | 2020-02-08 12:34 | NUR ---
PLACED A CALL TO DR. WATERMAN CELL PHONE, NO ANSWER, MESSAGE LEFT TO CALL BACK REGARDING PT'S INFORMED CONSENT FOR SX THAT PT IS NOT IS NOT ABLE TO MAKE HER OWN DECISION AND SO WE NEED TO DOCTORS SIGNATURE. PT DOES NOT HAVE FAMILY/NEXT OF KIN. NO POWER OF ESTATE PLANNING ATTORNEY EITHER. PLACED A CALL AT THE [facility] REGARDING THE ISSUE, AWAITING FOR CALL BACK. DR. AMBRIZ IS AT THE NURSES STATION AND NOTIFIED. BRETT ASSIGNED MADE AWARE.
--- NOTE | 2020-02-08 12:55 | NUR ---
DR. WATERMAN CALLED BACK, NOTIFIED WITH THE ISSUE REGARDING PT'S CONSENT FOR SX. DR. WATERMAN STATED HE WILL UPDATE HIS PROGRESS NOTES REMOTELY RIGHTNOW. MILTON SIBLEY ASSIGNED AND MAYTE SIBLEY MADE AWARE.
[2020-02-08] MEDS: glipiZIDE 5 MG TAB PO SCH (17:03)
--- NOTE | 2020-02-08 18:25 | NUR ---
TRANSFERRED PATIENT TO ICU SAFELY AND GAVE REPORT TO ICU NURSE. PATIENT IN STABLE CONDITION AT THIS TIME.
--- NOTE | 2020-02-08 18:40 | NUR ---
RECEIVED PT FROM TELE, C/O UNCONTROLLED AFIB. PT IS AWAKE, ABLE TO FOLLOW COMMANDS. VITALS HR 150, BP 128/97, O2 91% ON 3L NC, RR 24. NO SOB. PT HAS RIGHT IJ ANIA FOR DIALYSIS. HD TODAY 2L REMOVED. IV CATH TO LEFT UA, 22G, SL, FLUSHED, ASYMPTOMATIC. FORTE CATH IN PLACE DRAINING CLEAR YELLOW URINE. PT ON BILATERAL WRIST RESTRAINTS, NO SIGNS OF INJURY. LEFT BARKLEY OPEN WOUND, DRESSING INTACT. SIDE RAILS UP, BED IN LOWEST POSITION, CALL LIGHT WITHIN REACH. CHARGE NURSE CALLED ADVERTISING OPERATIONS COORDINATOR DR SY Ferreira. ORDER RECEIVED.
[2020-02-08] MEDS ORDERED: METOPROLOL 5 MG/5 ML VIAL IV SCH (19:05)
--- NOTE | 2020-02-08 19:12 | NUR ---
REPORT RECEIVED FROM AM NURSE AT BEDSIDE. PT IN STABLE CONDITION BUT IS CURRENTLY IN UNCONTROLLED AFIB. AAOX1-2. PT HAS COMPLAINTS OF PAIN. WILL MEDICATE. NO SOB ON 3L O2 VIA NC. AFEBRILE. PT HAS SOFT WRIST RESTRAINTS. PT IS ON BEDREST. PT HAS FORTE. PT HAS DIALYSIS ACCESS L IJ. IV SITE R UA 22G SL PATENT AND INTACT. SKIN WARM, DRY, AND NOT INTACT DUE TO AN OPEN WOUND ON THE LEFT LOWER LEG. BED LOCKED IN LOW POSITION. CALL DOHERTY WITHIN REACH. SAFETY PRECAUTION IN PLACE. ALL NEEDS MET AT THIS TIME.
--- NOTE | 2020-02-08 19:26 | NUR ---
hhn tx not given. pt is tachycardic. pt is on 2l sat 91%. will cont to monitor
[2020-02-08] MEDS: METOPROLOL 5 MG/5 ML VIAL IV PRN ×2 (19:38→20:56)
--- NOTE | 2020-02-08 19:38 | NUR ---
LOPRESSOR GIVEN IVP FOR INCREASED HR AND BP. PT TOLERATED WELL.
[2020-02-08] MEDS: ATORVASTATIN 20 MG TAB PO SCH (20:18)
--- NOTE | 2020-02-08 20:18 | NUR ---
CARDIZEM, SEROQUEL, AND LIPITOR GIVEN PO. MORPHINE GIVEN IVP. BS 232. 4 UNITS OF HUMALOG GIVEN. HEPARIN GIVEN SUBQ.
[2020-02-08] MEDS: MORPHINE SULFATE 2 MG/ML SYR IVP PRN (20:30)
[2020-02-08] MEDS ORDERED: DILTIAZEM 125 MG/25 ML VIAL IV ONE (20:49)
--- NOTE | 2020-02-08 20:56 | NUR ---
SECOND DOSE OF LOPRESSOR GIVEN PER DR. DAN.
--- NOTE | 2020-02-08 22:09 | NUR ---
LOPRESSOR GIVEN PO. PT TOLERATED WELL.
[2020-02-08] MEDS: DILTIAZEM 125 MG in DEXTROSE 5% 100 ML IV SCH (22:28)
--- NOTE | 2020-02-08 22:28 | NUR ---
CARDIZEM DRIP STARTED.
[2020-02-09] VITALS (71 sets, daily range): BP systolic 88–149; BP diastolic 44–112
--- NOTE | 2020-02-09 00:15 | NUR ---
PT SLEEPING COMFORTABLY. CARDIZEM DRIP STILL ON CONTINUOUS DRIP WITH SLIGHT IMPROVEMENT. WILL CONTINUE TO MONITOR.
[2020-02-09] MEDS: ALBUTEROL SULFATE/IPRATROPIU 3 ML SOL IH SCH ×4 (01:00→19:23)
--- NOTE | 2020-02-09 01:34 | NUR ---
NO HHN TX GIVEN. PT IS TACHYCARDIC. NO RESPIRATORY DISTRESS NOTED. WILL CONT TO MONITOR
--- NOTE | 2020-02-09 02:45 | NUR ---
PT SLEEPING COMFORTABLY WITH NO S/S OF DISTRESS. CARDIZEM DRIP STILL HUNG FOR CONTINUOUS DRIP.
[2020-02-09] MEDS ORDERED: DILTIAZEM 125 MG/25 ML VIAL IV ONE (05:15)
--- NOTE | 2020-02-09 05:15 | NUR ---
FORTE CARE DONE.
[2020-02-09] MEDS: DILTIAZEM 125 MG in DEXTROSE 5% 100 ML IV SCH ×2 (05:45→14:43)
--- NOTE | 2020-02-09 05:45 | NUR ---
NEW BAG PARIS SCHULTZ FOR CONTINUOUS DRIP. PT TOLERATING WELL.
[2020-02-09] MEDS: BLOOD GLUCOSE MONITORING 1 DEV DEV FS SCH ×4 (06:35→20:05)
[2020-02-09] MEDS: INSULIN LISPRO SLIDING SCALE 100 UNITS/ML VIAL SUBQ PRN ×3 (06:36→21:32)
--- NOTE | 2020-02-09 06:36 | NUR ---
BS 201. 4 UNITS OF HUMALOG GIVEN. Addendum: 02/09/20 at 0641 by Mitchel Sims RN GLIPIZIDE GIVEN PO.
[2020-02-09 06:38] LABS: BASOPHILS % (AUTO) 0.1 % (0.0-2.0); HEMATOCRIT 25.7 % (36-48); LYMPHOCYTES # (AUTO) 0.2 K/uL (2.5-16.5); LYMPHOCYTES % (AUTO) 1.5 % (20.5-51.1); MEAN CORPUSCULAR HEMOGLOBIN 23 pg (27-31); MEAN CORPUSCULAR HGB CONC 31 g/dL (33-37); MEAN CORPUSCULAR VOLUME 73.8 fL (80-94); MONOCYTES # (AUTO) 1.1 K/uL (0.8-1.0); MONOCYTES % (AUTO) 7.2 % (1.7-9.3); NEUTROPHILS # (AUTO) 14.4 K/uL (1.8-7.7); NEUTROPHILS % (AUTO) 91.2 % (42.2-75.2); PLATELET COUNT (AUTO) 111 K/uL (140-450); RED BLOOD CELL COUNT(AUTO) 3.48 MIL/uL (4.20-5.40); RED CELL DISTRIBUTION WIDTH 18.2 % (11.6-13.7); WHITE BLOOD COUNT (AUTO) 15.8 K/uL (4.8-10.8)
[2020-02-09] MEDS: glipiZIDE 5 MG TAB PO SCH (06:41)
--- NOTE | 2020-02-09 07:20 | NUR ---
RECEIVED REPORT FROM NIGHT NURSE. PT IN BED ASLEEP, NO DISTRESS NOTED, FLACC 0. STANDARD PRECAUTIONS, COVID (-). SKIN NON INTACT WITH L LOWER EXTREMITY OPEN WOUND. L IJ ANIA CATH IN PLACE TO BE REPLACED WITH TUNNELED CATH FOR HD. L UA 22G IN PLACE RECEIVING CARDIZEM AT 15ML/H PATENT AND ASYMPTOMATIC. RECEIVING O2 VIA NC AT 4L, LUNG SOUNDS DIMINISHED. FORTE IN PLACE. PT IN NPO STATUS PRIOR TO TUNNELED CATH PLACEMENT. BILATERAL SOFT WRIST RESTRAINTS IN PLACE WITH ACTIVE ORDER. CONTROLLED A FIB ON HEART MONITOR. FALL RISK. SAFETY MEASURES IN PLACE, WILL MONITOR CLOSELY.
--- NOTE | 2020-02-09 07:32 | NUR ---
SATURATION 97% ON SUPPLEMENTAL OXYGEN AT 4 LPM VIA NC POST HHN THERAPY TITRATED FIO2 TO 2 LPM AMARI NOTIFIED Addendum: 02/09/20 at 0753 by Mateo James RT REVIEWED OXYGEN ORDER: KEEP SATURATION GREATER THAN 92%
[2020-02-09 07:35] LABS: MAGNESIUM 3.7 mg/dL (1.8-2.4)
[2020-02-09 08:13] LABS: SODIUM SERUM 137 mmol/L (136-145)
[2020-02-09 08:14] LABS: CARBON DIOXIDE 22.7 mmol/L (21-32); CHLORIDE 100 mmol/L (98-107); GLUCOSE 87 mg/dL (74-106); POTASSIUM 4.7 mmol/L (3.5-5.1)
[2020-02-09 08:15] LABS: CREATININE 3.7 mg/dL (0.6-1.3); UREA NITROGEN, BLOOD 115 mg/dL (7-18)
[2020-02-09] MEDS: methylPREDNISolone SS 125 MG/2 ML VIAL IVP SCH (08:42)
[2020-02-09] MEDS: FAMOTIDINE 20 MG/2 ML VIAL IVP SCH (08:42)
[2020-02-09] MEDS: QUEtiapine FUMARATE 25 MG TAB PO SCH ×2 (09:00→20:06)
[2020-02-09] MEDS: DILTIAZEM 90 MG CAPER PO SCH (09:00)
--- NOTE | 2020-02-09 09:10 | NUR ---
MEDICATIONS ADMINISTERED ORDERED. PT TOLERATED WELL. Addendum: 02/09/20 at 1219 by Evan Middleton RN HEPARIN HELD DUE TO POSSIBLE PERM-A-CATH PLACEMENT TODAY.
--- NOTE | 2020-02-09 10:13 | NUR ---
DR. PENNY IN TO SEE PT. UPDATES GIVEN ON PT'S CONDITION. WILL FOLLOW UP ON ORDERS.
--- NOTE | 2020-02-09 10:30 | NUR ---
ENVELOPE MAKER YULIET AND AKIKO AWARE OF HD ORDER FOR TOMORROW 02/09/2020.
[2020-02-09] MEDS: METOPROLOL 25 MG TAB PO SCH ×2 (11:00→16:42)
--- NOTE | 2020-02-09 11:10 | NUR ---
DR. ORTIZ IN TO SEE PT. WILL FOLLOW UP ON ORDERS.
--- NOTE | 2020-02-09 11:20 | NUR ---
RECEIVED CALL FROM DR. DONIS. UPDATES GIVEN ON PT'S CONDITION.
--- NOTE | 2020-02-09 14:00 | NUR ---
TURNED AND REPOSITIONED. PRESSURE AREAS OFF LOADED. PT TOLERATED WELL.
--- NOTE | 2020-02-09 14:46 | NUR ---
02/09/20 RD FOLLOW UP COMPLETED PLEASE REFER TO NUTRITION ASSESSMENT UNDER CARE ACTIVITY FOR ESTIMATED NUTRITIONAL NEEDS. 1. CONTINUE NPO MEDICALLY NECESSARY [facility]. [facility] WITH NEPRO BID ONCE MEDICALLY CLEARED 3. IF PO INTAKE >75% RECOMMEND RENAL DIET 4. ENCOURAGE PO INTAKE AND ASSIST WITH MEALS 5. CONSIDER ENTERAL NUTRITION IF PT CONTINUES WITH POOR APPETITE <50% 6. RD TO FOLLOW-UP 2-3 DAYS, HIGH RISK KIYA ALVARADO RD
[2020-02-09] MEDS ORDERED: DEXT 5% / NACL 0.45% 1,000 ML IV SCH (16:15)
--- NOTE | 2020-02-09 16:15 | NUR ---
DR. DONIS IN TO SEE AND EXAMINE PT. WILL FOLLOW UP ON ORDERS.
[2020-02-09] MEDS ORDERED: DILTIAZEM 25 MG/5 ML VIAL IVP PRN (16:20)
[2020-02-09] MEDS ORDERED: DILTIAZEM 60 MG TAB PO SCH (16:25)
--- NOTE | 2020-02-09 18:20 | NUR ---
PT HAD 75% OF DINNER. NO SIGNS OF DISTRESS NOTED AT THIS TIME. VSS.
--- NOTE | 2020-02-09 18:55 | NUR ---
PT'S HR DECREASED TO 40'S AND FLUCTUATES FROM 40'S TO 70'S. DR. SY العراقي MADE AWARE. ORDERS RECEIVED.
--- NOTE | 2020-02-09 19:23 | NUR ---
REPORT GIVEN TO MATH INTERVENTIONIST RN FOR CONTINUITY OF CARE. PT IS IN STABLE CONDITION.
--- NOTE | 2020-02-09 19:24 | NUR ---
REPORT RECEIVED FROM AM NURSE AT BEDSIDE. PT IN STABLE CONDITION. AAOX4 BUT HAS INTERMITTENT CONFUSION AT TIMES. PT IS CURRENTLY SINUS SHERRIE. NO COMPLAINTS OF PAIN. NO SOB ON 2L O2 VIA NC. AFEBRILE@97.7. PT IS ON BEDREST. PT HAS FORTE. PT ON REGULAR DIET. IV SITE L UA 22G RUNNING D5 1/2NS@40ML/HR PATENT AND INTACT. SKIN WARM, DRY, AND NOT INTACT DUE TO AN OPEN WOUND OF THE LLE. BED LOCKED IN LOW POSITION. CALL DOHERTY WITHIN REACH. SAFETY PRECAUTION IN PLACE. ALL NEEDS MET AT THIS TIME.
[2020-02-09] MEDS: ATORVASTATIN 20 MG TAB PO SCH (20:06)
--- NOTE | 2020-02-09 20:06 | NUR ---
BS 326. 6 UNITS OF HUMALOG GIVEN. SEROQUEL AND LIPITOR GIVEN PO. HEPARIN HELD DUE TO DECREASED PLATELET COUNT.
[2020-02-09] MEDS: DILTIAZEM 60 MG TAB PO SCH (20:39)
--- NOTE | 2020-02-09 20:39 | NUR ---
CARDIZEM GIVEN PO.
--- NOTE | 2020-02-09 22:20 | NUR ---
PT STILL BRADYCARDIC BUT STABLE. NO S/S OF DISTRESS NOTED. WILL CONTINUE TO MONITOR.
[2020-02-10] VITALS (11 sets, daily range): BP systolic 113–140; BP diastolic 65–90
--- NOTE | 2020-02-10 | NUR ---
PT SCREAMING AND YELLING BECAUSE SHE WANTS COFFEE AND WANTS TO SMOKE. NO S/S OF DISTRESS NOTED. PT HR IMPROVING BUT SOMETIMES GOES INTO SHERRIE IN THE MID 40'S. WILL START PROCESS OF TRANSFERRING SOON.
[2020-02-10] MEDS: ALBUTEROL SULFATE/IPRATROPIU 3 ML SOL IH SCH ×4 (00:27→19:00)
--- NOTE | 2020-02-10 00:27 | NUR ---
NO HHN TX GIVEN. PT WAS COMBATIVE EARLIER TO RN. PT IS ON 2LNC SAT 100%. NO RESP DISTRESS NOTED. WILL CONT TO MONITOR
[2020-02-10] MEDS: HALOPERIDOL IM 5 MG/ML VIAL IM PRN (02:45)
--- NOTE | 2020-02-10 02:45 | NUR ---
HALDOL IM GIVEN FOR AGITATION.
--- NOTE | 2020-02-10 03:00 | NUR ---
PT IS STABLE. HR WNL. PT TRANSFERRED TO TELE 122A. REPORT GIVEN TO FABIANA SIBLEY.
--- NOTE | 2020-02-10 03:16 | NUR ---
RECEIVED PT AAOX 2 TO 3 , FROM ICU / [facility] , TRANSFER TO BED BY MANUAL LIFT NID - O2 SAT WNL , W/ QIUNTON CATH AT L IJ - FOR DIALYSIS TODAY . W/ IV CANNULA AT L UA , ON TELE MONITOR , W/ O2 AT 2LPM/NC .W/ FC DRAINING CLEAR U.O . W/ OPEN WOUND ON LLE. W/ OLD DRESSING -DRY AND INTACT . PLAN OF CARE DISCUSSED BUT W/ FAIR UNDERSTANDING - NEEDS RE INFORCEMENT , ON BILAT. SOFT WRIST RESTRAINT - NO SIGNS OF INJURY NOTED AT THIS TIME.SAFETY MEASURES ON PLACE , PUT ON ISOLATION - R/O COVID 19 . WILL CONT. TO MONITOR.
--- NOTE | 2020-02-10 06:00 | NUR ---
MADE ROUNDS , NO S/S OF ACUTE DISTRESS NOTED AT THIS TIME. WILL CONT. TO MONITOR.
[2020-02-10] MEDS: INSULIN LISPRO SLIDING SCALE 100 UNITS/ML VIAL SUBQ PRN ×2 (06:30→21:48)
[2020-02-10] MEDS: BLOOD GLUCOSE MONITORING 1 DEV DEV FS SCH ×4 (06:30→21:46)
[2020-02-10] MEDS: METOPROLOL 25 MG TAB PO SCH ×3 (06:43→18:00)
--- NOTE | 2020-02-10 07:18 | NUR ---
ENDORSED TO AM SHIFT - PT - STABLE .
--- NOTE | 2020-02-10 07:19 | NUR ---
RECEIVED REPORT FROM PLASTIC SHEETS SUPERVISOR NURSE FABIANA FOR CONTINUITY OF CARE. PATIENT IN STABLE CONDITION. RESPIRATIONS EVEN AND UNLABORED, 02 2L VIA NC. IV INTACT AND PATENT. SAFETY MEASURES IN PLACE. BED IN LOW POSITION. BED ALARM ON. CALL LIGHT WITHIN REACH. WILL CONTINUE TO MONITOR.
[2020-02-10 07:32] LABS: BASOPHILS % (AUTO) 0.1 % (0.0-2.0); HEMATOCRIT 25.1 % (36-48); HEMOGLOBIN 7.7 g/dL (12.0-16.0); LYMPHOCYTES # (AUTO) 0.1 K/uL (2.5-16.5); LYMPHOCYTES % (AUTO) 0.6 % (20.5-51.1); MEAN CORPUSCULAR HEMOGLOBIN 23 pg (27-31); MEAN CORPUSCULAR HGB CONC 31 g/dL (33-37); MEAN CORPUSCULAR VOLUME 74.8 fL (80-94); MONOCYTES # (AUTO) 0.7 K/uL (0.8-1.0); MONOCYTES % (AUTO) 3.6 % (1.7-9.3); NEUTROPHILS # (AUTO) 19.5 K/uL (1.8-7.7); NEUTROPHILS % (AUTO) 95.7 % (42.2-75.2); PLATELET COUNT (AUTO) 134 K/uL (140-450); RED BLOOD CELL COUNT(AUTO) 3.36 MIL/uL (4.20-5.40); RED CELL DISTRIBUTION WIDTH 18.5 % (11.6-13.7); WHITE BLOOD COUNT (AUTO) 20.4 K/uL (4.8-10.8)
--- NOTE | 2020-02-10 08:03 | NUR ---
PATIENT REFUSED BREAKFAST AT THIS TIME.
[2020-02-10 08:58] LABS: CARBON DIOXIDE 20.6 mmol/L (21-32); GLUCOSE 373 mg/dL (74-106)
[2020-02-10] MEDS: DILTIAZEM 60 MG TAB PO SCH ×4 (09:00→21:46)
[2020-02-10] MEDS: QUEtiapine FUMARATE 25 MG TAB PO SCH ×2 (09:25→21:46)
[2020-02-10] MEDS: methylPREDNISolone SS 125 MG/2 ML VIAL IVP SCH (09:25)
--- NOTE | 2020-02-10 09:25 | NUR ---
GAVE ORDERED DUE MEDICATIONS AT THIS TIME. PATIENT TOLERATED WELL. HELD B/P MEDICATIONS DUE TO DIALYSIS ORDERED FOR TODAY. BED IN LOW POSITION. BED ALARM ON. CALL LIGHT WITHIN REACH. WILL CONTINUE TO MONITOR.
[2020-02-10] MEDS: EPOETIN ALFA 10,000 UNITS/ML VIAL IV SCH (09:26)
[2020-02-10] MEDS: SODIUM FERRIC GLUCONATE 125 MG in NACL 0.9% 100 ML IV SCH (09:26)
[2020-02-10 09:50] LABS: ANION GAP 19.6 (8-16); CHLORIDE 103 mmol/L (98-107); POTASSIUM 4.2 mmol/L (3.5-5.1); SODIUM SERUM 139 mmol/L (136-145); UREA NITROGEN, BLOOD 101 mg/dL (7-18)
--- NOTE | 2020-02-10 11:02 | NUR ---
PATIENT SLEEPING AT THIS TIME. RESPIRATIONS EVEN AND UNLABORED, 02 2L VIA NC. BED IN LOW POSITION. BED ALARM ON. CALL LIGHT WITHIN REACH. WILL CONTINUE TO MONITOR.
[2020-02-10 11:12] LABS: MAGNESIUM 2.1 mg/dL (1.8-2.4); PHOSPHORUS 6.4 mg/dL (2.5-4.9)
[2020-02-10 11:31] LABS: FERRITIN 72 ng/mL (15 - 150)
--- NOTE | 2020-02-10 13:26 | NUR ---
PATIENT SLEEPING AT THIS TIME. EASY TO AROUSE. RESPIRATIONS EVEN AND UNLABORED, 02 2L VIA NC. BED IN LOW POSITION. BED ALARM ON. CALL LIGHT WITHIN REACH. WILL CONTINUE TO MONITOR.
--- NOTE | 2020-02-10 16:00 | NUR ---
DIALYSIS AT BEDSIDE. PATIENT IN STABLE CONDITION. BED IN LOW POSITION. BED ALARM ON. CALL LIGHT WITHIN REACH. WILL CONTINUE TO MONITOR.
--- NOTE | 2020-02-10 17:25 | NUR ---
PATIENT EATING DINNER WITH MECHANICAL INSPECTOR ASSISTING. PATIENT IN STABLE CONDITION. BED IN LOW POSITION. BED ALARM ON. CALL LIGHT WITHIN REACH. WILL CONTINUE TO MONITOR.
--- NOTE | 2020-02-10 19:26 | NUR ---
GAVE REPORT TO TEST RACK OPERATOR NURSE JANINE FOR CONTINUITY OF CARE. PATIENT IN STABLE CONDITION.
--- NOTE | 2020-02-10 19:30 | NUR ---
RECEIVED BEDSIDE REPORT FROM AM SHIFT RN FOR PT'S CONTINUITY OF CARE. PT RECEIVED DIALYSIS TODAY. PT IS ON ANALYTICAL CONSULTANT, IS ON 2L O2 VIA NC, HAS RIGHT UPPER ARM 22G SALINE LOCK AND LEFT IJ ANIA CATH FOR DIALYSIS ACCESS. SAFETY MEASURES IN PLACE, ISOLATION PRECAUTION FOR R/O COVID IN PLACE. WILL MONITOR PT THROUGHOUT SHIFT.
[2020-02-10] MEDS: ATORVASTATIN 20 MG TAB PO SCH (21:46)
--- NOTE | 2020-02-10 21:50 | NUR ---
PT SCREAMING AND YELLING, ASKING FOR HER RESTRAINTS TO BE TAKEN OFF. PT REPOSITIONED AND MADE COMFORTABLE. EXPLAINED TO PT THE REASON FOR SOFT WRIST RESTRAINTS. PT CALMED DOWN AFTER CONVERSATION WITH RN AND BULK FILLER. BLOOD GLUCOSE CHECKED AND CHARTED. ADMINISTERED SCHEDULED MEDICATIONS ORDERED, ADMINISTERED INSULIN SUBQ PER SLIDING SCALE PROTOCOL ORDERED. PT TOLERATED IT WELL. ENCOURAGED PT TO REST AND EXPLAINED THE HEALTH SYSTEMS ANALYST ROUTINE. WILL CONTINUE TO MONITOR PT.
[2020-02-10] MEDS: METOPROLOL 5 MG/5 ML VIAL IV PRN (23:57)
[2020-02-11 00:10] VITALS: BP 130/70
[2020-02-11] MEDS: ACETAMINOPHEN 325 MG TAB PO PRN ×2 (00:26→20:53)
--- NOTE | 2020-02-11 00:30 | NUR ---
PT SCREAMING AND YELLING FOR RESTRAINTS TO BE TAKEN OFF. PT USING PROFANITY WORDS AND RUDE REMARKS. PT C/O LEG PAIN. ADMINISTERED PRN PO MEDICATION ORDERED, PT TOLERATED IT WELL. PT CONTINUED YELLING AND SCREAMING REQUESTING FOR FOOD WHILE STILL FEEDING PT WITH SANDWICH AND PUDDING. PT MADE COMFORTABLE, YELLING INTERMITTENTLY. WILL CONTINUE TO MONITOR THE PT. Addendum: 02/11/20 at 0336 by Tran Manjarrez RN ADDITIONAL INFO: PT COMPLAINED OF LEG PAIN. ADMINISTERED PRN PO PAIN MEDICATION ORDERED. PT TOLERATED IT WELL.
[2020-02-11] MEDS: ALBUTEROL SULFATE/IPRATROPIU 3 ML SOL IH SCH ×4 (01:00→20:10)
[2020-02-11] MEDS: HALOPERIDOL IM 5 MG/ML VIAL IM PRN ×2 (01:29→08:30)
--- NOTE | 2020-02-11 01:30 | NUR ---
PT WOKE UP SCREAMING AND YELLING, CALLING NAMES, WENT INSIDE TO ASSESS PT, PT CONFUSED AND MAKING RUDE REMARKS. TRIED TO MAKE PT COMFORTABLE, PT TRIED TO GRAB MY ARM TO SCRATCH. PT EXHIBITED INCREASED AGITATION, ASKING TO REMOVE HER SHOES AND RESTRAINTS. ADMINISTERED IM HALOPERIDOL ORDERED. PT COOPERATED AND AGREED FOR THE IM ADMINISTRATION. SCREAMED AND YELLED RIGHT AFTER, MAKING RUDE REMARKS TOWARDS RN. SAFETY MEASURES IN PLACE. WILL CONTINUE TO MONITOR PT.
--- NOTE | 2020-02-11 03:36 | NUR ---
PT ASLEEP WITH NO SIGHS OF DISTRESS, WILL CONTINUE TO MONITOR PT, Addendum: 02/11/20 at 0338 by Tran Manjarrez RN *SIGNS
--- NOTE | 2020-02-11 04:16 | NUR ---
AT 0400, PT WOKE UP SCREAMING AND YELLING TO TAKE OFF RESTRAINTS AND DEMANDING FOR SANDWICH, MILK AND IBUPROFEN. VS CHECKED, EXPLAINED TO PT THE REASON FOR RESTRAINTS, ATTEMPTED TO RELEASE RESTRAINTS PT TRIED TO GRAB MY HAND AND SLAP IT. NO INJURY NOTED ON THE WRISTS. ADMINISTERED PO HALOPERIDOL FOR AGITATION, PROVIDED SANDWICH AND MILK REQUESTED. PT MADE COMFORTABLE BUT KEEPS ON SCREAMING AND YELLING. GERMAN TUTOR AWARE OF THE SITUATION. WILL CONTINUE TO MONITOR PT.
[2020-02-11 04:23] VITALS: BP 133/78
[2020-02-11] MEDS: METOPROLOL 25 MG TAB PO SCH ×3 (05:50→12:10)
[2020-02-11] MEDS: INSULIN LISPRO SLIDING SCALE 100 UNITS/ML VIAL SUBQ PRN ×3 (05:50→22:36)
[2020-02-11] MEDS: BLOOD GLUCOSE MONITORING 1 DEV DEV FS SCH ×4 (05:50→21:00)
--- NOTE | 2020-02-11 05:50 | NUR ---
PT SCREAMING AND YELLING. WENT INSIDE TO CHECK. REPOSITIONED PT AND MADE COMFORTABLE. RELEASED SOFT WRIST RESTRAINTS FOR 15 MIN, PT WANTED RESTRAINTS TO BE OFF, EXPLAINED TO PT THE REASON FOR RESTRAINTS, PT GOT MORE AGITATED, TRIED TO SLAP RN'S HAND. BLOOD GLUCOSE CHECKED AND CHARTED, ADMINISTERED SUBQ INSULIN FOR SLIDING SCALE PROTOCOL AND ADMINISTERED SCHEDULED PO MEDICATION ORDERED. PT TOLERATED THEM WELL. PT KEPT ON SCREAMING AND YELLING. PT SATURATION AT 95% ON 2L NC, NO SIGNS OF RESPIRATORY DISTRESS. WILL ENDORSE PT TO AM SHIFT RN FOR PT'S CONTINUITY OF CARE.
--- NOTE | 2020-02-11 07:28 | NUR ---
RECEIVED REPORT FROM PRE PAROLE COUNSELING AIDE RN. AOX1, FLACC 0, NO SOB, RESPIRATIONS ARE EVEN AND UNLABORED. WITH EPISODES OF SCREAMING AND YELLING. ON ISOLATION FOR R/O COVID. ON 2L O2 VIA NC. IV SITE LEFT UA 20G WITH NS ON SL. SAFETY PRECAUTIONS IN PLACE. CALL LIGHT WITHIN REACH. WILL TO MONITOR.
[2020-02-11 07:37] LABS: BASOPHILS % (AUTO) 0.1 % (0.0-2.0); HEMATOCRIT 24.1 % (36-48); HEMOGLOBIN 7.5 g/dL (12.0-16.0); LYMPHOCYTES # (AUTO) 0.1 K/uL (2.5-16.5); LYMPHOCYTES % (AUTO) 0.5 % (20.5-51.1); MEAN CORPUSCULAR HEMOGLOBIN 23 pg (27-31); MEAN CORPUSCULAR HGB CONC 31 g/dL (33-37); MEAN CORPUSCULAR VOLUME 74.4 fL (80-94); MONOCYTES # (AUTO) 0.9 K/uL (0.8-1.0); MONOCYTES % (AUTO) 3.9 % (1.7-9.3); NEUTROPHILS % (AUTO) 95.5 % (42.2-75.2); PLATELET COUNT (AUTO) 129 K/uL (140-450); RED BLOOD CELL COUNT(AUTO) 3.24 MIL/uL (4.20-5.40); RED CELL DISTRIBUTION WIDTH 18.4 % (11.6-13.7); WHITE BLOOD COUNT (AUTO) 23.1 K/uL (4.8-10.8)
[2020-02-11 07:46] LABS: ALBUMIN 2.3 g/dL (3.4-5.0); ANION GAP 17.5 (8-16); ASPARTATE AMINOTRANSFERASE 6 U/L (15-37); CARBON DIOXIDE 22.4 mmol/L (21-32); CHLORIDE 105 mmol/L (98-107); CREATININE 3.5 mg/dL (0.6-1.3); GLUCOSE 226 mg/dL (74-106); POTASSIUM 3.9 mmol/L (3.5-5.1); SODIUM SERUM 141 mmol/L (136-145); TOTAL BILIRUBIN 0.3 mg/dL (0.0-1.0)
[2020-02-11 07:56] LABS: UREA NITROGEN, BLOOD 83 mg/dL (7-18)
[2020-02-11 08:00] VITALS: BP 152/89
[2020-02-11] MEDS: METOPROLOL 5 MG/5 ML VIAL IV PRN (08:30)
--- NOTE | 2020-02-11 08:30 | NUR ---
DUE MORNING MEDS GIVEN. WITH EPISODES OF YELLING AND SCREAMING. WITH ATTEMPTS OF UNASSISTED TRANSFER. HALDOL IM GIVEN ORDERED. SAFETY PRECAUTIONS IN PLACE.
[2020-02-11] MEDS: methylPREDNISolone SS 125 MG/2 ML VIAL IVP SCH (09:47)
[2020-02-11] MEDS: QUEtiapine FUMARATE 25 MG TAB PO SCH ×2 (09:47→20:51)
[2020-02-11] MEDS: DILTIAZEM 60 MG TAB PO SCH ×4 (09:47→20:50)
--- NOTE | 2020-02-11 10:15 | NUR ---
ASLEEP IN BED. NO APPARENT DISTRESS
--- NOTE | 2020-02-11 11:45 | NUR ---
BLOOD SUGAR 210. COVERAGE GIVEN
[2020-02-11 12:00] VITALS: BP 145/78
--- NOTE | 2020-02-11 14:07 | NUR ---
PT ASLEEP IN BED. FLACC 0, NO SOB
[2020-02-11 16:00] VITALS: BP 109/73
--- NOTE | 2020-02-11 17:00 | NUR ---
DUE MEDS GIVEN. NO APPARENT DISTRESS
--- NOTE | 2020-02-11 18:45 | NUR ---
IN STABLE CONDITION. WILL ENDORSE TO UTILITY WORKER ROLLER SHOP FOR CONTINUITY OF CARE
[2020-02-11] MEDS: METOPROLOL 50 MG TAB PO SCH (18:55)
--- NOTE | 2020-02-11 19:10 | NUR ---
RECEIVED REPORT FROM LIANG RN DAYSHIFT NURSE AT BEDSIDE FOR CONTINUITY OF CARE, PT IN STABLE CONDITION.
[2020-02-11 20:00] VITALS: BP 117/79
--- NOTE | 2020-02-11 20:00 | NUR ---
PT IN BED AO X 1-2, SHE HAS A 22 G L UPPER ARM IV SITE INTACT , BUT SALINE LOCKED AT THIS TIME. PT ON 2 LITERS A/N/C. RESTRAINTS WERE REMOVED, NO INJURIES NOTED. PT RESTING WITH EYES CLOSED BUT AROUSABLE TO LIGHT SHAKING AND NAME, RESTRAINTS REMOVED AT THIS TIME.PT HAS DRY AND INTACT DRESSING ON LOWER LEFT LEG WOUND. V/S FOLLOWS: T 97.5 P 99 R 16 B/P 117/79 02 IS 98% ON 2 LITERS VIA N/C. ALL STANDARD AND FALLS PRECAUTIONS IN PLACE.
--- NOTE | 2020-02-11 20:20 | NUR ---
RECEIVED PATIENT ON 2L NASAL CANNULA, PULSE OX SAT 95%. SCHEDULED BREATHING TREATMENT ADMINISTERED. TOLERATED TX WELL WITHOUT ADVERSE SIDE EFFECTS. NO ACUTE RESPIRATORY DISTRESS NOTED AT THIS TIME. WILL CONTINUE TO MONITOR.
[2020-02-11] MEDS: ATORVASTATIN 20 MG TAB PO SCH (20:51)
--- NOTE | 2020-02-11 21:00 | NUR ---
PT GIVEN ORDERED CARDIZEM, LIPITOR, SEROQUEL AND HEPARIN SHOT. EDUCATION REGARDING MEDICATION PROVIDED AT BEDSIDE. PT FINGERSTICK IS 239, SHE WAS GIVEN 4 UNITS OF HUMALOG COVERAGE. ALL FALLS PRECAUTIONS IN PLACE.
--- NOTE | 2020-02-11 22:30 | NUR ---
PT CONFUSED AND TRYING TO GET OUT OF BED. PT COMPLAINED OF WANTING A CIGARETTE, PT REMINDED ABOUT SMOKING POLICY. SHE WAS ASSISTED BACK IN BED FROM SITTING AT THE EDGE OF THE BED AND REORIENTED.
[2020-02-12] VITALS: BP 149/83
--- NOTE | 2020-02-12 | NUR ---
PT AGAIN GETTING RESTLESS AND WANTING TO GET OUT OF BED UNASSISTED. PT FORTE CATHETER INTACT AND RUNNING DARK YELLOW URINE. PT C/OF BEING HUNG, PT PROVIDED A SANDWICH AND REMINDED THAT AFTER MIDNIGHT SHE IS NPO. PT CONSUMED THE SANDWICH AND REQUESTED MILK. PT ALSO GIVEN IM HALDOL IM 2 MG DUE TO TRYING TO GET UP.
[2020-02-12] MEDS: METOPROLOL 50 MG TAB PO SCH ×4 (00:01→17:38)
[2020-02-12] MEDS: HALOPERIDOL IM 5 MG/ML VIAL IM PRN (00:05)
[2020-02-12] MEDS: ALBUTEROL SULFATE/IPRATROPIU 3 ML SOL IH SCH ×4 (01:22→19:20)
--- NOTE | 2020-02-12 01:33 | NUR ---
SCHEDULED BREATHING TREATMENT ADMINISTERED. TOLERATED WELL WITHOUT ADVERSE SIDE EFFECTS. NO ACUTE RESPIRATORY DISTRESS NOTED AT THIS TIME. WILL CONTINUE TO MONITOR.
[2020-02-12 04:00] VITALS: BP 126/94
[2020-02-12 06:10] LABS: BASOPHILS % (AUTO) 0.2 % (0.0-2.0); HEMATOCRIT 22.3 % (36-48); LYMPHOCYTES # (AUTO) 0.1 K/uL (2.5-16.5); LYMPHOCYTES % (AUTO) 0.6 % (20.5-51.1); MEAN CORPUSCULAR HEMOGLOBIN 23 pg (27-31); MEAN CORPUSCULAR HGB CONC 31 g/dL (33-37); MEAN CORPUSCULAR VOLUME 74.2 fL (80-94); MONOCYTES # (AUTO) 0.4 K/uL (0.8-1.0); MONOCYTES % (AUTO) 2.3 % (1.7-9.3); NEUTROPHILS # (AUTO) 15.6 K/uL (1.8-7.7); NEUTROPHILS % (AUTO) 96.9 % (42.2-75.2); PLATELET COUNT (AUTO) 125 K/uL (140-450); RED BLOOD CELL COUNT(AUTO) 3.01 MIL/uL (4.20-5.40); RED CELL DISTRIBUTION WIDTH 18.2 % (11.6-13.7); WHITE BLOOD COUNT (AUTO) 16.1 K/uL (4.8-10.8)
[2020-02-12] MEDS: INSULIN LISPRO SLIDING SCALE 100 UNITS/ML VIAL SUBQ PRN ×3 (06:26→21:19)
[2020-02-12 06:32] LABS: ALBUMIN 2.2 g/dL (3.4-5.0); ANION GAP 19.3 (8-16); ASPARTATE AMINOTRANSFERASE 6 U/L (15-37); CARBON DIOXIDE 20.2 mmol/L (21-32); CHLORIDE 104 mmol/L (98-107); CREATININE 3.9 mg/dL (0.6-1.3); GLUCOSE 270 mg/dL (74-106); POTASSIUM 4.5 mmol/L (3.5-5.1); SODIUM SERUM 139 mmol/L (136-145); TOTAL BILIRUBIN 0.3 mg/dL (0.0-1.0)
--- NOTE | 2020-02-12 07:26 | NUR ---
HX: COPD SATURATION 97% SUPPLEMENTAL OXYGEN AT 2 LPM VIA NC POST HHN THERAPY TITRATED FIO2 TO 1 LPM LIANG/RN NOTIFIED
--- NOTE | 2020-02-12 07:29 | NUR ---
RECEIVED REPORT FROM SMALL CRAFT OPERATOR RN. AOX1, FLACC 0, NO SOB, RESPIRATIONS ARE EVEN AND UNLABORED. WITH EPISODES OF SCREAMING AND YELLING. ON 2L O2 VIA NC. IV SITE LEFT UA 20G WITH NS ON SL. SAFETY PRECAUTIONS IN PLACE. CALL LIGHT WITHIN REACH. WILL CONTINUE TO MONITOR.
[2020-02-12] MEDS: BLOOD GLUCOSE MONITORING 1 DEV DEV FS SCH ×4 (07:55→21:01)
[2020-02-12 08:00] VITALS: BP 135/82
[2020-02-12 08:16] LABS: UREA NITROGEN, BLOOD 103 mg/dL (7-18)
--- NOTE | 2020-02-12 08:30 | NUR ---
DUE MORNING MEDS GIVEN
[2020-02-12] MEDS: DILTIAZEM 60 MG TAB PO SCH ×3 (09:06→17:38)
[2020-02-12] MEDS: QUEtiapine FUMARATE 25 MG TAB PO SCH ×2 (09:06→21:13)
[2020-02-12] MEDS: methylPREDNISolone SS 125 MG/2 ML VIAL IVP SCH (09:06)
--- NOTE | 2020-02-12 10:45 | NUR ---
PT OFF UNIT TO OR. IN STABLE CONDITION
[2020-02-12] MEDS ORDERED: LIDOCAINE 1% 500 MG/50 ML VIAL ONE (11:07)
[2020-02-12] MEDS ORDERED: BUPIVACAINE-MPF 0.25% 30 ML VIAL INJ ONE (11:07)
[2020-02-12] MEDS ORDERED: ceFAZolin 1,000 MG VIAL ONE (11:07)
[2020-02-12] MEDS ORDERED: MIDAZOLAM 2 MG/2 ML VIAL ONE (11:45)
[2020-02-12] MEDS ORDERED: METOPROLOL 5 MG/5 ML VIAL ONE (11:45)
[2020-02-12] MEDS ORDERED: fentaNYL 0.05 MG/ML VIAL ONE (11:45)
[2020-02-12] MEDS ORDERED: MORPHINE SULFATE 2 MG/ML SYR IVP PRN (12:35)
[2020-02-12] MEDS ORDERED: MORPHINE SULFATE 4 MG/ML SYR IV PRN (12:35)
[2020-02-12] MEDS ORDERED: HYDROmorphone 1 MG/ML AMP IVP PRN (12:35)
[2020-02-12] MEDS ORDERED: ONDANSETRON 4 MG/2 ML VIAL IV PRN (12:35)
--- NOTE | 2020-02-12 13:40 | NUR ---
PT BACK FROM OR. V/S MONITORING PROTOCOL STARTED
--- NOTE | 2020-02-12 14:10 | NUR ---
STARTED PRBC 1 UNIT TRANSFUSION. MONITORING V/S
--- NOTE | 2020-02-12 14:20 | NUR ---
DIALYSIS STARTED. 1 UNIT PRBC BEING GIVEN THROUGH DIALYSIS
--- NOTE | 2020-02-12 14:33 | NUR ---
02/12/20 RD FOLLOW UP COMPLETED PLEASE REFER TO NUTRITION ASSESSMENT UNDER CARE ACTIVITY FOR ESTIMATED NUTRITIONAL NEEDS. 1. RECOMMEND MECHANICAL SOFT RENAL DIET TOLERATED 2. RECOMMEND NEPHRO BID 3. ENCOURAGE PO INTAKE AND ASSIST WITH MEALS 4. CONSIDER ENTERAL NUTRITION IF PT CONTINUES WITH POOR APPETITE <50% 5. RD TO FOLLOW-UP 2-3 DAYS, HIGH RISK KIYA ALVARADO, RD
--- NOTE | 2020-02-12 14:50 | NUR ---
FINISHED TRANSFUSING 1 UNIT OF PRBC. NO REACTIONS NOTED. V/S WNL
[2020-02-12 16:00] VITALS: BP 124/85
--- NOTE | 2020-02-12 17:30 | NUR ---
FINISHED DIALYSIS WITH 4L OUTPUT
--- NOTE | 2020-02-12 18:40 | NUR ---
STARTED PRBC 1 UNIT TRANSFUSION. MONITORING V/S
--- NOTE | 2020-02-12 19:20 | NUR ---
WILL ENDORSE TO MEASURER MACHINE FOR CONTINUITY OF CARE. IN STABLE CONDITION. STILL TRANSFUSING BLOOD
--- NOTE | 2020-02-12 19:21 | NUR ---
RECEIVED REPORT FROM DAY SHIFT NURSE. PT IS AWAKE AND ALERT. WITH CONFUSION. RESPIRATIONS EVEN AND UNLABORED. ON O2 2LPM/NC. SKIN IS WARM AND DRY. ABDOMEN IS SOFT AND NON TENDER. IV ACCESS ON R UA PATENT AND INTACT. SALINE LOCKED. PT HAS PORT-A-CATH ON HER L UPPER CHEST. WITH ONGOING BLOOD TRANSFUSION. FORTE CATHETER IN PLACE. DRAINING WELL TO YELLOW URINE. NO S/SX OF PAIN OR DISCOMFORT NOTED. PLAN OF CARE DISCUSSED. SAFETY MEASURES IN PLACE. WILL CONTINUE TO MONITOR.
[2020-02-12 20:00] VITALS: BP 132/85
--- NOTE | 2020-02-12 20:45 | NUR ---
BLOOD TRANSFUSION DONE. NO REACTIONS NOTED. VS ARE STABLE. WILL CONTINUE TO MONITOR.
[2020-02-12] MEDS: ATORVASTATIN 20 MG TAB PO SCH (21:14)
--- NOTE | 2020-02-12 21:19 | NUR ---
PT IN BED RESTING. SCHEDULED MEDS GIVEN ORDERED. NO S/SX OF DISTRESS NOTED. SAFETY MEASURES IN PLACE. WILL CONTINUE TO MONITOR.
--- NOTE | 2020-02-12 22:30 | NUR ---
ROUNDS MADE. PT IN BED SLEEPING. RESPIRATIONS EVEN AND UNLABORED. O2 IN PLACE. SAFETY MEASURES IN PLACE. WILL CONTINUE TO MONITOR.
[2020-02-13] VITALS: BP 126/85
[2020-02-13] MEDS: DILTIAZEM 60 MG TAB PO SCH ×5 (00:16→23:36)
[2020-02-13] MEDS: METOPROLOL 50 MG TAB PO SCH ×5 (00:18→23:37)
--- NOTE | 2020-02-13 00:18 | NUR ---
VITAL SIGNS TAKEN. HR 130'S. SCHEDULED HEART MEDICATIONS GIVEN ORDERED. NO S/SX OF DISTRESS. SAFETY MEASURES IN PLACE. WILL CONTINUE TO MONITOR.
[2020-02-13] MEDS: ALBUTEROL SULFATE/IPRATROPIU 3 ML SOL IH SCH ×4 (01:00→20:30)
--- NOTE | 2020-02-13 02:27 | NUR ---
HR 150'S. PT DENIES ANY PAIN OR DISCOMFORT. PRN CARDIZEM GIVEN ORDERED. WILL CONTINUE TO MONITOR.
[2020-02-13 04:00] VITALS: BP 129/85
[2020-02-13] MEDS: HYDROcodone/APAP 5/325 MG 1 TAB TAB PO PRN (04:43)
--- NOTE | 2020-02-13 05:00 | NUR ---
VITAL SIGNS TAKEN. HEART RATE 140'S. SCHEDULED HEART MEDICATIONS GIVEN ORDERED. WILL CONTINUE TO MONITOR.
[2020-02-13] MEDS: BLOOD GLUCOSE MONITORING 1 DEV DEV FS SCH ×4 (06:10→21:25)
[2020-02-13] MEDS: INSULIN LISPRO SLIDING SCALE 100 UNITS/ML VIAL SUBQ PRN ×4 (06:30→21:24)
--- NOTE | 2020-02-13 06:30 | NUR ---
BLOOD SUGAR 169. INSULIN COVERAGE GIVEN ORDERED.
[2020-02-13 06:59] LABS: HEMATOCRIT 26.7 % (36-48); HEMOGLOBIN 8.4 g/dL (12.0-16.0); MEAN CORPUSCULAR HEMOGLOBIN 24 pg (27-31); MEAN CORPUSCULAR HGB CONC 32 g/dL (33-37); MEAN CORPUSCULAR VOLUME 75.6 fL (80-94); PLATELET COUNT (AUTO) 135 K/uL (140-450); RED BLOOD CELL COUNT(AUTO) 3.54 MIL/uL (4.20-5.40)
--- NOTE | 2020-02-13 07:10 | NUR ---
RECEIVED REPORT FROM NIGHT NURSE FOR CONTINUITY OF CARE, PT IS STABLE A0X3, NO SIGNS OF DISTRESS NOTED, RESPIRATIONS ARE EVEN AND UNLABORED 2L NASAL CANNULA OXYGEN, PT HAS LEFT UPPER CHEST PERMA CATH FOR DIALYSIS, PT HAS LEFT UA 22G SALINE LOCK, PT HAS A LEFT LOWER LEG OPEN WOUND AND SACRAL REDNESS, INTRODUCE SELF, UPDATED WHITEBOARD, BED IN LOW POSITION, CALL LIGHT WITHIN REACH, ALL NEEDS MET AT THIS TIME, WILL CONTINUE TO MONITOR.
--- NOTE | 2020-02-13 07:15 | NUR ---
ENDORSED TO DAYSHIFT NURSE FOR CONTINUITY OF CARE. PT IN STABLE CONDITION.
[2020-02-13 07:21] LABS: ALBUMIN 2.3 g/dL (3.4-5.0); ANION GAP 17.7 (8-16); ASPARTATE AMINOTRANSFERASE 8 U/L (15-37); CARBON DIOXIDE 23.3 mmol/L (21-32); CHLORIDE 104 mmol/L (98-107); CREATININE 3.2 mg/dL (0.6-1.3); GLUCOSE 157 mg/dL (74-106); SODIUM SERUM 141 mmol/L (136-145); TOTAL BILIRUBIN 0.5 mg/dL (0.0-1.0)
[2020-02-13 07:51] LABS: UREA NITROGEN, BLOOD 76 mg/dL (7-18)
[2020-02-13 07:53] LABS: WHITE BLOOD COUNT (AUTO) 28.2 K/uL (4.8-10.8)
[2020-02-13 07:54] LABS: LYMPHOCYTES % (MANUAL) 1 % (20-46); MONOCYTES % (MANUAL) 6 % (5-12)
[2020-02-13 08:00] VITALS: BP 122/64
[2020-02-13] MEDS: SODIUM FERRIC GLUCONATE 125 MG in NACL 0.9% 100 ML IV SCH (09:26)
[2020-02-13] MEDS: EPOETIN ALFA 10,000 UNITS/ML VIAL IV SCH (09:28)
[2020-02-13] MEDS: methylPREDNISolone SS 125 MG/2 ML VIAL IVP SCH (09:37)
[2020-02-13] MEDS: QUEtiapine FUMARATE 25 MG TAB PO SCH ×2 (09:41→21:13)
[2020-02-13] MEDS: cloNIDine-TTS2 0.2 MG/24 HR 1 EA PATCH TD SCH (09:42)
--- NOTE | 2020-02-13 09:45 | NUR ---
ADMINISTERED ZOFRAN AND SCHEDULED MEDICATION, MEDICATION EDUCATION GIVEN, PT TOLERATED WELL, PT STABLE, NO SIGNS OF DISTRESS NOTED, CALL LIGHT WITHIN REACH, WILL CONTINUE TO MONITOR.
--- NOTE | 2020-02-13 11:00 | NUR ---
PT ASLEEP IN BED, NO SIGNS OF DISTRESS NOTED, RESPIRATIONS ARE EVEN AND UNLABORED ON 2L NASAL CANNULA, PT IS STABLE, CALL LIGHT WITHIN REACH.
[2020-02-13 12:00] VITALS: BP 109/69
[2020-02-13] MEDS ORDERED: PROC10I IV (12:04)
[2020-02-13] MEDS ORDERED: METO50TA99 PO (12:04)
[2020-02-13] MEDS ORDERED: DILT60TA94 PO (12:04)
[2020-02-13] MEDS ORDERED: HUMSLIDE SUBQ (12:04)
[2020-02-13] MEDS ORDERED: ONDA2SOL45 IV (12:04)
[2020-02-13] MEDS ORDERED: HEPA500056 SUBQ (12:04)
[2020-02-13] MEDS ORDERED: CLON-528 TD (12:04)
[2020-02-13] MEDS ORDERED: DOCU-299 PO (12:04)
[2020-02-13] MEDS ORDERED: ALBU3SOL83 IH ×2 (12:04)
[2020-02-13] MEDS ORDERED: HAL1 PO (12:04)
[2020-02-13] MEDS ORDERED: ALBU0.0912 INH (12:04)
[2020-02-13] MEDS ORDERED: ACET-1182 PO (12:04)
[2020-02-13] MEDS ORDERED: QUET25TA46 PO (12:04)
[2020-02-13] MEDS ORDERED: ATOR20TA40 PO (12:04)
[2020-02-13] MEDS ORDERED: ACET-9525 PO (12:04)
[2020-02-13] MEDS ORDERED: PRED20TA5 PO (12:11)
--- NOTE | 2020-02-13 13:16 | NUR ---
ADMINISTERED HUMALOG FOR BLOOD SUGAR OF 167, ADMINISTERED SCHEDULED MEDICATION, MEDICATION EDUCATION GIVEN, PT TOLERATED WELL, PT IS STABLE, CALL LIGHT WITHIN REACH.
--- NOTE | 2020-02-13 15:00 | NUR ---
PT RESTING IN BED, NO SIGNS OF DISTRESS NOTED, RESPIRATIONS ARE EVEN AND UNLABORED, PT IS STABLE, CALL LIGHT WITHIN REACH.
[2020-02-13 16:00] VITALS: BP 107/73
--- NOTE | 2020-02-13 17:41 | NUR ---
ADMINISTERED 4 UNITS OF HUMALOG FOR BLOOD SUGAR OF 233, MEDICATION EDUCATION GIVEN, PT TOLERATED WELL, PT IS STABLE, NO SIGNS OF DISTRESS NOTED, CALL LIGHT WITHIN REACH.
--- NOTE | 2020-02-13 19:16 | NUR ---
GAVE REPORT TO NIGHT NURSE FOR CONTINUITY OF CARE, PT IS STABLE.
--- NOTE | 2020-02-13 19:17 | NUR ---
RECEIVED REPORT FROM DAY SHIFT NURSE. PATIENT IS IN BED RESTING WITH HOB ELEVATED. PT IS AWAKE, WITH EPISODES OF CONFUSION. RESPIRATIONS ARE EVEN AND UNLABORED. ON O2 2LPM/NC. SKIN IS WARM AND DRY. WITH A LEFT LOWER LEG OPEN WOUND. DRESSING IS DRY AND INTACT. IV ACCESS ON L UA G22 PATENT AND INTACT. HAS PERMACATH ON LEFT UPPER CHEST FOR DIALYSIS ACCESS. FORTE CATHETER IN PLACE, URINE DRAINING WELL. PT DENIES ANY PAIN OR DISCOMFORT. PLAN OF CARE DISCUSSED. NEEDS REINFORCEMENT. SAFETY MEASURES IN PLACE. CALL LIGHT WITHIN REACH. WILL CONTINUE TO MONITOR.
[2020-02-13 20:00] VITALS: BP 116/90
--- NOTE | 2020-02-13 20:15 | NUR ---
VITAL SIGNS STABLE AT THIS TIME. PT RESTING IN BED. O2 IN PLACE. NO S/SX OF DISTRESS NOTED. PT KEPT COMFORTABLE. SAFETY MEASURES IN PLACE. WILL CONTINUE TO MONITOR.
--- NOTE | 2020-02-13 20:32 | NUR ---
RECEIVED PATIENT ON 1L NASAL CANNULA, PULSE OX SAT 96%. PATIENT REFUSED BREATHING TREATMENT AT THIS TIME. RN NOTIFIED. NO RESPIRATORY DISTRESS NOTED AT THIS TIME.. WILL CONTINUE TO MONITOR.
[2020-02-13] MEDS: ATORVASTATIN 20 MG TAB PO SCH (21:13)
--- NOTE | 2020-02-13 21:25 | NUR ---
SCHEDULED MEDICATIONS GIVEN ORDERED. BLOOD SUGAR 214. INSULIN COVERAGE GIVEN. WILL CONTINUE TO MONITOR.
--- NOTE | 2020-02-13 23:40 | NUR ---
VITAL SIGNS TAKEN. BP-150/79, HR-122. SCHEDULED METOPROLOL AND CARDIZEM GIVEN. PT NOT IN DISTRESS. WILL CONTINUE TO MONITOR.
[2020-02-14] VITALS: BP 150/75
[2020-02-14] MEDS: HYDROcodone/APAP 5/325 MG 1 TAB TAB PO PRN (00:12)
--- NOTE | 2020-02-14 00:12 | NUR ---
PT COMPLAIN OF LEG PAIN 02/20. PRN PAIN MEDICATION GIVEN ORDERED. WILL CONTINUE TO MONITOR.
[2020-02-14] MEDS: ALBUTEROL SULFATE/IPRATROPIU 3 ML SOL IH SCH ×3 (01:00→08:31)
--- NOTE | 2020-02-14 02:09 | NUR ---
ROUNDS MADE. PT IN BED SLEEPING WITH HOB ELEVATED. O2 IN PLACE. RESPIRATIONS EVEN AND UNLABORED. NO S/SX OF DISTRESS NOTED. PT KEPT COMFORTABLE. SAFETY MEASURES IN PLACE. CALL LIGHT WITHIN REACH. WILL CONTINUE TO MONITOR.
[2020-02-14 04:00] VITALS: BP 116/69
--- NOTE | 2020-02-14 04:06 | NUR ---
VITAL SIGNS STABLE. PT IN BED WITH HOB ELEVATED. NO S/SX OF DISTRESS NOTED. DENIES PAIN AT THIS TIME. SAFETY MEASURES IN PLACE. WILL CONTINUE TO MONITOR.
[2020-02-14] MEDS: METOPROLOL 50 MG TAB PO SCH (05:39)
[2020-02-14] MEDS: DILTIAZEM 60 MG TAB PO SCH (05:39)
--- NOTE | 2020-02-14 05:39 | NUR ---
SCHEDULED MEDICATIONS GIVEN ORDERED. PT NOT IN DISTRESS. SAFETY MEASURES IN PLACE. WILL CONTINUE TO MONITOR.
[2020-02-14] MEDS: BLOOD GLUCOSE MONITORING 1 DEV DEV FS SCH (06:00)
--- NOTE | 2020-02-14 06:00 | NUR ---
BLOOD SUGAR 200. INSULIN COVERAGE GIVEN ORDERED.
[2020-02-14] MEDS: INSULIN LISPRO SLIDING SCALE 100 UNITS/ML VIAL SUBQ PRN (06:15)
--- NOTE | 2020-02-14 07:15 | NUR ---
ENDORSED TO DAY SHIFT NURSE FOR CONTINUITY OF CARE. PT IS IN STABLE CONDITION.
--- NOTE | 2020-02-14 07:16 | NUR ---
RECEIVED BEDSIDE REPORT FROM NIGHTSHIFT NURSE FOR CONTINUITY OF CARE. PT IS AA&OX2. RESPIRATIONS ARE EVEN AND UNLABORED BREATHING TO 2LPM NC. RENAL DIET. L 22G UPPER ARM IV IS PATENT AND INTACT. LEFT UPPER CHEST PERMACATH; DIALYSIS SCHEDULED FOR TODAY. LEFT LOWER LEG OPEN WOUND, COVERED WITH XEROFORM. BEDREST. FALL PRECAUTIONS, SIGN POSTED. SAFETY MEASURES IN PLACE; BED IN LOW POSITION, CALL LIGHT WITHIN REACH. TELE MONITOR ATTACHED. REVIEWED PLAN OF CARE WITH PATIENT. WILL CONTINUE TO MONITOR.
[2020-02-14] MEDS ORDERED: predniSONE 20 MG TAB PO SCH (09:00)
[2020-02-14 09:51] LABS: MEAN CORPUSCULAR HEMOGLOBIN 24 pg (27-31); MEAN CORPUSCULAR HGB CONC 31 g/dL (33-37); MEAN CORPUSCULAR VOLUME 78.2 fL (80-94); PLATELET COUNT (AUTO) 115 K/uL (140-450); RED BLOOD CELL COUNT(AUTO) 3.32 MIL/uL (4.20-5.40); WHITE BLOOD COUNT (AUTO) 23.1 K/uL (4.8-10.8)
[2020-02-14] MEDS: QUEtiapine FUMARATE 25 MG TAB PO SCH (09:55)
--- NOTE | 2020-02-14 10:00 | NUR ---
PT'S SCHEDULED MEDICATIONS GIVEN, WITH MEDICATION EDUCATION PROVIDED. NO ACUTE DISTRESS NOTED. SAFETY MEASURES IN PLACE. TELE MONITOR ATTACHED. WILL CONTINUE TO MONITOR.
[2020-02-14 10:04] LABS: ALBUMIN 2.2 g/dL (3.4-5.0); ANION GAP 16.8 (8-16); ASPARTATE AMINOTRANSFERASE 8 U/L (15-37); CARBON DIOXIDE 24.1 mmol/L (21-32); CHLORIDE 103 mmol/L (98-107); CREATININE 3.9 mg/dL (0.6-1.3); GLUCOSE 285 mg/dL (74-106); POTASSIUM 4.9 mmol/L (3.5-5.1); SODIUM SERUM 139 mmol/L (136-145); TOTAL BILIRUBIN 0.4 mg/dL (0.0-1.0)
--- NOTE | 2020-02-14 10:32 | NUR ---
GAVE REPORT TO DAIN FROM [facility]. DAIN INFORMED OF PICKUP TIME OF 1100 FOR TRANSFER TO THEIR FACILITY. PT IS TRANSFERRING TO BED 134B.
[2020-02-14 10:35] LABS: LYMPHOCYTES % (MANUAL) 2 % (20-46); MONOCYTES % (MANUAL) 3 % (5-12)
[2020-02-14 10:43] VITALS: BP 107/68
[2020-02-14 10:57] LABS: UREA NITROGEN, BLOOD 101 mg/dL (7-18)
--- NOTE | 2020-02-14 11:30 | NUR ---
DISCHARGE PAPERWORK SIGNED. DISCHARGE INSTRUCTIONS EXPLAINED TO PT. ARM BANDS, TELE MONITOR FORTE CATH, AND IV REMOVED, WITH IV CATHETER INTACT. DRESSING ON NEWLY INSERTED DIALYSIS CATHETER CHANGED. TRANSPORT PERSONNEL ESCORTED THE PT OFF OF THE UNIT VIA GURNEY. PT IN STABLE CONDITION.
== END 2020-02-14 11:40 | DRG 280 ==
LOC: EEVIPCON 08:07 → MED 08:07 → MIC 10:54 → MTU 02-05 18:57 → MIC 02-08 18:35 → MTU 02-10 03:04
PROVIDERS: ADMIT Hospitalist; ATTEND Hospitalist
PROC: 5A09357 Assistance with Respiratory Ventilation, Less than 24 Consecutive Hours, Continuous Positive Airway Pressure (ICD-10-PCS; 2020-01-29)
PROC: 5A1D70Z Performance of Urinary Filtration, Intermittent, Less than 6 Hours Per Day (ICD-10-PCS; principal; 2020-01-31)
PROC: 02HV33Z Insertion of Infusion Device into Superior Vena Cava, Percutaneous Approach (ICD-10-PCS; 2020-01-31)
PROC: B548ZZA Ultrasonography of Superior Vena Cava, Guidance (ICD-10-PCS; 2020-01-31)
PROC: B5181ZA Fluoroscopy of Superior Vena Cava using Low Osmolar Contrast, Guidance (ICD-10-PCS; 2020-02-12)
PROC: 0JH63XZ Insertion of Tunneled Vascular Access Device into Chest Subcutaneous Tissue and Fascia, Percutaneous Approach (ICD-10-PCS; 2020-02-12)
PROC: 02HV33Z Insertion of Infusion Device into Superior Vena Cava, Percutaneous Approach (ICD-10-PCS; 2020-02-12)
PROC: 05PYX3Z Removal of Infusion Device from Upper Vein, External Approach (ICD-10-PCS; 2020-02-12)
PROC: 30233N1 Transfusion of Nonautologous Red Blood Cells into Peripheral Vein, Percutaneous Approach (ICD-10-PCS; 2020-02-12)
DX: T82.42XA Displacement of vascular dialysis catheter, initial encounter (principal); A41.9 Sepsis, unspecified organism; I21.A1 Myocardial infarction type 2; J69.0 Pneumonitis due to inhalation of food and vomit; J96.21 Acute and chronic respiratory failure with hypoxia; J96.22 Acute and chronic respiratory failure with hypercapnia; N17.0 Acute kidney failure with tubular necrosis; G93.41 Metabolic encephalopathy; I50.43 Acute on chronic combined systolic (congestive) and diastolic (congestive) heart failure; J44.1 Chronic obstructive pulmonary disease with (acute) exacerbation; I13.0 Hypertensive heart and chronic kidney disease with heart failure and stage 1 through stage 4 chronic kidney disease, or unspecified chronic kidney disease; I16.9 Hypertensive crisis, unspecified; N18.4 Chronic kidney disease, stage 4 (severe); B18.1 Chronic viral hepatitis B without delta-agent; I42.7 Cardiomyopathy due to drug and external agent; F17.210 Nicotine dependence, cigarettes, uncomplicated; F15.10 Other stimulant abuse, uncomplicated; I71.4 Abdominal aortic aneurysm, without rupture; K59.00 Constipation, unspecified; D64.9 Anemia, unspecified; I48.91 Unspecified atrial fibrillation; D69.6 Thrombocytopenia, unspecified; T50.905A Adverse effect of unspecified drugs, medicaments and biological substances, initial encounter; E11.22 Type 2 diabetes mellitus with diabetic chronic kidney disease; Y83.8 Other surgical procedures as the cause of abnormal reaction of the patient, or of later complication, without mention of misadventure at the time of the procedure; Y92.89 Other specified places as the place of occurrence of the external cause; Z88.0 Allergy status to penicillin; Z03.818 Encounter for observation for suspected exposure to other biological agents ruled out
CPT/HCPCS: 36415; 36600; 71045; 80048; 80053; 80305; 81001; 82140; 82550; 82553; 82728; 82803; 82948; 83036; 83540; 83605; 83735; 83880; 84100; 84300; 84478; 84484; 85025; 85379; 85384; 85610; 85730; 86704; 86706; 86708; 86709; 86803; 86886; 86900; 86901; 86920; 87040; 87081; 87086; 87340; 87522; 87804; 90935; 93005; 93970; 94640; 94660; 96365; 96375; 97110; 97112; 97116; 97161-GP; 97530; 99291; A9153; C1750; C1751; G0482; J0360; J0456; J0690; J0696; J0885; J1160; J1630; J1644; J1815; J1940; J1956; J2001; J2060; J2250; J2270; J2405; J2916; J2930; J2997; J3010; J3480; J3490; J7030; J7042; J7060; J7512; J7613; J7644; P9016; Q0092; U0003-CS